=== PATIENT | female | born 1945 | race Caucasian/White ===

== ENCOUNTER 2015-12-25 12:02 | Outpatient (RCR) | payer MEDICARE, OTHER ==
[~2015-12-25 12:02] MED LIST: ANAS1TAB7 PO; BUTA-167 PO; CALC-656 PO; CITA20TA4 PO; CLOR3.755 PO; DEPRESSION; ESTR0.455; ETOD400T PO; FEXO-104 PO; FEXO180T PO; GBPN100C PO; HYDR1TAB8 OP; MULT-608 PO; NERVE PILL; NITR100C PO; OMEP20TA2 PO; OMG1KC PO; OXYC-12 PO; OXYC-309 PO; TRAM50TA2 PO
[2015-12-25 12:35] LABS: BASOPHILS % (AUTO) 1 % (0-10); EOSINOPHILS # (AUTO) 0.1 10^3/uL (0.0-0.3); EOSINOPHILS % (AUTO) 2 % (0-10); LYMPHOCYTES # (AUTO) 1.4 X 10^3 (1.0-4.0); LYMPHOCYTES % (AUTO) 40 % (12-44); MEAN CORPUSCULAR HGB CONC 33 G/DL (32-36); MEAN CORPUSCULAR VOLUME 92 FL (80-99); MEAN PLATELET VOLUME 8.4 FL (7.4-10.4); MONOCYTES # (AUTO) 0.3 X 10^3 (0.0-1.0); MONOCYTES % (AUTO) 8 % (0-12); NEUTROPHILS # (AUTO) 1.7 X 10^3 (1.8-7.8); NEUTROPHILS % (AUTO) 48 % (42-75); PLATELET COUNT 232 10^3/uL (130-400); RED CELL DISTRIBUTION WIDTH 13.5 % (10.0-14.5); WHITE BLOOD COUNT 3.5 10^3/uL (4.3-11.0)
[2015-12-25 12:37] LABS: MEAN CORPUSCULAR HEMOGLOBIN 30 PG (25-34)
[2015-12-25 13:05] LABS: ALBUMIN 3.8 G/DL (3.2-4.5); BILIRUBIN,TOTAL 0.3 MG/DL (0.1-1.0); CREATININE SERUM 1.06 MG/DL (0.60-1.30); POTASSIUM 4.1 MMOL/L (3.6-5.0); TOTAL PROTEIN 6.5 G/DL (6.4-8.2)
== END 2016-03-24 | disposition home or self-care (01) ==
LOC: ONC 12:02
PROVIDERS: ATTEND Internal Medicine Hematology & Oncology
DX: Z08 Encounter for follow-up examination after completed treatment for malignant neoplasm (principal); Z85.3 Personal history of malignant neoplasm of breast; Z90.12 Acquired absence of left breast and nipple
CPT/HCPCS: 80053; 85025; 86300

== ENCOUNTER → 2016-06-19 | Outpatient (CLI) | payer MEDICARE, OTHER ==
[~2016-06-19] VITALS: Ht 170.2 cm; Wt 71.7 kg
[~2016-06-19] MED LIST changes: +LEVOFLOXACIN 500 MG/100 ML IV 100 ML ONE; +LEVOFLOXACIN 500 MG/D5W 100 ML (PRE-MIX) IV ONE; +NS IV 1000 ML 1,000 ML IV SCH; +NS IV 1000 ML 1,000 ML ONE
[2016-06-19 11:45] VITALS: BP 101/65
[2016-06-19 12:01] LABS: MEAN PLATELET VOLUME 8.5 FL (7.4-10.4); RED BLOOD COUNT 4.18 10^6/uL (4.35-5.85); RED CELL DISTRIBUTION WIDTH 13.6 % (10.0-14.5)
[2016-06-19 12:23] LABS: ALBUMIN 3.3 G/DL (3.2-4.5); BILIRUBIN,TOTAL 0.4 MG/DL (0.1-1.0); CALCIUM 8.5 MG/DL (8.5-10.1); CREATININE SERUM 1.04 MG/DL (0.60-1.30); TOTAL PROTEIN 6.1 G/DL (6.4-8.2)
[2016-06-19 14:25] LABS: BILIRUBIN,URINE NEGATIVE (NEGATIVE); KETONES,URINE NEGATIVE (NEGATIVE); LEUKOCYTE ESTERASE ,URINE NEGATIVE (NEGATIVE); NITRITE,URINE NEGATIVE (NEGATIVE); PH,URINE 7 (5-9); PROTEIN,URINE NEGATIVE (NEGATIVE); UROBILINOGEN,URINE NORMAL (NORMAL)
[2016-06-19 14:38] LABS: SQUAMOUS EPITHELIAL CELL,UR RARE /HPF; WBC,URINE RARE /HPF
== END ==
LOC: SDC 11:18
PROVIDERS: ATTEND Nurse Practitioner Family
DX: E86.0 Dehydration (principal); J40 Bronchitis, not specified as acute or chronic; R50.9 Fever, unspecified
CPT/HCPCS: 36415; 80053; 81000; 85027; 96365; 96366

== ENCOUNTER → 2016-07-07 | Outpatient (CLI) | payer MEDICARE, OTHER ==
[~2016-07-07] MED LIST changes: -LEVOFLOXACIN 500 MG/100 ML IV 100 ML ONE; -LEVOFLOXACIN 500 MG/D5W 100 ML (PRE-MIX) IV ONE; -NS IV 1000 ML 1,000 ML IV SCH; -NS IV 1000 ML 1,000 ML ONE
--- NOTE | 2016-07-07 14:09 | Diagnostic Imaging Report ---
EXAMINATION: Right breast ultrasound. INDICATION: Followup 10 o'clock lesion seen on prior ultrasound. This would also be the time for a 6 month followup study after the biopsy performed in October 2015. FINDINGS: Again seen is a 4 x 3 x 3 mm hypoechoic lesion at the 10 o'clock zone 2 cm from the nipple. This is now significantly smaller compared to the prior measurements of 5 x 5 x 5 cm when compared to 11/15/2015 and this may relate to post biopsy changes. The lesion remains circumscribed and without internal increased color Doppler signal. IMPRESSION: The 4 mm circumscribed hypoechoic lesion has decreased in size compared to October 2015 and is likely related to post biopsy changes with no adverse development. A mammogram evaluation is pending. ACR BI-RADS Category 0: Incomplete. (Needs additional imaging evaluation). Result letter will be mailed to the patient. Note: At least 10% of breast cancer is not imaged by mammography. Dictated by: Dictated on workstation # [id number]
--- NOTE | 2016-07-07 17:05 | Diagnostic Imaging Report ---
EXAMINATION: Right breast diagnostic mammogram with a Computer Aided Detection (CAD) system. INDICATION: Lesion at the 10 o'clock zone seen in the right breast, post biopsy followup. COMPARISON: Previous exams are reviewed including 12/29/2013. FINDINGS: The Pathology report demonstrates periductal fibrosis and mild chronic inflammation with no malignancy seen. There is heterogeneously dense parenchyma in the breast with no new abnormality identified. A biopsy clip in the central aspect of the right breast is seen. IMPRESSION: Benign Pathology results with stable mammographic findings. The ultrasound abnormality is also smaller in size with no adverse development, consistent with benign etiology. Another followup with a mammogram and ultrasound in 12 months is recommended to ensure long-term stability. ACR BI-RADS Category 3: Probably benign findings. Result letter will be mailed to the patient. Note: At least 10% of breast cancer is not imaged by mammography. Dictated by: Dictated on workstation # [id number]
== END ==
LOC: RAD 09:03
PROVIDERS: ATTEND Nurse Practitioner Family
DX: R92.8 Other abnormal and inconclusive findings on diagnostic imaging of breast (principal)

== ENCOUNTER → 2016-07-30 | Outpatient (CLI) | payer MEDICARE, OTHER ==
--- NOTE | 2016-07-30 15:31 | Diagnostic Imaging Report ---
Three views of the nasal bones. INDICATION: Fall. FINDINGS: No fracture or dislocation in the nasal bones is seen. The orbits and paranasal sinuses appear grossly unremarkable. IMPRESSION: No nasal bone fracture. Dictated by: Dictated on workstation # [id number]
== END ==
LOC: RAD 10:29
PROVIDERS: ATTEND Nurse Practitioner Family
DX: S09.92XA Unspecified injury of nose, initial encounter (principal); W19.XXXA Unspecified fall, initial encounter; Y99.8 Other external cause status
CPT/HCPCS: 70160

== ENCOUNTER 2016-08-08 14:40 | Emergency (ER) | payer MEDICARE, OTHER ==
[~2016-08-08] VITALS: Ht 170.2 cm; Wt 72.6 kg
[2016-08-08] MEDS ORDERED: OXYMETAZOLINE (AFRIN) 0.05% NA 15 ML BTL ONE (14:46)
--- NOTE | 2016-08-08 14:51 | ED Fall/Injury ---
General Chief Complaint: Trauma-Non Activation Stated Complaint: FALL, FACIAL INJ Source: patient Exam Limitations: no limitations History of Present Illness Time seen by provider: 14:49 Initial Comments To ER with reports of a fall. Patient was taking out the trash when she stumbled landing face first. She has a bloody nose. No loss of consciousness or neck pain. She does have a headache. Tetanus is not up-to-date per just has pain in the right forearm from the right elbow to the right wrist and bruising and abrasions to both knees anteriorly. She is not on a blood thinner. Occurred: just prior to arrival Severity: moderate Injuries/Pain Location: face Context: unknown Associated Symptoms (Fall): Headache, No Nausea/Vomiting, No Neck Pain Allergies and Home Medications Allergies Coded Allergies: codeine (Verified Allergy, Unknown, 05/10/09) pseudoephedrine (Unverified Allergy, Unknown, NERVOUSNESS, 12/28/15) Home Medications Amoxicillin 500 Mg Capsule, 500 MG PO TID, #21 Prescribed by: FREDERIC GALVAN on 08/08/16 1558 Anastrozole 1 Mg Tablet, 1 MG PO DAILY, (Reported) Butalbital/Aspirin/Caffeine 1 Each Tablet, 1 EACH PO Q6H PRN, (Reported) FOR HEADACHE Calcium Carbonate/Vitamin D3 1 Each Tablet, 1 EACH PO DAILY, (Reported) Citalopram Hydrobromide 20 Mg Tablet, 20 MG PO DAILY, (Reported) Clorazepate Dipotassium 3.75 Mg Tablet, 1 EACH PO BID, (Reported) Etodolac 400 Mg Tablet, 1 EACH PO DAILY, (Reported) Fexofenadine Hcl 180 Mg Tablet, 1 TAB PO DAILY, (Reported) Gabapentin 100 Mg Cap, 100 MG PO TID, (Reported) Hydrocodone Bit/Ibuprofen 1 Each Tablet, 1-2 EACH OP Q 4 - 6 HRS PRN, #20 FOR PAIN Prescribed by: JOZEF BRODY on 07/27/12 2150 Hydrocodone/Acetaminophen 1 Each Tablet, 1 EACH PO Q6H PRN for PAIN-MODERATE TO SEVERE, #20 Prescribed by: FREDERIC GALVAN on 08/08/16 1558 Multivitamins 1 Tab Tablet, 1 TAB PO DAILY, (Reported) [place] 3 Polyunsat Fatty Acids 1,000 Mg Cap, 1,000 MG PO BID, (Reported) Omeprazole 20 Mg Tablet.dr, 20 MG PO DAILY, (Reported) Tramadol Hcl 50 Mg Tablet, 50 MG PO Q6H PRN, (Reported) Constitutional: see HPI Eyes: No Symptoms Reported Ears, Nose, Mouth, Throat: see HPI Respiratory: no symptoms reported Cardiovascular: no symptoms reported Genitourinary: no symptoms reported Musculoskeletal: no symptoms reported Skin: no symptoms reported Psychiatric/Neurological: No Symptoms Reported Past Ivswjpq-Obsggc-Psgexn Hx Patient Social History Recent Foreign Travel: No Contact w/Someone Who Travel: No Immunizations Up To Date Date of Pneumonia Vaccine: Dec 20, 2010 Date of Influenza Vaccine: Jan 19, 2011 Surgeries HX Surgeries: Yes Respiratory Hx Respiratory Disorders: No Cardiovascular Hx Cardiac Disorders: No Neurological Hx Neurological Disorders: Yes Genitourinary Hx Genitourinary Disorders: No Gastrointestinal Hx Gastrointestinal Disorders: Yes Gastrointestinal Disorders: Gastroesophageal Reflux Musculoskeletal Hx Musculoskeletal Disorders: Yes Musculoskeletal Disorders: Arthritis Endocrine Hx Endocrine Disorders: No HEENT HX ENT Disorders: Yes (PARTIAL PLATE) Cancer Hx Cancer: Yes Cancer: Breast Psychosocial Hx Psychiatric Problems: Yes Behavioral Health Disorders: Anxiety, Depression Integumentary HX Skin/Integumentary Disorder: No Blood Transfusions Hx Blood Disorders: No Physical Exam Vital Signs Vital Sign - Last 12Hours 08/08/16 14:57 Temp 98.2 Pulse 96 Resp 18 B/P (MAP) 128/76 Pulse Ox 96 Capillary Refill : General Appearance: WD/WN, no apparent distress HEENT: PERRL/EOMI, TMs normal, other (Ecchymosis and abrasions to the bridge of the nose and the right eyebrow. There is active epistaxis from both nares though this is not uncontrollable. We will treat with oximetry was seen as she does have normal blood pressure 128/73.) Neck: non-tender, full range of motion, No tender lateral, No tender midline Cardiovascular: regular rate, rhythm, no murmur Respiratory: no respiratory distress, no accessory muscle use Gastrointestinal: normal bowel sounds, non tender, soft Neurologic/Psychiatric: alert, normal mood/affect, oriented x 3 Skin: normal color, warm/dry Progress/Results/Core Measures Results/Orders My Orders Orders - FREDERIC GALVAN APRN Ct Head/Face/Cervical Wo (08/08/16 14:43) Dipht,Pertuss(Acell),Tet Adult (Boostrix (08/08/16 15:00) Forearm, Right, 2 Views (08/08/16 14:48) Knee, 3 Views, Bilateral (08/08/16 14:48) Oxymetazoline 0.05% Nasal [place] (Afrin 0. (08/08/16 21:00) Oxymetazoline 0.05% Nasal [place] (Afrin 0. (08/08/16 14:46) Dipht,Pertuss(Acell),Tet Adult (Boostrix (08/08/16 14:46) Hydrocodone/Apap 5/325 Tablet (Lortab 5 (08/08/16 16:15) Medications Given in ED Current Medications Medications Dose Ordered Sig/[place] Route Start Time Stop Time Status Last Admin Dose Admin Acetaminophen/ Hydrocodone Bitart 1 tab ONCE ONCE PO 08/08/16 16:15 08/08/16 16:16 DC 08/08/16 16:14 1 TAB Diphtheria/ Tetanus/Acell Pertussis 0.5 ml ONCE ONCE IM 08/08/16 15:00 08/08/16 15:01 DC 08/08/16 14:54 0.5 ML Vital Signs/I&O Vital Sign - Last 12Hours 08/08/16 14:57 Temp 98.2 Pulse 96 Resp 18 B/P (MAP) 128/76 Pulse Ox 96 Diagnostic Imaging Diagonstic Imaging: Xray, CT Comments NAME: MAHENDRA MASON [facility] REC#: [id number] PT STATUS: REG ER : 1945 PHYSICIAN: FREDERIC GALVAN HOT STAMP OPERATOR ADMIT DATE: 08/08/16/ER Draft Date of Exam:08/08/16 CT HEAD/FACE/CERVICAL WO PROCEDURE: CT head, face, and cervical spine without contrast. TECHNIQUE: Multiple contiguous axial images were obtained through the head, neck, and facial bones without the use of intravenous contrast. Sagittal and coronal reformations through the cervical spine and facial bones were also performed. INDICATION: Fall. Head injury. COMPARISON: None. FINDINGS: Head CT: No acute intracranial hemorrhage, mass effect or edema is demonstrated. Michelle-white junction is preserved. Ventricles appear normal. The paranasal sinuses and mastoids are clear as visualized. Maxillofacial CT: There is soft tissue swelling/hematoma over the right frontal/periorbital region. There is a comminuted nondisplaced nasal fracture. No additional fracture is demonstrated. Orbits appear intact. The ostiomeatal units are patent bilaterally. There is minimal tortuosity of nasal septum to the left. There is incidental minimal mucosal thickening in the maxillary sinuses bilaterally, likely chronic. The globes appear symmetric bilaterally without intraorbital mass seen. Cervical spine CT: No acute fracture, malalignment or osseous destructive process is seen. Vertebral body heights are maintained. There is disc space narrowing and spurring throughout the cervical spine most severe at C5-C6 and C6-C7. No acute soft tissue abnormality is suspected. IMPRESSION: 1. No evidence of an acute intracranial abnormality. 2. No evidence of acute cervical spine fracture. There are diffuse degenerative changes in the cervical spine. 3. Comminuted nondisplaced nasal fracture and right frontal periorbital soft tissue hematoma. No additional maxillofacial abnormality is suspected. 4. Incidental minimal maxillary sinus inflammatory changes, likely chronic. Dictated on workstation # [id number] Dict: 08/08/16 1539 Trans: 08/08/16 1551 KB [id number] Interpreted by: DYLAN MANUEL DO Electronically signed by: Departure Communication Progress Notes She remains neurovascularly intact. I've placed her in a posterior long-arm splint using 4 inch Ortho-Glass in a sling. Instructed to follow-up with orthopedics calling on Wednesday. Impression Impression: Primary Impression: Radius fracture Additional Impressions: Nasal bone fracture Fall Epistaxis Disposition: 01 HOME, SELF-CARE Condition: Stable Departure-Patient Inst. Decision time for Depature: 15:56 Referrals: DANIEL TYLER MD (PCP/Family) Primary Care Physician YESENIA HALL JONATHAN MD IPSEN, BRIAN J MD MCNEMAR, MARK E DO OGDEN, JOHN T MD ZAFUTA,JOVANNA Patel MD Patient Instructions: Forearm Fracture (DC), Nose Fracture Add. Discharge Instructions: 1. Antibiotics as directed for the nasal fracture 2. Pain medication as needed 3. Wear the splint at all times until you follow up with orthopedics. Call orthopedic surgeon of your choosing on Wednesday to make an appointment to be seen within the next 1-2 weeks. Return to ER for any intolerable pain, numbness of the fingers or other concerns All discharge instructions reviewed with patient and/or family. Voiced understanding. Scripts Amoxicillin (Amoxicillin) 500 Mg Capsule 500 MG PO TID, #21 CAP . Prov: FREDERIC GALVAN APRN 08/08/16 Hydrocodone/Acetaminophen ([place] 5-325 Tablet) 1 Each Tablet 1 EACH PO Q6H Y for PAIN-MODERATE TO SEVERE, #20 TAB Prov: FREDERIC GALVAN APRN 08/08/16 Copy Copies To 1: DANIEL TYLER MD, PETER J APRN August 08, 2016 14:51
[2016-08-08] MEDS: TETANUS,DIPTH,PERTUSS P/F (BOOSTRIX) 0.5 ML VIAL IM ONE ×2 (14:54→14:56)
[2016-08-08] MEDS ORDERED: TETANUS,DIPTH,PERTUSS P/F (BOOSTRIX) 0.5 ML VIAL IM ONE (15:00)
--- NOTE | 2016-08-08 15:38 | Diagnostic Imaging Report ---
INDICATION: Fall. Pain. COMPARISON: None. FINDINGS: Three views of both knees are obtained. No acute fracture, malalignment or osseous destructive process is seen. Joint spaces are preserved. The soft tissues appear unremarkable. IMPRESSION: No acute abnormalities demonstrated. Dictated by: Dictated on workstation # [id number]
--- NOTE | 2016-08-08 15:40 | Diagnostic Imaging Report ---
INDICATION: Fall. Pain. COMPARISON: None. EXAMINATION: Two views of the right forearm were obtained. FINDINGS: There is a slightly angulated impacted nondisplaced fracture of the radial neck. No additional fracture, malalignment or osseous destructive process is seen. There is deformity of the distal radius from an old healed fracture. There is a small joint effusion at the elbow. IMPRESSION: There is an impacted nondisplaced mildly angulated radial neck fracture. Report was called to Wilfrid Caban APRN, in the [facility] ER at 3:38 p.m., by joshua. Dictated by: Dictated on workstation # [id number]
--- NOTE | 2016-08-08 15:52 | Diagnostic Imaging Report ---
PROCEDURE: CT head, face, and cervical spine without contrast. TECHNIQUE: Multiple contiguous axial images were obtained through the head, neck, and facial bones without the use of intravenous contrast. Sagittal and coronal reformations through the cervical spine and facial bones were also performed. INDICATION: Fall. Head injury. COMPARISON: None. FINDINGS: Head CT: No acute intracranial hemorrhage, mass effect or edema is demonstrated. Michelle-white junction is preserved. Ventricles appear normal. The paranasal sinuses and mastoids are clear as visualized. Maxillofacial CT: There is soft tissue swelling/hematoma over the right frontal/periorbital region. There is a comminuted nondisplaced nasal fracture. No additional fracture is demonstrated. Orbits appear intact. The ostiomeatal units are patent bilaterally. There is minimal tortuosity of nasal septum to the left. There is incidental minimal mucosal thickening in the maxillary sinuses bilaterally, likely chronic. The globes appear symmetric bilaterally without intraorbital mass seen. Cervical spine CT: No acute fracture, malalignment or osseous destructive process is seen. Vertebral body heights are maintained. There is disc space narrowing and spurring throughout the cervical spine most severe at C5-C6 and C6-C7. No acute soft tissue abnormality is suspected. IMPRESSION: 1. No evidence of an acute intracranial abnormality. 2. No evidence of acute cervical spine fracture. There are diffuse degenerative changes in the cervical spine. 3. Comminuted nondisplaced nasal fracture and right frontal periorbital soft tissue hematoma. No additional maxillofacial abnormality is suspected. 4. Incidental minimal maxillary sinus inflammatory changes, likely chronic. Dictated by: Dictated on workstation # [id number]
[2016-08-08] MEDS ORDERED: AMOX500C2 PO ×2 (15:58→16:57)
[2016-08-08] MEDS ORDERED: HYDR-757 PO (15:58)
[2016-08-08] MEDS ORDERED: HYDROcodone/APAP 5 MG/325 MG (LORTAB) TAB PO ONE (16:15)
[2016-08-08 17:01] VITALS: BP 128/76
[2016-08-08] MEDS ORDERED: OXYMETAZOLINE (AFRIN) 0.05% NA 15 ML BTL SCH (21:00)
== END 2016-08-08 17:01 | disposition home or self-care (01) ==
LOC: EDUNIT# 14:40 → ER 14:41
DX: S52.134A Nondisplaced fracture of neck of right radius, initial encounter for closed fracture (principal); S02.2XXA Fracture of nasal bones, initial encounter for closed fracture; Z23 Encounter for immunization; S80.211A Abrasion, right knee, initial encounter; S80.212A Abrasion, left knee, initial encounter; S00.83XA Contusion of other part of head, initial encounter; R04.0 Epistaxis; J32.0 Chronic maxillary sinusitis; M47.812 Spondylosis without myelopathy or radiculopathy, cervical region; Z79.899 Other long term (current) drug therapy; W01.0XXA Fall on same level from slipping, tripping and stumbling without subsequent striking against object, initial encounter; Y92.017 Garden or yard in single-family (private) house as the place of occurrence of the external cause; Y99.8 Other external cause status
CPT/HCPCS: 29105; 70450; 70486; 72125; 73090; 90471; 90715

== ENCOUNTER → 2016-09-17 | Outpatient (CLI) | payer MEDICARE, OTHER ==
[~2016-09-17] MED LIST changes: +AMOX500C2 PO; +HYDR-757 PO
--- NOTE | 2016-09-17 18:33 | Diagnostic Imaging Report ---
Examination: DEXA scan. Indication: Osteopenia. Technique: Bone mineral density estimated based on dual energy radiography over the lumbar spine and femoral necks, was performed. Findings: The lumbar spine T-score is -2.7. T-score over the left femoral neck is -2.2 and on the right side is -2.4. Impression: Osteoporosis. Dictated by: Dictated on workstation # [id number]
== END ==
LOC: RAD 09:37
PROVIDERS: ATTEND Nurse Practitioner Family
DX: M81.0 Age-related osteoporosis without current pathological fracture (principal)
CPT/HCPCS: 77080

== ENCOUNTER → 2016-11-06 | Outpatient (CLI) | payer MEDICARE, OTHER ==
--- NOTE | 2016-11-06 18:06 | Diagnostic Imaging Report ---
PROCEDURE: CT head without contrast. TECHNIQUE: Multiple contiguous axial images were obtained through the brain without the use of intravenous contrast. INDICATION: Dizziness and headache with increased frequency of falls. FINDINGS: The ventricles are normal in size, shape, and position. There are no masses or hemorrhages. There are no extra-axial fluid collections. IMPRESSION: Negative CT head. Dictated by: Dictated on workstation # [id number]
== END ==
LOC: RAD 14:32
PROVIDERS: ATTEND Nurse Practitioner Family
DX: R42 Dizziness and giddiness (principal); R51 Headache
CPT/HCPCS: 70450

== ENCOUNTER 2017-01-04 16:14 | Outpatient (RCR) | payer MEDICARE, OTHER ==
[2017-01-04 10:39] LABS: BASOPHILS % (AUTO) 1 % (0-10); EOSINOPHILS # (AUTO) 0.1 10^3/uL (0.0-0.3); EOSINOPHILS % (AUTO) 3 % (0-10); HEMATOCRIT 39 % (35-52); HEMOGLOBIN 12.7 G/DL (11.5-16.0); LYMPHOCYTES # (AUTO) 1.6 X 10^3 (1.0-4.0); LYMPHOCYTES % (AUTO) 43 % (12-44); MEAN CORPUSCULAR HEMOGLOBIN 30 PG (25-34); MEAN CORPUSCULAR HGB CONC 33 G/DL (32-36); MEAN CORPUSCULAR VOLUME 92 FL (80-99); MEAN PLATELET VOLUME 8.3 FL (7.4-10.4); MONOCYTES # (AUTO) 0.3 X 10^3 (0.0-1.0); MONOCYTES % (AUTO) 9 % (0-12); NEUTROPHILS # (AUTO) 1.6 X 10^3 (1.8-7.8); NEUTROPHILS % (AUTO) 44 % (42-75); PLATELET COUNT 319 10^3/uL (130-400); RED BLOOD COUNT 4.18 10^6/uL (4.35-5.85); RED CELL DISTRIBUTION WIDTH 13.1 % (10.0-14.5); WHITE BLOOD COUNT 3.6 10^3/uL (4.3-11.0)
[2017-01-04 10:58] LABS: ALBUMIN 3.6 GM/DL (3.2-4.5); BILIRUBIN,TOTAL 0.4 MG/DL (0.1-1.0); CALCIUM 9.4 MG/DL (8.5-10.1); CREATININE SERUM 1.08 MG/DL (0.60-1.30); TOTAL PROTEIN 6.7 GM/DL (6.4-8.2)
== END 2017-04-04 | disposition home or self-care (01) ==
LOC: ONC 16:14
PROVIDERS: ATTEND Internal Medicine Hematology & Oncology
DX: Z08 Encounter for follow-up examination after completed treatment for malignant neoplasm (principal); Z85.3 Personal history of malignant neoplasm of breast; Z90.12 Acquired absence of left breast and nipple
CPT/HCPCS: 36415; 80053; 85025; 99213

== ENCOUNTER → 2017-07-06 | Outpatient (CLI) | payer MEDICARE, OTHER ==
[~2017-07-06] MED LIST changes: +CALC-654 PO; +CHOL500050 PO; +CITA20TA9 PO; +CYAN250010 PO; +DIAZ5TAB3 PO; +FEXO1TAB43 PO; +MELO15TA39 PO; +MULT-974 PO; +OMEP20CA12 PO; +TOPI50TA13 PO
--- NOTE | 2017-07-06 16:50 | Diagnostic Imaging Report ---
INDICATION: Routine screening. COMPARISON: 07/07/2016 and 11/15/2015. TECHNIQUE: Screening digital mammography was performed bilaterally with a Computer Aided Detection (CAD) system. FINDINGS: The right breast remains heterogeneously dense, limiting the sensitivity of mammography. A marker clip in the central right breast at mid depth is again noted. The parenchymal pattern appears stable. No dominant mass or malignant appearing microcalcifications are seen. The right axilla is unremarkable. IMPRESSION: Stable right mammogram. No mammographic features suspicious for malignancy are identified. ACR BI-RADS Category 2: Benign findings. Result letter will be mailed to the patient. Note: At least 10% of breast cancer is not imaged by mammography. Dictated by: Dictated on workstation # [id number]
== END ==
LOC: RAD 15:19
PROVIDERS: ATTEND Nurse Practitioner Family
DX: Z12.31 Encounter for screening mammogram for malignant neoplasm of breast (principal)

== ENCOUNTER → 2017-08-24 | Outpatient (CLI) | payer MEDICARE, OTHER ==
[~2017-08-24] MED LIST changes: -CALC-654 PO; -CHOL500050 PO; -CITA20TA9 PO; -CYAN250010 PO; -DIAZ5TAB3 PO; -FEXO1TAB43 PO; -MELO15TA39 PO; -MULT-974 PO; -OMEP20CA12 PO; -TOPI50TA13 PO
--- NOTE | 2017-08-24 16:10 | Diagnostic Imaging Report ---
INDICATION: Abdominal pain x4 months. KUB at 4:15 PM FINDINGS: Bowel gas pattern is normal. There is scoliosis of the lumbar spine with degenerative changes at L3-L4 and L4-L5. There are no pathologic masses or calcifications. There does not appear to be excessive amount of stool. IMPRESSION: No acute abnormalities in the abdomen. Dictated by: Dictated on workstation # [id number]
== END ==
LOC: RAD 15:36
PROVIDERS: ATTEND Family Medicine
DX: R10.9 Unspecified abdominal pain (principal)
CPT/HCPCS: 74019

== ENCOUNTER → 2017-09-02 | Outpatient (CLI) | payer MEDICARE, OTHER ==
--- NOTE | 2017-09-02 11:51 | Diagnostic Imaging Report ---
PROCEDURE: CT abdomen and pelvis without contrast. TECHNIQUE: Multiple contiguous axial images were obtained through the abdomen and pelvis without the use of intravenous contrast. INDICATION: Lower abdominal pain and bloating. COMPARISON: No prior studies are available for comparison. FINDINGS: The lung bases are clear. There is a large hiatal hernia present. The liver does contain a circumscribed low density in the left lobe measuring 15 mm, suggestive of a cyst. No other liver mass is identified. The gallbladder is unremarkable. The pancreas and spleen are unremarkable. No adrenal mass is detected. Kidneys are unremarkable. The aorta is calcified but nonaneurysmal. The small and large bowel loops are normal caliber. There is sigmoid diverticulosis but no evidence of acute diverticulitis. There is no ascites. No loculated fluid collection is seen. No inflammatory process is detected. The bladder is decompressed. IMPRESSION: 1. Diverticulosis without evidence of acute diverticulitis. 2. Moderate size hiatal hernia. 3. Hepatic cysts. 4. No acute feature in the abdomen or pelvis is identified. Dictated by: Dictated on workstation # [id number]
== END ==
LOC: RAD 10:09
PROVIDERS: ATTEND Family Medicine
DX: K57.30 Diverticulosis of large intestine without perforation or abscess without bleeding (principal); K76.89 Other specified diseases of liver; K44.9 Diaphragmatic hernia without obstruction or gangrene; R14.0 Abdominal distension (gaseous)
CPT/HCPCS: 74176

== ENCOUNTER → 2017-09-24 | Outpatient (CLI) | payer MEDICARE, OTHER ==
[~2017-09-24] MED LIST changes: +CALC-654 PO; +CATHETER FLUSH 10 ML SYR IV PRN; +CHOL500050 PO; +CITA20TA9 PO; +CYAN250010 PO; +DIAZ5TAB3 PO; +FEXO1TAB43 PO; +MELO15TA39 PO; +MULT-974 PO; +OMEP20CA12 PO; +TOPI50TA13 PO
--- NOTE | 2017-09-24 15:36 | Diagnostic Imaging Report ---
HEPATOBILIARY SCAN DATE: September 24, 2017. INDICATION: 71-year-old female, abdominal pain. COMPARISON: Right upper quadrant ultrasound, September 16, 2017. CT abdomen and pelvis, September 02, 2017. PROCEDURE: 5.42 mCi of Tc-99m choletec was administered intravenously and serial anterior planar images over the liver and upper abdomen were obtained. FINDINGS: There is clearance of background activity by the liver, indicating hepatocyte function. There is radiotracer excretion into the bile ducts with extension into small bowel. There is radiotracer filling of the gallbladder by 75 minutes. There is no enterogastric reflux. Ensure was administered for calculation of gallbladder ejection fraction. Gallbladder ejection fraction was calculated to be 65%. IMPRESSION: Normal hepatobiliary scan. No evidence of acute or chronic cholecystitis. Dictated by: Dictated on workstation # [id number]
== END ==
LOC: CARD 11:43
PROVIDERS: ATTEND Surgery
DX: R10.30 Lower abdominal pain, unspecified (principal)
CPT/HCPCS: 78227

== ENCOUNTER 2017-10-08 05:36 | Outpatient (CLI) | payer MEDICARE, OTHER ==
[~2017-10-08] VITALS: Ht 170.2 cm; Wt 70.3 kg
[~2017-10-08 05:36] MED LIST changes: -CALC-654 PO; -CATHETER FLUSH 10 ML SYR IV PRN; -CHOL500050 PO; -CITA20TA9 PO; -CYAN250010 PO; -DIAZ5TAB3 PO; -FEXO1TAB43 PO; -MELO15TA39 PO; -MULT-974 PO; -OMEP20CA12 PO; -TOPI50TA13 PO
[2017-10-08] MEDS ORDERED: OMG1KC PO (09:20)
[2017-10-08] MEDS ORDERED: CITA20TA9 PO (09:20)
[2017-10-08] MEDS ORDERED: FEXO1TAB43 PO (09:20)
[2017-10-08] MEDS ORDERED: TOPI50TA13 PO (09:20)
[2017-10-08] MEDS ORDERED: OMEP20CA12 PO (09:20)
[2017-10-08] MEDS ORDERED: MULT-974 PO (09:20)
[2017-10-08] MEDS ORDERED: MELO15TA39 PO (09:20)
[2017-10-08] MEDS ORDERED: CHOL500050 PO (09:20)
[2017-10-08] MEDS ORDERED: CYAN250010 PO (09:20)
[2017-10-08] MEDS ORDERED: CALC-654 PO (09:20)
[2017-10-08] MEDS ORDERED: DIAZ5TAB3 PO (09:20)
== END 2017-10-08 09:27 ==
LOC: PREOP 05:36
PROVIDERS: ATTEND Surgery
DX: Z01.818 Encounter for other preprocedural examination (principal)

== ENCOUNTER 2017-10-11 12:17 | Day surgery (SDC) | payer MEDICARE, OTHER ==
[~2017-10-11] VITALS: Ht 170.2 cm; Wt 70.3 kg
[~2017-10-11 12:17] MED LIST changes: +CALC-654 PO; +CHOL500050 PO; +CITA20TA9 PO; +CYAN250010 PO; +DIAZ5TAB3 PO; +FEXO1TAB43 PO; +MELO15TA39 PO; +MULT-974 PO; +OMEP20CA12 PO; +TOPI50TA13 PO
--- OUTSIDE RECORDS SUMMARY | 2017-10-11 12:26 | XMS REPORT | CCD ---
Author Author Karolina Ochoa Organization [facility] Address [address] [place] [address] Phone Care Team Providers Care Telecommunications Operator Name Role Phone PP Unavailable CCM Unavailable Summary Purpose Interface Exchange Insurance Providers Payer name Policy type / Coverage type Covered libertarian ID Effective Begin Date Effective End Date WPS Medicare Part B [id number] 2015 Unknown [employer] [id number] 2015 Unknown Family history Uncle Diagnosis Age At Onset Heart Attack Unknown Aunt Diagnosis Age At Onset Cancer Unknown Sister Diagnosis Age At Onset Breast cancer Unknown Father Diagnosis Age At Onset Diabetes Unknown Sister Diagnosis Age At Onset Breast cancer Unknown Mother Diagnosis Age At Onset Diabetes Unknown Depression Unknown Social History Social History Element Codes Description Effective Dates Marital status Unknown 12/27/2012 Employment Unknown Retired 12/27/[address]: 012332632 Never smoker 12/27/[address]: 826393261 Never drinks alcohol 12/27/2012 Has the patient ever used illegal drugs? Unknown Has never used illegal drugs 12/27/2012 Allergies, Adverse Reactions, Alerts Substance Reaction Codes Entered Date Inactivated Date Status bactrim abdominal pain RxNorm: 597862 10/22/2014 No Inactive Date Active Past Medical History Illness Codes Condition Status Onset Date Resolved Date Otalgia, right ear ICD -9: 388.70 ICD-10: H92.01 Active 03/12/2017 Unknown Other acute sinusitis ICD-9: 461.8 ICD-10: J01.80 Active 01/20/2017 Unknown Other allergic rhinitis ICD-9: 477.8 ICD-10: J30.89 Active 01/20/2017 Unknown Gastro-esophageal reflux disease without esophagitis ICD-9: 530.81 ICD-10: K21.9 Active 01/20/2017 Unknown Encounter for immunization ICD-9: V06.6 ICD-10: Z23 Active 01/11/2017 Unknown Dizziness and giddiness ICD-9: 780.4 ICD-10: R42 Active 08/14/2016 Unknown Gas pain ICD-9: 787.3 ICD-10: R14.1 Active 11/03/2016 Unknown Headache ICD-9: 784.0 ICD-10: R51 Active 07/30/2016 Unknown Radiculopathy, lumbar region ICD-9: 724.4 ICD-10: M54.16 Active 11/03/2016 Unknown Age-related osteoporosis without current pathological fracture ICD-9: 733.00 ICD-10: M81.0 Active 09/29/2016 Unknown Encounter for general adult medical examination with abnormal findings ICD-9: V70.0 ICD-10: Z00.01 Active 09/29/2016 Unknown Generalized anxiety disorder ICD-9: 300.02 ICD-10: F41.1 Active 09/29/2016 Unknown Rash and other nonspecific skin eruption ICD-9: 782.1 ICD-10: R21 Active 08/31/2016 Unknown Fracture of nasal bones, initial encounter for closed fracture ICD-9: 802.0 ICD-10: S02.2XXA Active 08/14/2016 Unknown Nondisplaced fracture of neck of right radius, initial encounter for closed fracture ICD-9: 813.06 ICD-10: S52.134A Active 08/14/2016 Unknown Orthostatic hypotension ICD-9: 458.0 ICD-10: I95.1 Active 08/14/2016 Unknown Contusion of nose, initial encounter ICD-9: 920 ICD-10: S00.33XA Active 07/30/2016 Unknown Pain in left shoulder ICD-9: 719.41 ICD-10: M25.512 Active 07/30/2016 Unknown Candidal stomatitis ICD-9: 112.0 ICD-10: B37.0 Active 06/16/2016 Unknown Cough ICD-9: 786.2 ICD-10: R05 Active 04/03/2014 Unknown Acute bronchitis, unspecified ICD-9: 466.0 ICD-10: J20.9 Active 02/19/2015 Unknown Acute recurrent maxillary sinusitis ICD-9: 461.0 ICD-10: J01.01 Active 05/11/2016 Unknown Allergic rhinitis due to pollen ICD-9: 477.9 ICD-10: J30.1 Active 12/29/2013 Unknown Encounter for immunization ICD-9: V04.81 ICD-10: Z23 Active 01/10/2013 Unknown Mastodynia ICD-9: 611.71 ICD-10: N64.4 Active 12/24/2015 Unknown Migraine, unspecified, not intractable, without status migrainosus ICD-9: 346.90 ICD-10: G43.909 Active 11/06/2015 Unknown Plantar wart ICD-9: 078.12 ICD-10: B07.0 Active 05/01/2014 Unknown Other acute sinusitis ICD-9: 461.9 ICD-10: J01.80 Active 08/02/2013 Unknown Rash ICD-9: 782.1 Active 12/09/2014 Unknown SPONTANEOUS ECCHYMOSES ICD-9: 782.7 Active 11/20/2014 Unknown Low back pain ICD-9: 724.2 Active 10/22/2014 Unknown DYSURIA ICD-9: 788.1 Active 10/21/2014 Unknown Anxiety ICD-9: 300.00 Active 09/03/2014 Unknown Gastroesophageal reflux disease ICD-9: 530.81 Active 2014 Unknown Actinic keratosis due to exposure to sunlight ICD-9: 702.0 Active 05/01/2014 Unknown PLANTAR WART ICD-9: 078.12 Active 05/01/2014 Unknown Cough ICD-9: 786.2 Active 04/03/2014 Unknown Constipation ICD-9: 564.00 Active 02/08/2014 Unknown ALLERGIC RHINITIS ICD- 9: 477.9 Active 12/29/2013 Unknown Tension headache ICD-9 : 307.81 Active 12/21/2013 Unknown Urinary tract infection ICD-9: 599.0 Active 10/31/2013 Unknown PAIN IN LIMB ICD-9: 729.5 Active 08/23/2013 Unknown Skin change ICD-9: 782.9 Active 08/23/2013 Unknown Wart viral ICD-9: 078.10 Active 08/23/2013 Unknown Thrush ICD-9: 112.0 Active 08/10/2013 Unknown ACUTE SINUSITIS ICD-9 : 461.9 Active 08/02/2013 Unknown HEADACHE ICD-9: 784.0 Active 08/02/2013 Unknown Muscle spasms of neck ICD-9: 728.85 Active 07/18/2013 Unknown Pain in left knee ICD- 9: 719.46 Active 07/18/2013 Unknown Shoulder pain, right ICD-9: 719.41 Active 07/18/2013 Unknown DIZZINESS AND GIDDINESS ICD-9: 780.4 Active 06/27/2013 Unknown Fatigue ICD-9: 780.79 Active 06/27/2013 Unknown Migraine headache ICD- 9: 346.90 Active 06/27/2013 Unknown Myalgia ICD-9: 729.1 Active 06/27/2013 Unknown Nausea ICD-9: 787.02 Active 06/27/2013 Unknown Multiple joint pain ICD-9: 719.49 Active 06/01/2013 Unknown History of UTI ICD-9: V13.02 Inactive 12/27/2012 Unknown Dyspnea ICD-9: 786.09 Resolved 01/10/2013 Unknown Pneumonia ICD-9: 486 Resolved 05/15/2013 Unknown Vaginal yeast infection ICD-9: 112.1 Resolved 12/27/2012 Unknown BPPV (benign paroxysmal positional vertigo) ICD-9: 386.11 Active 02/02/2013 Unknown VACCIN FOR INFLUENZA ICD-9: V04.81 Active 01/10/2013 Unknown Scoliosis Unknown Active 12/27/2012 Unknown Cerumen impaction ICD- 9: 380.4 Active 12/27/2012 Unknown Problems Condition Codes Effective Dates Condition Status Otalgia, right ear ICD -9: 388.70 ICD-10: H92.01 03/12/2017 Active Other acute sinusitis ICD-9: 461.8 ICD-10: J01.80 01/20/2017 Active Other allergic rhinitis ICD-9: 477.8 ICD-10: J30.89 01/20/2017 Active Gastro-esophageal reflux disease without esophagitis ICD-9: 530.81 ICD-10: K21.9 01/20/2017 Active Encounter for immunization ICD-9: V06.6 ICD-10: Z23 01/11/2017 Active Dizziness and giddiness ICD-9: 780.4 ICD-10: R42 08/14/2016 Active Gas pain ICD-9: 787.3 ICD-10: R14.1 11/03/2016 Active Headache ICD-9: 784.0 ICD-10: R51 07/30/2016 Active Radiculopathy, lumbar region ICD-9: 724.4 ICD-10: M54.16 11/03/2016 Active Age-related osteoporosis without current pathological fracture ICD-9: 733.00 ICD-10: M81.0 09/29/2016 Active Encounter for general adult medical examination with abnormal findings ICD-9: V70.0 ICD-10: Z00.01 09/29/2016 Active Generalized anxiety disorder ICD-9: 300.02 ICD-10: F41.1 09/29/2016 Active Rash and other nonspecific skin eruption ICD-9: 782.1 ICD-10: R21 08/31/2016 Active Fracture of nasal bones, initial encounter for closed fracture ICD-9: 802.0 ICD-10: S02.2XXA 08/14/2016 Active Nondisplaced fracture of neck of right radius, initial encounter for closed fracture ICD-9: 813.06 ICD-10: S52.134A 08/14/2016 Active Orthostatic hypotension ICD-9: 458.0 ICD-10: I95.1 08/14/2016 Active Contusion of nose, initial encounter ICD-9: 920 ICD-10: S00.33XA 07/30/2016 Active Pain in left shoulder ICD-9: 719.41 ICD-10: M25.512 07/30/2016 Active Candidal stomatitis ICD-9: 112.0 ICD-10: B37.0 06/16/2016 Active Cough ICD-9: 786.2 ICD-10: R05 04/03/2014 Active Acute bronchitis, unspecified ICD-9: 466.0 ICD-10: J20.9 02/19/2015 Active Acute recurrent maxillary sinusitis ICD-9: 461.0 ICD-10: J01.01 05/11/2016 Active Allergic rhinitis due to pollen ICD-9: 477.9 ICD-10: J30.1 12/29/2013 Active Encounter for immunization ICD-9: V04.81 ICD-10: Z23 01/10/2013 Active Mastodynia ICD-9: 611.71 ICD-10: N64.4 12/24/2015 Active Migraine, unspecified, not intractable, without status migrainosus ICD-9: 346.90 ICD-10: G43.909 11/06/2015 Active Plantar wart ICD-9: 078.12 ICD-10: B07.0 05/01/2014 Active Other acute sinusitis ICD-9: 461.9 ICD-10: J01.80 08/02/2013 Active Rash ICD-9: 782.1 12/09/2014 Active SPONTANEOUS ECCHYMOSES ICD-9: 782.7 11/20/2014 Active Low back pain ICD-9: 724.2 10/22/2014 Active DYSURIA ICD-9: 788.1 10/21/2014 Active Anxiety ICD-9: 300.00 09/03/2014 Active Gastroesophageal reflux disease ICD-9: 530.81 09/03/2014 Active Actinic keratosis due to exposure to sunlight ICD-9: 702.0 05/01/2014 Active PLANTAR WART ICD-9: 078.12 05/01/2014 Active Cough ICD-9: 786.2 04/03/2014 Active Constipation ICD-9: 564.00 02/08/2014 Active ALLERGIC RHINITIS ICD- 9: 477.9 12/29/2013 Active Tension headache ICD-9 : 307.81 12/21/2013 Active Urinary tract infection ICD-9: 599.0 10/31/2013 Active PAIN IN LIMB ICD-9: 729.5 08/23/2013 Active Skin change ICD-9: 782.9 08/23/2013 Active Wart viral ICD-9: 078.10 08/23/2013 Active Thrush ICD-9: 112.0 08/10/2013 Active ACUTE SINUSITIS ICD-9 : 461.9 08/02/2013 Active HEADACHE ICD-9: 784.0 08/02/2013 Active Muscle spasms of neck ICD-9: 728.85 07/18/2013 Active Pain in left knee ICD- 9: 719.46 07/18/2013 Active Shoulder pain, right ICD-9: 719.41 07/18/2013 Active DIZZINESS AND GIDDINESS ICD-9: 780.4 06/27/2013 Active Fatigue ICD-9: 780.79 06/27/2013 Active Migraine headache ICD- 9: 346.90 06/27/2013 Active Myalgia ICD-9: 729.1 06/27/2013 Active Nausea ICD-9: 787.02 06/27/2013 Active Multiple joint pain ICD-9: 719.49 06/01/2013 Active History of UTI ICD-9: V13.02 12/27/2012 Inactive Dyspnea ICD-9: 786.09 01/10/2013 Resolved Pneumonia ICD-9: 486 05/15/2013 Resolved Vaginal yeast infection ICD-9: 112.1 12/27/2012 Resolved BPPV (benign paroxysmal positional vertigo) ICD-9: 386.11 02/02/2013 Active VACCIN FOR INFLUENZA ICD-9: V04.81 01/10/2013 Active Scoliosis Unknown 12/27/2012 Active Cerumen impaction ICD- 9: 380.4 12/27/2012 Active Medications Medication Codes Instructions Start Date Stop Date Status Fill Instructions Mobic 15 mg tablet RxNorm: 188375 TAKE 1 TABLET EVERY DAY 10/201706/21/2018 Active Augmentin 500 mg-125 mg tablet RxNorm: 271983 1 Tablet(s) PO TID 03/12/2017 03/21/2017 Inactive prednisone 20 mg tablet RxNorm: 308385 2 Tablet(s) PO daily 03/16/2017 Inactive diazepam 5 mg tablet RxNorm: 011239 1 Tablet(s) PO BID 201602/04/2018 Active omeprazole 20 mg capsule,delayed release RxNorm: 036000 TAKE 1 CAPSULE EVERY DAY 01/26/2017 01/20/2018 Active topiramate 50 mg tablet RxNorm: 060749 1 Tablet(s) PO daily 09/201601/20/2018 Active citalopram 20 mg tablet RxNorm: 484077 TAKE 1 TABLET EVERY DAY 01/21/2017 10/17/2017 Active omeprazole 20 mg capsule,delayed release RxNorm: 809136 Capsule(s) TAKE 1 CAPSULE EVERY DAY 01/20/2017 01/25/2017 Inactive topiramate 50 mg tablet RxNorm: 547722 Tablet(s) PO daily 25mg QD x 1 week then if needed increase to 50mg QD 01/20/2017 01/25/2017 Inactive [SAVINGS FOR NON- COVERED DRUGS -- BIN:611394, PCN: ASPROD1, Group: XXXXX, ID# [id number], Questions : . THIS IS NOT INSURANCE.] Zithromax Z-Nitin 250 mg tablet RxNorm: 792007 1 Tablet(s) PO UD 01/20/2017 01/24/2017 Inactive Kenalog 40 mg/mL suspension for injection RxNorm: 2526210 Milliliter(s) Inj 01/20/2017 01/20/2017 Inactive Bonnie 180 mg tablet RxNorm: 065360 TAKE 1 TABLET EVERY DAY 12/05/2017 Active Forteo 20 mcg/dose (600 mcg/2.4 mL) subcutaneous pen injector RxNorm: 6566621 20 Microgram(s) SQ daily 10/11/2016 Inactive Dispense quantity sufficient triamcinolone acetonide 0.025 % topical cream RxNorm: 7387469 1 Application TOP BID 08/31/2016 No Stop Date Active doxycycline hyclate 100 mg capsule RxNorm: 1289492 1 Capsule(s) PO BID 08/31/2016 09/09/2016 Inactive meclizine 25 mg tablet RxNorm: 320248 1 Tablet(s) PO Q6 PRN No Stop Date Active Cipro 500 mg tablet RxNorm: 388711 1 Tablet(s) PO BID 201608/23/2016 Inactive amoxicillin 500 mg capsule RxNorm: 616283 1 Capsule(s) PO TID 08/08/2016 08/13/2016 Inactive citalopram 20 mg tablet RxNorm: 139915 TAKE 1 TABLET EVERY DAY 06/29/2016 01/20/2017 Inactive fluconazole 150 mg tablet RxNorm: 118817 1 Tablet(s) PO daily 06/16/2016 06/16/2016 Inactive Zithromax Z-Nitin 250 mg tablet RxNorm: 146252 1 Tablet(s) PO UD 06/16/2016 06/20/2016 Inactive nystatin 100,000 unit/mL oral suspension RxNorm: 633783 5 Milliliter(s) PO QID 06/16/2016 06/25/2016 Inactive swish and swallow fluconazole 150 mg tablet RxNorm: 859674 1 Tablet(s) PO daily 06/16/2016 06/16/2016 Inactive promethazine-DM 6.25 mg-15 mg/5 mL syrup RxNorm: 830694 5 Milliliter(s) PO Q6 PRN 06/08/2016 No Stop Date Active Levaquin 500 mg tablet RxNorm: 868180 1 Tablet(s) PO daily 06/14/2016 Inactive prednisone 20 mg tablet RxNorm: 748792 1 Tablet(s) PO BID 06/0806/12/2016 Inactive Kenalog 40 mg/mL suspension for injection RxNorm: 7755162 1 Milliliter(s) Inj 06/08/2016 06/08/2016 Inactive diazepam 5 mg tablet RxNorm: 927741 1 Tablet(s) PO BID 201605/18/2017 Active Flonase Allergy Relief 50 mcg/actuation nasal spray, suspension RxNorm: 1565625 1 [place] NASAL daily 05/11/20162016 Inactive azithromycin 250 mg tablet RxNorm: 219585 2 Tablet(s) PO on day #1, then one pill daily x 4 days 05/11/2016 05/24/2016 Inactive gabapentin 100 mg capsule RxNorm: 752334 1 Capsule PO QAM, 2 Capsules PO at NOON, and 2 Capsules PO QHS Capsule(s) PO UD 05/06/2016 04/30/2017 Active gabapentin 100 mg capsule RxNorm: 860628 1 in the am 2 at noon and 2 at hs Capsule (s) PO TID 05/01/2016 05/05/2016 Inactive [SAVINGS FOR NON-COVERED DRUGS -- BIN: 976723, PCN: ASPROD1, Group: XXXXX, ID# [id number], Questions: . THIS IS NOT INSURANCE.] Mobic 15 mg tablet RxNorm: 109498 TAKE 1 TABLET EVERY DAY 05/201603/28/2017 Inactive Kenalog 40 mg/mL suspension for injection RxNorm: 1470842 1 Milliliter(s) Inj 04/14/2016 04/14/2016 Inactive prednisone 20 mg tablet RxNorm: 709787 1 Tablet(s) PO BID 04/1404/18/2016 Inactive gabapentin 100 mg capsule RxNorm: 516594 Capsule(s) TAKE 1 CAPSULE THREE TIMES DAILY 02/28/2016 05/05/2016 Inactive gabapentin 100 mg capsule RxNorm: 035674 TAKE 1 CAPSULE THREE TIMES DAILY 02/28/2016 02/27/2016 Inactive omeprazole 20 mg capsule,delayed release RxNorm: 085517 TAKE 1 CAPSULE EVERY DAY 02/24/2016 01/19/2017 Inactive topiramate 50 mg tablet RxNorm: 483789 1 Tablet(s) PO BID 12/3012/24/2016 Inactive [SAVINGS FOR NON-COVERED DRUGS -- BIN:828404, PCN: ASPROD1, Group: XXXXX, ID # [id number], Questions: . THIS IS NOT INSURANCE.] topiramate 50 mg tablet RxNorm: 911507 1 Tablet(s) PO BID 12/3012/30/2015 Inactive [SAVINGS FOR NON-COVERED DRUGS -- BIN:070427, PCN: ASPROD1, Group: XXXXX, ID # [id number], Questions: . THIS IS NOT INSURANCE.] topiramate 50 mg tablet RxNorm: 559420 1 Tablet(s) PO BID 12/2412/30/2015 Inactive [SAVINGS FOR NON-COVERED DRUGS -- BIN:300922, PCN: ASPROD1, Group: XXXXX, ID # [id number], Questions: . THIS IS NOT INSURANCE.] Bonnie 180 mg tablet RxNorm: 927828 TAKE 1 TABLET EVERY DAY 07/201512/10/2016 Inactive Levaquin 500 mg tablet RxNorm: 614923 1 Tablet(s) PO daily 05/10/2016 Inactive Levaquin 500 mg tablet RxNorm: 691971 1 Tablet(s) PO daily 11/07/2015 Inactive gabapentin 100 mg capsule RxNorm: 277048 1 in the am 2 at noon and 2 at hs Capsule (s) PO TID 11/07/2015 11/06/2015 Inactive [SAVINGS FOR NON-COVERED DRUGS -- BIN: 807644, PCN: ASPROD1, Group: XXXXX, ID# [id number], Questions: . THIS IS NOT INSURANCE.] gabapentin 100 mg capsule RxNorm: 601698 1 in the am 2 at noon and 2 at hs Capsule (s) PO TID 11/07/2015 02/27/2016 Inactive [SAVINGS FOR NON-COVERED DRUGS -- BIN: 114876, PCN: ASPROD1, Group: XXXXX, ID# [id number], Questions: . THIS IS NOT INSURANCE.] Kenalog 40 mg/mL suspension for injection RxNorm: 9300365 1.5 Milliliter(s) Inj 11/07/2015 11/07/2015 Inactive citalopram 20 mg tablet RxNorm: 890070 Tablet(s) TAKE 1 TABLET EVERY DAY 09/18/2015 06/13/2016 Inactive diazepam 5 mg tablet RxNorm: 081269 1 Tablet(s) PO BID 201502/27/2016 Inactive [SAVINGS FOR UNINSURED PATIENTS -- BIN:035231, PCN: ASPROD1, Group: AME08, ID # [id number], Process claim through [employer], for questions: . THIS IS NOT INSURANCE.] topiramate 50 mg tablet RxNorm: 244426 1 Tablet(s) PO BID 06/2712/24/2015 Inactive [SAVINGS FOR NON-COVERED DRUGS -- BIN:328082, PCN: ASPROD1, Group: XXXXX, ID # [id number], Questions: . THIS IS NOT INSURANCE.] topiramate 50 mg tablet RxNorm: 641939 1 Tablet(s) PO BID 06/2706/27/2015 Inactive [SAVINGS FOR NON-COVERED DRUGS -- BIN:843571, PCN: ASPROD1, Group: XXXXX, ID # [id number], Questions: . THIS IS NOT INSURANCE.] omeprazole 20 mg capsule,delayed release RxNorm: 735587 TAKE 1 CAPSULE EVERY DAY 05/02/2015 02/23/2016 Inactive Mobic 15 mg tablet RxNorm: 047702 TAKE 1 TABLET EVERY DAY 01/201604/23/2016 Inactive gabapentin 100 mg capsule RxNorm: 196883 1 Capsule(s) PO TID 11/06/2015 Inactive [SAVINGS FOR NON-COVERED DRUGS -- BIN:305555, PCN: ASPROD1, Group: XXXXX , ID# [id number], Questions: . THIS IS NOT INSURANCE.] levofloxacin 500 mg tablet RxNorm: 979785 1 Tablet(s) PO daily 02/20/2015 02/26/2015 Inactive citalopram 20 mg tablet RxNorm: 796845 TAKE 1 TABLET EVERY DAY 02/19/2015 09/17/2015 Inactive gabapentin 100 mg capsule RxNorm: 738779 1 Capsule(s) PO TID 02/24/2015 Inactive [SAVINGS FOR NON-COVERED DRUGS -- BIN:280220, PCN: ASPROD1, Group: XXXXX , ID# [id number], Questions: . THIS IS NOT INSURANCE.] Kenalog 40 mg/mL suspension for injection RxNorm: 0839150 Milliliter(s) Inj 12/10/2014 12/10/2014 Inactive Levaquin 500 mg tablet RxNorm: 190118 1 Tablet(s) PO daily 04/201411/27/2014 Inactive Kenalog 40 mg/mL suspension for injection RxNorm: 9361428 Milliliter(s) Inj 11/21/2014 11/21/2014 Inactive topiramate 50 mg tablet RxNorm: 453189 1 Tablet(s) PO BID 11/2106/27/2015 Inactive [SAVINGS FOR NON-COVERED DRUGS -- BIN:922556, PCN: ASPROD1, Group: XXXXX, ID # [id number], Questions: . THIS IS NOT INSURANCE.] Bonnie 180 mg tablet RxNorm: 884751 TAKE 1 TABLET EVERY DAY 11/09/2015 Inactive Flonase Allergy Relief 50 mcg/actuation nasal spray, suspension RxNorm: 9953688 1 [place] NASAL daily 11/13/20142015 Inactive Flonase Allergy Relief 50 mcg/actuation nasal spray, suspension RxNorm: 1 [place] NASAL daily 11/13/2014 11/12/2014 Inactive Cipro 500 mg tablet RxNorm: 599224 1 Tablet(s) PO BID 201410/28/2014 Inactive Cipro 500 mg tablet RxNorm: 145547 1 Tablet(s) PO BID 201410/21/2014 Inactive omeprazole 20 mg capsule,delayed release RxNorm: 598421 1 Capsule(s) PO BID 09/25/2014 05/01/2015 Inactive [SAVINGS FOR NON-COVERED DRUGS -- BIN:581495, PCN: ASPROD1, Group: XXXXX, ID# [id number], Questions: . THIS IS NOT INSURANCE.] Carafate 1 gram tablet RxNorm: 324886 1 Tablet(s) PO QID 201410/03/2014 Inactive Take one tablet before each meal and at bedtime everyday diazepam 5 mg tablet RxNorm: 020500 1 Tablet(s) PO BID 201408/29/2015 Inactive [SAVINGS FOR UNINSURED PATIENTS -- BIN:630418, PCN: ASPROD1, Group: AME08, ID # [id number], Process claim through [employer], for questions: . THIS IS NOT INSURANCE.] Carafate 100 mg/mL oral suspension RxNorm: 471814 1 Gram(s) PO QID 09/04/2014 10/03/2014 Inactive topiramate 25 mg tablet RxNorm: 092449 1 Tablet(s) PO BID 08/0111/20/2014 Inactive [SAVINGS FOR NON-COVERED DRUGS -- BIN:957934, PCN: ASPROD1, Group: XXXXX, ID # [id number], Questions: . THIS IS NOT INSURANCE.] fluticasone 50 mcg/actuation blister powder for inhalation RxNorm: 089723 1 [place] INH BID Nasal spray- use twice daily, one spray per nostril twice daily, after 30 minutes, rinse out nose with saline spray. 06/25/2014 10/21/2014 Inactive [ SAVINGS FOR NON-COVERED DRUGS -- BIN:494625, PCN: ASPROD1, Group: XXXXX, ID# [id number], Questions: . THIS IS NOT INSURANCE.] Mobic 15 mg tablet RxNorm: 897636 TAKE 1 TABLET EVERY DAY 07/201405/01/2015 Inactive gabapentin 100 mg tablet RxNorm: 017235 1 Tablet(s) PO TID 06/201402/18/2015 Inactive [SAVINGS FOR NON-COVERED DRUGS -- BIN:680266, PCN: ASPROD1, Group: XXXXX, ID# [id number], Questions: . THIS IS NOT INSURANCE.] Mobic 15 mg tablet RxNorm: 342301 1 Tablet(s) PO daily TAKE 1 TABLET EVERY DAY 05/23/2014 05/23/2014 Inactive [SAVINGS FOR NON-COVERED DRUGS -- BIN:033763, PCN: ASPROD1, Group: XXXXX, ID# [id number], Questions: . THIS IS NOT INSURANCE.] omeprazole 20 mg capsule,delayed release RxNorm: 208081 1 Capsule(s) PO daily 05/21/2014 09/24/2014 Inactive [SAVINGS FOR NON-COVERED DRUGS -- BIN:677913, PCN: ASPROD1, Group: XXXXX, ID# [id number], Questions: . THIS IS NOT INSURANCE.] diazepam 5 mg tablet RxNorm: 009613 1 Tablet(s) PO BID 201409/03/2014 Inactive [SAVINGS FOR UNINSURED PATIENTS -- BIN:995337, PCN: ASPROD1, Group: AME08, ID # [id number], Process claim through [employer], for questions: . THIS IS NOT INSURANCE.] Pyridium 200 mg tablet RxNorm: 3493284 1 Tablet(s) PO TID 04/0304/07/2014 Inactive [SAVINGS FOR UNINSURED PATIENTS -- BIN:045466, PCN: ASPROD1, Group: AME08, ID# [id number], Process claim through [employer], for questions: . THIS IS NOT INSURANCE.] trimethoprim 100 mg tablet RxNorm: 607753 1 Tablet(s) PO QAM 10/16/2014 Inactive [SAVINGS FOR UNINSURED PATIENTS -- BIN:710095, PCN: ASPROD1, Group: AME08 , ID# [id number], Process claim through [employer], for questions: . THIS IS NOT INSURANCE.] Bactrim DS 800 mg-160 mg tablet RxNorm: 615230 1 Tablet(s) PO BID 04/03/2014 04/09/2014 Inactive [SAVINGS FOR UNINSURED PATIENTS -- BIN:567943, PCN: ASPROD1, Group : AME08, ID# [id number], Process claim through [employer], for questions: [phone]. THIS IS NOT INSURANCE.] Cipro 500 mg tablet RxNorm: 208514 1 Tablet(s) PO BID 201404/09/2014 Inactive Kenalog 40 mg/mL suspension for injection RxNorm: 1539942 Milliliter(s) Inj 03/27/2014 03/27/2014 Inactive Bactrim DS 800 mg-160 mg tablet RxNorm: 818053 1 Tablet(s) PO BID 02/08/2014 02/14/2014 Inactive citalopram 20 mg tablet RxNorm: 264824 TAKE 1 TABLET EVERY DAY 02/01/2014 01/26/2015 Inactive Bonnie 180 mg tablet RxNorm: 237820 1 Tablet(s) PO daily 201311/14/2014 Inactive ciprofloxacin 0.3 % eye drops RxNorm: 338210 2 Drop(s) OPH TID 12/29/2013 01/04/2014 Inactive promethazine 25 mg/mL injection solution RxNorm: 361302 2 Milliliter(s) Inj 12/21/2013 12/21/2013 Inactive ketorolac 60 mg/2 mL intramuscular solution RxNorm: 543031 2 Milliliter(s) IM 12/21/2013 12/21/2013 Inactive Bactrim DS 800 mg-160 mg tablet RxNorm: 034347 1 Tablet(s) PO BID 10/31/2013 11/06/2013 Inactive topiramate 25 mg tablet RxNorm: 678313 1 Tablet(s) PO BID 10/0207/31/2014 Inactive Mobic 15 mg tablet RxNorm: 888857 TAKE 1 TABLET EVERY DAY 05/22/2014 Inactive topiramate 25 mg tablet RxNorm: 323709 1 Tablet(s) PO BID 08/1510/01/2013 Inactive nystatin 100,000 unit/mL oral suspension RxNorm: 035573 6 Unit(s) PO QID 08/10/2013 09/06/2013 Inactive sulfamethoxazole 800 mg-trimethoprim 160 mg tablet RxNorm: 958784 1 Tablet(s) PO BID 08/02/2013 08/11/2013 Inactive topiramate 25 mg tablet RxNorm: 709098 1 Tablet(s) PO BID 08/0208/14/2013 Inactive Mag-Oxide 400 mg tablet RxNorm: 041929 1 Tablet(s) PO TIW 06/0206/01/2013 Inactive Mag-Oxide 400 mg tablet RxNorm: 873514 1 Tablet(s) PO TIW 06/0208/30/2013 Inactive fluticasone 50 mcg/actuation disk powder for inhalation RxNorm: 864010 1 [place] INH BID Nasal spray- use twice daily, one spray per nostril twice daily, after 30 minutes, rinse out nose with saline spray. 05/25/2013 09/21/2013 Inactive ketorolac 60 mg/2 mL intramuscular solution RxNorm: 866477 Milliliter(s) IM 05/15/2013 05/15/2013 Inactive promethazine 25 mg/mL injection solution RxNorm: 990301 Milliliter(s) Inj 05/15/2013 05/15/2013 Inactive Levaquin 500 mg tablet RxNorm: 216680 1 Tablet(s) PO daily 05/21/2013 Inactive ketorolac 60 mg/2 mL intramuscular solution RxNorm: 130295 1 Milliliter(s) IM 05/09/2013 05/09/2013 Inactive Mobic 15 mg tablet RxNorm: 312623 1 Tablet(s) PO daily 201309/03/2013 Inactive omeprazole 20 mg capsule,delayed release RxNorm: 375357 1 Capsule(s) PO daily 04/13/2013 04/07/2014 Inactive diazepam 5 mg tablet RxNorm: 740606 1 Tablet(s) PO BID 201304/07/2014 Inactive gabapentin 100 mg tablet RxNorm: 389976 1 Tablet(s) PO TID 04/07/2014 Inactive citalopram 20 mg tablet RxNorm: 785541 1 Tablet(s) PO daily 01/31/2014 Inactive Mobic 15 mg tablet RxNorm: 661410 1 Tablet(s) PO daily 201304/12/2013 Inactive citalopram 20 mg tablet RxNorm: 834234 1 Tablet(s) PO daily 09/201304/12/2013 Inactive Mobic 15 mg tablet RxNorm: 211097 1 Tablet(s) PO daily 201202/01/2013 Inactive Mobic 15 mg tablet RxNorm: 855869 1 Tablet(s) PO daily 201203/27/2013 Inactive prednisone 20 mg tablet RxNorm: 977970 1 Tablet(s) PO TID 01/2601/25/2013 Inactive prednisone 20 mg tablet RxNorm: 346002 1 Tablet(s) PO TID 01/2601/28/2013 Inactive meclizine 25 mg capsule RxNorm: 981402 1 Capsule(s) PO Q6 PRN 01/23/2013 01/22/2013 Inactive meclizine 25 mg capsule RxNorm: 379155 1 Capsule(s) PO Q6 PRN 01/23/2013 04/12/2013 Inactive prednisone 10 mg tablet RxNorm: 849548 Tablet(s) PO 6-5-4-3-2-1 taper 01/13/2013 04/12/2013 Inactive fluconazole 150 mg tablet RxNorm: 953153 1 Tablet(s) PO daily 12/27/2012 01/02/2013 Inactive Kenalog 40 mg/mL Susp for Injection RxNorm: 1106672 Milliliter(s) Inj 12/27/2012 12/27/2012 Inactive Calcium 500 + D (D3) 500 mg-125 unit tablet RxNorm: 836341 1 Tablet(s) PO daily No Start Date Active Fish Oil 1,000 mg capsule RxNorm: 1 Capsule(s) PO BID No Start Date Active multivitamin capsule RxNorm: 1 Capsule(s) PO daily No Start Date Active nabumetone 750 mg tablet RxNorm: 858383 2 Tablet(s) PO daily No Start Date Active guaifenesin 400 mg tablet RxNorm: 450279 1 Tablet(s) PO Q4H No Start Date Active hydrocodone 5 mg-acetaminophen 325 mg tablet RxNorm: 095843 1 Tablet(s) PO Q6 as needed No Start Date Active citalopram 20 mg tablet RxNorm: 491999 1 Tablet(s) PO daily No Start Date 03/27/2013 Inactive prednisone 10 mg tablet RxNorm: 031103 Tablet(s) PO 6-5-4-3-2-1 taper No Start Date 01/12/2013 Inactive anastrozole 1 mg tablet RxNorm: 971104 1 Tablet(s) PO daily No Start Date 08/10/2013 Inactive omeprazole 40 mg capsule,delayed release RxNorm: 876547 1 Capsule(s) PO daily No Start Date 04/12/2013 Inactive gabapentin 100 mg tablet RxNorm: 117401 1 Tablet(s) PO TID No Start Date 04/12/2013 Inactive Zithromax Z-Nitin 250 mg tablet RxNorm: 170459 Tablet(s) PO No Start Date 05/31/2013 Inactive Diflucan 150 mg tablet RxNorm: 166060 1 Tablet(s) PO daily No Start Date 06/16/2015 Inactive Bonnie 180 mg tablet RxNorm: 262177 1 Tablet(s) PO daily No Start Date 01/30/2014 Inactive clorazepate dipotassium 3.75 mg tablet RxNorm: 167077 1 Tablet(s) PO BID No Start Date 06/05/2013 Inactive Medication Administered Medication Codes Instructions Start Date Status Kenalog 40 mg/mL suspension for injection RxNorm: 3605174 Milliliter 01/20/2017 No longer Active Kenalog 40 mg/mL suspension for injection RxNorm: 8649523 1Milliliter 06/08/2016 No longer Active Kenalog 40 mg/mL suspension for injection RxNorm: 1849263 1Milliliter 04/14/2016 No longer Active Kenalog 40 mg/mL suspension for injection RxNorm: 9048142 1.5Milliliter 11/07/2015 No longer Active Kenalog 40 mg/mL suspension for injection RxNorm: 5937851 Milliliter 12/10/2014 No longer Active Kenalog 40 mg/mL suspension for injection RxNorm: 7232991 Milliliter 11/21/2014 No longer Active Kenalog 40 mg/mL suspension for injection RxNorm: 1388139 Milliliter 03/27/2014 No longer Active ketorolac 60 mg/2 mL intramuscular solution RxNorm: 107974 2Milliliter 12/21/2013 No longer Active promethazine 25 mg/mL injection solution RxNorm: 950070 2Milliliter 12/21/2013 No longer Active ketorolac 60 mg/2 mL intramuscular solution RxNorm: 992534 Milliliter 05/15/2013 No longer Active promethazine 25 mg/mL injection solution RxNorm: 198208 Milliliter 05/15/2013 No longer Active ketorolac 60 mg/2 mL intramuscular solution RxNorm: 464475 1Milliliter 05/09/2013 No longer Active Kenalog 40 mg/mL Susp for Injection RxNorm: 1853563 Milliliter 12/27/2012 No longer Active Immunizations Vaccine Codes Date Status Influenza CVX: 141 01/11/2017 completed Pneumococcal (Adult) CVX: 33 01/11/2017 completed Influenza CVX: 141 12/31/2015 completed Influenza CVX: 141 02/08/2014 completed Influenza CVX: 141 01/10/2013 completed Pneumococcal CVX: 133 12/29/2012 completed Assessments Condition Codes Effective Dates Other allergic rhinitis ICD-10: J30.89 ICD-9: 477.8 03/12/2017 Otalgia, right ear ICD-10: H92.01 ICD-9: 388.70 03/12/2017 Other acute sinusitis ICD-10: J01.80 ICD-9: 461.8 03/12/2017 Gastro-esophageal reflux disease without esophagitis ICD-10 : K21.9 ICD-9: 530.81 01/20/2017 Encounter for immunization ICD-10: Z23 ICD-9: V06.6 01/11/2017 Radiculopathy, lumbar region ICD-10: M54.16 ICD-9: 724.4 11/03/2016 Dizziness and giddiness ICD-10: R42 ICD-9: 780.4 11/03/2016 Gas pain ICD-10: R14.1 ICD-9: 787.3 11/03/2016 Headache ICD-10: R51 ICD-9: 784.0 11/03/2016 Generalized anxiety disorder ICD-10: F41.1 ICD-9: 300.02 09/29/2016 Age-related osteoporosis without current pathological fracture ICD-10: M81.0 ICD-9: 733.00 09/29/2016 Encounter for general adult medical examination with abnormal findings ICD-10: Z00.01 ICD-9: V70.0 09/29/2016 Rash and other nonspecific skin eruption ICD-10: R21 ICD-9: 782.1 09/15/2016 Nondisplaced fracture of neck of right radius, initial encounter for closed fracture ICD-10: S52.134A ICD-9: 813.06 08/14/2016 Fracture of nasal bones, initial encounter for closed fracture ICD-10: S02.2XXA ICD-9: 802.0 08/14/2016 Orthostatic hypotension ICD-10: I95.1 ICD-9: 458.0 08/14/2016 Pain in left shoulder ICD-10: M25.512 ICD-9: 719.41 07/30/2016 Contusion of nose, initial encounter ICD-10: S00.33XA ICD-9: 920 07/30/2016 Cough ICD-10: R05 ICD-9: 786.2 06/16/2016 Candidal stomatitis ICD-10: B37.0 ICD-9: 112.0 06/16/2016 Acute bronchitis, unspecified ICD-10: J20.9 ICD-9: 466.0 06/08/2016 Acute recurrent maxillary sinusitis ICD-10: J01.01 ICD-9: 461.0 05/11/2016 Allergic rhinitis due to pollen ICD-10: J30.1 ICD-9: 477.9 04/14/2016 Encounter for immunization ICD-10: Z23 ICD-9: V04.81 12/31/2015 Mastodynia ICD-10: N64.4 ICD-9: 611.71 12/25/2015 Migraine, unspecified, not intractable, without status migrainosus ICD-10: G43.909 ICD-9: 346.90 11/07/2015 Plantar wart ICD-10: B07.0 ICD-9: 078.12 06/17/2015 Other acute sinusitis ICD-10: J01.80 ICD-9: 461.9 02/20/2015 Rash ICD-9: 782.1 12/10/2014 SPONTANEOUS ECCHYMOSES ICD-9: 782.7 11/21 ACUTE SINUSITIS ICD-9: 461.9 11/21/2014 Migraine headache ICD-9: 346.90 2014 Leg pain, left ICD-9: 729.5 10/23/2014 Low back pain ICD-9: 724.2 10/23/2014 DYSURIA ICD-9: 788.1 10/22/2014 Anxiety ICD-9: 300.00 09/04/2014 Gastroesophageal reflux disease ICD-9: 530.81 09/04/2014 Actinic keratosis due to exposure to sunlight ICD-9: 702.0 05/01/2014 PLANTAR WART ICD-9: 078.12 05/01/2014 Urinary tract infection ICD-9: 599.0 Cough ICD-9: 786.2 04/03/2014 ALLERGIC RHINITIS ICD-9: 477.9 2014 Constipation ICD-9: 564.00 02/08/2014 Tension headache ICD-9: 307.81 2013 Nausea ICD-9: 787.02 12/21/2013 Wart viral ICD-9: 078.10 08/23/2013 Skin change ICD-9: 782.9 08/23/2013 Thrush ICD-9: 112.0 08/10/2013 HEADACHE ICD-9: 784.0 08/02/2013 Pain in left knee ICD-9: 719.46 2013 Shoulder pain, right ICD-9: 719.41 2013 Muscle spasms of neck ICD-9: 728.85 07/18 Myalgia ICD-9: 729.1 06/27/2013 DIZZINESS AND GIDDINESS ICD-9: 780.4 10/2013 Fatigue ICD-9: 780.79 06/27/2013 Multiple joint pain ICD-9: 719.49 2013 Pneumonia ICD-9: 486 05/15/2013 BPPV (benign paroxysmal positional vertigo) ICD-9: 386.11 03/13/2013 VACCIN FOR INFLUENZA ICD-9: V04.81 2012 Dyspnea ICD-9: 786.09 01/10/2013 IMPACTED CERUMEN ICD-9: 380.4 01/10/2013 Vaginal yeast infection ICD-9: 112.1 10/2012 History of UTI ICD-9: V13.02 12/27/2012 Reason For Visit Reason For Visit Effective Dates Notes sinus congestion 03/12/2017 headache 01/20/2017 vaccination against influenza 01/11/2017 dizziness 11/03/2016 Annual Medicare Wellness Exam 09/29/2016 skin lesion 09/15/2016 Began as a red bite with white head, then it turned thin like a blister and peeled from her skin. skin lesion 08/31/2016 Hospital Follow Up 08/14/2016 Nose et FA fracture headache 07/30/2016 cough 06/16/2016 sinus congestion 06/08/2016 sinus congestion 05/11/2016 sinus congestion 04/14/2016 vaccination against influenza 12/31/2015 breast complaint 12/25/2015 nausea 11/07/2015 plantar wart 06/17/2015 sinus congestion 02/20/2015 rash 12/10/2014 abnormal bleeding and bruising 11/21/2014 paresthesia 10/23/2014 left leg nausea 09/04/2014 office procedure 05/01/2014 abdominal pain 04/03/2014 sinus congestion 03/27/2014 dysuria 02/08/2014 She feels that she is leaking upon standing after urinating eye discharge 12/29/2013 headache 12/21/2013 dysuria 10/31/2013 office procedure 08/23/2013 sore throat 08/10/2013 sinus congestion 08/02/2013 headache 07/18/2013 pain 06/27/2013 pain 06/01/2013 cough 05/25/2013 headache 05/15/2013 headache 05/09/2013 dizziness 03/13/2013 dizziness 02/02/2013 dizziness 01/10/2013 dizziness 12/27/2012 Results Observation Observation Code Item Item Code Result Date Cbc With Differential Ord2 WBC 3.35 K/ul 09/29/2016 Cbc With Differential Ord2 RBC 4.00 M/ul 09/29/2016 Cbc With Differential Ord2 HGB 12.7 g/dl 09/29/2016 Cbc With Differential Ord2 HCT 38.3 % 09/29/2016 Cbc With Differential Ord2 Neut% 44.7 % 09/29/2016 Cbc With Differential Ord2 Lymph% 42.1 % 09/29/2016 Cbc With Differential Ord2 MCV 95.8 fl 09/29/2016 Cbc With Differential Ord2 [place]% 9.6 % 09/29/2016 Cbc With Differential Ord2 MCH 31.8 pg 09/29/2016 Cbc With Differential Ord2 MCHC 33.2 pg 09/29/2016 Cbc With Differential Ord2 Eos% 2.7 % 09/29/2016 Cbc With Differential Ord2 Baso% 0.9 % 09/29/2016 Cbc With Differential Ord2 PLT 253 K/ul 09/29/2016 Cbc With Differential Ord2 RDW 12.9 % 09/29/2016 Cbc With Differential Ord2 Neut ABS# 1.50 K/ul 09/29/2016 Cbc With Differential Ord2 Lymph ABS# 1.41 K/ul 09/29/2016 Cbc With Differential Ord2 [place] ABS# 0.3 K/ul 09/29/2016 Cbc With Differential Ord2 Eos ABS# 0.1 K/ul 09/29/2016 Cbc With Differential Ord2 Baso ABS# 0.0 K/ul 09/29/2016 Tsh Ord6 hTSH II 1.67 uIU/mL 09/29/2016 Comp Metabolic Hcq143 NA 142 mEq/L 09/29/2016 Comp Metabolic Bsm895 K 4.6 mEq/L 09/29/2016 Comp Metabolic Ons312 CL 112 mEq/L 09/29/2016 Comp Metabolic Xzj273 CO2 25.0 mEq/L 09/29/2016 Comp Metabolic Txi515 ANION GAP 10 09/29/2016 Comp Metabolic Etd851 GLUCOSE 88 mg/dL 09/29/2016 Comp Metabolic Frt485 Creat 1.1 mg/dL 09/29/2016 Comp Metabolic Fsw428 eGFR 52 ml/min/1.73m2 09/29/2016 Comp Metabolic Lky263 BUN 21 mg/dL 09/29/2016 Comp Metabolic Pcm966 B/C Ratio 19.1 Ratio 09/29/2016 Comp Metabolic Bds083 CALCIUM 8.9 mg/dL 09/29/2016 Comp Metabolic Pgz508 ALK PHOS 58 U/L 09/29/2016 Comp Metabolic Euo945 AST(SGOT) 14 U/L 09/29/2016 Comp Metabolic Npn352 ALT(SGPT) 9 U/L 09/29/2016 Comp Metabolic Kkb020 BILI T 0.3 mg/dL 09/29/2016 Comp Metabolic Fcd184 ALBUMIN 3.6 g/dL 09/29/2016 Comp Metabolic Kda344 TPRO 5.8 g/dL 09/29/2016 Comp Metabolic Ebr887 GLOB 2.2 g/dL 09/29/2016 Comp Metabolic Vlj823 A/G Ratio 1.6 Ratio 09/29/2016 Comp Metabolic Sbe311 Osmo 286 mOsmo 09/29/2016 Tsh Ord6 hTSH II 1.76 uIU/mL 11/21/2014 Cbc With Differential Ord2 WBC 3.7 K/uL 11/21/2014 Cbc With Differential Ord2 LYM 1.7 K/uL 11/21/2014 Cbc With Differential Ord2 LYM% 45.1 % 11/21/2014 Cbc With Differential Ord2 NEUT/GRAN 1.7 K/uL 11/21/2014 Cbc With Differential Ord2 NEUT/GRAN % 44.9 % 11/21/2014 Cbc With Differential Ord2 MID 0.4 K/uL 11/21/2014 Cbc With Differential Ord2 MID% 10.0 % 11/21/2014 Cbc With Differential Ord2 RBC 4.04 M/uL 11/21/2014 Cbc With Differential Ord2 HGB 12.3 g/dL 11/21/2014 Cbc With Differential Ord2 HCT 37.1 % 11/21/2014 Cbc With Differential Ord2 MCV 92 fL 11/21/2014 Cbc With Differential Ord2 MCH 30 pg 11/21/2014 Cbc With Differential Ord2 MCHC 33 g/dL 11/21/2014 Cbc With Differential Ord2 PLT 262 K/uL 11/21/2014 Cbc With Differential Ord2 RDW 14.5 % 11/21/2014 Comp Metabolic Nsm162 NA 137 mEq/L 11/21/2014 Comp Metabolic Ekz318 K 3.7 mEq/L 11/21/2014 Comp Metabolic Abr136 CL 108 mEq/L 11/21/2014 Comp Metabolic Rrs079 CO2 24.0 mEq/L 11/21/2014 Comp Metabolic Ptj550 ANION GAP 9 11/21/2014 Comp Metabolic Ogi965 GLUCOSE 83 mg/dL 11/21/2014 Comp Metabolic Hyc118 Creat 1.2 mg/dL 11/21/2014 Comp Metabolic Cdx640 eGFR 46 ml/min/1.73m2 11/21/2014 Comp Metabolic Bfd230 BUN 16 mg/dL 11/21/2014 Comp Metabolic Tbr485 B/C Ratio 13.0 Ratio 11/21/2014 Comp Metabolic Yei698 CALCIUM 9.1 mg/dL 11/21/2014 Comp Metabolic Mmp410 ALK PHOS 58 U/L 11/21/2014 Comp Metabolic Bge889 AST(SGOT) 17 U/L 11/21/2014 Comp Metabolic Jsv372 ALT(SGPT) 11 U/L 11/21/2014 Comp Metabolic Hqz387 BILI T 0.4 mg/dL 11/21/2014 Comp Metabolic Gzm966 ALBUMIN 3.8 g/dL 11/21/2014 Comp Metabolic Frv796 TPRO 6.2 g/dL 11/21/2014 Comp Metabolic Gjh299 GLOB 2.4 g/dL 11/21/2014 Comp Metabolic Kmo348 A/G Ratio 1.6 Ratio 11/21/2014 Comp Metabolic Lbq707 Osmo 274 mOsmo 11/21/2014 Culture Urine [id number] URINE CULTURE SEE NOTES 10/25/2014 Culture Urine [id number] Continued Results 10/25/2014 Urine Culture Ucult Complete >100,000 col/ml aerobic growth sent to ref lab 10/23/2014 JEISON SCR [id number] JEISON SCR <1:80 06/02/2013 CBC [id number] WBC 3.4 10e9/L 06/01/2013 CBC [id number] RBC 4.28 10e12/L 06/01/2013 CBC [id number] HGB 12.6 g/dL 06/01/2013 CBC [id number] HCT DET 37.9 % 06/01/2013 CBC [id number] MCV 88.6 fL 06/01/2013 CBC [id number] MCH 29.4 pg 06/01/2013 CBC 0683470 MCHC 33.2 g/dL 06/01/2013 CBC [id number] PLT 327 10e9/L 06/01/2013 CBC [id number] MPV 9.3 fL 06/01/2013 CBC [id number] MAKAYLA % 46.4 % 06/01/2013 CBC 1061184 LY % 38.3 % 06/01/2013 CBC 9857098 MON % 9.1 % 06/01/2013 CBC 7959953 EOS % 5.3 % 06/01/2013 CBC 1578459 BASO % 0.9 % 06/01/2013 CBC 6687812 RDW 13.3 % 06/01/2013 CBC [id number] ABS MAKAYLA 1.58 10e9/L 06/01/2013 CBC [id number] ABS LYMPH 1.30 10e9/L 06/01/2013 CBC [id number] ABS MONO 0.31 10e9/L 06/01/2013 CBC [id number] ABS EOS 0.18 10e9/L 06/01/2013 CBC [id number] ABS BASO 0.03 10e9/L 06/01/2013 CBC 9751322 RDW-SD 42.4 fL 06/01/2013 VIT D TOTL [id number] VIT D TOTL 31 NG/ML 06/01/2013 CRP [id number] CRP 0.2 MG/DL 06/01/2013 GFR CALC 9910685 GFR AA >60 ML/MIN 06/01/2013 GFR CALC 4030510 GFR NON-AA >60 ML/MIN 06/01/2013 CHEM 14 7012155 AST 19 U/L 06/01/2013 CHEM 14 7486959 ALT 11 IU/L 06/01/2013 CHEM 14 3429958 BUN 14 MG/DL 06/01/2013 CHEM 14 7732478 ALBUMIN 4.1 GM/DL 06/01/2013 CHEM 14 9393460 CHLORIDE 106 MMOL/L 06/01/2013 CHEM 14 8971091 BILI TOT 0.3 MG/DL 06/01/2013 CHEM 14 2195557 ALK PHOS 66 U/L 06/01/2013 CHEM 14 6263065 SODIUM 140 MMOL/L 06/01/2013 CHEM 14 7171619 CREATININE 0.90 MG/DL 06/01/2013 CHEM 14 5638629 CALCIUM 9.3 MG/DL 06/01/2013 CHEM 14 9583689 POTASSIUM 4.1 MMOL/L 06/01/2013 CHEM 14 6527057 PROT TOT 6.5 GM/DL 06/01/2013 CHEM 14 4195144 GLUCOSE 91 MG/DL 06/01/2013 CHEM 14 2550545 BICARB 27 MMOL/L 06/01/2013 CHEM 14 5290771 ANION GAP 7 MEQ/L 06/01/2013 TSH 7703090 TSH 1.695 uIU/ML 06/01/2013 MAGNESIUM 5997244 MAGNESIUM 1.5 MEQ/L 06/01/2013 ESR 2842003 ESR 22 MM/HR 06/01/2013 UA 92717 Specific [place] 1.030 DateTime(Free Text in ) UA 01226 PH 5 DateTime(Free Text in Aprima) UA 77552 GLUCOSE - DateTime(Free Text in Aprima) UA 23226 Protein + DateTime(Free Text in Aprima) UA 62989 Blood mod DateTime(Free Text in Aprima) UA 13459 Bilirubin - DateTime(Free Text in Aprima) UA 60239 Ketones - DateTime(Free Text in Aprima) UA 84915 Urobilinogen .2 DateTime(Free Text in Junima) UA 77487 Nitrite - DateTime(Free Text in Aprima) UA 56212 Leukocytes mod DateTime(Free Text in Junima) Review of Systems System Result Effective Dates Constitutional recent illness 03/12/2017 Constitutional No chills 03/12/2017 Constitutional No diaphoresis 03/12/2017 Constitutional No fever 03/12/2017 Eyes No eye erythema 03/12/2017 Ears/Nose/Throat/Neck nasal allergies Ears/Nose/Throat/Neck nasal discharge Ears/Nose/Throat/Neck postnasal drip Ears/Nose/Throat/Neck sinus congestion Ears/Nose/Throat/Neck No sore throat Cardiovascular No chest pain/pressure Cardiovascular No dyspnea 03/12/2017 Respiratory No chest congestion 2016 Respiratory cough 03/12/2017 Respiratory No dyspnea 03/12/2017 Gastrointestinal No abdominal pain 2016 Gastrointestinal No constipation 2016 Gastrointestinal No diarrhea 03/12/2017 Gastrointestinal No nausea 03/12/2017 Gastrointestinal No vomiting 03/12/2017 Dermatologic No rash 03/12/2017 Neurologic No alteration of consciousness 03/12/2017 Neurologic No mental status change 2016 Ears/Nose/Throat/Neck otalgia 03/12/2017 Constitutional recent illness 01/20/2017 Constitutional No chills 01/20/2017 Constitutional No diaphoresis 01/20/2017 Constitutional No fever 01/20/2017 Eyes No eye erythema 01/20/2017 Ears/Nose/Throat/Neck nasal allergies 03/2016 Ears/Nose/Throat/Neck nasal discharge 03/2016 Ears/Nose/Throat/Neck postnasal drip 03/2016 Ears/Nose/Throat/Neck sinus congestion Ears/Nose/Throat/Neck No sore throat 03/2016 Cardiovascular No chest pain/pressure 03/2016 Cardiovascular No dyspnea 01/20/2017 Respiratory No chest congestion 2016 Respiratory cough 01/20/2017 Respiratory No dyspnea 01/20/2017 Gastrointestinal No abdominal pain 2016 Gastrointestinal No constipation 2016 Gastrointestinal No diarrhea 01/20/2017 Gastrointestinal No nausea 01/20/2017 Gastrointestinal No vomiting 01/20/2017 Dermatologic No rash 01/20/2017 Neurologic No alteration of consciousness 01/20/2017 Neurologic No mental status change 2016 Ears/Nose/Throat/Neck headache 2016 Constitutional No recent illness 2016 Constitutional No chills 11/03/2016 Constitutional No diaphoresis 11/03/2016 Constitutional No fever 11/03/2016 Eyes No blindness 11/03/2016 Ears/Nose/Throat/Neck No nasal discharge 11/03/2016 Cardiovascular No chest pain/pressure Cardiovascular No dyspnea 11/03/2016 Respiratory No cough 11/03/2016 Respiratory No dyspnea 11/03/2016 Gastrointestinal No abdominal pain 2016 Neurologic No alteration of consciousness 11/03/2016 Neurologic No mental status change 2016 Constitutional No anorexia 11/03/2016 Constitutional No night sweats 2016 Constitutional fatigue 11/03/2016 Constitutional No insomnia 11/03/2016 Constitutional No weight gain 11/03/2016 Constitutional No weight loss 11/03/2016 Constitutional No malaise 11/03/2016 Ears/Nose/Throat/Neck nasal allergies Ears/Nose/Throat/Neck dizziness 2016 Ears/Nose/Throat/Neck headache 2016 Cardiovascular No edema 11/03/2016 Genitourinary/Nephrology No dysuria 11/03 Musculoskeletal joint complaint 2016 Dermatologic No rash 11/03/2016 Dermatologic No sores 11/03/2016 Neurologic dizziness 11/03/2016 Neurologic memory loss 11/03/2016 Neurologic paresthesia 11/03/2016 Psychiatric anxiety 11/03/2016 Psychiatric depression 11/03/2016 Endocrine No dry or coarse skin 2016 Constitutional No recent illness 2016 Constitutional No chills 09/29/2016 Constitutional No diaphoresis 09/29/2016 Constitutional No fever 09/29/2016 Eyes No eye erythema 09/29/2016 Ears/Nose/Throat/Neck No nasal discharge 09/29/2016 Cardiovascular No chest pain/pressure 01/2017 Cardiovascular No dyspnea 09/29/2016 Respiratory No cough 09/29/2016 Respiratory No dyspnea 09/29/2016 Gastrointestinal No abdominal pain 2016 Neurologic No alteration of consciousness 09/29/2016 Neurologic No mental status change 2016 Constitutional No recent illness 2016 Constitutional No chills 09/15/2016 Constitutional No diaphoresis 09/15/2016 Constitutional No fever 09/15/2016 Eyes No blindness 09/15/2016 Ears/Nose/Throat/Neck No nasal allergies 09/15/2016 Ears/Nose/Throat/Neck No nasal discharge 09/15/2016 Cardiovascular No chest pain/pressure Cardiovascular No dyspnea 09/15/2016 Respiratory No cough 09/15/2016 Respiratory No dyspnea 09/15/2016 Gastrointestinal No abdominal pain 2016 Gastrointestinal No constipation 2016 Gastrointestinal No diarrhea 09/15/2016 Gastrointestinal No nausea 09/15/2016 Gastrointestinal No vomiting 09/15/2016 Musculoskeletal bone pain 09/15/2016 Dermatologic erythema 09/15/2016 Neurologic No alteration of consciousness 09/15/2016 Neurologic No mental status change 2016 Constitutional No recent illness 2016 Constitutional No chills 08/31/2016 Constitutional No diaphoresis 08/31/2016 Constitutional No fever 08/31/2016 Eyes No eye erythema 08/31/2016 Ears/Nose/Throat/Neck No nasal allergies 08/31/2016 Ears/Nose/Throat/Neck No nasal discharge 08/31/2016 Cardiovascular No chest pain/pressure 02/2017 Cardiovascular No dyspnea 08/31/2016 Respiratory No cough 08/31/2016 Respiratory No dyspnea 08/31/2016 Gastrointestinal No abdominal pain 2016 Gastrointestinal No constipation 2016 Gastrointestinal No diarrhea 08/31/2016 Gastrointestinal No vomiting 08/31/2016 Gastrointestinal No nausea 08/31/2016 Musculoskeletal bone pain 08/31/2016 Dermatologic erythema 08/31/2016 Dermatologic ecchymosis 08/31/2016 Neurologic No alteration of consciousness 08/31/2016 Neurologic No mental status change 2016 Constitutional recent illness 08/14/2016 Constitutional No anorexia 08/14/2016 Constitutional No night sweats 2016 Constitutional No chills 08/14/2016 Constitutional No diaphoresis 08/14/2016 Constitutional fatigue 08/14/2016 Constitutional No fever 08/14/2016 Constitutional No insomnia 08/14/2016 Constitutional No malaise 08/14/2016 Constitutional No weight loss 08/14/2016 Constitutional No weight gain 08/14/2016 Eyes No eye discharge 08/14/2016 Eyes No eye erythema 08/14/2016 Eyes No vision change 08/14/2016 Ears/Nose/Throat/Neck dizziness 2016 Ears/Nose/Throat/Neck headache 2016 Ears/Nose/Throat/Neck nasal allergies Ears/Nose/Throat/Neck No sinus congestion 08/14/2016 Cardiovascular No chest pain/pressure Respiratory No cough 08/14/2016 Gastrointestinal No abdominal pain 2016 Gastrointestinal No constipation 2016 Gastrointestinal No diarrhea 08/14/2016 Genitourinary/Nephrology No dysuria 08/14 Musculoskeletal joint complaint 2016 Dermatologic ecchymosis 08/14/2016 Neurologic No alteration of consciousness 08/14/2016 Neurologic gait abnormality 08/14/2016 Neurologic dizziness 08/14/2016 Psychiatric anxiety 08/14/2016 Endocrine No dry or coarse skin 2016 Constitutional No recent illness 2016 Constitutional No anorexia 07/30/2016 Constitutional No night sweats 2016 Constitutional No chills 07/30/2016 Constitutional No diaphoresis 07/30/2016 Constitutional fatigue 07/30/2016 Constitutional No fever 07/30/2016 Constitutional insomnia 07/30/2016 Constitutional No malaise 07/30/2016 Constitutional No weight loss 07/30/2016 Constitutional No weight gain 07/30/2016 Constitutional No obesity 07/30/2016 Eyes No eye pain 07/30/2016 Eyes No vision change 07/30/2016 Ears/Nose/Throat/Neck dizziness 2016 Ears/Nose/Throat/Neck headache 2016 Cardiovascular No chest pain/pressure 01/2017 Cardiovascular No dyspnea 07/30/2016 Respiratory No cough 07/30/2016 Respiratory No chest congestion 2016 Respiratory No productive sputum 2016 Gastrointestinal constipation 07/30/2016 Gastrointestinal No diarrhea 07/30/2016 Gastrointestinal No abdominal pain 2016 Musculoskeletal stiffness 07/30/2016 Musculoskeletal swelling 07/30/2016 Musculoskeletal arthralgia(s) 07/30/2016 Musculoskeletal muscle weakness 2016 Genitourinary/Nephrology No dysuria 07/30 Genitourinary/Nephrology No anuria/oliguria 07/30/2016 Psychiatric No anxiety 07/30/2016 Psychiatric No depression 07/30/2016 Dermatologic pigmentation change 2016 Hematologic/Lymphatic abnormal ecchymoses 07/30/2016 Endocrine No polydipsia 07/30/2016 Endocrine No sweating 07/30/2016 Endocrine No polyuria 07/30/2016 Gastrointestinal No vomiting 07/30/2016 Gastrointestinal No nausea 07/30/2016 Ears/Nose/Throat/Neck No nasal discharge 07/30/2016 Cardiovascular No syncope 07/30/2016 Neurologic No alteration of consciousness 07/30/2016 Neurologic dizziness 07/30/2016 Neurologic headache 07/30/2016 Neurologic No memory loss 07/30/2016 Neurologic No mental status change 2016 Neurologic No aphasia 07/30/2016 Neurologic No hearing loss 07/30/2016 Neurologic pain, facial 07/30/2016 Neurologic pain, limb 07/30/2016 Neurologic No paresthesia 07/30/2016 Neurologic No seizure 07/30/2016 Neurologic No spasms/spasticity 2016 Neurologic No syncope 07/30/2016 Neurologic No vision change 07/30/2016 Neurologic weakness 07/30/2016 Constitutional recent illness 06/16/2016 Constitutional No anorexia 06/16/2016 Constitutional No night sweats 2016 Constitutional No chills 06/16/2016 Constitutional No diaphoresis 06/16/2016 Constitutional fatigue 06/16/2016 Constitutional No fever 06/16/2016 Constitutional No insomnia 06/16/2016 Constitutional No malaise 06/16/2016 Constitutional No weight loss 06/16/2016 Constitutional No weight gain 06/16/2016 Eyes No eye erythema 06/16/2016 Eyes No eye discharge 06/16/2016 Ears/Nose/Throat/Neck No dizziness 2016 Ears/Nose/Throat/Neck headache 2016 Ears/Nose/Throat/Neck nasal allergies Ears/Nose/Throat/Neck nasal discharge Ears/Nose/Throat/Neck No otalgia 2016 Ears/Nose/Throat/Neck No sinus congestion 06/16/2016 Ears/Nose/Throat/Neck No sore throat Ears/Nose/Throat/Neck oral lesion 2016 Cardiovascular No chest pain/pressure Cardiovascular No dyspnea 06/16/2016 Cardiovascular No edema 06/16/2016 Respiratory productive sputum 06/16/2016 Respiratory chest congestion 06/16/2016 Respiratory cough 06/16/2016 Gastrointestinal No abdominal pain 2016 Genitourinary/Nephrology No dysuria 06/16 Musculoskeletal No joint complaint 2016 Dermatologic No rash 06/16/2016 Neurologic No alteration of consciousness 06/16/2016 Constitutional recent illness 06/08/2016 Constitutional anorexia 06/08/2016 Constitutional No night sweats 2016 Constitutional chills 06/08/2016 Constitutional No diaphoresis 06/08/2016 Constitutional fatigue 06/08/2016 Constitutional No fever 06/08/2016 Constitutional No insomnia 06/08/2016 Constitutional No malaise 06/08/2016 Constitutional No weight loss 06/08/2016 Constitutional No weight gain 06/08/2016 Eyes No eye discharge 06/08/2016 Eyes No eye erythema 06/08/2016 Ears/Nose/Throat/Neck dizziness 2016 Ears/Nose/Throat/Neck headache 2016 Ears/Nose/Throat/Neck nasal allergies Ears/Nose/Throat/Neck nasal discharge Ears/Nose/Throat/Neck No sore throat Cardiovascular No chest pain/pressure Respiratory No productive sputum 2016 Respiratory cough 06/08/2016 Gastrointestinal No abdominal pain 2016 Gastrointestinal constipation 06/08/2016 Gastrointestinal No vomiting 06/08/2016 Genitourinary/Nephrology No dysuria 06/08 Genitourinary/Nephrology urinary frequency 06/08/2016 Musculoskeletal joint complaint 2016 Dermatologic No rash 06/08/2016 Neurologic No alteration of consciousness 06/08/2016 Psychiatric No anxiety 06/08/2016 Psychiatric No depression 06/08/2016 Respiratory wheezing 06/08/2016 Respiratory chest congestion 06/08/2016 Ears/Nose/Throat/Neck No otalgia 2016 Constitutional recent illness 05/11/2016 Constitutional anorexia 05/11/2016 Constitutional No night sweats 2016 Constitutional No chills 05/11/2016 Constitutional No diaphoresis 05/11/2016 Constitutional fatigue 05/11/2016 Constitutional No fever 05/11/2016 Constitutional No insomnia 05/11/2016 Constitutional No malaise 05/11/2016 Constitutional No weight loss 05/11/2016 Constitutional No weight gain 05/11/2016 Eyes No eye discharge 05/11/2016 Eyes No eye erythema 05/11/2016 Ears/Nose/Throat/Neck dizziness 2016 Ears/Nose/Throat/Neck headache 2016 Ears/Nose/Throat/Neck nasal allergies Ears/Nose/Throat/Neck nasal discharge Ears/Nose/Throat/Neck otalgia 05/11/2016 Ears/Nose/Throat/Neck sinus congestion Ears/Nose/Throat/Neck No sore throat Cardiovascular No chest pain/pressure Respiratory No productive sputum 2016 Respiratory cough 05/11/2016 Gastrointestinal No abdominal pain 2016 Gastrointestinal constipation 05/11/2016 Gastrointestinal No vomiting 05/11/2016 Genitourinary/Nephrology No dysuria 05/11 Genitourinary/Nephrology urinary frequency 05/11/2016 Musculoskeletal joint complaint 2016 Dermatologic No rash 05/11/2016 Neurologic No alteration of consciousness 05/11/2016 Psychiatric No anxiety 05/11/2016 Psychiatric No depression 05/11/2016 Constitutional recent illness 04/14/2016 Constitutional anorexia 04/14/2016 Constitutional No night sweats 2016 Constitutional No chills 04/14/2016 Constitutional No diaphoresis 04/14/2016 Constitutional fatigue 04/14/2016 Constitutional No fever 04/14/2016 Constitutional No insomnia 04/14/2016 Constitutional No malaise 04/14/2016 Constitutional No weight loss 04/14/2016 Constitutional No weight gain 04/14/2016 Eyes No eye discharge 04/14/2016 Eyes No eye erythema 04/14/2016 Ears/Nose/Throat/Neck dizziness 2016 Ears/Nose/Throat/Neck headache 2016 Ears/Nose/Throat/Neck nasal allergies Ears/Nose/Throat/Neck nasal discharge Ears/Nose/Throat/Neck otalgia 04/14/2016 Ears/Nose/Throat/Neck sinus congestion Ears/Nose/Throat/Neck No sore throat Cardiovascular No chest pain/pressure Respiratory No productive sputum 2016 Respiratory cough 04/14/2016 Gastrointestinal No abdominal pain 2016 Gastrointestinal constipation 04/14/2016 Gastrointestinal No vomiting 04/14/2016 Genitourinary/Nephrology No dysuria 04/14 Genitourinary/Nephrology urinary frequency 04/14/2016 Musculoskeletal joint complaint 2016 Dermatologic No rash 04/14/2016 Neurologic No alteration of consciousness 04/14/2016 Constitutional No recent illness 2015 Constitutional No chills 12/25/2015 Constitutional No fatigue 12/25/2015 Constitutional No fever 12/25/2015 Cardiovascular No chest pain/pressure 07/2015 Respiratory No cough 12/25/2015 Respiratory No chest congestion 2015 Gastrointestinal No abdominal pain 2015 Gastrointestinal No constipation 2015 Gastrointestinal No diarrhea 12/25/2015 Genitourinary/Nephrology breast complaint 12/25/2015 Psychiatric No anxiety 12/25/2015 Psychiatric No depression 12/25/2015 Constitutional recent illness 11/07/2015 Constitutional anorexia 11/07/2015 Constitutional No night sweats 2015 Constitutional No chills 11/07/2015 Constitutional No diaphoresis 11/07/2015 Constitutional fatigue 11/07/2015 Constitutional No fever 11/07/2015 Constitutional No insomnia 11/07/2015 Constitutional No malaise 11/07/2015 Constitutional No weight loss 11/07/2015 Constitutional No weight gain 11/07/2015 Gastrointestinal No abdominal pain 2015 Gastrointestinal No constipation 2015 Gastrointestinal diarrhea 11/07/2015 Gastrointestinal nausea 11/07/2015 Gastrointestinal No vomiting 11/07/2015 Eyes No eye erythema 11/07/2015 Eyes No eye discharge 11/07/2015 Ears/Nose/Throat/Neck dizziness 2015 Ears/Nose/Throat/Neck headache 2015 Ears/Nose/Throat/Neck nasal allergies Ears/Nose/Throat/Neck nasal discharge Ears/Nose/Throat/Neck otalgia 11/07/2015 Ears/Nose/Throat/Neck sinus congestion Ears/Nose/Throat/Neck No sore throat Cardiovascular No chest pain/pressure Respiratory No productive sputum 2015 Respiratory cough 11/07/2015 Genitourinary/Nephrology No dysuria 11/06 Musculoskeletal joint complaint 2015 Dermatologic No rash 11/07/2015 Neurologic No alteration of consciousness 11/07/2015 Genitourinary/Nephrology urinary frequency 11/07/2015 Constitutional No recent illness 2015 Constitutional No chills 06/17/2015 Constitutional No fatigue 06/17/2015 Constitutional No fever 06/17/2015 Constitutional No insomnia 06/17/2015 Constitutional No malaise 06/17/2015 Dermatologic mole change 06/17/2015 Dermatologic pigmentation change 2015 Dermatologic sores 06/17/2015 Constitutional recent illness 02/20/2015 Constitutional anorexia 02/20/2015 Constitutional No night sweats 2014 Constitutional No chills 02/20/2015 Constitutional No diaphoresis 02/20/2015 Constitutional No fatigue 02/20/2015 Constitutional No fever 02/20/2015 Constitutional No insomnia 02/20/2015 Constitutional No malaise 02/20/2015 Eyes No eye discharge 02/20/2015 Eyes No eye erythema 02/20/2015 Ears/Nose/Throat/Neck No dizziness 2014 Ears/Nose/Throat/Neck headache 2014 Ears/Nose/Throat/Neck nasal discharge 04/2014 Cardiovascular No chest pain/pressure 04/2014 Respiratory cough 02/20/2015 Gastrointestinal abdominal pain 2014 Gastrointestinal constipation 02/20/2015 Gastrointestinal No diarrhea 02/20/2015 Gastrointestinal No nausea 02/20/2015 Gastrointestinal No vomiting 02/20/2015 Genitourinary/Nephrology dysuria 2014 Musculoskeletal joint complaint 2014 Dermatologic No rash 02/20/2015 Dermatologic No sores 02/20/2015 Neurologic No alteration of consciousness 02/20/2015 Ears/Nose/Throat/Neck nasal allergies 04/2014 Constitutional No recent illness 2014 Constitutional No anorexia 12/10/2014 Constitutional No night sweats 2014 Constitutional No chills 12/10/2014 Constitutional No diaphoresis 12/10/2014 Constitutional No fatigue 12/10/2014 Constitutional No fever 12/10/2014 Constitutional No insomnia 12/10/2014 Constitutional No weight gain 12/10/2014 Constitutional No weight loss 12/10/2014 Constitutional No malaise 12/10/2014 Constitutional recent illness 11/21/2014 Constitutional No night sweats 2014 Constitutional No chills 11/21/2014 Constitutional No diaphoresis 11/21/2014 Constitutional No fatigue 11/21/2014 Constitutional No fever 11/21/2014 Constitutional No insomnia 11/21/2014 Constitutional No malaise 11/21/2014 Constitutional No weight loss 11/21/2014 Constitutional No weight gain 11/21/2014 Eyes No eye discharge 11/21/2014 Eyes No eye erythema 11/21/2014 Ears/Nose/Throat/Neck No dizziness 2014 Ears/Nose/Throat/Neck headache 2014 Ears/Nose/Throat/Neck No nasal discharge 11/21/2014 Cardiovascular No chest pain/pressure 04/2014 Respiratory No cough 11/21/2014 Gastrointestinal abdominal pain 2014 Gastrointestinal constipation 11/21/2014 Gastrointestinal No diarrhea 11/21/2014 Gastrointestinal No nausea 11/21/2014 Gastrointestinal No vomiting 11/21/2014 Genitourinary/Nephrology dysuria 2014 Musculoskeletal joint complaint 2014 Dermatologic No rash 11/21/2014 Dermatologic No sores 11/21/2014 Neurologic No alteration of consciousness 11/21/2014 Psychiatric No anxiety 11/21/2014 Psychiatric No depression 11/21/2014 Constitutional No recent illness 2014 Constitutional No anorexia 10/23/2014 Constitutional No night sweats 2014 Constitutional No chills 10/23/2014 Constitutional No diaphoresis 10/23/2014 Constitutional No fatigue 10/23/2014 Constitutional No fever 10/23/2014 Constitutional No insomnia 10/23/2014 Constitutional No malaise 10/23/2014 Constitutional No weight loss 10/23/2014 Constitutional No weight gain 10/23/2014 Eyes No eye discharge 10/23/2014 Eyes No eye erythema 10/23/2014 Ears/Nose/Throat/Neck No dizziness 2014 Cardiovascular No chest pain/pressure 06/2014 Cardiovascular No dyspnea 10/23/2014 Cardiovascular No edema 10/23/2014 Respiratory No productive sputum 2014 Respiratory No chest congestion 2014 Respiratory No cough 10/23/2014 Respiratory No dyspnea on exertion 2014 Respiratory No dyspnea 10/23/2014 Dermatologic No rash 10/23/2014 Dermatologic No sores 10/23/2014 Dermatologic No erythema 10/23/2014 Musculoskeletal joint complaint 2014 Genitourinary/Nephrology No dysuria 10/23 Gastrointestinal No vomiting 10/23/2014 Gastrointestinal No nausea 10/23/2014 Musculoskeletal back pain 10/23/2014 Neurologic No alteration of consciousness 10/23/2014 Neurologic paresthesia 10/23/2014 Psychiatric depression 10/23/2014 Hematologic/Lymphatic No abnormal bleeding and bruising 10/23/2014 Constitutional No fever 09/04/2014 Constitutional No insomnia 09/04/2014 Constitutional No night sweats 2014 Eyes No eye pain 09/04/2014 Eyes No eye discharge 09/04/2014 Eyes No vision change 09/04/2014 Ears/Nose/Throat/Neck No headache 2014 Ears/Nose/Throat/Neck No nasal allergies 09/04/2014 Ears/Nose/Throat/Neck No otalgia 2014 Cardiovascular No fatigue 09/04/2014 Cardiovascular No dyspnea 09/04/2014 Cardiovascular No chest pain/pressure Respiratory cough 09/04/2014 Respiratory No cigarette smoking 2014 Gastrointestinal abdominal pain 2014 Gastrointestinal vomiting 09/04/2014 Gastrointestinal nausea 09/04/2014 Gastrointestinal gas and bloating 2014 Gastrointestinal No diarrhea 09/04/2014 Gastrointestinal constipation 09/04/2014 Genitourinary/Nephrology dysuria 2014 Genitourinary/Nephrology No hematuria Dermatologic No rash 09/04/2014 Dermatologic No sores 09/04/2014 Constitutional No recent illness 2014 Constitutional No chills 05/01/2014 Constitutional No fatigue 05/01/2014 Constitutional No fever 05/01/2014 Constitutional No insomnia 05/01/2014 Constitutional No malaise 05/01/2014 Dermatologic sores 05/01/2014 Dermatologic mole change 05/01/2014 Dermatologic pigmentation change 2014 Constitutional recent illness 04/03/2014 Constitutional anorexia 04/03/2014 Constitutional No night sweats 2014 Constitutional No chills 04/03/2014 Constitutional No diaphoresis 04/03/2014 Constitutional No fatigue 04/03/2014 Constitutional No fever 04/03/2014 Constitutional No insomnia 04/03/2014 Constitutional No malaise 04/03/2014 Constitutional No weight loss 04/03/2014 Constitutional No weight gain 04/03/2014 Eyes No eye discharge 04/03/2014 Eyes No eye erythema 04/03/2014 Ears/Nose/Throat/Neck No dizziness 2014 Ears/Nose/Throat/Neck headache 2014 Ears/Nose/Throat/Neck No nasal discharge 04/03/2014 Cardiovascular No chest pain/pressure Respiratory No cough 04/03/2014 Gastrointestinal abdominal pain 2014 Gastrointestinal constipation 04/03/2014 Gastrointestinal No diarrhea 04/03/2014 Gastrointestinal No nausea 04/03/2014 Gastrointestinal No vomiting 04/03/2014 Musculoskeletal joint complaint 2014 Dermatologic No rash 04/03/2014 Dermatologic No sores 04/03/2014 Neurologic No alteration of consciousness 04/03/2014 Genitourinary/Nephrology dysuria 2014 Constitutional recent illness 03/27/2014 Constitutional No anorexia 03/27/2014 Constitutional No night sweats 2014 Constitutional No chills 03/27/2014 Constitutional diaphoresis 03/27/2014 Constitutional fatigue 03/27/2014 Constitutional No fever 03/27/2014 Constitutional No insomnia 03/27/2014 Constitutional No malaise 03/27/2014 Constitutional No weight loss 03/27/2014 Constitutional No weight gain 03/27/2014 Eyes No eye discharge 03/27/2014 Eyes No eye erythema 03/27/2014 Ears/Nose/Throat/Neck No dizziness 2014 Ears/Nose/Throat/Neck nasal allergies 08/2014 Ears/Nose/Throat/Neck nasal discharge 08/2014 Ears/Nose/Throat/Neck No otalgia 2014 Ears/Nose/Throat/Neck sinus congestion Ears/Nose/Throat/Neck No sore throat 08/2014 Cardiovascular No chest pain/pressure 08/2014 Cardiovascular No dyspnea 03/27/2014 Respiratory No productive sputum 2014 Respiratory No chest congestion 2014 Respiratory cough 03/27/2014 Gastrointestinal No abdominal pain 2014 Gastrointestinal No constipation 2014 Gastrointestinal No diarrhea 03/27/2014 Gastrointestinal No vomiting 03/27/2014 Gastrointestinal No nausea 03/27/2014 Genitourinary/Nephrology No dysuria 03/27 Genitourinary/Nephrology pelvic pain 08/2014 Musculoskeletal No joint complaint 2014 Dermatologic No rash 03/27/2014 Dermatologic No sores 03/27/2014 Gastrointestinal abdominal pain 2013 Gastrointestinal constipation 02/08/2014 Gastrointestinal No diarrhea 02/08/2014 Gastrointestinal No nausea 02/08/2014 Gastrointestinal No vomiting 02/08/2014 Constitutional recent illness 02/08/2014 Constitutional anorexia 02/08/2014 Constitutional No night sweats 2013 Constitutional No chills 02/08/2014 Constitutional No diaphoresis 02/08/2014 Constitutional No fatigue 02/08/2014 Constitutional No fever 02/08/2014 Constitutional No insomnia 02/08/2014 Constitutional No malaise 02/08/2014 Constitutional No weight loss 02/08/2014 Constitutional No weight gain 02/08/2014 Eyes No eye discharge 02/08/2014 Eyes No eye erythema 02/08/2014 Ears/Nose/Throat/Neck No dizziness 2013 Ears/Nose/Throat/Neck headache 2013 Ears/Nose/Throat/Neck No nasal discharge 02/08/2014 Cardiovascular No chest pain/pressure Respiratory No cough 02/08/2014 Musculoskeletal joint complaint 2013 Dermatologic No rash 02/08/2014 Dermatologic No sores 02/08/2014 Neurologic No alteration of consciousness 02/08/2014 Constitutional No recent illness 2013 Constitutional No anorexia 12/29/2013 Constitutional No night sweats 2013 Constitutional No chills 12/29/2013 Constitutional No diaphoresis 12/29/2013 Constitutional No fatigue 12/29/2013 Constitutional No fever 12/29/2013 Constitutional No insomnia 12/29/2013 Constitutional No malaise 12/29/2013 Constitutional No weight loss 12/29/2013 Constitutional No weight gain 12/29/2013 Ears/Nose/Throat/Neck No dizziness 2013 Ears/Nose/Throat/Neck No headache 2013 Ears/Nose/Throat/Neck No nasal discharge 12/29/2013 Ears/Nose/Throat/Neck No nasal allergies 12/29/2013 Ears/Nose/Throat/Neck No otalgia 2013 Ears/Nose/Throat/Neck No sinus congestion 12/29/2013 Ears/Nose/Throat/Neck No sore throat 12/2013 Cardiovascular No chest pain/pressure 12/2013 Respiratory No cough 12/29/2013 Gastrointestinal No constipation 2013 Gastrointestinal No diarrhea 12/29/2013 Gastrointestinal No vomiting 12/29/2013 Gastrointestinal No nausea 12/29/2013 Genitourinary/Nephrology No dysuria 12/29 Dermatologic No rash 12/29/2013 Dermatologic No sores 12/29/2013 Constitutional anorexia 12/21/2013 Constitutional No night sweats 2013 Constitutional No chills 12/21/2013 Constitutional No diaphoresis 12/21/2013 Constitutional fatigue 12/21/2013 Constitutional No fever 12/21/2013 Constitutional No insomnia 12/21/2013 Eyes No eye discharge 12/21/2013 Eyes No eye erythema 12/21/2013 Ears/Nose/Throat/Neck No dizziness 2013 Cardiovascular No chest pain/pressure 04/2013 Cardiovascular No dyspnea 12/21/2013 Cardiovascular No edema 12/21/2013 Respiratory No productive sputum 2013 Respiratory No chest congestion 2013 Gastrointestinal No abdominal pain 2013 Gastrointestinal No constipation 2013 Gastrointestinal No diarrhea 12/21/2013 Gastrointestinal nausea 12/21/2013 Gastrointestinal No vomiting 12/21/2013 Genitourinary/Nephrology No dysuria 12/21 Dermatologic No rash 12/21/2013 Dermatologic No sores 12/21/2013 Neurologic No alteration of consciousness 12/21/2013 Psychiatric anxiety 12/21/2013 Constitutional No recent illness 2013 Ears/Nose/Throat/Neck nasal allergies 04/2013 Constitutional No recent illness 2013 Constitutional No anorexia 10/31/2013 Constitutional No night sweats 2013 Constitutional No chills 10/31/2013 Constitutional No diaphoresis 10/31/2013 Constitutional No fatigue 10/31/2013 Constitutional No fever 10/31/2013 Constitutional No insomnia 10/31/2013 Constitutional No malaise 10/31/2013 Constitutional No weight loss 10/31/2013 Constitutional No weight gain 10/31/2013 Eyes No eye discharge 10/31/2013 Eyes No eye erythema 10/31/2013 Gastrointestinal No abdominal pain 2013 Gastrointestinal No vomiting 10/31/2013 Gastrointestinal No nausea 10/31/2013 Ears/Nose/Throat/Neck No dizziness 2013 Ears/Nose/Throat/Neck No headache 2013 Cardiovascular No chest pain/pressure 02/2014 Respiratory No cough 10/31/2013 Musculoskeletal No joint complaint 2013 Constitutional No recent illness 2013 Constitutional No chills 08/23/2013 Constitutional No fatigue 08/23/2013 Constitutional No fever 08/23/2013 Constitutional No insomnia 08/23/2013 Constitutional No malaise 08/23/2013 Neurologic dizziness 08/23/2013 Neurologic No headache 08/23/2013 Neurologic No neck pain 08/23/2013 Neurologic No syncope 08/23/2013 Constitutional recent illness 08/10/2013 Constitutional No anorexia 08/10/2013 Constitutional No night sweats 2013 Constitutional No chills 08/10/2013 Constitutional No diaphoresis 08/10/2013 Constitutional No fatigue 08/10/2013 Constitutional No fever 08/10/2013 Constitutional No insomnia 08/10/2013 Constitutional No malaise 08/10/2013 Constitutional No weight loss 08/10/2013 Constitutional No weight gain 08/10/2013 Eyes No eye discharge 08/10/2013 Eyes No eye erythema 08/10/2013 Ears/Nose/Throat/Neck No dizziness 2013 Ears/Nose/Throat/Neck No headache 2013 Ears/Nose/Throat/Neck nasal allergies Ears/Nose/Throat/Neck No nasal discharge 08/10/2013 Ears/Nose/Throat/Neck oral pain 2013 Ears/Nose/Throat/Neck No sinus congestion 08/10/2013 Ears/Nose/Throat/Neck No otalgia 2013 Cardiovascular No chest pain/pressure Cardiovascular No dyspnea 08/10/2013 Respiratory No productive sputum 2013 Respiratory No chest congestion 2013 Respiratory No cough 08/10/2013 Gastrointestinal No abdominal pain 2013 Gastrointestinal No constipation 2013 Gastrointestinal No diarrhea 08/10/2013 Genitourinary/Nephrology No dysuria 08/10 Musculoskeletal No joint complaint 2013 Dermatologic No sores 08/10/2013 Dermatologic No rash 08/10/2013 Constitutional recent illness 08/02/2013 Constitutional No anorexia 08/02/2013 Constitutional No night sweats 2013 Constitutional No chills 08/02/2013 Constitutional No diaphoresis 08/02/2013 Constitutional fatigue 08/02/2013 Constitutional No fever 08/02/2013 Constitutional No insomnia 08/02/2013 Eyes No eye discharge 08/02/2013 Eyes No eye erythema 08/02/2013 Cardiovascular No chest pain/pressure Respiratory No productive sputum 2013 Respiratory No chest congestion 2013 Respiratory cough 08/02/2013 Gastrointestinal No abdominal pain 2013 Gastrointestinal No constipation 2013 Genitourinary/Nephrology No dysuria 08/02 Musculoskeletal No joint complaint 2013 Dermatologic No rash 08/02/2013 Dermatologic No sores 08/02/2013 Constitutional recent illness 07/18/2013 Constitutional No anorexia 07/18/2013 Constitutional No night sweats 2013 Constitutional No chills 07/18/2013 Constitutional No diaphoresis 07/18/2013 Constitutional fatigue 07/18/2013 Constitutional No fever 07/18/2013 Constitutional No insomnia 07/18/2013 Eyes No eye discharge 07/18/2013 Eyes No eye erythema 07/18/2013 Ears/Nose/Throat/Neck No dizziness 2013 Ears/Nose/Throat/Neck No headache 2013 Ears/Nose/Throat/Neck nasal allergies Cardiovascular No chest pain/pressure Cardiovascular No dyspnea 07/18/2013 Cardiovascular No edema 07/18/2013 Respiratory No productive sputum 2013 Respiratory No chest congestion 2013 Respiratory cough 07/18/2013 Gastrointestinal No abdominal pain 2013 Gastrointestinal No constipation 2013 Gastrointestinal No diarrhea 07/18/2013 Gastrointestinal No nausea 07/18/2013 Gastrointestinal No vomiting 07/18/2013 Genitourinary/Nephrology No dysuria 07/18 Dermatologic No rash 07/18/2013 Dermatologic No sores 07/18/2013 Neurologic No alteration of consciousness 07/18/2013 Psychiatric anxiety 07/18/2013 Constitutional recent illness 06/27/2013 Constitutional No anorexia 06/27/2013 Constitutional No night sweats 2013 Constitutional No chills 06/27/2013 Constitutional No diaphoresis 06/27/2013 Constitutional fatigue 06/27/2013 Constitutional No fever 06/27/2013 Constitutional No insomnia 06/27/2013 Eyes No eye discharge 06/27/2013 Eyes No eye erythema 06/27/2013 Ears/Nose/Throat/Neck No dizziness 2013 Ears/Nose/Throat/Neck No headache 2013 Cardiovascular No chest pain/pressure 10/2013 Cardiovascular No dyspnea 06/27/2013 Cardiovascular No edema 06/27/2013 Respiratory No productive sputum 2013 Respiratory No chest congestion 2013 Gastrointestinal No abdominal pain 2013 Gastrointestinal No constipation 2013 Gastrointestinal No diarrhea 06/27/2013 Gastrointestinal No nausea 06/27/2013 Gastrointestinal No vomiting 06/27/2013 Genitourinary/Nephrology No dysuria 06/27 Dermatologic No rash 06/27/2013 Dermatologic No sores 06/27/2013 Neurologic No alteration of consciousness 06/27/2013 Psychiatric anxiety 06/27/2013 Constitutional recent illness 06/01/2013 Constitutional No anorexia 06/01/2013 Constitutional No night sweats 2013 Constitutional No chills 06/01/2013 Constitutional No diaphoresis 06/01/2013 Constitutional fatigue 06/01/2013 Constitutional No fever 06/01/2013 Constitutional No insomnia 06/01/2013 Eyes No eye discharge 06/01/2013 Eyes No eye erythema 06/01/2013 Ears/Nose/Throat/Neck No dizziness 2013 Ears/Nose/Throat/Neck No headache 2013 Ears/Nose/Throat/Neck nasal allergies Cardiovascular No chest pain/pressure Cardiovascular No dyspnea 06/01/2013 Cardiovascular No edema 06/01/2013 Respiratory No productive sputum 2013 Respiratory No chest congestion 2013 Respiratory cough 06/01/2013 Gastrointestinal No abdominal pain 2013 Gastrointestinal No constipation 2013 Gastrointestinal No diarrhea 06/01/2013 Gastrointestinal No vomiting 06/01/2013 Gastrointestinal No nausea 06/01/2013 Genitourinary/Nephrology No dysuria 06/01 Dermatologic No rash 06/01/2013 Dermatologic No sores 06/01/2013 Neurologic No alteration of consciousness 06/01/2013 Psychiatric anxiety 06/01/2013 Constitutional recent illness 05/25/2013 Constitutional No anorexia 05/25/2013 Constitutional No night sweats 2013 Constitutional No chills 05/25/2013 Constitutional No diaphoresis 05/25/2013 Constitutional fatigue 05/25/2013 Constitutional No fever 05/25/2013 Constitutional No insomnia 05/25/2013 Eyes No eye discharge 05/25/2013 Eyes No eye erythema 05/25/2013 Cardiovascular No chest pain/pressure 08/2013 Respiratory No productive sputum 2013 Respiratory No chest congestion 2013 Respiratory cough 05/25/2013 Gastrointestinal No abdominal pain 2013 Gastrointestinal No constipation 2013 Gastrointestinal diarrhea 05/25/2013 Genitourinary/Nephrology No dysuria 05/25 Musculoskeletal No joint complaint 2013 Dermatologic No rash 05/25/2013 Dermatologic No sores 05/25/2013 Respiratory No chest tightness 2013 Respiratory No cigarette smoking 2013 Respiratory No dyspnea 05/25/2013 Respiratory No pedal edema 05/25/2013 Respiratory No snoring 05/25/2013 Respiratory No wheezing 05/25/2013 Constitutional recent illness 05/15/2013 Constitutional No anorexia 05/15/2013 Constitutional No chills 05/15/2013 Constitutional No night sweats 2013 Constitutional No diaphoresis 05/15/2013 Constitutional fatigue 05/15/2013 Constitutional No fever 05/15/2013 Constitutional No insomnia 05/15/2013 Eyes No eye discharge 05/15/2013 Eyes No eye erythema 05/15/2013 Ears/Nose/Throat/Neck No dizziness 2013 Ears/Nose/Throat/Neck No nasal discharge 05/15/2013 Ears/Nose/Throat/Neck No nasal allergies 05/15/2013 Cardiovascular No chest pain/pressure Gastrointestinal No abdominal pain 2013 Gastrointestinal nausea 05/15/2013 Gastrointestinal No vomiting 05/15/2013 Genitourinary/Nephrology No dysuria 05/15 Musculoskeletal No joint complaint 2013 Dermatologic No sores 05/15/2013 Dermatologic No rash 05/15/2013 Constitutional recent illness 05/09/2013 Constitutional No anorexia 05/09/2013 Constitutional No night sweats 2013 Constitutional No chills 05/09/2013 Constitutional No diaphoresis 05/09/2013 Constitutional fatigue 05/09/2013 Constitutional No insomnia 05/09/2013 Constitutional No fever 05/09/2013 Eyes No eye discharge 05/09/2013 Eyes No eye erythema 05/09/2013 Cardiovascular No chest pain/pressure Respiratory No productive sputum 2013 Respiratory No chest congestion 2013 Respiratory cough 05/09/2013 Gastrointestinal No constipation 2013 Gastrointestinal diarrhea 05/09/2013 Gastrointestinal No abdominal pain 2013 Genitourinary/Nephrology No dysuria 05/09 Musculoskeletal No joint complaint 2013 Dermatologic No sores 05/09/2013 Dermatologic No rash 05/09/2013 Constitutional No recent illness 2012 Constitutional No anorexia 03/13/2013 Constitutional No night sweats 2012 Constitutional No chills 03/13/2013 Constitutional No diaphoresis 03/13/2013 Constitutional No fatigue 03/13/2013 Constitutional No fever 03/13/2013 Constitutional No insomnia 03/13/2013 Constitutional No malaise 03/13/2013 Eyes No eye discharge 03/13/2013 Eyes No eye erythema 03/13/2013 Eyes No vision change 03/13/2013 Cardiovascular No chest pain/pressure Cardiovascular dyspnea 03/13/2013 Respiratory No chest congestion 2012 Respiratory No chest tightness 2012 Respiratory dyspnea 03/13/2013 Gastrointestinal No abdominal pain 2012 Gastrointestinal No constipation 2012 Gastrointestinal No diarrhea 03/13/2013 Gastrointestinal No nausea 03/13/2013 Gastrointestinal No vomiting 03/13/2013 Genitourinary/Nephrology No dysuria 03/13 Musculoskeletal No joint complaint 2012 Dermatologic No rash 03/13/2013 Dermatologic No sores 03/13/2013 Psychiatric anxiety 03/13/2013 Psychiatric depression 03/13/2013 Constitutional No recent illness 2012 Constitutional No anorexia 02/02/2013 Constitutional No night sweats 2012 Constitutional No chills 02/02/2013 Constitutional No diaphoresis 02/02/2013 Constitutional No fatigue 02/02/2013 Constitutional No fever 02/02/2013 Constitutional No insomnia 02/02/2013 Constitutional No malaise 02/02/2013 Eyes No eye discharge 02/02/2013 Eyes No eye erythema 02/02/2013 Eyes No vision change 02/02/2013 Cardiovascular No chest pain/pressure Cardiovascular dyspnea 02/02/2013 Respiratory No chest congestion 2012 Respiratory No chest tightness 2012 Respiratory dyspnea 02/02/2013 Gastrointestinal No abdominal pain 2012 Gastrointestinal No constipation 2012 Gastrointestinal No diarrhea 02/02/2013 Gastrointestinal No nausea 02/02/2013 Gastrointestinal No vomiting 02/02/2013 Genitourinary/Nephrology No dysuria 02/02 Musculoskeletal No joint complaint 2012 Dermatologic No rash 02/02/2013 Dermatologic No sores 02/02/2013 Psychiatric depression 02/02/2013 Psychiatric anxiety 02/02/2013 Constitutional No recent illness 2012 Constitutional No anorexia 01/10/2013 Constitutional No night sweats 2012 Constitutional No chills 01/10/2013 Constitutional No fatigue 01/10/2013 Constitutional No diaphoresis 01/10/2013 Constitutional No fever 01/10/2013 Constitutional No insomnia 01/10/2013 Constitutional No malaise 01/10/2013 Eyes No eye discharge 01/10/2013 Eyes No eye erythema 01/10/2013 Eyes No vision change 01/10/2013 Cardiovascular No chest pain/pressure Cardiovascular dyspnea 01/10/2013 Respiratory No chest congestion 2012 Respiratory No chest tightness 2012 Respiratory dyspnea 01/10/2013 Gastrointestinal No abdominal pain 2012 Gastrointestinal No constipation 2012 Gastrointestinal No diarrhea 01/10/2013 Gastrointestinal No nausea 01/10/2013 Gastrointestinal No vomiting 01/10/2013 Genitourinary/Nephrology No dysuria 01/10 Musculoskeletal No joint complaint 2012 Dermatologic No sores 01/10/2013 Dermatologic No rash 01/10/2013 Constitutional No chills 12/27/2012 Constitutional No fever 12/27/2012 Eyes No eye erythema 12/27/2012 Eyes No eye discharge 12/27/2012 Eyes No eye pain 12/27/2012 Ears/Nose/Throat/Neck tinnitus 2012 Ears/Nose/Throat/Neck otalgia 12/27/2012 Ears/Nose/Throat/Neck No nasal discharge 12/27/2012 Ears/Nose/Throat/Neck headache 2012 Ears/Nose/Throat/Neck dizziness 2012 Cardiovascular No chest pain/pressure 10/2012 Cardiovascular No fatigue 12/27/2012 Respiratory No cough 12/27/2012 Respiratory No dyspnea 12/27/2012 Gastrointestinal No abdominal pain 2012 Gastrointestinal No anorexia 12/27/2012 Gastrointestinal No constipation 2012 Gastrointestinal No diarrhea 12/27/2012 Gastrointestinal No nausea 12/27/2012 Gastrointestinal No vomiting 12/27/2012 Genitourinary/Nephrology No dysuria 12/27 Musculoskeletal back pain 12/27/2012 Musculoskeletal sciatica 12/27/2012 Genitourinary/Nephrology pelvic pain 10/2012 Genitourinary/Nephrology Pap smear abnormality 12/27/2012 Dermatologic No rash 12/27/2012 Dermatologic No sores 12/27/2012 Physical Exam Exam Name System Name Item Name Status Result Effective Dates Notes Full Exam - ENT Constitutional general appearance Overall: well nourished 03/12/2017 None Full Exam - ENT Constitutional general appearance Overall: well developed 03/12/2017 None Full Exam - ENT Constitutional general appearance Overall: in no acute distress 03/12/2017 None Full Exam - ENT Ears/Nose/Throat otoscopic exam Overall: external auditory canals normal 03/12/2017 None Full Exam - ENT Ears/Nose/Throat otoscopic exam Left tympanic membrane: air -fluid level 03/12/2017 None Full Exam - ENT Ears/Nose/Throat otoscopic exam Right tympanic membrane: air-fluid level 03/12/2017 None Full Exam - ENT Ears/Nose/Throat nasal mucosa, septum, turbinates Drainage: clear 03/12/2017 None Full Exam - ENT Ears/Nose/Throat nasal mucosa, septum, turbinates Drainage: yellow 03/12/2017 None Full Exam - ENT Ears/Nose/Throat lips/ teeth/gingiva Overall: benign lips 03/12/2017 None Full Exam - ENT Ears/Nose/Throat oropharynx Posterior Pharynx: clear post nasal drainage 03/12/2017 None Full Exam - ENT Face and Head palpation Left maxillary sinus: tender 03/12/2017 None Full Exam - ENT Face and Head palpation Right maxillary sinus: tender 03/12/2017 None Full Exam - ENT Respiratory inspection Overall: no retractions 03/12/2017 None Full Exam - ENT Respiratory inspection Overall: normal rate None Full Exam - ENT Respiratory auscultation Overall: breath sounds clear bilaterally 03/12/2017 None Full Exam - ENT Cardiovascular auscultation of heart Overall: regular rate 03/12/2017 None Full Exam - ENT Cardiovascular auscultation of heart Overall: normal heart sounds 03/12/2017 None Full Exam - ENT Lymphatic palpation of lymph nodes Overall: anterior cervical chain benign 03/12/2017 None Full Exam - ENT Lymphatic palpation of lymph nodes Overall: posterior cervical chain benign 03/12/2017 None Full Exam - ENT Neurologic mood and affect Overall: normal mood 03/12/2017 None Full Exam - ENT Neurologic mood and affect Overall: normal affect 03/12/2017 None Full Exam - ENT Neurologic orientation Overall: oriented to person, place and time 03/12/2017 None Full Exam - ENT Ears/Nose/Throat otoscopic exam Right tympanic membrane: erythematous 03/12/2017 None Full Exam - ENT Constitutional general appearance Overall: well nourished 01/20/2017 None Full Exam - ENT Constitutional general appearance Overall: well developed 01/20/2017 None Full Exam - ENT Constitutional general appearance Overall: in no acute distress 01/20/2017 None Full Exam - ENT Ears/Nose/Throat otoscopic exam Overall: external auditory canals normal 01/20/2017 None Full Exam - ENT Ears/Nose/Throat otoscopic exam Left tympanic membrane: air -fluid level 01/20/2017 None Full Exam - ENT Ears/Nose/Throat otoscopic exam Right tympanic membrane: air-fluid level 01/20/2017 None Full Exam - ENT Ears/Nose/Throat nasal mucosa, septum, turbinates Drainage: clear 01/20/2017 None Full Exam - ENT Ears/Nose/Throat nasal mucosa, septum, turbinates Drainage: yellow 01/20/2017 None Full Exam - ENT Ears/Nose/Throat lips/ teeth/gingiva Overall: benign lips 01/20/2017 None Full Exam - ENT Ears/Nose/Throat oropharynx Posterior Pharynx: clear post nasal drainage 01/20/2017 None Full Exam - ENT Face and Head palpation Left maxillary sinus: tender 01/20/2017 None Full Exam - ENT Face and Head palpation Right maxillary sinus: tender 01/20/2017 None Full Exam - ENT Respiratory inspection Overall: no retractions 01/20/2017 None Full Exam - ENT Respiratory inspection Overall: normal rate 03/2016 None Full Exam - ENT Respiratory auscultation Overall: breath sounds clear bilaterally 01/20/2017 None Full Exam - ENT Cardiovascular auscultation of heart Overall: regular rate 01/20/2017 None Full Exam - ENT Cardiovascular auscultation of heart Overall: normal heart sounds 01/20/2017 None Full Exam - ENT Lymphatic palpation of lymph nodes Overall: anterior cervical chain benign 01/20/2017 None Full Exam - ENT Lymphatic palpation of lymph nodes Overall: posterior cervical chain benign 01/20/2017 None Full Exam - ENT Neurologic mood and affect Overall: normal mood 01/20/2017 None Full Exam - ENT Neurologic mood and affect Overall: normal affect 01/20/2017 None Full Exam - ENT Neurologic orientation Overall: oriented to person, place and time 01/20/2017 None Full Exam - General 1994 Constitutional general appearance Overall: well developed 11/03/2016 None Full Exam - General 1994 Constitutional general appearance Overall: in no acute distress 11/03/2016 None Full Exam - General 1994 Constitutional general appearance Overall: well nourished 11/03/2016 None Full Exam - General 1994 Eyes conjunctiva /eyelids Overall: conjunctiva clear 11/03/2016 None Full Exam - General 1994 Eyes conjunctiva /eyelids Overall: eyelids normal 11/03/2016 None Full Exam - General 1994 Ears/Nose/Throat lips/teeth/gingiva Overall: benign lips 11/03/2016 None Full Exam - General 1994 Ears/Nose/Throat oral cavity/pharynx/larynx Overall: oral mucosa clear 11/03/2016 None Full Exam - General 1994 Respiratory respiratory effort/rhythm Overall: no retractions 11/03/2016 None Full Exam - General 1994 Respiratory respiratory effort/rhythm Overall: normal rate 11/03/2016 None Full Exam - General 1994 Musculoskeletal gait and station Overall: normal gait 11/03/2016 None Full Exam - General 1994 Musculoskeletal gait and station Overall: normal station 11/03/2016 None Full Exam - General 1994 Musculoskeletal head and neck Overall: head atraumatic 11/03/2016 None Full Exam - General 1994 Neurologic cranial nerves Overall: crainial nerves 2 - 12 grossly intact 11/03/2016 None Full Exam - General 1994 Psychiatric orientation/consciousness Overall: oriented to person, place and time 11/03/2016 None Full Exam - General 1994 Psychiatric mood and affect Overall: normal mood and affect 11/03/2016 None Full Exam - General 1994 Psychiatric appearance Overall: well-groomed, good eye contact 11/03/2016 None Full Exam - General 1994 Abdomen abdominal exam Overall: no tenderness 11/03/2016 None Full Exam - General 1994 Abdomen abdominal exam Overall: normal bowel sounds 11/03/2016 None Full Exam - General 1994 Integument inspection of skin Overall: few scattered moles, no gross abnormalities 11/03/2016 None Full Exam - General 1994 Constitutional general appearance Overall: well developed 09/29/2016 None Full Exam - General 1994 Constitutional general appearance Overall: in no acute distress 09/29/2016 None Full Exam - General 1994 Constitutional general appearance Overall: well nourished 09/29/2016 None Full Exam - General 1994 Eyes conjunctiva /eyelids Overall: conjunctiva clear 09/29/2016 None Full Exam - General 1994 Eyes conjunctiva /eyelids Overall: eyelids normal 09/29/2016 None Full Exam - General 1994 Ears/Nose/Throat oral cavity/pharynx/larynx Overall: oral mucosa clear 09/29/2016 None Full Exam - General 1994 Ears/Nose/Throat lips/teeth/gingiva Overall: benign lips 09/29/2016 None Full Exam - General 1994 Respiratory respiratory effort/rhythm Overall: no retractions 09/29/2016 None Full Exam - General 1994 Respiratory respiratory effort/rhythm Overall: normal rate 09/29/2016 None Full Exam - General 1994 Musculoskeletal gait and station Overall: normal gait 09/29/2016 None Full Exam - General 1994 Musculoskeletal gait and station Overall: normal station 09/29/2016 None Full Exam - General 1994 Musculoskeletal head and neck Overall: head atraumatic 09/29/2016 None Full Exam - General 1994 Neurologic cranial nerves Overall: crainial nerves 2 - 12 grossly intact 09/29/2016 None Full Exam - General 1994 Psychiatric orientation/consciousness Overall: oriented to person, place and time 09/29/2016 None Full Exam - General 1994 Psychiatric mood and affect Overall: normal mood and affect 09/29/2016 None Full Exam - General 1994 Psychiatric appearance Overall: well-groomed, good eye contact 09/29/2016 None Full Exam - Dermatology Constitutional general appearance Overall: well nourished 09/15/2016 None Full Exam - Dermatology Constitutional general appearance Overall: well developed 09/15/2016 None Full Exam - Dermatology Constitutional general appearance Overall: in no acute distress 09/15/2016 None Full Exam - Dermatology Constitutional general appearance Overall: well groomed 09/15/2016 None Full Exam - Dermatology Eyes conjunctiva/ eyelids Overall: clear conjunctiva bilaterally 09/15/2016 None Full Exam - Dermatology Eyes conjunctiva/ eyelids Overall: normal eyelids 09/15/2016 None Full Exam - Dermatology Ears/Nose/Throat lips/teeth/gingiva Overall: benign lips 09/15/2016 None Full Exam - Dermatology Ears/Nose/Throat oropharynx Overall: clear oral mucosa 09/15/2016 None Full Exam - Dermatology Respiratory respiratory effort/rhythm Overall: no retractions 09/15/2016 None Full Exam - Dermatology Respiratory respiratory effort/rhythm Overall: normal rate 09/15/2016 None Full Exam - Dermatology Integument insp & palp - head/face Location: on the left cheek 09/15/2016 healing ecchymosis Full Exam - Dermatology Integument insp & palp - head/face Location: on the right cheek 09/15/2016 healing ecchymosis Full Exam - Dermatology Integument insp & palp - left lower extremity Lesion: patch 09/15/2016 None Full Exam - Dermatology Integument insp & palp - left lower extremity Location: on the [place] 09/15/2016 None Full Exam - Dermatology Integument insp & palp - left lower extremity Color: erythematous 09/15/2016 mild Full Exam - Dermatology Psychiatric orientation Overall: oriented to person, place and time 09/15/2016 None Full Exam - Dermatology Psychiatric mood and affect Overall: normal mood and affect 09/15/2016 None Full Exam - Dermatology Constitutional general appearance Overall: well nourished 08/31/2016 None Full Exam - Dermatology Constitutional general appearance Overall: well developed 08/31/2016 None Full Exam - Dermatology Constitutional general appearance Overall: in no acute distress 08/31/2016 None Full Exam - Dermatology Constitutional general appearance Overall: well groomed 08/31/2016 None Full Exam - Dermatology Eyes conjunctiva/ eyelids Overall: clear conjunctiva bilaterally 08/31/2016 None Full Exam - Dermatology Eyes conjunctiva/ eyelids Overall: normal eyelids 08/31/2016 None Full Exam - Dermatology Ears/Nose/Throat lips/teeth/gingiva Overall: benign lips 08/31/2016 None Full Exam - Dermatology Ears/Nose/Throat oropharynx Overall: clear oral mucosa 08/31/2016 None Full Exam - Dermatology Respiratory respiratory effort/rhythm Overall: no retractions 08/31/2016 None Full Exam - Dermatology Respiratory respiratory effort/rhythm Overall: normal rate 08/31/2016 None Full Exam - Dermatology Integument insp & palp - head/face Location: on the right cheek 08/31/2016 healing ecchymosis Full Exam - Dermatology Integument insp & palp - head/face Location: on the left cheek 08/31/2016 healing ecchymosis Full Exam - Dermatology Integument insp & palp - left lower extremity Location: on the [place] 08/31/2016 None Full Exam - Dermatology Integument insp & palp - left lower extremity Lesion: patch 08/31/2016 None Full Exam - Dermatology Integument insp & palp - left lower extremity Color: erythematous 08/31/2016 mild Full Exam - Dermatology Psychiatric orientation Overall: oriented to person, place and time 08/31/2016 None Full Exam - Dermatology Psychiatric mood and affect Overall: normal mood and affect 08/31/2016 None Full Exam - General 1994 Constitutional general appearance Development: well developed 08/14/2016 None Full Exam - General 1994 Constitutional general appearance Development: appears stated age 0508/14/2016 None Full Exam - General 1994 Eyes conjunctiva /eyelids Overall: conjunctiva clear 08/14/2016 None Full Exam - General 1994 Eyes conjunctiva /eyelids Overall: cornea clear 08/14/2016 None Full Exam - General 1994 Eyes conjunctiva /eyelids Overall: eyelids normal 08/14/2016 None Full Exam - General 1994 Eyes pupils and irises Overall: pupils equal, round, reactive to light and accomodation 08/14/2016 None Full Exam - General 1994 Ears/Nose/Throat otoscopic exam Overall: external auditory canals clear 08/14/2016 None Full Exam - General 1994 Ears/Nose/Throat otoscopic exam Overall: tympanic membranes clear 08/14/2016 None Full Exam - General 1994 Ears/Nose/Throat internal nose Overall: septum midline 08/14/2016 None Full Exam - General 1994 Ears/Nose/Throat internal nose Overall: no drainage 08/14/2016 None Full Exam - General 1994 Ears/Nose/Throat lips/teeth/gingiva Overall: benign lips 08/14/2016 None Full Exam - General 1994 Ears/Nose/Throat lips/teeth/gingiva Overall: normal dentition 08/14/2016 None Full Exam - General 1994 Ears/Nose/Throat oral cavity/pharynx/larynx Overall: oral mucosa clear 08/14/2016 None Full Exam - General 1994 Neck inspection of neck Overall: normal size 08/14/2016 None Full Exam - General 1994 Neck inspection of neck Overall: normal appearance 08/14/2016 None Full Exam - General 1994 Respiratory auscultation Overall: breath sounds clear bilaterally 08/14/2016 None Full Exam - General 1994 Respiratory respiratory effort/rhythm Overall: no retractions 08/14/2016 None Full Exam - General 1994 Respiratory respiratory effort/rhythm Overall: normal rate 08/14/2016 None Full Exam - General 1994 Cardiovascular auscultation of heart Overall: regular rate 08/14/2016 None Full Exam - General 1994 Cardiovascular auscultation of heart Overall: normal heart sounds 08/14/2016 None Full Exam - General 1994 Abdomen abdominal exam Overall: no tenderness 08/14/2016 None Full Exam - General 1994 Abdomen abdominal exam Overall: normal bowel sounds 08/14/2016 None Full Exam - General 1994 Lymphatic neck nodes Overall: anterior cervical chain benign 08/14/2016 None Full Exam - General 1994 Lymphatic neck nodes Overall: posterior cervical chain benign 08/14/2016 None Full Exam - General 1994 Musculoskeletal gait and station Overall: normal gait 08/14/2016 None Full Exam - General 1994 Musculoskeletal gait and station Overall: normal station 08/14/2016 None Full Exam - General 1994 Musculoskeletal head and neck Overall: head atraumatic 08/14/2016 None Full Exam - General 1994 Musculoskeletal head and neck Overall: cervical spine benign 08/14/2016 None Full Exam - General 1994 Integument inspection of skin Location: face 08/14/2016 nose-swelling and bruising Full Exam - General 1994 Integument inspection of skin Pigmentation: ecchymosis 08/14/2016 nose, cheeks and forehead Full Exam - General 1994 Neurologic mental status Overall: alert 08/14/2016 None Full Exam - General 1994 Neurologic mental status Overall: oriented 08/14/2016 None Full Exam - General 1994 Neurologic gait Overall: no ataxia, no unsteadiness 08/14/2016 None Full Exam - General 1994 Neurologic coordination Overall: no tremors 08/14/2016 None Full Exam - General 1994 Neurologic cranial nerves Overall: crainial nerves 2 - 12 grossly intact 08/14/2016 None Full Exam - General 1994 Neurologic motor Overall: normal bulk, tone 08/14/2016 None Full Exam - General 1994 Psychiatric orientation/consciousness Overall: oriented to person, place and time 08/14/2016 None Full Exam - General 1994 Psychiatric behavior/psychomotor activity Overall: no tics, normal psychomotor activity 08/14/2016 None Full Exam - General 1994 Psychiatric mood and affect Affect: flat 08/14/2016 None Full Exam - General 1994 Psychiatric appearance Overall: well-groomed, good eye contact 08/14/2016 None Full Exam - General 1994 Psychiatric speech Overall: normal quality, no aphasia 08/14/2016 None Full Exam - General 1994 Psychiatric thought Overall: normal form and content 08/14/2016 None Full Exam - General 1994 Psychiatric cognition/memory Overall: normal concentration, intelligence 08/14/2016 None Full Exam - General 1994 Psychiatric judgment/insight Overall: judgment and insight intact 08/14/2016 None Full Exam - General 1994 Musculoskeletal upper extremity Inspection - forearm: swelling 08/14/2016 sling right arm Full Exam - General 1994 Musculoskeletal lower extremity Inspection - knee: swelling 08/14/2016 and bruising Full Exam - General 1994 Constitutional general appearance Development: well developed 07/30/2016 None Full Exam - General 1994 Constitutional general appearance Development: appears stated age 0507/30/2016 None Full Exam - General 1994 Eyes conjunctiva /eyelids Overall: conjunctiva clear 07/30/2016 None Full Exam - General 1994 Eyes conjunctiva /eyelids Overall: cornea clear 07/30/2016 None Full Exam - General 1994 Eyes conjunctiva /eyelids Overall: eyelids normal 07/30/2016 None Full Exam - General 1994 Eyes pupils and irises Overall: pupils equal, round, reactive to light and accomodation 07/30/2016 None Full Exam - General 1994 Ears/Nose/Throat otoscopic exam Overall: external auditory canals clear 07/30/2016 None Full Exam - General 1994 Ears/Nose/Throat otoscopic exam Overall: tympanic membranes clear 07/30/2016 None Full Exam - General 1994 Ears/Nose/Throat lips/teeth/gingiva Overall: benign lips 07/30/2016 None Full Exam - General 1994 Ears/Nose/Throat lips/teeth/gingiva Overall: normal dentition 07/30/2016 None Full Exam - General 1994 Ears/Nose/Throat oral cavity/pharynx/larynx Overall: oral mucosa clear 07/30/2016 None Full Exam - General 1994 Ears/Nose/Throat internal nose Overall: septum midline 07/30/2016 None Full Exam - General 1994 Ears/Nose/Throat internal nose Sinus tenderness: left maxillary 07/30/2016 None Full Exam - General 1994 Ears/Nose/Throat internal nose Sinus tenderness: right maxillary 07/30/2016 None Full Exam - General 1994 Ears/Nose/Throat internal nose Overall: no drainage 07/30/2016 None Full Exam - General 1994 Neck inspection of neck Overall: normal size 07/30/2016 None Full Exam - General 1994 Neck inspection of neck Overall: normal appearance 07/30/2016 None Full Exam - General 1994 Respiratory auscultation Overall: breath sounds clear bilaterally 07/30/2016 None Full Exam - General 1994 Respiratory respiratory effort/rhythm Overall: no retractions 07/30/2016 None Full Exam - General 1994 Respiratory respiratory effort/rhythm Overall: normal rate 07/30/2016 None Full Exam - General 1994 Cardiovascular auscultation of heart Overall: regular rate 07/30/2016 None Full Exam - General 1994 Cardiovascular auscultation of heart Overall: normal heart sounds 07/30/2016 None Full Exam - General 1994 Abdomen abdominal exam Overall: no tenderness 07/30/2016 None Full Exam - General 1994 Abdomen abdominal exam Overall: normal bowel sounds 07/30/2016 None Full Exam - General 1994 Lymphatic neck nodes Overall: anterior cervical chain benign 07/30/2016 None Full Exam - General 1994 Lymphatic neck nodes Overall: posterior cervical chain benign 07/30/2016 None Full Exam - General 1994 Musculoskeletal upper extremity Inspection - shoulder: redness 07/30/2016 bruising left shoulder Full Exam - General 1994 Musculoskeletal upper extremity Palpation - shoulder: acromioclavicular joint tenderness 07/30/2016 None Full Exam - General 1994 Musculoskeletal upper extremity Palpation - shoulder: glenohumeral joint tenderness 07/30/2016 None Full Exam - General 1994 Musculoskeletal upper extremity ROM - shoulder: pain with abduction 07/30/2016 None Full Exam - General 1994 Musculoskeletal gait and station Overall: normal gait 07/30/2016 None Full Exam - General 1994 Musculoskeletal gait and station Overall: normal station 07/30/2016 None Full Exam - General 1994 Musculoskeletal head and neck Overall: head atraumatic 07/30/2016 None Full Exam - General 1994 Musculoskeletal head and neck Overall: cervical spine benign 07/30/2016 None Full Exam - General 1994 Integument inspection of skin Location: face 07/30/2016 nose Full Exam - General 1994 Integument inspection of skin Pigmentation: ecchymosis 07/30/2016 None Full Exam - General 1994 Neurologic mental status Overall: alert 07/30/2016 None Full Exam - General 1994 Neurologic mental status Overall: oriented 07/30/2016 None Full Exam - General 1994 Neurologic gait Overall: no ataxia, no unsteadiness 07/30/2016 None Full Exam - General 1994 Neurologic coordination Overall: no tremors 07/30/2016 None Full Exam - General 1994 Neurologic cranial nerves Overall: crainial nerves 2 - 12 grossly intact 07/30/2016 None Full Exam - General 1994 Neurologic motor Overall: normal bulk, tone 07/30/2016 None Full Exam - General 1994 Psychiatric orientation/consciousness Overall: oriented to person, place and time 07/30/2016 None Full Exam - General 1994 Psychiatric behavior/psychomotor activity Overall: no tics, normal psychomotor activity 07/30/2016 None Full Exam - General 1994 Psychiatric mood and affect Affect: flat 07/30/2016 None Full Exam - General 1994 Psychiatric appearance Overall: well-groomed, good eye contact 07/30/2016 None Full Exam - General 1994 Psychiatric speech Overall: normal quality, no aphasia 07/30/2016 None Full Exam - General 1994 Psychiatric thought Overall: normal form and content 07/30/2016 None Full Exam - General 1994 Psychiatric cognition/memory Overall: normal concentration, intelligence 07/30/2016 None Full Exam - General 1994 Psychiatric judgment/insight Overall: judgment and insight intact 07/30/2016 None Full Exam - General 1994 Constitutional general appearance Overall: well developed 06/16/2016 None Full Exam - General 1994 Constitutional general appearance Overall: in no acute distress 06/16/2016 None Full Exam - General 1994 Constitutional general appearance Overall: well nourished 06/16/2016 None Full Exam - General 1994 Eyes conjunctiva /eyelids Overall: conjunctiva clear 06/16/2016 None Full Exam - General 1994 Ears/Nose/Throat otoscopic exam Overall: external auditory canals clear 06/16/2016 None Full Exam - General 1994 Ears/Nose/Throat otoscopic exam Overall: tympanic membranes clear 06/16/2016 None Full Exam - General 1994 Respiratory auscultation Overall: breath sounds clear bilaterally 06/16/2016 deep hacking cough Full Exam - General 1994 Respiratory respiratory effort/rhythm Overall: no retractions 06/16/2016 None Full Exam - General 1994 Respiratory respiratory effort/rhythm Overall: normal rate 06/16/2016 None Full Exam - General 1994 Cardiovascular extremities Overall: no clubbing 06/16/2016 None Full Exam - General 1994 Cardiovascular auscultation of heart Overall: regular rate 06/16/2016 None Full Exam - General 1994 Cardiovascular auscultation of heart Overall: normal heart sounds 06/16/2016 None Full Exam - General 1994 Cardiovascular auscultation of heart Overall: no murmurs 06/16/2016 None Full Exam - General 1994 Abdomen abdominal exam Overall: no tenderness 06/16/2016 None Full Exam - General 1994 Abdomen abdominal exam Overall: normal bowel sounds 06/16/2016 None Full Exam - General 1994 Lymphatic neck nodes Overall: anterior cervical chain benign 06/16/2016 None Full Exam - General 1994 Lymphatic neck nodes Overall: posterior cervical chain benign 06/16/2016 None Full Exam - General 1994 Integument inspection of skin Overall: no rash, lesions 06/16/2016 None Full Exam - General 1994 Psychiatric orientation/consciousness Overall: oriented to person, place and time 06/16/2016 None Full Exam - General 1994 Ears/Nose/Throat oral cavity/pharynx/larynx Oral mucosa: thrush 06/16/2016 None Full Exam - General 1994 Constitutional general appearance Overall: well developed 06/08/2016 None Full Exam - General 1994 Constitutional general appearance Overall: in no acute distress 06/08/2016 None Full Exam - General 1994 Constitutional general appearance Overall: well nourished 06/08/2016 None Full Exam - General 1994 Eyes conjunctiva /eyelids Overall: conjunctiva clear 06/08/2016 None Full Exam - General 1994 Ears/Nose/Throat otoscopic exam Overall: external auditory canals clear 06/08/2016 None Full Exam - General 1994 Ears/Nose/Throat otoscopic exam Overall: tympanic membranes clear 06/08/2016 None Full Exam - General 1994 Ears/Nose/Throat oral cavity/pharynx/larynx Overall: oral mucosa clear 06/08/2016 None Full Exam - General 1994 Ears/Nose/Throat oral cavity/pharynx/larynx Overall: oropharyngeal mucosa clear 06/08/2016 None Full Exam - General 1994 Ears/Nose/Throat oral cavity/pharynx/larynx Overall: no masses 06/08/2016 None Full Exam - General 1994 Respiratory auscultation Overall: breath sounds clear bilaterally 06/08/2016 deep hacking cough Full Exam - General 1994 Respiratory respiratory effort/rhythm Overall: no retractions 06/08/2016 None Full Exam - General 1994 Respiratory respiratory effort/rhythm Overall: normal rate 06/08/2016 None Full Exam - General 1994 Cardiovascular extremities Overall: no clubbing 06/08/2016 None Full Exam - General 1994 Cardiovascular auscultation of heart Overall: regular rate 06/08/2016 None Full Exam - General 1994 Cardiovascular auscultation of heart Overall: normal heart sounds 06/08/2016 None Full Exam - General 1994 Cardiovascular auscultation of heart Overall: no murmurs 06/08/2016 None Full Exam - General 1994 Lymphatic neck nodes Overall: anterior cervical chain benign 06/08/2016 None Full Exam - General 1994 Lymphatic neck nodes Overall: posterior cervical chain benign 06/08/2016 None Full Exam - General 1994 Integument inspection of skin Overall: no rash, lesions 06/08/2016 None Full Exam - General 1994 Psychiatric orientation/consciousness Overall: oriented to person, place and time 06/08/2016 None Full Exam - General 1994 Abdomen abdominal exam Overall: normal bowel sounds 06/08/2016 None Full Exam - General 1994 Abdomen abdominal exam Overall: no tenderness 06/08/2016 None Full Exam - General 1994 Constitutional general appearance Overall: well developed 05/11/2016 None Full Exam - General 1994 Constitutional general appearance Overall: in no acute distress 05/11/2016 None Full Exam - General 1994 Constitutional general appearance Overall: well nourished 05/11/2016 None Full Exam - General 1994 Eyes conjunctiva /eyelids Overall: conjunctiva clear 05/11/2016 None Full Exam - General 1994 Ears/Nose/Throat otoscopic exam Overall: external auditory canals clear 05/11/2016 None Full Exam - General 1994 Ears/Nose/Throat otoscopic exam Overall: tympanic membranes clear 05/11/2016 None Full Exam - General 1994 Ears/Nose/Throat oral cavity/pharynx/larynx Overall: oral mucosa clear 05/11/2016 None Full Exam - General 1994 Ears/Nose/Throat oral cavity/pharynx/larynx Overall: oropharyngeal mucosa clear 05/11/2016 None Full Exam - General 1994 Ears/Nose/Throat oral cavity/pharynx/larynx Overall: no masses 05/11/2016 None Full Exam - General 1994 Respiratory auscultation Overall: breath sounds clear bilaterally 05/11/2016 None Full Exam - General 1994 Respiratory respiratory effort/rhythm Overall: no retractions 05/11/2016 None Full Exam - General 1994 Respiratory respiratory effort/rhythm Overall: normal rate 05/11/2016 None Full Exam - General 1994 Cardiovascular extremities Overall: no clubbing 05/11/2016 None Full Exam - General 1994 Cardiovascular auscultation of heart Overall: regular rate 05/11/2016 None Full Exam - General 1994 Cardiovascular auscultation of heart Overall: normal heart sounds 05/11/2016 None Full Exam - General 1994 Cardiovascular auscultation of heart Overall: no murmurs 05/11/2016 None Full Exam - General 1994 Lymphatic neck nodes Overall: anterior cervical chain benign 05/11/2016 None Full Exam - General 1994 Lymphatic neck nodes Overall: posterior cervical chain benign 05/11/2016 None Full Exam - General 1994 Integument inspection of skin Overall: no rash, lesions 05/11/2016 None Full Exam - General 1994 Psychiatric orientation/consciousness Overall: oriented to person, place and time 05/11/2016 None Full Exam - General 1994 Constitutional general appearance Overall: well developed 04/14/2016 None Full Exam - General 1994 Constitutional general appearance Overall: in no acute distress 04/14/2016 None Full Exam - General 1994 Constitutional general appearance Overall: well nourished 04/14/2016 None Full Exam - General 1994 Eyes conjunctiva /eyelids Overall: conjunctiva clear 04/14/2016 None Full Exam - General 1994 Ears/Nose/Throat otoscopic exam Overall: external auditory canals clear 04/14/2016 None Full Exam - General 1994 Ears/Nose/Throat otoscopic exam Overall: tympanic membranes clear 04/14/2016 None Full Exam - General 1994 Ears/Nose/Throat oral cavity/pharynx/larynx Overall: oral mucosa clear 04/14/2016 None Full Exam - General 1994 Ears/Nose/Throat oral cavity/pharynx/larynx Overall: oropharyngeal mucosa clear 04/14/2016 None Full Exam - General 1994 Ears/Nose/Throat oral cavity/pharynx/larynx Overall: no masses 04/14/2016 None Full Exam - General 1994 Respiratory auscultation Overall: breath sounds clear bilaterally 04/14/2016 None Full Exam - General 1994 Respiratory respiratory effort/rhythm Overall: no retractions 04/14/2016 None Full Exam - General 1994 Respiratory respiratory effort/rhythm Overall: normal rate 04/14/2016 None Full Exam - General 1994 Cardiovascular extremities Overall: no clubbing 04/14/2016 None Full Exam - General 1994 Cardiovascular auscultation of heart Overall: regular rate 04/14/2016 None Full Exam - General 1994 Cardiovascular auscultation of heart Overall: normal heart sounds 04/14/2016 None Full Exam - General 1994 Cardiovascular auscultation of heart Overall: no murmurs 04/14/2016 None Full Exam - General 1994 Lymphatic neck nodes Overall: anterior cervical chain benign 04/14/2016 None Full Exam - General 1994 Lymphatic neck nodes Overall: posterior cervical chain benign 04/14/2016 None Full Exam - General 1994 Integument inspection of skin Overall: no rash, lesions 04/14/2016 None Full Exam - General 1994 Psychiatric orientation/consciousness Overall: oriented to person, place and time 04/14/2016 None Full Exam - General 1994 Constitutional general appearance Overall: well nourished 12/25/2015 None Full Exam - General 1994 Constitutional general appearance Overall: well developed 12/25/2015 None Full Exam - General 1994 Constitutional general appearance Overall: in no acute distress 12/25/2015 None Full Exam - General 1994 Respiratory respiratory effort/rhythm Overall: normal rate 12/25/2015 None Full Exam - General 1994 Respiratory respiratory effort/rhythm Overall: no retractions 12/25/2015 None Full Exam - General 1994 Respiratory auscultation Overall: breath sounds clear bilaterally 12/25/2015 None Full Exam - General 1994 Cardiovascular auscultation of heart Overall: regular rate 12/25/2015 None Full Exam - General 1994 Cardiovascular auscultation of heart Overall: normal heart sounds 12/25/2015 None Full Exam - General 1994 Cardiovascular auscultation of heart Overall: no murmurs 12/25/2015 None Full Exam - General 1994 Cardiovascular extremities Overall: no clubbing 12/25/2015 None Full Exam - General 1994 Chest/Breast breast and axillae palpation Nipple: tender 12/25/2015 no palpable abnormalities Full Exam - General 1994 Chest/Breast breast and axillae palpation Nipple: no discharge 12/25/2015 None Full Exam - General 1994 Psychiatric orientation/consciousness Overall: oriented to person, place and time 12/25/2015 None Full Exam - General 1994 Psychiatric mood and affect Mood: happy 12/25/2015 None Full Exam - General 1994 Psychiatric mood and affect Overall: normal mood and affect 12/25/2015 None Full Exam - General 1994 Lymphatic neck nodes Overall: posterior cervical chain benign 12/25/2015 None Full Exam - General 1994 Lymphatic neck nodes Overall: anterior cervical chain benign 12/25/2015 None Full Exam - General 1994 Lymphatic axilla /arm nodes Overall: epitrochlear non- tender, not enlarged 12/25/2015 None Full Exam - General 1994 Lymphatic axilla /arm nodes Overall: axillary non-tender, not enlarged 12/25/2015 None Full Exam - General 1994 Constitutional general appearance Overall: well developed 11/07/2015 None Full Exam - General 1994 Constitutional general appearance Overall: in no acute distress 11/07/2015 None Full Exam - General 1994 Constitutional general appearance Overall: well nourished 11/07/2015 None Full Exam - General 1994 Eyes conjunctiva /eyelids Overall: conjunctiva clear 11/07/2015 None Full Exam - General 1994 Ears/Nose/Throat otoscopic exam Overall: external auditory canals clear 11/07/2015 None Full Exam - General 1994 Ears/Nose/Throat otoscopic exam Overall: tympanic membranes clear 11/07/2015 None Full Exam - General 1994 Ears/Nose/Throat oral cavity/pharynx/larynx Overall: oral mucosa clear 11/07/2015 None Full Exam - General 1994 Ears/Nose/Throat oral cavity/pharynx/larynx Overall: oropharyngeal mucosa clear 11/07/2015 None Full Exam - General 1994 Ears/Nose/Throat oral cavity/pharynx/larynx Overall: no masses 11/07/2015 None Full Exam - General 1994 Respiratory respiratory effort/rhythm Overall: no retractions 11/07/2015 None Full Exam - General 1994 Respiratory respiratory effort/rhythm Overall: normal rate 11/07/2015 None Full Exam - General 1994 Cardiovascular extremities Overall: no clubbing 11/07/2015 None Full Exam - General 1994 Cardiovascular auscultation of heart Overall: regular rate 11/07/2015 None Full Exam - General 1994 Cardiovascular auscultation of heart Overall: normal heart sounds 11/07/2015 None Full Exam - General 1994 Cardiovascular auscultation of heart Overall: no murmurs 11/07/2015 None Full Exam - General 1994 Psychiatric orientation/consciousness Overall: oriented to person, place and time 11/07/2015 None Full Exam - General 1994 Respiratory auscultation Overall: breath sounds clear bilaterally 11/07/2015 None Full Exam - General 1994 Lymphatic neck nodes Overall: anterior cervical chain benign 11/07/2015 None Full Exam - General 1994 Lymphatic neck nodes Overall: posterior cervical chain benign 11/07/2015 None Full Exam - General 1994 Integument inspection of skin Overall: no rash, lesions 11/07/2015 None Full Exam - General 1994 Constitutional general appearance Overall: well developed 06/17/2015 None Full Exam - General 1994 Constitutional general appearance Overall: in no acute distress 06/17/2015 None Full Exam - General 1994 Constitutional general appearance Overall: well nourished 06/17/2015 None Full Exam - General 1994 Integument inspection of skin Location: right foot 06/17/2015 plantar surface over head of 1st metatarsal - tender to touch, small plantar wartPt has informed consent signed and on the chart. Discussion of the patient's lesions and confirmation of the specific lesions for removal today prior to removal of said lesions. Lidocaine with epi injected under lesions, and pt was grounded, lesions cleansed with alcohol, and electrocautery used to destroy lesions to the base of the abnormality. Full Exam - General 1994 Psychiatric orientation/consciousness Overall: oriented to person, place and time 06/17/2015 None Full Exam - General 1994 Psychiatric mood and affect Overall: normal mood and affect 06/17/2015 None Full Exam - General 1994 Psychiatric mood and affect Mood: happy 06/17/2015 None Full Exam - General 1994 Respiratory auscultation Overall: breath sounds clear bilaterally 06/17/2015 None Full Exam - General 1994 Respiratory respiratory effort/rhythm Overall: normal rate 06/17/2015 None Full Exam - General 1994 Respiratory respiratory effort/rhythm Overall: no retractions 06/17/2015 None Full Exam - General 1994 Cardiovascular auscultation of heart Overall: regular rate 06/17/2015 None Full Exam - General 1994 Cardiovascular auscultation of heart Overall: normal heart sounds 06/17/2015 None Full Exam - General 1994 Cardiovascular auscultation of heart Overall: no murmurs 06/17/2015 None Full Exam - General 1994 Cardiovascular extremities Overall: no clubbing 06/17/2015 None Full Exam - General 1994 Constitutional general appearance Overall: well developed 02/20/2015 None Full Exam - General 1994 Constitutional general appearance Overall: in no acute distress 02/20/2015 None Full Exam - General 1994 Constitutional general appearance Overall: well nourished 02/20/2015 None Full Exam - General 1994 Eyes conjunctiva /eyelids Overall: conjunctiva clear 02/20/2015 None Full Exam - General 1994 Ears/Nose/Throat otoscopic exam Overall: external auditory canals clear 02/20/2015 None Full Exam - General 1994 Ears/Nose/Throat otoscopic exam Overall: tympanic membranes clear 02/20/2015 None Full Exam - General 1994 Ears/Nose/Throat oral cavity/pharynx/larynx Overall: oral mucosa clear 02/20/2015 None Full Exam - General 1994 Ears/Nose/Throat oral cavity/pharynx/larynx Overall: oropharyngeal mucosa clear 02/20/2015 None Full Exam - General 1994 Ears/Nose/Throat oral cavity/pharynx/larynx Overall: no masses 02/20/2015 None Full Exam - General 1994 Respiratory respiratory effort/rhythm Overall: no retractions 02/20/2015 None Full Exam - General 1994 Respiratory respiratory effort/rhythm Overall: normal rate 02/20/2015 None Full Exam - General 1994 Cardiovascular extremities Overall: no clubbing 02/20/2015 None Full Exam - General 1994 Cardiovascular auscultation of heart Overall: regular rate 02/20/2015 None Full Exam - General 1994 Cardiovascular auscultation of heart Overall: normal heart sounds 02/20/2015 None Full Exam - General 1994 Cardiovascular auscultation of heart Overall: no murmurs 02/20/2015 None Full Exam - General 1994 Psychiatric orientation/consciousness Overall: oriented to person, place and time 02/20/2015 None Full Exam - General 1994 Respiratory auscultation Lower lung field: crackles 02/20/2015 None Full Exam - Dermatology Constitutional general appearance Overall: well nourished 12/10/2014 None Full Exam - Dermatology Constitutional general appearance Overall: well developed 12/10/2014 None Full Exam - Dermatology Constitutional general appearance Overall: in no acute distress 12/10/2014 None Full Exam - Dermatology Psychiatric orientation Overall: oriented to person, place and time 12/10/2014 None Full Exam - Dermatology Integument insp & palp - head/face Lesion: vesicle 12/10/2014 None Full Exam - Dermatology Integument insp & palp - head/face Location: on both cheeks 12/10/2014 None Full Exam - Dermatology Integument insp & palp - chest/axillae Distribution: localized 12/10/2014 None Full Exam - Dermatology Integument insp & palp - chest/axillae Lesion: vesicle 12/10/2014 None Full Exam - Dermatology Integument insp & palp - chest/axillae Color: erythematous 12/10/2014 None Full Exam - General 1994 Constitutional general appearance Overall: well developed 11/21/2014 None Full Exam - General 1994 Constitutional general appearance Overall: in no acute distress 11/21/2014 None Full Exam - General 1994 Constitutional general appearance Overall: well nourished 11/21/2014 None Full Exam - General 1994 Eyes conjunctiva /eyelids Overall: conjunctiva clear 11/21/2014 None Full Exam - General 1994 Ears/Nose/Throat otoscopic exam Overall: external auditory canals clear 11/21/2014 None Full Exam - General 1995 Ears/Nose/Throat otoscopic exam Overall: tympanic membranes clear 11/21/2014 None Full Exam - General 1994 Ears/Nose/Throat oral cavity/pharynx/larynx Overall: oral mucosa clear 11/21/2014 None Full Exam - General 1994 Ears/Nose/Throat oral cavity/pharynx/larynx Overall: oropharyngeal mucosa clear 11/21/2014 None Full Exam - General 1994 Ears/Nose/Throat oral cavity/pharynx/larynx Overall: no masses 11/21/2014 None Full Exam - General 1994 Respiratory auscultation Overall: breath sounds clear bilaterally 11/21/2014 None Full Exam - General 1994 Respiratory respiratory effort/rhythm Overall: no retractions 11/21/2014 None Full Exam - General 1994 Respiratory respiratory effort/rhythm Overall: normal rate 11/21/2014 None Full Exam - General 1994 Cardiovascular extremities Overall: no clubbing 11/21/2014 None Full Exam - General 1994 Cardiovascular auscultation of heart Overall: regular rate 11/21/2014 None Full Exam - General 1994 Cardiovascular auscultation of heart Overall: normal heart sounds 11/21/2014 None Full Exam - General 1994 Cardiovascular auscultation of heart Overall: no murmurs 11/21/2014 None Full Exam - General 1994 Abdomen abdominal exam Overall: no tenderness 11/21/2014 None Full Exam - General 1994 Abdomen abdominal exam Overall: normal bowel sounds 11/21/2014 No CVA tenderness Full Exam - General 1994 Psychiatric orientation/consciousness Overall: oriented to person, place and time 11/21/2014 None Full Exam - General 1994 Constitutional general appearance Overall: well developed 10/23/2014 None Full Exam - General 1994 Constitutional general appearance Overall: in no acute distress 10/23/2014 None Full Exam - General 1994 Constitutional general appearance Overall: well nourished 10/23/2014 None Full Exam - General 1994 Eyes conjunctiva /eyelids Overall: conjunctiva clear 10/23/2014 None Full Exam - General 1994 Eyes conjunctiva /eyelids Overall: cornea clear 10/23/2014 None Full Exam - General 1994 Eyes conjunctiva /eyelids Overall: eyelids normal 10/23/2014 None Full Exam - General 1994 Eyes pupils and irises Overall: pupils equal, round, reactive to light and accomodation 10/23/2014 None Full Exam - General 1994 Ears/Nose/Throat otoscopic exam Overall: external auditory canals clear 10/23/2014 None Full Exam - General 1994 Ears/Nose/Throat otoscopic exam Overall: tympanic membranes clear 10/23/2014 None Full Exam - General 1994 Ears/Nose/Throat oral cavity/pharynx/larynx Overall: oral mucosa clear 10/23/2014 None Full Exam - General 1994 Ears/Nose/Throat oral cavity/pharynx/larynx Overall: oropharyngeal mucosa clear 10/23/2014 None Full Exam - General 1994 Ears/Nose/Throat oral cavity/pharynx/larynx Overall: no masses 10/23/2014 None Full Exam - General 1994 Respiratory auscultation Overall: breath sounds clear bilaterally 10/23/2014 None Full Exam - General 1994 Respiratory respiratory effort/rhythm Overall: no retractions 10/23/2014 None Full Exam - General 1994 Respiratory respiratory effort/rhythm Overall: normal rate 10/23/2014 None Full Exam - General 1994 Cardiovascular auscultation of heart Overall: regular rate 10/23/2014 None Full Exam - General 1994 Cardiovascular auscultation of heart Overall: normal heart sounds 10/23/2014 None Full Exam - General 1994 Cardiovascular auscultation of heart Overall: no murmurs 10/23/2014 None Full Exam - General 1994 Abdomen abdominal exam Overall: no tenderness 10/23/2014 None Full Exam - General 1994 Abdomen abdominal exam Overall: normal bowel sounds 10/23/2014 None Full Exam - General 1994 Lymphatic neck nodes Overall: anterior cervical chain benign 10/23/2014 None Full Exam - General 1994 Lymphatic neck nodes Overall: posterior cervical chain benign 10/23/2014 None Full Exam - General 1994 Psychiatric orientation/consciousness Overall: oriented to person, place and time 10/23/2014 None Full Exam - General 1994 Psychiatric mood and affect Overall: normal mood and affect 10/23/2014 None Full Exam - General 1994 Musculoskeletal lower extremity Overall: full strength in LLE 10/23/2014 None Full Exam - General 1994 Musculoskeletal lower extremity Overall: foot benign 10/23/2014 None Full Exam - General 1994 Musculoskeletal lower extremity Overall: ankle benign 10/23/2014 None Full Exam - General 1994 Musculoskeletal spine, ribs and pelvis Sacroiliac joints: tender right sacroiliac joint 10/23/2014 None Full Exam - General 1994 Musculoskeletal spine, ribs and pelvis Sacroiliac joints: tender left sacroiliac joint 10/23/2014 None Full Exam - General 1994 Musculoskeletal gait and station Overall: normal gait 10/23/2014 None Full Exam - General 1994 Musculoskeletal gait and station Overall: normal station 10/23/2014 None Full Exam - General 1994 Constitutional general appearance Overall: well developed 09/04/2014 None Full Exam - General 1994 Constitutional general appearance Overall: in no acute distress 09/04/2014 None Full Exam - General 1994 Constitutional general appearance Overall: well nourished 09/04/2014 None Full Exam - General 1994 Eyes conjunctiva /eyelids Overall: conjunctiva clear 09/04/2014 None Full Exam - General 1994 Eyes conjunctiva /eyelids Overall: cornea clear 09/04/2014 None Full Exam - General 1994 Eyes conjunctiva /eyelids Overall: eyelids normal 09/04/2014 None Full Exam - General 1994 Eyes pupils and irises Overall: pupils equal, round, reactive to light and accomodation 09/04/2014 None Full Exam - General 1994 Ears/Nose/Throat otoscopic exam Overall: external auditory canals clear 09/04/2014 None Full Exam - General 1994 Ears/Nose/Throat otoscopic exam Overall: tympanic membranes clear 09/04/2014 None Full Exam - General 1994 Ears/Nose/Throat oral cavity/pharynx/larynx Overall: oral mucosa clear 09/04/2014 None Full Exam - General 1994 Ears/Nose/Throat oral cavity/pharynx/larynx Overall: oropharyngeal mucosa clear 09/04/2014 None Full Exam - General 1994 Ears/Nose/Throat oral cavity/pharynx/larynx Overall: no masses 09/04/2014 None Full Exam - General 1994 Respiratory auscultation Overall: breath sounds clear bilaterally 09/04/2014 None Full Exam - General 1994 Respiratory respiratory effort/rhythm Overall: no retractions 09/04/2014 None Full Exam - General 1994 Respiratory respiratory effort/rhythm Overall: normal rate 09/04/2014 None Full Exam - General 1994 Cardiovascular auscultation of heart Overall: regular rate 09/04/2014 None Full Exam - General 1994 Cardiovascular auscultation of heart Overall: normal heart sounds 09/04/2014 None Full Exam - General 1994 Cardiovascular auscultation of heart Overall: no murmurs 09/04/2014 None Full Exam - General 1994 Abdomen abdominal exam Overall: no tenderness 09/04/2014 None Full Exam - General 1994 Abdomen abdominal exam Overall: normal bowel sounds 09/04/2014 None Full Exam - General 1994 Lymphatic neck nodes Overall: anterior cervical chain benign 09/04/2014 None Full Exam - General 1994 Lymphatic neck nodes Overall: posterior cervical chain benign 09/04/2014 None Full Exam - General 1994 Psychiatric orientation/consciousness Overall: oriented to person, place and time 09/04/2014 None Full Exam - General 1994 Psychiatric mood and affect Overall: normal mood and affect 09/04/2014 None Full Exam - General 1994 Constitutional general appearance Overall: well nourished 05/01/2014 None Full Exam - General 1994 Constitutional general appearance Overall: well developed 05/01/2014 None Full Exam - General 1994 Constitutional general appearance Overall: in no acute distress 05/01/2014 None Full Exam - General 1994 Psychiatric orientation/consciousness Overall: oriented to person, place and time 05/01/2014 None Full Exam - General 1994 Psychiatric mood and affect Mood: happy 05/01/2014 None Full Exam - General 1994 Psychiatric mood and affect Overall: normal mood and affect 05/01/2014 None Full Exam - General 1994 Integument inspection of skin Location: face 05/01/2014 - nose - Full Exam - General 1994 Integument inspection of skin Location: right foot 05/01/2014 plantar surface over head of 1st metatarsal - tender to touch, small plantar wartPt has informed consent signed and on the chart. Discussion of the patient's lesions and confirmation of the specific lesions for removal today prior to removal of said lesions. Lidocaine with epi injected under lesions, and pt was grounded, lesions cleansed with alcohol, and electrocautery used to destroy lesions to the base of the abnormality. Full Exam - General 1994 Constitutional general appearance Overall: well developed 04/03/2014 None Full Exam - General 1994 Constitutional general appearance Overall: in no acute distress 04/03/2014 None Full Exam - General 1994 Constitutional general appearance Overall: well nourished 04/03/2014 None Full Exam - General 1994 Eyes conjunctiva /eyelids Overall: conjunctiva clear 04/03/2014 None Full Exam - General 1994 Respiratory auscultation Overall: breath sounds clear bilaterally 04/03/2014 None Full Exam - General 1994 Respiratory respiratory effort/rhythm Overall: no retractions 04/03/2014 None Full Exam - General 1994 Respiratory respiratory effort/rhythm Overall: normal rate 04/03/2014 None Full Exam - General 1994 Cardiovascular extremities Overall: no clubbing 04/03/2014 None Full Exam - General 1994 Cardiovascular auscultation of heart Overall: regular rate 04/03/2014 None Full Exam - General 1994 Cardiovascular auscultation of heart Overall: normal heart sounds 04/03/2014 None Full Exam - General 1994 Cardiovascular auscultation of heart Overall: no murmurs 04/03/2014 None Full Exam - General 1994 Abdomen abdominal exam Overall: no tenderness 04/03/2014 None Full Exam - General 1994 Abdomen abdominal exam Overall: normal bowel sounds 04/03/2014 No CVA tenderness Full Exam - General 1994 Psychiatric orientation/consciousness Overall: oriented to person, place and time 04/03/2014 None Full Exam - General 1994 Ears/Nose/Throat oral cavity/pharynx/larynx Overall: oropharyngeal mucosa clear 04/03/2014 None Full Exam - General 1994 Ears/Nose/Throat oral cavity/pharynx/larynx Overall: no masses 04/03/2014 None Full Exam - General 1994 Ears/Nose/Throat oral cavity/pharynx/larynx Overall: oral mucosa clear 04/03/2014 None Full Exam - General 1994 Ears/Nose/Throat otoscopic exam Overall: tympanic membranes clear 04/03/2014 None Full Exam - General 1994 Ears/Nose/Throat otoscopic exam Overall: external auditory canals clear 04/03/2014 None Full Exam - ENT Constitutional general appearance Overall: well nourished 03/27/2014 None Full Exam - ENT Constitutional general appearance Overall: well developed 03/27/2014 None Full Exam - ENT Constitutional general appearance Overall: in no acute distress 03/27/2014 None Full Exam - ENT Ears/Nose/Throat otoscopic exam Overall: external auditory canals normal 03/27/2014 None Full Exam - ENT Ears/Nose/Throat otoscopic exam Overall: tympanic membranes normal 03/27/2014 None Full Exam - ENT Ears/Nose/Throat oropharynx Overall: oral mucosa clear 03/27/2014 None Full Exam - ENT Face and Head palpation Left maxillary sinus: tender 03/27/2014 None Full Exam - ENT Face and Head palpation Right maxillary sinus: tender 03/27/2014 None Full Exam - ENT Face and Head palpation Left frontal sinus: tender 03/27/2014 None Full Exam - ENT Face and Head palpation Right frontal sinus: tender 03/27/2014 None Full Exam - ENT Respiratory auscultation Overall: breath sounds clear bilaterally 03/27/2014 None Full Exam - ENT Cardiovascular auscultation of heart Overall: regular rate 03/27/2014 None Full Exam - ENT Cardiovascular auscultation of heart Overall: normal heart sounds 03/27/2014 None Full Exam - ENT Lymphatic palpation of lymph nodes Overall: anterior cervical chain benign 03/27/2014 None Full Exam - ENT Lymphatic palpation of lymph nodes Overall: posterior cervical chain benign 03/27/2014 None Full Exam - ENT Neurologic orientation Overall: oriented to person, place and time 03/27/2014 None Full Exam - General 1994 Constitutional general appearance Overall: well developed 02/08/2014 None Full Exam - General 1994 Constitutional general appearance Overall: in no acute distress 02/08/2014 None Full Exam - General 1994 Constitutional general appearance Overall: well nourished 02/08/2014 None Full Exam - General 1994 Eyes conjunctiva /eyelids Overall: conjunctiva clear 02/08/2014 None Full Exam - General 1994 Respiratory auscultation Overall: breath sounds clear bilaterally 02/08/2014 None Full Exam - General 1994 Respiratory respiratory effort/rhythm Overall: no retractions 02/08/2014 None Full Exam - General 1994 Respiratory respiratory effort/rhythm Overall: normal rate 02/08/2014 None Full Exam - General 1994 Cardiovascular extremities Overall: no clubbing 02/08/2014 None Full Exam - General 1994 Cardiovascular auscultation of heart Overall: regular rate 02/08/2014 None Full Exam - General 1994 Cardiovascular auscultation of heart Overall: normal heart sounds 02/08/2014 None Full Exam - General 1994 Cardiovascular auscultation of heart Overall: no murmurs 02/08/2014 None Full Exam - General 1994 Psychiatric orientation/consciousness Overall: oriented to person, place and time 02/08/2014 None Full Exam - General 1994 Abdomen abdominal exam Overall: no tenderness 02/08/2014 None Full Exam - General 1994 Abdomen abdominal exam Overall: normal bowel sounds 02/08/2014 No CVA tenderness Full Exam - General 1994 Constitutional general appearance Overall: well developed 12/29/2013 None Full Exam - General 1994 Constitutional general appearance Overall: in no acute distress 12/29/2013 None Full Exam - General 1994 Constitutional general appearance Overall: well nourished 12/29/2013 None Full Exam - General 1994 Eyes conjunctiva /eyelids Overall: conjunctiva clear 12/29/2013 None Full Exam - General 1994 Eyes conjunctiva /eyelids Overall: cornea clear 12/29/2013 None Full Exam - General 1994 Eyes conjunctiva /eyelids Overall: eyelids normal 12/29/2013 None Full Exam - General 1994 Eyes pupils and irises Overall: pupils equal, round, reactive to light and accomodation 12/29/2013 None Full Exam - General 1994 Ears/Nose/Throat otoscopic exam Overall: external auditory canals clear 12/29/2013 None Full Exam - General 1994 Ears/Nose/Throat otoscopic exam Overall: tympanic membranes clear 12/29/2013 None Full Exam - General 1994 Ears/Nose/Throat oral cavity/pharynx/larynx Overall: oral mucosa clear 12/29/2013 None Full Exam - General 1994 Ears/Nose/Throat oral cavity/pharynx/larynx Overall: oropharyngeal mucosa clear 12/29/2013 None Full Exam - General 1994 Ears/Nose/Throat oral cavity/pharynx/larynx Overall: no masses 12/29/2013 None Full Exam - General 1994 Respiratory auscultation Overall: breath sounds clear bilaterally 12/29/2013 None Full Exam - General 1994 Respiratory respiratory effort/rhythm Overall: no retractions 12/29/2013 None Full Exam - General 1994 Respiratory respiratory effort/rhythm Overall: normal rate 12/29/2013 None Full Exam - General 1994 Cardiovascular auscultation of heart Overall: regular rate 12/29/2013 None Full Exam - General 1994 Cardiovascular auscultation of heart Overall: normal heart sounds 12/29/2013 None Full Exam - General 1994 Cardiovascular auscultation of heart Overall: no murmurs 12/29/2013 None Full Exam - General 1994 Abdomen abdominal exam Overall: no tenderness 12/29/2013 None Full Exam - General 1994 Abdomen abdominal exam Overall: normal bowel sounds 12/29/2013 None Full Exam - General 1994 Lymphatic neck nodes Overall: anterior cervical chain benign 12/29/2013 None Full Exam - General 1994 Lymphatic neck nodes Overall: posterior cervical chain benign 12/29/2013 None Full Exam - General 1994 Psychiatric orientation/consciousness Overall: oriented to person, place and time 12/29/2013 None Full Exam - General 1994 Constitutional general appearance Overall: well developed 12/21/2013 None Full Exam - General 1994 Constitutional general appearance Overall: in no acute distress 12/21/2013 None Full Exam - General 1994 Constitutional general appearance Overall: well nourished 12/21/2013 None Full Exam - General 1994 Eyes conjunctiva /eyelids Overall: conjunctiva clear 12/21/2013 None Full Exam - General 1994 Eyes conjunctiva /eyelids Overall: cornea clear 12/21/2013 None Full Exam - General 1994 Eyes conjunctiva /eyelids Overall: eyelids normal 12/21/2013 None Full Exam - General 1994 Eyes pupils and irises Overall: pupils equal, round, reactive to light and accomodation 12/21/2013 None Full Exam - General 1994 Ears/Nose/Throat oral cavity/pharynx/larynx Overall: oral mucosa clear 12/21/2013 None Full Exam - General 1994 Ears/Nose/Throat oral cavity/pharynx/larynx Overall: oropharyngeal mucosa clear 12/21/2013 None Full Exam - General 1994 Ears/Nose/Throat oral cavity/pharynx/larynx Overall: no masses 12/21/2013 None Full Exam - General 1994 Respiratory auscultation Overall: breath sounds clear bilaterally 12/21/2013 None Full Exam - General 1994 Respiratory respiratory effort/rhythm Overall: no retractions 12/21/2013 None Full Exam - General 1994 Respiratory respiratory effort/rhythm Overall: normal rate 12/21/2013 None Full Exam - General 1994 Cardiovascular auscultation of heart Overall: regular rate 12/21/2013 None Full Exam - General 1994 Cardiovascular auscultation of heart Overall: normal heart sounds 12/21/2013 None Full Exam - General 1994 Cardiovascular auscultation of heart Overall: no murmurs 12/21/2013 None Full Exam - General 1994 Abdomen abdominal exam Overall: no tenderness 12/21/2013 None Full Exam - General 1994 Abdomen abdominal exam Overall: normal bowel sounds 12/21/2013 None Full Exam - General 1994 Lymphatic neck nodes Overall: anterior cervical chain benign 12/21/2013 None Full Exam - General 1994 Lymphatic neck nodes Overall: posterior cervical chain benign 12/21/2013 None Full Exam - General 1994 Psychiatric orientation/consciousness Overall: oriented to person, place and time 12/21/2013 None Full Exam - General 1994 Ears/Nose/Throat otoscopic exam Overall: external auditory canals clear 12/21/2013 None Full Exam - General 1994 Ears/Nose/Throat otoscopic exam Overall: tympanic membranes clear 12/21/2013 None Full Exam - General 1994 Constitutional general appearance Overall: well developed 10/31/2013 None Full Exam - General 1994 Constitutional general appearance Overall: in no acute distress 10/31/2013 None Full Exam - General 1994 Constitutional general appearance Overall: well nourished 10/31/2013 None Full Exam - General 1994 Psychiatric orientation/consciousness Overall: oriented to person, place and time 10/31/2013 None Full Exam - General 1994 Eyes conjunctiva /eyelids Overall: conjunctiva clear 10/31/2013 None Full Exam - General 1994 Respiratory auscultation Overall: breath sounds clear bilaterally 10/31/2013 None Full Exam - General 1994 Respiratory respiratory effort/rhythm Overall: normal rate 10/31/2013 None Full Exam - General 1994 Respiratory respiratory effort/rhythm Overall: no retractions 10/31/2013 None Full Exam - General 1994 Cardiovascular extremities Overall: no clubbing 10/31/2013 None Full Exam - General 1994 Cardiovascular auscultation of heart Overall: regular rate 10/31/2013 None Full Exam - General 1994 Cardiovascular auscultation of heart Overall: normal heart sounds 10/31/2013 None Full Exam - General 1994 Cardiovascular auscultation of heart Overall: no murmurs 10/31/2013 None Full Exam - General 1994 Constitutional general appearance Overall: well nourished 08/23/2013 None Full Exam - General 1994 Constitutional general appearance Overall: well developed 08/23/2013 None Full Exam - General 1994 Constitutional general appearance Overall: in no acute distress 08/23/2013 None Full Exam - General 1994 Psychiatric orientation/consciousness Overall: oriented to person, place and time 08/23/2013 None Full Exam - General 1994 Integument inspection of skin Dermatitis: thickened 08/23/2013 - on right index finger - irritated wart, on right medial great toe, irritated large plantar wart, both infiltrated with lidocaine 1.5mL, and then destroyed with electrocautery, then dressed with neosporin. Full Exam - ENT Constitutional general appearance Overall: well nourished 08/10/2013 None Full Exam - ENT Constitutional general appearance Overall: well developed 08/10/2013 None Full Exam - ENT Constitutional general appearance Overall: in no acute distress 08/10/2013 None Full Exam - ENT Neurologic mood and affect Overall: normal mood 08/10/2013 None Full Exam - ENT Neurologic mood and affect Overall: normal affect 08/10/2013 None Full Exam - ENT Integument inspection of skin Overall: no rash, lesions 08/10/2013 None Full Exam - ENT Lymphatic palpation of lymph nodes Overall: anterior cervical chain benign 08/10/2013 None Full Exam - ENT Lymphatic palpation of lymph nodes Overall: posterior cervical chain benign 08/10/2013 None Full Exam - ENT Cardiovascular auscultation of heart Overall: regular rate 08/10/2013 None Full Exam - ENT Cardiovascular auscultation of heart Overall: normal heart sounds 08/10/2013 None Full Exam - ENT Cardiovascular auscultation of heart Overall: no murmurs 08/10/2013 None Full Exam - ENT Respiratory auscultation Overall: breath sounds clear bilaterally 08/10/2013 None Full Exam - ENT Respiratory inspection Overall: no retractions 08/10/2013 None Full Exam - ENT Respiratory inspection Overall: normal rate None Full Exam - ENT Face and Head palpation Overall: no sinus tenderness 08/10/2013 None Full Exam - ENT Ears/Nose/Throat otoscopic exam Overall: external auditory canals normal 08/10/2013 None Full Exam - ENT Ears/Nose/Throat otoscopic exam Overall: tympanic membranes normal 08/10/2013 None Full Exam - ENT Ears/Nose/Throat oropharynx Oral mucosa: dry 08/10/2013 erythematous Full Exam - ENT Ears/Nose/Throat oropharynx Mobile tongue: tender 08/10/2013 erythematous Full Exam - ENT Constitutional general appearance Overall: well nourished 08/02/2013 None Full Exam - ENT Constitutional general appearance Overall: well developed 08/02/2013 None Full Exam - ENT Constitutional general appearance Overall: in no acute distress 08/02/2013 None Full Exam - ENT Ears/Nose/Throat otoscopic exam Overall: external auditory canals normal 08/02/2013 None Full Exam - ENT Ears/Nose/Throat otoscopic exam Overall: tympanic membranes normal 08/02/2013 None Full Exam - ENT Ears/Nose/Throat oropharynx Overall: oral mucosa clear 08/02/2013 None Full Exam - ENT Face and Head palpation Left maxillary sinus: tender 08/02/2013 None Full Exam - ENT Face and Head palpation Right maxillary sinus: tender 08/02/2013 None Full Exam - ENT Face and Head palpation Left frontal sinus: tender 08/02/2013 None Full Exam - ENT Face and Head palpation Right frontal sinus: tender 08/02/2013 None Full Exam - ENT Respiratory auscultation Overall: breath sounds clear bilaterally 08/02/2013 None Full Exam - ENT Cardiovascular auscultation of heart Overall: regular rate 08/02/2013 None Full Exam - ENT Cardiovascular auscultation of heart Overall: normal heart sounds 08/02/2013 None Full Exam - ENT Lymphatic palpation of lymph nodes Overall: anterior cervical chain benign 08/02/2013 None Full Exam - ENT Lymphatic palpation of lymph nodes Overall: posterior cervical chain benign 08/02/2013 None Full Exam - ENT Neurologic orientation Overall: oriented to person, place and time 08/02/2013 None Full Exam - General 1994 Constitutional general appearance Overall: well developed 07/18/2013 None Full Exam - General 1994 Constitutional general appearance Overall: in no acute distress 07/18/2013 None Full Exam - General 1994 Constitutional general appearance Overall: well nourished 07/18/2013 None Full Exam - General 1994 Eyes conjunctiva /eyelids Overall: conjunctiva clear 07/18/2013 None Full Exam - General 1994 Eyes conjunctiva /eyelids Overall: cornea clear 07/18/2013 None Full Exam - General 1994 Eyes conjunctiva /eyelids Overall: eyelids normal 07/18/2013 None Full Exam - General 1994 Eyes pupils and irises Overall: pupils equal, round, reactive to light and accomodation 07/18/2013 None Full Exam - General 1994 Ears/Nose/Throat otoscopic exam Overall: external auditory canals clear 07/18/2013 None Full Exam - General 1994 Ears/Nose/Throat otoscopic exam Overall: tympanic membranes clear 07/18/2013 after cerumen removed from right ear Full Exam - General 1994 Ears/Nose/Throat oral cavity/pharynx/larynx Overall: oral mucosa clear 07/18/2013 None Full Exam - General 1994 Ears/Nose/Throat oral cavity/pharynx/larynx Overall: oropharyngeal mucosa clear 07/18/2013 None Full Exam - General 1994 Ears/Nose/Throat oral cavity/pharynx/larynx Overall: no masses 07/18/2013 None Full Exam - General 1994 Respiratory auscultation Overall: breath sounds clear bilaterally 07/18/2013 None Full Exam - General 1994 Respiratory respiratory effort/rhythm Overall: no retractions 07/18/2013 None Full Exam - General 1994 Respiratory respiratory effort/rhythm Overall: normal rate 07/18/2013 None Full Exam - General 1994 Cardiovascular auscultation of heart Overall: regular rate 07/18/2013 None Full Exam - General 1994 Cardiovascular auscultation of heart Overall: normal heart sounds 07/18/2013 None Full Exam - General 1994 Cardiovascular auscultation of heart Overall: no murmurs 07/18/2013 None Full Exam - General 1994 Abdomen abdominal exam Overall: no tenderness 07/18/2013 None Full Exam - General 1994 Abdomen abdominal exam Overall: normal bowel sounds 07/18/2013 None Full Exam - General 1994 Lymphatic neck nodes Overall: anterior cervical chain benign 07/18/2013 None Full Exam - General 1994 Lymphatic neck nodes Overall: posterior cervical chain benign 07/18/2013 None Full Exam - General 1994 Psychiatric orientation/consciousness Overall: oriented to person, place and time 07/18/2013 None Full Exam - General 1994 Musculoskeletal upper extremity Inspection - shoulder: a normal exam 07/18/2013 None Full Exam - General 1994 Musculoskeletal upper extremity Palpation - shoulder: tenderness @ subacromial space 07/18/2013 None Full Exam - General 1994 Musculoskeletal upper extremity Palpation - shoulder: tenderness @ bicipital groove 07/18/2013 None Full Exam - General 1994 Musculoskeletal upper extremity Palpation - shoulder: pain with resisted abduction 07/18/2013 None Full Exam - General 1994 Musculoskeletal lower extremity Inspection - knee: a normal exam 07/18/2013 None Full Exam - General 1994 Musculoskeletal lower extremity Palpation - knee: crepitus 07/18/2013 None Full Exam - General 1994 Musculoskeletal head and neck Overall: head atraumatic 07/18/2013 None Full Exam - General 1994 Musculoskeletal head and neck Cervical Spine: tender 07/18/2013 over shoulders and upper musculature Full Exam - General 1994 Constitutional general appearance Overall: well developed 06/27/2013 None Full Exam - General 1994 Constitutional general appearance Overall: in no acute distress 06/27/2013 None Full Exam - General 1994 Constitutional general appearance Overall: well nourished 06/27/2013 None Full Exam - General 1994 Eyes conjunctiva /eyelids Overall: conjunctiva clear 06/27/2013 None Full Exam - General 1994 Eyes conjunctiva /eyelids Overall: cornea clear 06/27/2013 None Full Exam - General 1994 Eyes conjunctiva /eyelids Overall: eyelids normal 06/27/2013 None Full Exam - General 1994 Eyes pupils and irises Overall: pupils equal, round, reactive to light and accomodation 06/27/2013 None Full Exam - General 1994 Ears/Nose/Throat otoscopic exam Overall: external auditory canals clear 06/27/2013 None Full Exam - General 1994 Ears/Nose/Throat otoscopic exam Overall: tympanic membranes clear 06/27/2013 after cerumen removed from right ear Full Exam - General 1994 Ears/Nose/Throat oral cavity/pharynx/larynx Overall: oral mucosa clear 06/27/2013 None Full Exam - General 1994 Ears/Nose/Throat oral cavity/pharynx/larynx Overall: oropharyngeal mucosa clear 06/27/2013 None Full Exam - General 1994 Ears/Nose/Throat oral cavity/pharynx/larynx Overall: no masses 06/27/2013 None Full Exam - General 1994 Respiratory auscultation Overall: breath sounds clear bilaterally 06/27/2013 None Full Exam - General 1994 Respiratory respiratory effort/rhythm Overall: no retractions 06/27/2013 None Full Exam - General 1994 Respiratory respiratory effort/rhythm Overall: normal rate 06/27/2013 None Full Exam - General 1994 Cardiovascular auscultation of heart Overall: regular rate 06/27/2013 None Full Exam - General 1994 Cardiovascular auscultation of heart Overall: normal heart sounds 06/27/2013 None Full Exam - General 1994 Cardiovascular auscultation of heart Overall: no murmurs 06/27/2013 None Full Exam - General 1994 Abdomen abdominal exam Overall: no tenderness 06/27/2013 None Full Exam - General 1994 Abdomen abdominal exam Overall: normal bowel sounds 06/27/2013 None Full Exam - General 1994 Lymphatic neck nodes Overall: anterior cervical chain benign 06/27/2013 None Full Exam - General 1994 Lymphatic neck nodes Overall: posterior cervical chain benign 06/27/2013 None Full Exam - General 1994 Psychiatric orientation/consciousness Overall: oriented to person, place and time 06/27/2013 None Full Exam - General 1994 Constitutional general appearance Overall: well developed 06/01/2013 None Full Exam - General 1994 Constitutional general appearance Overall: in no acute distress 06/01/2013 None Full Exam - General 1994 Constitutional general appearance Overall: well nourished 06/01/2013 None Full Exam - General 1994 Eyes conjunctiva /eyelids Overall: conjunctiva clear 06/01/2013 None Full Exam - General 1994 Eyes conjunctiva /eyelids Overall: cornea clear 06/01/2013 None Full Exam - General 1994 Eyes conjunctiva /eyelids Overall: eyelids normal 06/01/2013 None Full Exam - General 1994 Eyes pupils and irises Overall: pupils equal, round, reactive to light and accomodation 06/01/2013 None Full Exam - General 1994 Ears/Nose/Throat otoscopic exam Overall: external auditory canals clear 06/01/2013 None Full Exam - General 1995 Ears/Nose/Throat otoscopic exam Overall: tympanic membranes clear 06/01/2013 after cerumen removed from right ear Full Exam - General 1994 Ears/Nose/Throat oral cavity/pharynx/larynx Overall: oral mucosa clear 06/01/2013 None Full Exam - General 1994 Ears/Nose/Throat oral cavity/pharynx/larynx Overall: oropharyngeal mucosa clear 06/01/2013 None Full Exam - General 1994 Ears/Nose/Throat oral cavity/pharynx/larynx Overall: no masses 06/01/2013 None Full Exam - General 1994 Respiratory auscultation Overall: breath sounds clear bilaterally 06/01/2013 None Full Exam - General 1994 Respiratory respiratory effort/rhythm Overall: no retractions 06/01/2013 None Full Exam - General 1994 Respiratory respiratory effort/rhythm Overall: normal rate 06/01/2013 None Full Exam - General 1994 Cardiovascular auscultation of heart Overall: regular rate 06/01/2013 None Full Exam - General 1994 Cardiovascular auscultation of heart Overall: normal heart sounds 06/01/2013 None Full Exam - General 1994 Cardiovascular auscultation of heart Overall: no murmurs 06/01/2013 None Full Exam - General 1994 Abdomen abdominal exam Overall: no tenderness 06/01/2013 None Full Exam - General 1994 Abdomen abdominal exam Overall: normal bowel sounds 06/01/2013 None Full Exam - General 1994 Psychiatric orientation/consciousness Overall: oriented to person, place and time 06/01/2013 None Full Exam - General 1994 Lymphatic neck nodes Overall: anterior cervical chain benign 06/01/2013 None Full Exam - General 1994 Lymphatic neck nodes Overall: posterior cervical chain benign 06/01/2013 None Full Exam - General 1994 Constitutional general appearance Development: well developed 05/25/2013 None Full Exam - General 1994 Constitutional general appearance Development: appears stated age 0305/25/2013 None Full Exam - General 1994 Constitutional general appearance Overall: well developed 05/25/2013 None Full Exam - General 1994 Constitutional general appearance Overall: in no acute distress 05/25/2013 None Full Exam - General 1994 Constitutional general appearance Overall: well nourished 05/25/2013 None Full Exam - General 1994 Constitutional general appearance Hygiene/Attention to Grooming: good hygiene 05/25/2013 None Full Exam - General 1994 Eyes conjunctiva /eyelids Overall: conjunctiva clear 05/25/2013 None Full Exam - General 1994 Eyes conjunctiva /eyelids Overall: cornea clear 05/25/2013 None Full Exam - General 1994 Eyes conjunctiva /eyelids Overall: eyelids normal 05/25/2013 None Full Exam - General 1994 Eyes pupils and irises Overall: pupils equal, round, reactive to light and accomodation 05/25/2013 None Full Exam - General 1994 Ears/Nose/Throat otoscopic exam Overall: external auditory canals clear 05/25/2013 None Full Exam - General 1994 Ears/Nose/Throat otoscopic exam Overall: tympanic membranes clear 05/25/2013 None Full Exam - General 1994 Ears/Nose/Throat lips/teeth/gingiva Overall: benign lips 05/25/2013 None Full Exam - General 1994 Ears/Nose/Throat lips/teeth/gingiva Overall: normal dentition 05/25/2013 None Full Exam - General 1994 Ears/Nose/Throat oral cavity/pharynx/larynx Overall: oral mucosa clear 05/25/2013 None Full Exam - General 1994 Ears/Nose/Throat oral cavity/pharynx/larynx Overall: oropharyngeal mucosa clear 05/25/2013 None Full Exam - General 1994 Ears/Nose/Throat oral cavity/pharynx/larynx Overall: hypopharynx benign 05/25/2013 None Full Exam - General 1994 Ears/Nose/Throat oral cavity/pharynx/larynx Overall: no masses 05/25/2013 None Full Exam - General 1994 Respiratory auscultation Overall: breath sounds clear bilaterally 05/25/2013 None Full Exam - General 1994 Respiratory respiratory effort/rhythm Overall: no retractions 05/25/2013 None Full Exam - General 1994 Respiratory respiratory effort/rhythm Overall: normal rate 05/25/2013 None Full Exam - General 1994 Cardiovascular extremities Overall: no clubbing 05/25/2013 None Full Exam - General 1994 Cardiovascular auscultation of heart Overall: regular rate 05/25/2013 None Full Exam - General 1994 Cardiovascular auscultation of heart Overall: normal heart sounds 05/25/2013 None Full Exam - General 1994 Neurologic cranial nerves Overall: crainial nerves 2 - 12 grossly intact 05/25/2013 None Full Exam - General 1994 Psychiatric orientation/consciousness Overall: oriented to person, place and time 05/25/2013 None Full Exam - General 1994 Psychiatric mood and affect Overall: normal mood and affect 05/25/2013 None Full Exam - General 1994 Lymphatic neck nodes Overall: anterior cervical chain benign 05/25/2013 None Full Exam - General 1994 Lymphatic neck nodes Overall: posterior cervical chain benign 05/25/2013 None Full Exam - General 1994 Constitutional general appearance Development: well developed 05/15/2013 None Full Exam - General 1994 Constitutional general appearance Development: appears stated age 0205/15/2013 None Full Exam - General 1994 Constitutional general appearance Overall: well developed 05/15/2013 None Full Exam - General 1994 Constitutional general appearance Overall: in no acute distress 05/15/2013 None Full Exam - General 1994 Constitutional general appearance Overall: well nourished 05/15/2013 None Full Exam - General 1994 Constitutional general appearance Hygiene/Attention to Grooming: good hygiene 05/15/2013 None Full Exam - General 1994 Eyes conjunctiva /eyelids Overall: conjunctiva clear 05/15/2013 None Full Exam - General 1994 Eyes conjunctiva /eyelids Overall: cornea clear 05/15/2013 None Full Exam - General 1994 Eyes conjunctiva /eyelids Overall: eyelids normal 05/15/2013 None Full Exam - General 1994 Eyes pupils and irises Overall: pupils equal, round, reactive to light and accomodation 05/15/2013 None Full Exam - General 1994 Ears/Nose/Throat otoscopic exam Overall: external auditory canals clear 05/15/2013 None Full Exam - General 1994 Ears/Nose/Throat otoscopic exam Overall: tympanic membranes clear 05/15/2013 None Full Exam - General 1994 Ears/Nose/Throat lips/teeth/gingiva Overall: benign lips 05/15/2013 None Full Exam - General 1994 Ears/Nose/Throat lips/teeth/gingiva Overall: normal dentition 05/15/2013 None Full Exam - General 1994 Ears/Nose/Throat oral cavity/pharynx/larynx Overall: oral mucosa clear 05/15/2013 None Full Exam - General 1994 Ears/Nose/Throat oral cavity/pharynx/larynx Overall: oropharyngeal mucosa clear 05/15/2013 None Full Exam - General 1994 Ears/Nose/Throat oral cavity/pharynx/larynx Overall: hypopharynx benign 05/15/2013 None Full Exam - General 1994 Ears/Nose/Throat oral cavity/pharynx/larynx Overall: no masses 05/15/2013 None Full Exam - General 1994 Respiratory auscultation Overall: breath sounds clear bilaterally 05/15/2013 None Full Exam - General 1994 Respiratory respiratory effort/rhythm Overall: no retractions 05/15/2013 None Full Exam - General 1994 Respiratory respiratory effort/rhythm Overall: normal rate 05/15/2013 None Full Exam - General 1994 Cardiovascular extremities Overall: no clubbing 05/15/2013 None Full Exam - General 1994 Cardiovascular auscultation of heart Overall: regular rate 05/15/2013 None Full Exam - General 1994 Cardiovascular auscultation of heart Overall: normal heart sounds 05/15/2013 None Full Exam - General 1994 Abdomen abdominal exam Overall: no tenderness 05/15/2013 None Full Exam - General 1994 Abdomen abdominal exam Overall: normal bowel sounds 05/15/2013 None Full Exam - General 1994 Neurologic deep tendon reflexes Overall: deep tendon reflexes intact 05/15/2013 None Full Exam - General 1994 Neurologic cranial nerves Overall: crainial nerves 2 - 12 grossly intact 05/15/2013 None Full Exam - General 1994 Psychiatric orientation/consciousness Overall: oriented to person, place and time 05/15/2013 None Full Exam - General 1994 Psychiatric mood and affect Overall: normal mood and affect 05/15/2013 None Full Exam - General 1994 Respiratory auscultation Lower lung field: crackles 05/15/2013 None Full Exam - ENT Constitutional general appearance Overall: well nourished 05/09/2013 None Full Exam - ENT Constitutional general appearance Overall: well developed 05/09/2013 None Full Exam - ENT Constitutional general appearance Overall: in no acute distress 05/09/2013 None Full Exam - ENT Neurologic orientation Overall: oriented to person, place and time 05/09/2013 None Full Exam - ENT Lymphatic palpation of lymph nodes Overall: anterior cervical chain benign 05/09/2013 None Full Exam - ENT Lymphatic palpation of lymph nodes Overall: posterior cervical chain benign 05/09/2013 None Full Exam - ENT Cardiovascular auscultation of heart Overall: regular rate 05/09/2013 None Full Exam - ENT Cardiovascular auscultation of heart Overall: normal heart sounds 05/09/2013 None Full Exam - ENT Respiratory auscultation Overall: breath sounds clear bilaterally 05/09/2013 None Full Exam - ENT Face and Head palpation Left maxillary sinus: tender 05/09/2013 None Full Exam - ENT Face and Head palpation Right maxillary sinus: tender 05/09/2013 None Full Exam - ENT Face and Head palpation Left frontal sinus: tender 05/09/2013 None Full Exam - ENT Face and Head palpation Right frontal sinus: tender 05/09/2013 None Full Exam - ENT Ears/Nose/Throat otoscopic exam Overall: external auditory canals normal 05/09/2013 None Full Exam - ENT Ears/Nose/Throat otoscopic exam Overall: tympanic membranes normal 05/09/2013 None Full Exam - ENT Ears/Nose/Throat oropharynx Overall: oral mucosa clear 05/09/2013 None Full Exam - General 1994 Constitutional general appearance Overall: well developed 03/13/2013 None Full Exam - General 1994 Constitutional general appearance Overall: in no acute distress 03/13/2013 None Full Exam - General 1994 Constitutional general appearance Overall: well nourished 03/13/2013 None Full Exam - General 1994 Constitutional general appearance Development: appears stated age 1203/13/2013 None Full Exam - General 1994 Constitutional general appearance Development: well developed 03/13/2013 None Full Exam - General 1994 Constitutional general appearance Hygiene/Attention to Grooming: good hygiene 03/13/2013 None Full Exam - General 1994 Eyes conjunctiva /eyelids Overall: conjunctiva clear 03/13/2013 None Full Exam - General 1994 Eyes conjunctiva /eyelids Overall: cornea clear 03/13/2013 None Full Exam - General 1994 Eyes conjunctiva /eyelids Overall: eyelids normal 03/13/2013 None Full Exam - General 1994 Eyes pupils and irises Overall: pupils equal, round, reactive to light and accomodation 03/13/2013 None Full Exam - General 1994 Ears/Nose/Throat otoscopic exam Overall: external auditory canals clear 03/13/2013 None Full Exam - General 1994 Ears/Nose/Throat otoscopic exam Overall: tympanic membranes clear 03/13/2013 None Full Exam - General 1994 Ears/Nose/Throat lips/teeth/gingiva Overall: benign lips 03/13/2013 None Full Exam - General 1995 Ears/Nose/Throat lips/teeth/gingiva Overall: normal dentition 03/13/2013 None Full Exam - General 1994 Ears/Nose/Throat oral cavity/pharynx/larynx Overall: hypopharynx benign 03/13/2013 None Full Exam - General 1995 Ears/Nose/Throat oral cavity/pharynx/larynx Overall: no masses 03/13/2013 None Full Exam - General 1994 Ears/Nose/Throat oral cavity/pharynx/larynx Overall: oral mucosa clear 03/13/2013 None Full Exam - General 1995 Ears/Nose/Throat oral cavity/pharynx/larynx Overall: oropharyngeal mucosa clear 03/13/2013 None Full Exam - General 1994 Respiratory auscultation Overall: breath sounds clear bilaterally 03/13/2013 None Full Exam - General 1994 Respiratory respiratory effort/rhythm Overall: no retractions 03/13/2013 None Full Exam - General 1994 Respiratory respiratory effort/rhythm Overall: normal rate 03/13/2013 None Full Exam - General 1994 Cardiovascular extremities Overall: no clubbing 03/13/2013 None Full Exam - General 1994 Cardiovascular auscultation of heart Overall: normal heart sounds 03/13/2013 None Full Exam - General 1994 Cardiovascular auscultation of heart Overall: regular rate 03/13/2013 None Full Exam - General 1994 Abdomen abdominal exam Overall: no tenderness 03/13/2013 None Full Exam - General 1994 Abdomen abdominal exam Overall: normal bowel sounds 03/13/2013 None Full Exam - General 1994 Integument inspection of skin Overall: few scattered moles, no gross abnormalities 03/13/2013 None Full Exam - General 1994 Neurologic deep tendon reflexes Overall: deep tendon reflexes intact 03/13/2013 None Full Exam - General 1994 Neurologic cranial nerves Overall: crainial nerves 2 - 12 grossly intact 03/13/2013 None Full Exam - General 1994 Psychiatric orientation/consciousness Overall: oriented to person, place and time 03/13/2013 None Full Exam - General 1994 Psychiatric mood and affect Overall: normal mood and affect 03/13/2013 None Full Exam - General 1994 Constitutional general appearance Overall: well developed 02/02/2013 None Full Exam - General 1994 Constitutional general appearance Overall: in no acute distress 02/02/2013 None Full Exam - General 1994 Constitutional general appearance Overall: well nourished 02/02/2013 None Full Exam - General 1994 Eyes conjunctiva /eyelids Overall: conjunctiva clear 02/02/2013 None Full Exam - General 1995 Eyes conjunctiva /eyelids Overall: cornea clear 02/02/2013 None Full Exam - General 1994 Eyes conjunctiva /eyelids Overall: eyelids normal 02/02/2013 None Full Exam - General 1994 Eyes pupils and irises Overall: pupils equal, round, reactive to light and accomodation 02/02/2013 None Full Exam - General 1995 Ears/Nose/Throat otoscopic exam Overall: external auditory canals clear 02/02/2013 None Full Exam - General 1995 Ears/Nose/Throat otoscopic exam Overall: tympanic membranes clear 02/02/2013 after cerumen removed from right ear Full Exam - General 1995 Ears/Nose/Throat oral cavity/pharynx/larynx Overall: oral mucosa clear 02/02/2013 None Full Exam - General 1995 Ears/Nose/Throat oral cavity/pharynx/larynx Overall: oropharyngeal mucosa clear 02/02/2013 None Full Exam - General 1994 Ears/Nose/Throat oral cavity/pharynx/larynx Overall: no masses 02/02/2013 None Full Exam - General 1994 Respiratory auscultation Overall: breath sounds clear bilaterally 02/02/2013 None Full Exam - General 1994 Respiratory respiratory effort/rhythm Overall: no retractions 02/02/2013 None Full Exam - General 1994 Respiratory respiratory effort/rhythm Overall: normal rate 02/02/2013 None Full Exam - General 1994 Cardiovascular auscultation of heart Overall: regular rate 02/02/2013 None Full Exam - General 1994 Cardiovascular auscultation of heart Overall: normal heart sounds 02/02/2013 None Full Exam - General 1994 Cardiovascular auscultation of heart Overall: no murmurs 02/02/2013 None Full Exam - General 1994 Abdomen abdominal exam Overall: no tenderness 02/02/2013 None Full Exam - General 1994 Abdomen abdominal exam Overall: normal bowel sounds 02/02/2013 None Full Exam - General 1994 Musculoskeletal spine, ribs and pelvis Spine: tender @ lumbar spine 02/02/2013 None Full Exam - General 1994 Psychiatric orientation/consciousness Overall: oriented to person, place and time 02/02/2013 None Full Exam - General 1994 Neurologic cranial nerves Overall: crainial nerves 2 - 12 grossly intact 02/02/2013 None Full Exam - General 1994 Constitutional general appearance Overall: well developed 01/10/2013 None Full Exam - General 1994 Constitutional general appearance Overall: in no acute distress 01/10/2013 None Full Exam - General 1995 Constitutional general appearance Overall: well nourished 01/10/2013 None Full Exam - General 1994 Eyes conjunctiva /eyelids Overall: conjunctiva clear 01/10/2013 None Full Exam - General 1994 Eyes conjunctiva /eyelids Overall: cornea clear 01/10/2013 None Full Exam - General 1994 Eyes conjunctiva /eyelids Overall: eyelids normal 01/10/2013 None Full Exam - General 1994 Eyes pupils and irises Overall: pupils equal, round, reactive to light and accomodation 01/10/2013 None Full Exam - General 1995 Ears/Nose/Throat oral cavity/pharynx/larynx Overall: oral mucosa clear 01/10/2013 None Full Exam - General 1995 Ears/Nose/Throat oral cavity/pharynx/larynx Overall: oropharyngeal mucosa clear 01/10/2013 None Full Exam - General 1994 Ears/Nose/Throat oral cavity/pharynx/larynx Overall: no masses 01/10/2013 None Full Exam - General 1994 Respiratory auscultation Overall: breath sounds clear bilaterally 01/10/2013 None Full Exam - General 1994 Respiratory respiratory effort/rhythm Overall: no retractions 01/10/2013 None Full Exam - General 1994 Respiratory respiratory effort/rhythm Overall: normal rate 01/10/2013 None Full Exam - General 1994 Cardiovascular auscultation of heart Overall: regular rate 01/10/2013 None Full Exam - General 1994 Cardiovascular auscultation of heart Overall: normal heart sounds 01/10/2013 None Full Exam - General 1994 Cardiovascular auscultation of heart Overall: no murmurs 01/10/2013 None Full Exam - General 1994 Abdomen abdominal exam Overall: no tenderness 01/10/2013 None Full Exam - General 1994 Abdomen abdominal exam Overall: normal bowel sounds 01/10/2013 None Full Exam - General 1994 Musculoskeletal spine, ribs and pelvis Spine: tender @ lumbar spine 01/10/2013 None Full Exam - General 1994 Psychiatric orientation/consciousness Overall: oriented to person, place and time 01/10/2013 None Full Exam - General 1994 Ears/Nose/Throat otoscopic exam Overall: external auditory canals clear 01/10/2013 None Full Exam - General 1994 Ears/Nose/Throat otoscopic exam Overall: tympanic membranes clear 01/10/2013 after cerumen removed from right ear Full Exam - General 1994 Constitutional general appearance Overall: well nourished 12/27/2012 None Full Exam - General 1995 Constitutional general appearance Overall: well developed 12/27/2012 None Full Exam - General 1994 Constitutional general appearance Overall: in no acute distress 12/27/2012 None Full Exam - General 1994 Eyes pupils and irises Overall: pupils equal, round, reactive to light and accomodation 12/27/2012 None Full Exam - General 1994 Eyes conjunctiva /eyelids Overall: conjunctiva clear 12/27/2012 None Full Exam - General 1994 Eyes conjunctiva /eyelids Overall: eyelids normal 12/27/2012 None Full Exam - General 1994 Eyes conjunctiva /eyelids Overall: cornea clear 12/27/2012 None Full Exam - General 1995 Ears/Nose/Throat oral cavity/pharynx/larynx Overall: oropharyngeal mucosa clear 12/27/2012 None Full Exam - General 1995 Ears/Nose/Throat oral cavity/pharynx/larynx Overall: no masses 12/27/2012 None Full Exam - General 1995 Ears/Nose/Throat oral cavity/pharynx/larynx Overall: oral mucosa clear 12/27/2012 None Full Exam - General 1995 Ears/Nose/Throat otoscopic exam External auditory canal: partial cerumen occlusion 12/27/2012 None Full Exam - General 1995 Ears/Nose/Throat otoscopic exam External auditory canal: a normal exam 12/27/2012 None Full Exam - General 1995 Ears/Nose/Throat otoscopic exam Tympanic membrane: not visualized 12/27/2012 None Full Exam - General 1995 Ears/Nose/Throat otoscopic exam Tympanic membrane: a normal exam 12/27/2012 None Full Exam - General 1994 Respiratory respiratory effort/rhythm Overall: normal rate 12/27/2012 None Full Exam - General 1994 Respiratory respiratory effort/rhythm Overall: no retractions 12/27/2012 None Full Exam - General 1994 Respiratory auscultation Overall: breath sounds clear bilaterally 12/27/2012 None Full Exam - General 1994 Cardiovascular auscultation of heart Overall: regular rate 12/27/2012 None Full Exam - General 1994 Cardiovascular auscultation of heart Overall: normal heart sounds 12/27/2012 None Full Exam - General 1994 Cardiovascular auscultation of heart Overall: no murmurs 12/27/2012 None Full Exam - General 1994 Abdomen abdominal exam Overall: no tenderness 12/27/2012 None Full Exam - General 1994 Abdomen abdominal exam Overall: normal bowel sounds 12/27/2012 None Full Exam - General 1994 Musculoskeletal spine, ribs and pelvis Spine: tender @ lumbar spine 12/27/2012 None Full Exam - General 1994 Psychiatric orientation/consciousness Overall: oriented to person, place and time 12/27/2012 None Procedures Procedure Codes Date THER/PROPH/DIAG INJ SC/IM CPT-4: 15710 01/20/2017 TRIAMCINOLONE ACET INJ NOS CPT-4: J3301 01/20/2017 FLU VAC NO PRSV 4 JANELLE 3 YRS+ CPT-4: 52617 01/11/2017 PNEUMOCOCCAL VACC 23 JANELLE IM CPT-4: 38975 01/11/2017 ADMIN INFLUENZA VIRUS VAC CPT-4: G0008 01/11/2017 ADMIN PNEUMOCOCCAL VACCINE SNOMED CT: [id number] CPT-4: G0009 01/11/2017 PPPS, SUBSEQ VISIT CPT -4: G0439 09/29/2016 TRIAMCINOLONE ACET INJ NOS CPT-4: J3301 06/08/2016 THER/PROPH/DIAG INJ SC/IM CPT-4: 48548 04/14/2016 TRIAMCINOLONE ACET INJ NOS CPT-4: J3301 04/14/2016 ADMIN INFLUENZA VIRUS VAC CPT-4: G0008 12/31/2015 FLU VACC 4 JANELLE [address] YRS [address] IM SNOM[address] CT: [id number] CPT-4: 31688 12/31/2015 TRIAMCINOLONE ACET INJ NOS CPT-4: J3301 11/07/2015 PRESCRIP TRANSMIT VIA ERX SY CPT-4: G8553 02/20/2015 TRIAMCINOLONE ACET INJ NOS CPT-4: J3301 12/10/2014 TRIAMCINOLONE ACET INJ NOS CPT-4: J3301 11/21/2014 THER/PROPH/DIAG INJ SC/IM CPT-4: 81151 11/21/2014 URINALYSIS NONAUTO W/O SCOPE CPT-4: 81820 10/22/2014 URINALYSIS NONAUTO W/O SCOPE CPT-4: 06950 09/04/2014 DESTRUCT PREMALG LESION CPT-4: 95246 05/01/2014 TRIM SKIN LESION CPT-4 : 53039 05/01/2014 URINALYSIS NONAUTO W/O SCOPE CPT-4: 11017 04/03/2014 TRIAMCINOLONE ACET INJ NOS CPT-4: J3301 03/27/2014 ADMIN INFLUENZA VIRUS VAC Assigned to CPT-4: [id number] 02/08/2014 FLU VAC NO PRSV 4 JANELLE 3 YRS+ CPT-4: 69163 02/08/2014 KETOROLAC TROMETHAMINE INJ CPT-4: J1885 12/21/2013 PROMETHAZINE HCL INJECTION CPT-4: J2550 12/21/2013 URINALYSIS NONAUTO W/O SCOPE CPT-4: 64472 10/31/2013 TRIM SKIN LESIONS 2 TO 4 CPT-4: 28248 08/23/2013 Referral Order Assigned to/Nurses, Assigned to, Current Referral Status/Initiated, Medical service provider, Message Urgency/Routine SNOMED CT: [id number] CPT-4: ReferralUnknown 08/02/2013 DRAIN/INJECT JOINT/BURSA CPT-4: 77839 07/18/2013 DRAIN/INJECT JOINT/BURSA CPT-4: 88914 07/18/2013 ROUTINE VENIPUNCTURE CPT-4: 18062 06/01/2013 KETOROLAC TROMETHAMINE INJ CPT-4: J1885 05/15/2013 THER/PROPH/DIAG INJ SC/IM CPT-4: 05933 05/15/2013 PROMETHAZINE HCL INJECTION CPT-4: J2550 05/15/2013 THER/PROPH/DIAG INJ SC/IM CPT-4: 39797 05/09/2013 KETOROLAC TROMETHAMINE INJ CPT-4: J1885 05/09/2013 ADMIN INFLUENZA VIRUS VAC CPT-4: G0008 01/10/2013 FLULAVAL VACC, 3 YRS & >, IM CPT-4: Q2036 01/10/2013 TRIAMCINOLONE ACET INJ NOS CPT-4: J3301 12/27/2012 PRESCRIP TRANSMIT VIA ERX SY CPT-4: G8553 12/27/2012 Vital Signs Date Vital 03/12/2017 Blood Pressure 1: 128/68 Code : 8480-6 BMI: 25.1 Code : 59617-5 Heart Rate 1 : 96 bpm Height: 5'7" SpO2: 96% Weight: 160 lbs 01/20/2017 Blood Pressure 1: 126/70 Code : 8480-6 BMI: 25.1 Code : 33815-8 Heart Rate 1 : 92 bpm Height: 5'7" SpO2: 98% Weight: 160 lbs 11/03/2016 Blood Pressure 1: 122/70 Code : 8480-6 BMI: 25.1 Code : 22246-1 Heart Rate 1 : 99 bpm Height: 5'7" SpO2: 96% Weight: 160 lbs 09/29/2016 Heart Rate 1: 97 bpm SpO2: 97% 09/15/2016 Blood Pressure 1: 130/80 Code : 8480-6 BMI: 24.9 Code : 86771-1 Heart Rate 1 : 87 bpm Height: 5'7" SpO2: 98% Weight: 159 lbs 08/31/2016 Blood Pressure 1: 128/80 Code : 8480-6 Heart Rate 1: 88 bpm Height: 5'7" SpO2: 96% Weight: 08/14/2016 Blood Pressure 1: 142/82 Code : 8480-6 Heart Rate 1: 105 bpm Height: 5'7" SpO2: 97% Weight: 07/30/2016 Blood Pressure 1: 132/91 Code : 8480-6 Heart Rate 1: 96 bpm SpO2: 98% Temperature: 36.6 (C) / 97.9 (F) 06/16/2016 Blood Pressure 1: 110/68 Code : 8480-6 Heart Rate 1: 88 bpm Height: 5'7" SpO2: 97% Temperature: 36.2 (C) / 97.1 (F) Weight: 06/08/2016 Blood Pressure 1: 110/74 Code : 8480-6 BMI: 24.7 Code : 42098-4 Heart Rate 1 : 79 bpm Height: 5'7" SpO2: 97% Temperature: 36.8 (C) / 98.2 (F) Weight: 158 lbs 05/11/2016 Blood Pressure 1: 128/76 Code : 8480-6 BMI: 24.9 Code : 22355-4 Heart Rate 1 : 75 bpm Height: 5'7" SpO2: 97% Temperature: 36.6 (C) / 97.8 (F) Weight: 159 lbs 04/14/2016 Blood Pressure 1: 122/72 Code : 8480-6 Height: Weight: 12/25/2015 Blood Pressure 1: 132/72 Code : 8480-6 BMI: 24.9 Code : 12490-7 Heart Rate 1 : 74 bpm Height: 5'7" SpO2: 94% Weight: 159 lbs 11/07/2015 BMI: 24.7 Code: 87570-0 Heart Rate 1: 80 bpm Height: 5'7" SpO2: 99% Weight: 158 lbs 06/17/2015 Blood Pressure 1: 124/66 Code : 8480-6 BMI: 25.2 Code : 91575-0 Heart Rate 1 : 74 bpm Height: 5'7" SpO2: 97% Weight: 161 lbs 02/20/2015 Blood Pressure 1: 108/78 Code : 8480-6 BMI: 25.4 Code : 14171-7 Heart Rate 1 : 78 bpm Height: 5'7" SpO2: 98% Weight: 162 lbs 12/10/2014 Blood Pressure 1: 110/62 Code : 8480-6 BMI: 26.0 Code : 06858-0 Heart Rate 1 : 77 bpm Height: 5'7" SpO2: 98% Weight: 166 lbs 11/21/2014 Blood Pressure 1: 102/58 Code : 8480-6 BMI: 26.2 Code : 25110-7 Heart Rate 1 : 91 bpm Height: 5'7" SpO2: 94% Weight: 167 lbs 10/23/2014 Blood Pressure 1: 136/80 Code : 8480-6 BMI: 26.0 Code : 92002-7 Heart Rate 1 : 80 bpm Height: 5'7" Weight: 166 lbs 09/04/2014 Blood Pressure 1: 112/70 Code : 8480-6 BMI: 26.0 Code : 98522-6 Heart Rate 1 : 99 bpm Height: 5'7" Respiratory Rate: 20 bpm Weight: 166 lbs 04/03/2014 Blood Pressure 1: 106/70 Code : 8480-6 BMI: 26.9 Code : 18390-3 Heart Rate 1 : 72 bpm Height: 5'7" Weight: 172 lbs 03/27/2014 Blood Pressure 1: 112/62 Code : 8480-6 BMI: 27.1 Code : 17139-0 Heart Rate 1 : 92 bpm Height: 5'7" Weight: 173 lbs 02/08/2014 Blood Pressure 1: 122/70 Code : 8480-6 BMI: 27.9 Code : 96091-1 Height: 5'7" Weight: 178 lbs 12/29/2013 Blood Pressure 1: 130/88 Code : 8480-6 BMI: 27.9 Code : 93860-8 Height: 5'7" Weight: 178 lbs 12/21/2013 Blood Pressure 1: 132/82 Code : 8480-6 Heart Rate 1: 86 bpm Height: SpO2: 98% Weight: 10/31/2013 Blood Pressure 1: 112/62 Code : 8480-6 BMI: 27.7 Code : 63610-5 Heart Rate 1 : 72 bpm Height: 5'7" Temperature: 36.6 (C) / 97.8 (F) Weight: 177 lbs 08/23/2013 Blood Pressure 1: 130/80 Code : 8480-6 Heart Rate 1: 80 bpm 08/10/2013 Blood Pressure 1: 112/70 Code : 8480-6 Heart Rate 1: 84 bpm Temperature: 36.6 (C) / 97.8 (F) Weight: 174 lbs 08/02/2013 Blood Pressure 1: 150/100 Code: 8480-6 Heart Rate 1: 64 bpm Temperature: 36.3 (C) / 97.4 (F) Weight: 177 lbs 07/18/2013 Blood Pressure 1: 132/82 Code : 8480-6 Heart Rate 1: 76 bpm Weight: 184 lbs 06/27/2013 Blood Pressure 1: 106/64 Code : 8480-6 Heart Rate 1: 76 bpm Weight: 184 lbs 06/01/2013 Blood Pressure 1: 100/66 Code : 8480-6 Heart Rate 1: 96 bpm Weight: 182 lbs 05/25/2013 Blood Pressure 1: 112/66 Code : 8480-6 Heart Rate 1: 84 bpm Weight: 183 lbs 05/15/2013 Blood Pressure 1: 152/84 Code : 8480-6 05/09/2013 Blood Pressure 1: 130/82 Code : 8480-6 Heart Rate 1: 82 bpm SpO2: 95% Weight: 181 lbs 03/13/2013 Blood Pressure 1: 124/68 Code : 8480-6 Heart Rate 1: 80 bpm Weight: 182 lbs 02/02/2013 Blood Pressure 1: 128/78 Code : 8480-6 Heart Rate 1: 72 bpm Weight: 180 lbs 01/10/2013 Blood Pressure 1: 122/62 Code : 8480-6 Heart Rate 1: 76 bpm Weight: 178 lbs 12/27/2012 Blood Pressure 1: 110/72 Code : 8480-6 Heart Rate 1: 84 bpm Weight: 175 lbs Functional Status No Functional Status data History of Present Illness Symptom Name Status Result Effective Date Notes sinus congestion Location maxillary sinuses 03/12/2017 None sinus congestion Quality acute 03/12/2017 None sinus congestion Onset and Resolution ongoing 03/12/2017 None sinus congestion Pertinent Findings Denies fever 03/12/2017 None sinus congestion Pertinent Findings cough 03/12/2017 None sinus congestion Pertinent Findings facial pain 03/12/2017 None earache Location right ear 03/12/2017 None earache Quality acute 03/12/2017 None earache Onset and Resolution ongoing 03/12/2017 None headache Location diffusely 01/20/2017 None headache Quality aching 01/20/2017 None headache Quality constant 01/20/2017 None headache Onset and Resolution sudden in onset 01/20/2017 None headache Onset of Symptom 1 days ago 01/20/2017 None headache Frequency of Episodes daily 01/20/2017 None neck pain Location diffusely 01/20/2017 None neck pain Quality aching 01/20/2017 None neck pain Quality constant 01/20/2017 None neck pain Onset and Resolution sudden in onset 01/20/2017 None neck pain Onset of Symptom 1 days ago 01/20/2017 None neck pain Frequency of Episodes daily 01/20/2017 None dizziness Quality chronic 11/03/2016 None dizziness Onset and Resolution ongoing 11/03/2016 None dizziness Pertinent Findings imbalance 11/03/2016 None dizziness Pertinent Findings lightheadedness 11/03/2016 None dizziness Pertinent Findings problems with coordination 11/03/2016 None gas and bloating Onset and Resolution ongoing 11/03/2016 None gas and bloating Quality chronic 11/03/2016 None gas and bloating Location diffusely 11/03/2016 None gas and bloating Pertinent Findings flatulence 11/03/2016 None dizziness Onset of Symptom _ years ago 11/03/2016 None dizziness Limitation on Activities does not limit activities 11/03/2016 None dizziness Frequency of Episodes unchanged 11/03/2016 None dizziness Significant Medical Conditions allergic rhinitis 11/03/2016 None dizziness Triggers no known associated factors 11/03/2016 None Annual Medicare Wellness Exam Alcohol Use does not drink any alcohol 09/29/2016 None Annual Medicare Wellness Exam Aspirin Use no 09/29/2016 None Annual Medicare Wellness Exam Blood Glucose (self reported) don't know 09/29/2016 None Annual Medicare Wellness Exam Blood Pressure (self reported ) low / normal (120/80) 09/29/2016 None Annual Medicare Wellness Exam Cholesterol (self reported) don't know 09/29/2016 None Annual Medicare Wellness Exam Depression (last 6 months) almost never 09/29/2016 None Annual Medicare Wellness Exam Depression or Hopelessness almost never 09/29/2016 None Annual Medicare Wellness Exam Describe Your Health fair 09/29/2016 None Annual Medicare Wellness Exam Exercise Habits does not exercise 09/29/2016 None Annual Medicare Wellness Exam Handling Stress usually mely effectively 09/29/2016 None Annual Medicare Wellness Exam Hemaglobin A-1C (self reported ) don't know 09/29/2016 None Annual Medicare Wellness Exam Hours of Sleep 8-10 09/29/2016 None Annual Medicare Wellness Exam Interaction with Friends yes 09/29/2016 None Annual Medicare Wellness Exam Interests & Pleasure some of the time 09/29/2016 None Annual Medicare Wellness Exam Life Satisfaction satisfied 09/29/2016 None Annual Medicare Wellness Exam Motor Vehicle Safety always fastens seat belt: y 09/29/2016 None Annual Medicare Wellness Exam Nutrition servings of vegetables / fruit per day: 0-1 09/29/2016 None Annual Medicare Wellness Exam Smoking and Tobacco Use non smoker 09/29/2016 None Annual Medicare Wellness Exam Social & Emotional Support usually 09/29/2016 None Annual Medicare Wellness Exam Stress almost never 09/29/2016 None Annual Medicare Wellness Exam Sun Exposure protects skin when outdoors: n 09/29/2016 None skin lesion Onset and Resolution sudden in onset 09/15/2016 None skin lesion Pertinent Findings Denies fever 09/15/2016 None skin lesion Onset of Symptom 3 weeks ago 09/15/2016 None skin lesion Onset of Symptom 1 weeks ago 08/31/2016 None skin lesion Onset and Resolution sudden in onset 08/31/2016 None skin lesion Pertinent Findings Denies fever 08/31/2016 None Hospital Follow Up _ Other: fall 08/14/2016 None Hospital Follow Up _ pain 08/14/2016 None Hospital Follow Up Quality acute 08/14/2016 None Hospital Follow Up Pertinent Findings pain 08/14/2016 None Hospital Follow Up Pertinent Findings Other: fall with nose et FA fracture 08/14/2016 None Hospital Follow Up Severity severe 08/14/2016 None Hospital Follow Up Mechanism of injury fall 08/14/2016 None dizziness Quality chronic 08/14/2016 None dizziness Onset and Resolution ongoing 08/14/2016 None dizziness Pertinent Findings lightheadedness 08/14/2016 None dizziness Pertinent Findings imbalance 08/14/2016 None dizziness Pertinent Findings problems with coordination 08/14/2016 None knee pain Quality tenderness 08/14/2016 None knee pain Quality acute 08/14/2016 None knee pain Location on the left 08/14/2016 None knee pain Mechanism of injury direct trauma 08/14/2016 None gait abnormality Quality acute 08/14/2016 None gait abnormality Pertinent Findings motor weakness 08/14/2016 None gait abnormality Pertinent Findings muscle tenderness 08/14/2016 None headache Location diffusely 07/30/2016 None headache Quality aching 07/30/2016 None headache Onset and Resolution ongoing 07/30/2016 None headache Onset of Symptom 2 days ago 07/30/2016 None headache Limitation on Activities moderately limits activities 07/30/2016 None headache Frequency of Episodes daily 07/30/2016 None headache Length of Episodes 2 days 07/30/2016 None headache Timing of Episodes upon awakening 07/30/2016 None headache Timing of Episodes during sleep 07/30/2016 None headache Significant Medical Conditions migraines 07/30/2016 resolved when patient got ear peirced- 5 months ago headache Significant Medications acetaminophen 07/30/2016 None headache Triggers no known associated factors 07/30/2016 None headache Alleviating Factors medication 07/30/2016 None headache Exacerbating Factors activity 07/30/2016 None cough Location in the throat 06/16/2016 None cough Quality acute None cough Quality productive 06/16/2016 None cough Quality worsening 06/16/2016 None cough Onset and Resolution sudden in onset 06/16/2016 None cough Onset and Resolution ongoing 06/16/2016 None cough Pertinent Findings Denies chest discomfort 06/16/2016 None cough Pertinent Findings Denies dyspnea 06/16/2016 None cough Pertinent Findings Denies fever 06/16/2016 None cough Pertinent Findings hoarseness 06/16/2016 None cough Pertinent Findings Denies ill contacts 06/16/2016 None cough Pertinent Findings Denies muscle aches 06/16/2016 None cough Pertinent Findings nasal congestion 06/16/2016 None cough Pertinent Findings Denies nausea 06/16/2016 None cough Pertinent Findings post nasal drip 06/16/2016 None cough Pertinent Findings Denies sputum production 06/16/2016 None cough Pertinent Findings weakness 06/16/2016 None sinus congestion Quality acute 06/08/2016 None sinus congestion Onset and Resolution ongoing 06/08/2016 None sinus congestion Onset of Symptom _ weeks ago 06/08/2016 went to urgent care- took augmentin-finished but still having drainage sinus congestion Severity moderate 06/08/2016 None sinus congestion Frequency of Episodes unchanged 06/08/2016 None sinus congestion Significant Medical Conditions allergic rhinitis 06/08/2016 None sinus congestion Significant Medications decongestants 06/08/2016 None sinus congestion Triggers allergens 06/08/2016 None sinus congestion Location on both sides 06/08/2016 None sinus congestion Pertinent Findings cough 06/08/2016 None sinus congestion Pertinent Findings decreased energy level 06/08/2016 None cough Location in the throat 06/08/2016 None cough Quality acute None cough Quality productive 06/08/2016 None cough Quality worsening 06/08/2016 None cough Onset and Resolution sudden in onset 06/08/2016 None cough Onset and Resolution ongoing 06/08/2016 None cough Pertinent Findings chest discomfort 06/08/2016 None cough Pertinent Findings dyspnea 06/08/2016 None cough Pertinent Findings fever 06/08/2016 None cough Pertinent Findings hoarseness 06/08/2016 None cough Pertinent Findings ill contacts 06/08/2016 None cough Pertinent Findings Denies muscle aches 06/08/2016 None cough Pertinent Findings nasal congestion 06/08/2016 None cough Pertinent Findings nausea 06/08/2016 None cough Pertinent Findings post nasal drip 06/08/2016 None cough Pertinent Findings sputum production 06/08/2016 None cough Pertinent Findings weakness 06/08/2016 None sinus congestion Pertinent Findings hoarseness 06/08/2016 None sinus congestion Pertinent Findings fever 06/08/2016 None sinus congestion Onset and Resolution ongoing 05/11/2016 None sinus congestion Onset of Symptom _ weeks ago 05/11/2016 went to urgent care- took augmentin-finished but still having drainage sinus congestion Severity moderate 05/11/2016 None sinus congestion Frequency of Episodes unchanged 05/11/2016 None sinus congestion Significant Medical Conditions allergic rhinitis 05/11/2016 None sinus congestion Significant Medications decongestants 05/11/2016 None sinus congestion Triggers allergens 05/11/2016 None sinus congestion Pertinent Findings cough 05/11/2016 None sinus congestion Pertinent Findings decreased energy level 05/11/2016 None sinus congestion Location on both sides 05/11/2016 None sinus congestion Quality acute 05/11/2016 None cough Location in the throat 05/11/2016 None cough Quality acute None cough Quality worsening 05/11/2016 None cough Quality productive 05/11/2016 None cough Onset and Resolution sudden in onset 05/11/2016 None cough Onset and Resolution ongoing 05/11/2016 None cough Pertinent Findings chest discomfort 05/11/2016 None cough Pertinent Findings dyspnea 05/11/2016 None cough Pertinent Findings fever 05/11/2016 None cough Pertinent Findings Denies muscle aches 05/11/2016 None cough Pertinent Findings nasal congestion 05/11/2016 None cough Pertinent Findings hoarseness 05/11/2016 None cough Pertinent Findings nausea 05/11/2016 None cough Pertinent Findings post nasal drip 05/11/2016 None cough Pertinent Findings ill contacts 05/11/2016 None cough Pertinent Findings sputum production 05/11/2016 None cough Pertinent Findings weakness 05/11/2016 None sinus congestion Onset and Resolution ongoing 04/14/2016 None sinus congestion Onset of Symptom _ weeks ago 04/14/2016 went to urgent care- took augmentin-finished but still having drainage sinus congestion Severity moderate 04/14/2016 None sinus congestion Frequency of Episodes unchanged 04/14/2016 None sinus congestion Significant Medical Conditions allergic rhinitis 04/14/2016 None sinus congestion Significant Medications decongestants 04/14/2016 None sinus congestion Triggers allergens 04/14/2016 None sinus congestion Pertinent Findings cough 04/14/2016 None sinus congestion Pertinent Findings decreased energy level 04/14/2016 None sinus congestion Location on both sides 04/14/2016 None sinus congestion Quality acute 04/14/2016 None breast complaint Location diffusely 12/25/2015 None breast complaint Location in the right nipple 12/25/2015 None breast complaint Quality constant 12/25/2015 None breast complaint Quality mass 12/25/2015 None breast complaint Quality pain 12/25/2015 None breast complaint Onset and Resolution sudden in onset 12/25/2015 None breast complaint Onset of Symptom 3 months ago 12/25/2015 None breast complaint Frequency of Episodes daily 12/25/2015 None nausea Onset of Symptom 1 weeks ago 11/07/2015 None nausea Frequency of Episodes hourly 11/07/2015 None nausea Alleviating Factors rest 11/07/2015 None nausea Triggers meals 11/07/2015 None nausea Pertinent Findings Denies cough 11/07/2015 None nausea Pertinent Findings Denies dyspnea 11/07/2015 None nausea Pertinent Findings Denies lightheadedness 11/07/2015 None plantar wart Location on the right 06/17/2015 None plantar wart Quality intermittent 06/17/2015 None plantar wart Quality worsening 06/17/2015 None plantar wart Onset and Resolution gradual in onset 06/17/2015 None plantar wart Onset and Resolution ongoing 06/17/2015 None plantar wart Limitation on Activities allows weight bearing activity 06/17/2015 None skin lesion Onset and Resolution gradual in onset 06/17/2015 None skin lesion Location right arm 06/17/2015 None skin lesion Location in the lower neck area 06/17/2015 None sinus congestion Quality acute 02/20/2015 None sinus congestion Onset and Resolution sudden in onset 02/20/2015 None sinus congestion Onset of Symptom _ days ago 02/20/2015 Started on Wednesday sinus congestion Alleviating Factors medication 02/20/2015 None sinus congestion Pertinent Findings cough 02/20/2015 None sinus congestion Pertinent Findings decreased energy level 02/20/2015 None sinus congestion Pertinent Findings Denies fever 02/20/2015 None sinus congestion Pertinent Findings hoarseness 02/20/2015 None rash Location-Head/Neck on the left cheek 12/10/2014 None rash Location-Trunk on the upper chest 12/10/2014 None rash Quality new 12/10 None rash Quality enlarging 12/10/2014 None rash Color red 2014 None rash Onset and Resolution sudden in onset 12/10/2014 None rash Onset of Symptom 4 days ago 12/10/2014 None rash Triggers no known triggers 12/10/2014 None rash Pertinent Findings eye irritation 12/10/2014 None rash Alleviating Factors no alleviating factors 12/10/2014 None abnormal bleeding and bruising Location on the skin 11/21/2014 None abnormal bleeding and bruising Onset and Resolution sudden in onset 11/21/2014 None abnormal bleeding and bruising Onset of Symptom 1 days ago 11/21/2014 None abnormal bleeding and bruising Triggers no known associated factors 11/21/2014 None headache Location in the frontal area 11/21/2014 None headache Quality constant 11/21/2014 None headache Quality dull 11/21/2014 None headache Quality pressure 11/21/2014 None headache Onset and Resolution sudden in onset 11/21/2014 None headache Onset and Resolution ongoing 11/21/2014 None headache Onset of Symptom 1 months ago 11/21/2014 None headache Limitation on Activities moderately limits activities 11/21/2014 None headache Frequency of Episodes daily 11/21/2014 None headache Alleviating Factors medication 11/21/2014 None headache Pertinent Findings blurred vision 11/21/2014 None headache Pertinent Findings facial pain 11/21/2014 None headache Pertinent Findings dizziness 11/21/2014 None headache Pertinent Findings lightheadedness 11/21/2014 None eye pain Location in the left eye 11/21/2014 None eye pain Location in the right eye 11/21/2014 None eye pain Quality dull 11/21/2014 None eye pain Quality aching 11/21/2014 None eye pain Quality pressure 11/21/2014 None eye pain Onset and Resolution ongoing 11/21/2014 None eye pain Onset and Resolution sudden in onset 11/21/2014 None eye pain Onset of Symptom 1 months ago 11/21/2014 None eye pain Limitation on Activities moderately limits activities 11/21/2014 None eye pain Frequency of Episodes daily 11/21/2014 None eye pain Triggers no known associated factors 11/21/2014 None eye pain Alleviating Factors medication 11/21/2014 None eye pain Pertinent Findings eye discharge 11/21/2014 None eye pain Pertinent Findings eye pressure 11/21/2014 None eye pain Pertinent Findings facial pain 11/21/2014 None eye pain Pertinent Findings lightheadedness 11/21/2014 None paresthesia Location on the left foot 10/23/2014 None paresthesia Location on the left leg 10/23/2014 None paresthesia Onset of Symptom _ months ago 10/23/2014 None paresthesia Pertinent Findings back pain 10/23/2014 hx of scoliosis paresthesia Quality acute 10/23/2014 None paresthesia Onset and Resolution ongoing 10/23/2014 None paresthesia Limitation on Activities does not limit activities 10/23/2014 None paresthesia Frequency of Episodes increasing 10/23/2014 None paresthesia Length of Episodes _ weeks 10/23/2014 None paresthesia Triggers no known associated factors 10/23/2014 None paresthesia Pertinent Findings Denies fever 10/23/2014 None paresthesia Pertinent Findings Denies dizziness 10/23/2014 None paresthesia Pertinent Findings Denies cough 10/23/2014 None paresthesia Pertinent Findings Denies nausea 10/23/2014 None paresthesia Pertinent Findings Denies neck pain 10/23/2014 None paresthesia Pertinent Findings Denies syncope 10/23/2014 None nausea Severity moderate 09/04/2014 None nausea Onset of Symptom 1.5 months ago 09/04/2014 None nausea Frequency of Episodes increasing 09/04/2014 None nausea Significant Medical Conditions acid reflux 09/04/2014 None nausea Pertinent Findings Denies heartburn 09/04/2014 None nausea Quality constant 09/04/2014 None nausea Onset and Resolution ongoing 09/04/2014 None dysuria Quality acute 09/04/2014 None dysuria Onset and Resolution ongoing 09/04/2014 None dysuria Limitation on Activities does not limit urination 09/04/2014 None dysuria Frequency of Episodes unchanged 09/04/2014 None office procedure Procedure to be performed electrocautery on actinic keratosis on nose nad electrocautery on painful wart on foot 05/01/2014 None office procedure Reason for Procedure pain on foot and discomfort of changing lesion on nose 2014 None abdominal pain Location diffusely 04/03/2014 pain from above belly button down abdominal pain Quality cramping 04/03/2014 None abdominal pain Quality burning 04/03/2014 None abdominal pain Onset of Symptom 2-3 days ago 04/03/2014 None abdominal pain Pertinent Findings cough 04/03/2014 None abdominal pain Pertinent Findings back pain 04/03/2014 reports hurting across back from waist down abdominal pain Pertinent Findings Denies fever 04/03/2014 hasnt taken temp, but thinks there is days that she has had fever abdominal pain Pertinent Findings Denies vomiting 04/03/2014 None sinus congestion Onset of Symptom 2 weeks ago 04/03/2014 Was here last Wednesday. Taking Cipro and Culturelle sinus congestion Pertinent Findings Denies fever 04/03/2014 None sinus congestion Pertinent Findings cough 04/03/2014 None sinus congestion Onset of Symptom 2 days ago 03/27/2014 Started as migraine. sinus congestion Pertinent Findings facial pain 03/27/2014 above and around right eye, top of head and right side of head pelvic pain Quality dull 03/27/2014 None pelvic pain Onset and Resolution ongoing 03/27/2014 None pelvic pain Pertinent Findings back pain 03/27/2014 None pelvic pain Pertinent Findings Denies fever 03/27/2014 None pelvic pain Pertinent Findings Denies urinary urgency 03/27/2014 None sinus congestion Onset and Resolution ongoing 03/27/2014 None sinus congestion Severity mild 03/27/2014 None sinus congestion Severity moderate 03/27/2014 None sinus congestion Frequency of Episodes increasing 03/27/2014 None sinus congestion Timing of Episodes all day long 03/27/2014 None sinus congestion Significant Medical Conditions allergic rhinitis 03/27/2014 None sinus congestion Triggers allergens 03/27/2014 None sinus congestion Location on both sides 03/27/2014 None sinus congestion Quality acute 03/27/2014 None pelvic pain Location diffusely 03/27/2014 think she has a UTI pelvic pain Limitation on Activities does not limit activities 03/27/2014 None pelvic pain Frequency of Episodes increasing 03/27/2014 None pelvic pain Significant Medical Conditions recurrent urinary tract infections 03/27/2014 None pelvic pain Significant Medications NSAID 's 03/27/2014 None pelvic pain Triggers no known associated factors 03/27/2014 None dysuria Quality acute 02/08/2014 None dysuria Quality aching 02/08/2014 None dysuria Onset and Resolution ongoing 02/08/2014 None dysuria Quality burning 02/08/2014 None urinary incontinence Quality intermittent 02/08/2014 None urinary incontinence Pertinent Findings bladder pain 02/08/2014 None urinary incontinence Pertinent Findings pelvic pain 02/08/2014 None headache Location diffusely 02/08/2014 None headache Onset and Resolution ongoing 02/08/2014 None headache Pertinent Findings Denies awakens from sleep 02/08/2014 None headache Pertinent Findings Denies blurred vision 02/08/2014 None headache Pertinent Findings dizziness 02/08/2014 None headache Pertinent Findings facial pain 02/08/2014 None headache Pertinent Findings Denies facial numbness 02/08/2014 None headache Pertinent Findings lightheadedness 02/08/2014 if stands up too quickly headache Pertinent Findings Denies numbness 02/08/2014 None headache Pertinent Findings Denies sleep disturbance 02/08/2014 has headache when goes to sleep and usually when up in the am dysuria Limitation on Activities does not limit urination 02/08/2014 None dysuria Frequency of Episodes unchanged 02/08/2014 None dysuria Significant Medical Conditions recurrent urinary tract infections 02/08/2014 None dysuria Triggers no known associated factors 02/08/2014 None dysuria Alleviating Factors medication 02/08/2014 AZO dysuria Onset of Symptom 1 days ago 02/08/2014 None dysuria Pertinent Findings back pain 02/08/2014 None dysuria Pertinent Findings bladder pain 02/08/2014 None dysuria Pertinent Findings Denies fever 02/08/2014 None dysuria Pertinent Findings Denies vomiting 02/08/2014 None eye discharge Location in the right eye 12/29/2013 None eye discharge Quality acute 12/29/2013 None eye discharge Onset and Resolution ongoing 12/29/2013 None eye discharge Onset of Symptom 1 weeks ago 12/29/2013 None eye discharge Severity mild 12/29/2013 None eye discharge Frequency of Episodes unchanged 12/29/2013 None eye discharge Significant Medical Conditions allergies 12/29/2013 None eye discharge Triggers no known associated factors 12/29/2013 None eye discharge Pertinent Findings eye tearing 12/29/2013 None eye discharge Pertinent Findings Denies eye swelling 12/29/2013 None eye discharge Pertinent Findings Denies facial pain 12/29/2013 None eye discharge Pertinent Findings Denies fever 12/29/2013 None eye discharge Pertinent Findings Denies URI symptoms 12/29/2013 None headache Location diffusely 12/21/2013 None headache Quality throbbing 12/21/2013 None headache Quality constant 12/21/2013 None headache Onset of Symptom 2 days ago 12/21/2013 None headache Frequency of Episodes daily 12/21/2013 None headache Triggers no known associated factors 12/21/2013 None headache Pertinent Findings awakens from sleep 12/21/2013 None headache Pertinent Findings Denies diplopia 12/21/2013 None headache Pertinent Findings dizziness 12/21/2013 None headache Pertinent Findings lightheadedness 12/21/2013 None headache Pertinent Findings pallor 12/21/2013 None headache Pertinent Findings stiff neck 12/21/2013 None headache Pertinent Findings nausea 12/21/2013 None neck pain Location in the cervical spine 12/21/2013 None neck pain Quality sharp 12/21/2013 None neck pain Quality intermittent 12/21/2013 None neck pain Onset of Symptom 4 days ago 12/21/2013 None headache Limitation on Activities is incapacitating 12/21/2013 None neck pain Pertinent Findings Denies extremity numbness 12/21/2013 None neck pain Pertinent Findings insomnia 12/21/2013 last night neck pain Limitation on Activities does not limit activities 12/21/2013 None neck pain Frequency of Episodes increasing 12/21/2013 None neck pain Triggers no known associated factors 12/21/2013 None neck pain Exacerbating Factors activity 12/21/2013 None neck pain Mechanism of injury unknown 12/21/2013 None dysuria Quality burning 10/31/2013 None dysuria Limitation on Activities does not limit urination 10/31/2013 None dysuria Onset of Symptom 2 weeks ago 10/31/2013 None dysuria Pertinent Findings Denies fever 10/31/2013 None dysuria Pertinent Findings bladder pain 10/31/2013 None dysuria Pertinent Findings Denies back pain 10/31/2013 None dysuria Pertinent Findings Denies nausea 10/31/2013 None dysuria Pertinent Findings Denies vomiting 10/31/2013 None dysuria Frequency of Episodes increasing 10/31/2013 None dysuria Significant Medical Conditions recurrent urinary tract infections 10/31/2013 None dysuria Triggers no known associated factors 10/31/2013 None office procedure Procedure to be performed electrocautery of warts on hand and foot on right 2013 None office procedure Reason for Procedure painful and enlarging warts on finger and toe 08/23/2013 None sore throat Location on both sides 08/10/2013 None sore throat Quality burning 08/10/2013 mouth quijano too sore throat Pertinent Findings oral ulcers 08/10/2013 None sore throat Onset and Resolution ongoing 08/10/2013 None sore throat Limitation on Activities does not limit oral intake 08/10/2013 None sore throat Frequency of Episodes increasing 08/10/2013 None sore throat Triggers swallowing 08/10/2013 None sore throat Exacerbating Factors medication 08/10/2013 on bactrim for sinus infection sinus congestion Onset of Symptom 1 weeks ago 08/02/2013 None sinus congestion Location on both sides 08/02/2013 None sinus congestion Pertinent Findings cough 08/02/2013 None sinus congestion Pertinent Findings decreased energy level 08/02/2013 None sinus congestion Pertinent Findings facial pain 08/02/2013 None sinus congestion Pertinent Findings Denies fever 08/02/2013 None sinus congestion Onset and Resolution ongoing 08/02/2013 None sinus congestion Severity moderate 08/02/2013 None sinus congestion Significant Medical Conditions allergic rhinitis 08/02/2013 None sinus congestion Significant Medications decongestants 08/02/2013 None sinus congestion Alleviating Factors medication 08/02/2013 None headache Location on both sides 07/18/2013 None headache Onset of Symptom 2 days ago 07/18/2013 improving headache Pertinent Findings lethargy 07/18/2013 None joint complaint Quality aching 07/18/2013 None joint complaint Quality tenderness 07/18/2013 None joint complaint Location on the right shoulder 07/18/2013 and left knee joint complaint Onset and Resolution ongoing 07/18/2013 None joint complaint Limitation on Activities moderately limits activities 07/18/2013 None joint complaint Triggers no known associated factors 07/18/2013 None joint complaint Alleviating Factors medication 07/18/2013 None pain Location-Major in a generalized area 06/27/2013 None nausea Onset and Resolution sudden in onset 06/27/2013 None nausea Onset of Symptom 2-3 weeks ago 06/27/2013 None nausea Severity moderate 06/27/2013 states she wakes up in the middle of the night nauseated. denies vomiting nausea Pertinent Findings Denies heartburn 06/27/2013 None pain Location-Major in a generalized area 06/01/2013 states all her joints and muscles hurt. states has prob getting out of car and out of chair. lot of prob with right wrist fatigue Quality acute 06/01/2013 None fatigue Onset and Resolution gradual in onset 06/01/2013 states she sleeps all the time pain Severity severe 06/01/2013 unrelieved with tylenol, ibuprofen, hydrocodone pain Onset of Symptom 1 week ago 06/01/2013 None fatigue Onset of Symptom _ months ago 06/01/2013 None fatigue Limitation on Activities moderately limits activities 06/01/2013 None fatigue Frequency of Episodes increasing 06/01/2013 None fatigue Triggers no known associated factors 06/01/2013 None fatigue Pertinent Findings Denies chills 06/01/2013 None fatigue Pertinent Findings cough 06/01/2013 None fatigue Pertinent Findings Denies confusion 06/01/2013 None fatigue Pertinent Findings dizziness 06/01/2013 on occasion fatigue Pertinent Findings Denies dyspnea 06/01/2013 None fatigue Pertinent Findings Denies fever 06/01/2013 None fatigue Pertinent Findings Denies insomnia 06/01/2013 None fatigue Pertinent Findings Denies nausea 06/01/2013 None fatigue Pertinent Findings Denies tachycardia 06/01/2013 None fatigue Pertinent Findings Denies tachypnea 06/01/2013 None fatigue Pertinent Findings Denies syncope 06/01/2013 None cough Quality chronic 05/25/2013 None cough Onset and Resolution ongoing 05/25/2013 no improvement. wondering if it could be sinus drainage cough Pertinent Findings Denies apnea 05/25/2013 None cough Pertinent Findings Denies dysphagia 05/25/2013 None cough Pertinent Findings Denies dyspnea 05/25/2013 None cough Location in the larynx 05/25/2013 None cough Timing of Episodes upon awakening 05/25/2013 None headache Location on both sides 05/15/2013 None headache Quality constant 05/15/2013 None headache Quality throbbing 05/15/2013 None headache Onset of Symptom 2 days ago 05/15/2013 None headache Pertinent Findings Denies blurred vision 05/15/2013 None headache Pertinent Findings Denies dizziness 05/15/2013 None headache Pertinent Findings nausea 05/15/2013 None headache Limitation on Activities moderately limits activities 05/15/2013 None headache Frequency of Episodes increasing 05/15/2013 None cough Location in the lung 05/15/2013 None cough Quality chronic 05/15/2013 None cough Onset and Resolution ongoing 05/15/2013 None cough Limitation on Activities does not limit activities 05/15/2013 None cough Frequency of Episodes increasing 05/15/2013 None cough Triggers no known associated factors 05/15/2013 None headache Triggers no known associated factors 05/15/2013 None headache Exacerbating Factors loud noises 05/15/2013 None headache Exacerbating Factors stress 05/15/2013 None headache Location in the right retro- orbital area 05/09/2013 None headache Onset of Symptom 1 weeks ago 05/09/2013 None headache Pertinent Findings facial pain 05/09/2013 None headache Pertinent Findings Denies dizziness 05/09/2013 None headache Pertinent Findings Denies lightheadedness 05/09/2013 None headache Pertinent Findings nausea 05/09/2013 None headache Pertinent Findings Denies stiff neck 05/09/2013 None sinus congestion Onset and Resolution ongoing 05/09/2013 None sinus congestion Onset of Symptom 1 weeks ago 05/09/2013 None sinus congestion Severity moderate 05/09/2013 None sinus congestion Frequency of Episodes increasing 05/09/2013 None sinus congestion Significant Medical Conditions allergic rhinitis 05/09/2013 None sinus congestion Triggers allergens 05/09/2013 None sinus congestion Significant Medications decongestants 05/09/2013 None sinus congestion Alleviating Factors medication 05/09/2013 None sinus congestion Pertinent Findings facial pain 05/09/2013 None sinus congestion Pertinent Findings Denies fever 05/09/2013 None sinus congestion Pertinent Findings Denies vomiting 05/09/2013 None sinus congestion Pertinent Findings decreased energy level 05/09/2013 None sinus congestion Pertinent Findings cough 05/09/2013 None dizziness Quality imbalance 03/13/2013 None dizziness Quality lightheadedness 03/13/2013 None dizziness Quality loss of balance 03/13/2013 None dizziness Quality sense of room spinning 03/13/2013 None dizziness Quality rotation 03/13/2013 None dizziness Quality swaying 03/13/2013 None dizziness Quality chronic 03/13/2013 None dizziness Onset and Resolution ongoing 03/13/[address] matthews and was given exercise dizziness Limitation on Activities moderately limits activities 03/13/2013 None dizziness Frequency of Episodes daily 03/13/2013 None dizziness Triggers activity 03/13/2013 None dizziness Triggers exertion 03/13/2013 None dizziness Triggers head turning 03/13/2013 None dizziness Alleviating Factors rest 03/13/2013 None dizziness Exacerbating Factors exertion 03/13/2013 None dizziness Exacerbating Factors position change 03/13/2013 None dizziness Pertinent Findings Denies blurred vision 03/13/2013 None dizziness Pertinent Findings Denies confusion 03/13/2013 None dizziness Pertinent Findings Denies cough 03/13/2013 None dizziness Pertinent Findings Denies double vision 03/13/2013 None dizziness Pertinent Findings Denies dysphagia 03/13/2013 None dizziness Pertinent Findings Denies dyspnea 03/13/2013 None dizziness Pertinent Findings Denies fever 03/13/2013 None dizziness Pertinent Findings Denies focal weakness 03/13/2013 None dizziness Pertinent Findings Denies hoarseness 03/13/2013 None dizziness Pertinent Findings Denies nausea 03/13/2013 None dizziness Quality imbalance 02/02/2013 None dizziness Quality lightheadedness 02/02/2013 None dizziness Quality loss of balance 02/02/2013 None dizziness Quality sense of room spinning 02/02/2013 None dizziness Quality rotation 02/02/2013 None dizziness Quality swaying 02/02/2013 None dizziness Quality chronic 02/02/2013 None dizziness Onset and Resolution ongoing 02/02/2013 patient was treated for inner ear infection, meds helped for a couple of days then got worse, been treated for BPPV. using meclizine. helps temporarily. dizziness Pertinent Findings Denies blurred vision 02/02/2013 None dizziness Pertinent Findings Denies confusion 02/02/2013 None dizziness Pertinent Findings Denies cough 02/02/2013 None dizziness Pertinent Findings Denies double vision 02/02/2013 None dizziness Pertinent Findings Denies dysphagia 02/02/2013 None dizziness Pertinent Findings Denies dyspnea 02/02/2013 None dizziness Pertinent Findings Denies fever 02/02/2013 None dizziness Pertinent Findings Denies focal weakness 02/02/2013 None dizziness Pertinent Findings Denies hoarseness 02/02/2013 None dizziness Pertinent Findings Denies nausea 02/02/2013 None dizziness Triggers head turning 02/02/2013 None dizziness Triggers exertion 02/02/2013 None dizziness Triggers activity 02/02/2013 None dizziness Alleviating Factors rest 02/02/2013 None dizziness Exacerbating Factors exertion 02/02/2013 None dizziness Exacerbating Factors position change 02/02/2013 None dizziness Limitation on Activities moderately limits activities 02/02/2013 None dizziness Frequency of Episodes daily 02/02/2013 None dizziness Onset and Resolution ongoing 01/10/2013 None dizziness Quality imbalance 01/10/2013 None dizziness Quality lightheadedness 01/10/2013 None dizziness Quality loss of balance 01/10/2013 None dizziness Quality sense of room spinning 01/10/2013 None dizziness Quality sense of motion 01/10/2013 None dizziness Quality constant 01/10/2013 None dizziness Pertinent Findings lightheadedness 01/10/2013 None dizziness Pertinent Findings imbalance 01/10/2013 None dizziness Pertinent Findings problems with coordination 01/10/2013 None dizziness Pertinent Findings blurred vision 01/10/2013 None dizziness Onset of Symptom 6 months ago 01/10/2013 None dizziness Significant Medical Conditions allergic rhinitis 01/10/2013 None dizziness Triggers no known associated factors 01/10/2013 states turning her head side to side or looking up worsens the dizziness dizziness Limitation on Activities does not limit activities 01/10/2013 None dizziness Frequency of Episodes increasing 01/10/2013 None dizziness Alleviating Factors medication 01/10/2013 meclizine helps some dizziness Quality acute 12/27/2012 went to ER for dizziness, negative CT. also had heart cath, negative. patient states she feels pressure in her right ear. dizziness Quality feelings of unsteadiness 12/27/2012 None dizziness Quality imbalance 12/27/2012 None dizziness Quality loss of balance 12/27/2012 None dizziness Quality sense of room spinning 12/27/2012 None dizziness Onset and Resolution ongoing 12/27/2012 None dizziness Onset of Symptom 6 months ago 12/27/2012 None dizziness Limitation on Activities does not limit activities 12/27/2012 None dizziness Frequency of Episodes unchanged 12/27/2012 None dizziness Timing of Episodes upon awakening 12/27/2012 None dizziness Timing of Episodes in the morning 12/27/2012 None dizziness Timing of Episodes in the afternoon 12/27/2012 None dizziness Timing of Episodes in the evening 12/27/2012 None dizziness Significant Medical Conditions allergic rhinitis 12/27/2012 None dizziness Triggers no known associated factors 12/27/2012 None dizziness Alleviating Factors medication 12/27/2012 meclizine helps some dizziness Pertinent Findings Denies confusion 12/27/2012 None dizziness Pertinent Findings Denies cough 12/27/2012 None dizziness Pertinent Findings Denies dyspnea 12/27/2012 None dizziness Pertinent Findings Denies fever 12/27/2012 None dizziness Pertinent Findings Denies hoarseness 12/27/2012 None dizziness Pertinent Findings Denies nausea 12/27/2012 None dizziness Pertinent Findings Denies neck pain 12/27/2012 None dizziness Pertinent Findings Denies palpitations 12/27/2012 None dizziness Pertinent Findings Denies tachycardia 12/27/2012 None dizziness Pertinent Findings Denies vomiting 12/27/2012 None dizziness Pertinent Findings Denies syncope 12/27/2012 None dizziness Pertinent Findings Denies problems with coordination 12/27/2012 None dizziness Pertinent Findings Denies sense of impending doom 12/27/2012 None vaginal discharge Onset and Resolution ongoing 12/27/2012 states she doesn't have discharge-just some burning. States she was on abx about a month or six week ago for UTI. vaginal discharge Severity mild 12/27/2012 None Advance Directives No Advance Directive data Encounters Encounter Performer Location Codes Date EST. PATIENT, LEVEL IV Diagnosis: Other acute sinusitis[ICD10: J01.80] Diagnosis: Other allergic rhinitis[ICD10: J30.89] Diagnosis: Otalgia, right ear[ICD10: H92.01] Astrid Diaz MD, [facility] CPT -4: 29251 03/12/2017 [id number] EST. PATIENT, LEVEL IV Diagnosis: Other acute sinusitis[ICD10: J01.80] Diagnosis: Other allergic rhinitis[ICD10: J30.89] Diagnosis: Gastro-esophageal reflux disease without esophagitis[ICD10: K21.9] Astrid Diaz MD, [facility] CPT-4: 18925 01/20/2017 ([id number]) [id number] EST. PATIENT, LEVEL IV Diagnosis: Radiculopathy, lumbar region[ICD10: M54.16] Diagnosis: Headache[ICD10: R51] Diagnosis: Dizziness and giddiness[ICD10: R42] Diagnosis: Gas pain[ICD10: R14.1] Karolina Diaz MD, [facility] CPT-4: 61414 11/03/2016 ([id number]) 78225 EST. PATIENT, LEVEL III Diagnosis: Rash and other nonspecific skin eruption[ICD10: R21] Liz Diaz MD, [facility] CPT-4: 99334 09/15/2016 [id number] EST. PATIENT, LEVEL III Diagnosis: Rash and other nonspecific skin eruption[ICD10: R21] Astrid Diaz MD, [facility] CPT-4: 91957 08/31/2016 ([id number]) 31108 EST. PATIENT, LEVEL IV Diagnosis: Nondisplaced fracture of neck of right radius, initial encounter for closed fracture[ICD10: S52.134A] Diagnosis: Orthostatic hypotension[ICD10: I95.1] Diagnosis: Dizziness and giddiness[ICD10: R42] Diagnosis: Fracture of nasal bones, initial encounter for closed fracture[ICD10 : S02.2XXA] Karolina Diaz MD, [facility] CPT-4: 22496 08/14/2016 ([id number]) 27499 EST. PATIENT, LEVEL III Diagnosis: Headache[ICD10: R51] Diagnosis: Contusion of nose, initial encounter[ICD10: S00.33XA] Diagnosis: Pain in left shoulder[ICD10: M25.512] Karolina Diaz MD, [facility] CPT-4: 46687 07/30/2016 ([id number]) 26783 EST. PATIENT, LEVEL III Diagnosis: Cough[ICD10: R05] Diagnosis: Candidal stomatitis[ICD10: B37.0] Karolina Diaz MD, [facility] CPT-4: 89863 06/16/2016 ([id number]) 86616 EST. PATIENT, LEVEL III Diagnosis: Cough[ICD10: R05] Diagnosis: Acute bronchitis, unspecified[ICD10: J20.9] Karolina Diaz MD, [facility] CPT-4: 63477 06/08/2016 ([id number]) 62059 EST. PATIENT, LEVEL III Diagnosis: Acute recurrent maxillary sinusitis[ICD10: J01.01] Liz Diaz MD, [facility] CPT-4: 98612 05/11/2016 ([id number]) 51948 EST. PATIENT, LEVEL III Diagnosis: Cough[ICD10: R05] Diagnosis: Allergic rhinitis due to pollen[ICD10: J30.1] Liz Diaz MD, [facility] CPT-4: 10561 04/14/2016 ([id number]) 23460 EST. PATIENT, LEVEL III Diagnosis: Mastodynia[ICD10: N64.4] Liz Diaz MD, [facility] CPT-4: 49479 12/25/2015 ([id number]) 09490 EST. PATIENT, LEVEL III Diagnosis: Allergic rhinitis due to pollen[ICD10: J30.1] Diagnosis: Migraine, unspecified, not intractable, without status migrainosus[ ICD10: G43.909] Karolina Diaz MD, [facility] CPT-4: 33616 11/07/2015 ([id number]) 48042 EST. PATIENT, LEVEL III Diagnosis: Plantar wart[ICD10: B07.0] Liz Diaz MD, [facility] CPT- 4: 53441 06/17/2015 ([id number]) 40198 EST. PATIENT, LEVEL III Diagnosis: Other acute sinusitis[ICD10: J01.80] Diagnosis: Acute bronchitis, unspecified[ICD10: J20.9] Diagnosis: Cough[ICD10: R05] Liz Diaz MD, [facility] CPT-4: 57852 02/20/2015 52776 EST. PATIENT, LEVEL II Diagnosis: Rash[ICD9: 782.1] Liz Diaz MD, [facility] CPT-4: 22821 12/10/2014 ([id number]) 70446 EST. PATIENT, LEVEL III Diagnosis: ACUTE SINUSITIS[ICD9: 461.9] Diagnosis: Migraine headache[ICD9: 346.90] Diagnosis: SPONTANEOUS ECCHYMOSES[ICD9: 782.7] Liz Diaz MD, [facility] CPT-4: 18930 11/21/2014 ([id number]) 12593 EST. PATIENT, LEVEL III Diagnosis: Low back pain[ICD9: 724.2] Diagnosis: Leg pain, left[ICD9: 729.5] Karolina Diaz MD, [facility] CPT-4: 78868 10/23/2014 ([id number]) 95157 EST. PATIENT, LEVEL III Diagnosis: Gastroesophageal reflux disease[ICD9: 530.81] Diagnosis: Anxiety[ICD9: 300.00] Dorita Diaz MD, [facility] CPT-4: 10482 09/04/2014 ([id number]) 43920 EST. PATIENT, LEVEL III Diagnosis: Urinary tract infection[ICD9: 599.0] Diagnosis: Cough[ICD9: 786.2] Diagnosis: ACUTE SINUSITIS[ICD9: 461.9] Liz Diaz MD, [facility] CPT- 4: 61263 04/03/2014 ([id number]) 88476 EST. PATIENT, LEVEL III Diagnosis: ACUTE SINUSITIS[ICD9: 461.9] Diagnosis: ALLERGIC RHINITIS[ICD9: 477.9] Karolina Diaz MD [facility] CPT-4: 28836 03/27/2014 ([id number]) 77368 EST. PATIENT, LEVEL III Diagnosis: UTI (urinary tract infection)[ICD9: 599.0] Diagnosis: Constipation[ICD9: 564.00] Liz Diaz MD [facility] CPT- 4: 24262 02/08/2014 [id number] EST. PATIENT, LEVEL III Diagnosis: ALLERGIC RHINITIS[ICD9: 477.9] Karolina Diaz MD [facility] CPT-4: 56362 12/29/2013 ([id number]) 25103 EST. PATIENT, LEVEL III Diagnosis: Migraine headache[ICD9: 346.90] Diagnosis: Nausea[ICD9: 787.02] Diagnosis: Tension headache[ICD9: 307.81] Karolina Diaz MD [facility] CPT-4: 52275 12/21/2013 ([id number]) 52009 EST. PATIENT, LEVEL III Diagnosis: Urinary tract infection[ICD9: 599.0] Karolina Diaz MD [facility] CPT-4: 29876 10/31/2013 ([id number]) 20997 EST. PATIENT, LEVEL III Diagnosis: Thrush[ICD9: 112.0] Liz Diaz MD [facility] CPT-4: 63324 08/10/2013 ([id number]) 84951 EST. PATIENT, LEVEL III Diagnosis: ACUTE SINUSITIS[ICD9: 461.9] Diagnosis: HEADACHE[ICD9: 784.0] Liz Diaz MD [facility] CPT-4: 96680 08/02/2013 ([id number]) 00441 EST. PATIENT, LEVEL III Diagnosis: HEADACHE[ICD9: 784.0] Diagnosis: Shoulder pain, right[ICD9: 719.41] Diagnosis: Pain in left knee[ICD9: 719.46] Diagnosis: Muscle spasms of neck[ICD9: 728.85] Liz Diaz MD [facility] CPT-4: 00602 07/18/2013 ([id number]) 56844 EST. PATIENT, LEVEL III Diagnosis: Migraine headache[ICD9: 346.90] Diagnosis: Myalgia[ICD9: 729.1] Diagnosis: DIZZINESS AND GIDDINESS[ICD9: 780.4] Diagnosis: Fatigue[ICD9: 780.79] Diagnosis: Nausea[ICD9: 787.02] Liz Diaz MD [facility] CPT-4: 74552 06/27/2013 ([id number]) 51885 EST. PATIENT, LEVEL IV Diagnosis: Multiple joint pain[ICD9: 719.49] Diagnosis: Myalgia[ICD9: 729.1] Diagnosis: Fatigue[ICD9: 780.79] Diagnosis: Worsening headaches[ICD9: 784.0] Karolina Diaz MD, [facility] CPT-4: 61907 06/01/2013 ([id number]) 32787 EST. PATIENT, LEVEL III Diagnosis: Nasal inflammation due to allergen[ICD9: 477.9] Diagnosis: Cough[ICD9: 786.2] Liz Diaz MD, [facility] CPT-4: 44022 05/25/2013 ([id number]) 08118 EST. PATIENT, LEVEL III Diagnosis: Migraine headache[ICD9: 346.90] Diagnosis: Nausea[ICD9: 787.02] Diagnosis: Pneumonia[ICD9: 486] Karolina Diaz MD [facility] CPT-4: 32176 05/15/2013 ([id number]) 72958 EST. PATIENT, LEVEL III Diagnosis: ACUTE SINUSITIS[ICD9: 461.9] Diagnosis: Headache[ICD9: 784.0] Karolina Diaz MD, [facility] CPT-4: 01418 05/09/2013 ([id number]) 40250 EST. PATIENT, LEVEL III Diagnosis: BPPV (benign paroxysmal positional vertigo)[ICD9: 386.11] Diagnosis: DIZZINESS AND GIDDINESS[ICD9: 780.4] Liz Diaz MD [facility] CPT-4: 12597 03/13/2013 ([id number]) 43399 EST. PATIENT, LEVEL IV Diagnosis: BPPV (benign paroxysmal positional vertigo)[ICD9: 386.11] Diagnosis: DIZZINESS AND GIDDINESS[ICD9: 780.4] [facility] CPT-4: 82066 02/02/2013 ([id number]) 27248 EST. PATIENT, LEVEL III Diagnosis: DIZZINESS AND GIDDINESS[ICD9: 780.4] Diagnosis: IMPACTED CERUMEN[ICD9: 380.4] Diagnosis: Dyspnea[ICD9: 786.09] [facility] CPT-4: 01269 01/10/2013 ([id number]) OFFICE VISIT, NEW - LEVEL 3 Diagnosis: ALLERGIC RHINITIS[ICD9: 477.9] Diagnosis: Dizziness[ICD9: 780.4] Diagnosis: Cerumen impaction[ICD9: 380.4] Diagnosis: Vaginal yeast infection[ICD9: 112.1] Diagnosis: History of UTI[ICD9: V13.02] [facility] CPT-4: 43120 12/27/2012 Plan of Care Planned Activity Notes Codes Status Date Appointment: Astrid Wise WPtel: [phone] (15 min) Moderate 03/12/2017 Patient Education: Patient Medication Summary Completed 03/12/2017 Appointment: Astrid Wise WPtel: [phone] (30 min) Complex 03/11/2017 Appointment: Astrid Wise WPtel: [phone] (30 min) Complex 01/20/2017 Patient Education: Patient Medication Summary Completed 01/20/2017 Appointment: Injection 01/11/2017 Patient Education: Patient Medication Summary Completed 01/11/2017 Appointment: Karolina Ochoa WPtel: [phone] [place] (15 min) Moderate 11/03/2016 Patient Education: Patient Medication Summary Completed 11/03/2016 Appointment: [facility] Wise [phone] [place] MCR - Annual Wellness Visit 09/29/2016 Patient Education: Patient Medication Summary Completed 09/29/2016 [facility]ment: [phone] [place] ([facility] min) Moderate 09/15/2016 Patient Education: Patient Medication Summary Completed 09/15/2016 Appointment: Astrid Wise [facility]el[phone] [place] (15 min) Moderate 08/31/2016 Patient Education: Patient Medication Summary Completed 08/31/2016 Appointment: Karolina Ochoa WPtel: [phone] [place] (15 min) Moderate 08/14/2016 Patient Education: Patient Medication Summary Completed 08/14/2016 Appointment: Karolina Ochoa WPtel: [phone] [place] (15 min) Moderate 07/30/2016 Patient Education: Patient Medication Summary Completed 07/30/2016 Appointment: Karolina Ochoa WPtel: [phone] [place] (10 min) Simple 06/16/2016 Patient Education: Patient Medication Summary Completed 06/16/2016 Appointment: Karolina Ochoa WPtel: [phone] [place] (30 min) Complex 06/08/2016 Patient Education: Patient Medication Summary Completed 06/08/2016 Appointment: [phone] [place] ([place] min) Moderate 05/11/2016 Patient Education: Patient Medication Summary Completed 05/11/2016 Appointment: Karolina Ochoa WPtel: [phone] [place] (15 min) Moderate 04/14/2016 Patient Education: Patient Medication Summary Completed 04/14/2016 Appointment: Mret 12/31/2015 Patient Education: Patient Medication Summary Completed 12/31/2015 Patient Education: Patient Medication Summary Completed 12/25/2015 Appointment: Karolina Ochoa WPtel: [phone] (15 min) Moderate 11/07/2015 Patient Education: Patient Medication Summary Completed 11/07/2015 Referral: External, Ordering Provider Referral Completed 06/18/2015 App[facility]ment: [phone] ([facility] [place]) Complex 06/17/2015 Patient Education: Patient Medication Summary Completed 06/17/2015 Care Plan: Referral Order SNOMED-CT : [id number] Ordered 06/17/2015 Appointment: Liz Diaz [facility] (15 min) Moderate 02/20/2015 Patient Education: Patient Medication Summary Completed 02/20/2015 Appointment: Karolina Ochoa WPtel: [phone] (10 min) Simple 12/10/2014 Patient Education: Patient Medication Summary Completed 12/10/2014 Patient Education: Patient Medication Summary Completed 11/21/2014 Patient Education: Patient Medication Summary Completed 10/23/2014 Appointment: Lab Draw 10/22/2014 Patient Education: Patient Medication Summary Completed 10/22/2014 Patient Education: Patient Medication Summary Completed 09/04/2014 Appointment: Liz Diaz WPtel: [facility] Surgical Procedure 05/01/2014 Patient Education: Patient Medication Summary Completed 05/01/2014 Patient Education: Patient Medication Summary Completed 04/03/2014 Appointment: Sick 03/27/2014 Patient Education: Patient Medication Summary Completed 03/27/2014 Appointment: Sick 02/08/2014 Patient Education: Patient Medication Summary Completed 02/08/2014 Patient Education: Patient Medication Summary Completed 12/29/2013 Appointment: Sick 12/21/2013 Patient Education: Patient Medication Summary Completed 12/21/2013 Appointment: Sick 10/31/2013 Patient Education: Patient Medication Summary Completed 10/31/2013 Appointment: Liz Diaz WPtel: [address] [place], [place] [phone] burn warts on finger and toe Other 08/23/2013 Patient Education: Patient Medication Summary Completed 08/23/2013 Appointment: Liz Diaz WPtel: [address] [place], [place] [phone] Follow up 08/16/2013 Appointment: Karolina Ochoa WPtel: [phone] Other 08/10/2013 Patient Education: Patient Medication Summary Completed 08/10/2013 Appointment: Liz Diaz WPtel: [address] [place], [place] [phone] Sick 08/02/2013 Patient Education: Patient Medication Summary Completed 08/02/2013 Appointment: Liz Diaz WPtel: [address] [place], [place] [phone] Follow up 07/18/2013 Patient Education: Patient Medication Summary Completed 07/18/2013 Appointment: Liz Diaz WPtel: [address] [place], [place] [phone] Follow up 06/27/2013 Patient Education: Patient Medication Summary Completed 06/27/2013 Appointment: Liz Diaz WPtel: [address] [place], [place] [phone] Follow up 06/12/2013 Patient Education: Patient Medication Summary Completed 06/01/2013 Appointment: Liz Diaz WPtel: [address] [place] [address] Follow up 05/25/2013 Patient Education: Patient Medication Summary Completed 05/25/2013 Appointment: Karolina Ochoa WPtel: [address] [place] [phone] [place] Sick 05/15/2013 Patient Education: Patient Medication Summary Completed 05/15/2013 Appointment: Karolina Ochoa WPtel: [phone] Other 05/09/2013 Patient Education: Patient Medication Summary Completed 05/09/2013 Appointment: Liz Diaz WPtel: [address] [place] [id number] Follow up 03/13/2013 Patient Education: Patient Medication Summary Completed 03/13/2013 App[facility]ment: [phone] Follow [facility] 02/07/2013 Appointment: Liz Diaz [facility] Follow [facility] 02/02/2013 Patient Education: Patient Medication Summary Completed 02/02/2013 Appointment: Karolina Ochoa WPtel: [phone] Follow up 01/10/2013 Patient Education: Patient Medication Summary Completed 01/10/2013 Patient Education: .Amazing charts Paroxysmal positional vertigo Completed Appointment: Karolina Ochoa WPtel: [phone] New Patient 12/27/2012 Patient Education: Patient Medication Summary Completed 12/27/2012 Referral: External, Ordering Provider Referral Appointment Requested Referral: [facility] Referral Initiated Instructions No Instructions
[2017-10-11] MEDS ORDERED: LACTATED RINGERS 1,000 ML IV STA (12:27)
[2017-10-11 12:30] VITALS: BP 134/78
--- OUTSIDE RECORDS SUMMARY | 2017-10-11 12:31 | XMS REPORT | CCD ---
Author Author Karolina Ochoa Organization [facility] Address [address] [place] [address] Phone Care Team Providers Care Offc Spec Name Role Phone PP Unavailable CCM Unavailable Summary Purpose Interface Exchange Insurance Providers Payer name Policy type / Coverage type Covered libertarian ID Effective Begin Date Effective End Date WPS Medicare Part B [id number] 2015 Unknown [employer] [id number] 2015 Unknown Family history Uncle Diagnosis Age [...] Unknown Retired 12/27/[address]: 839972355 Never smoker 12/27/[address]: 362908063 Never drinks alcohol 12/27/2012 Has the patient ever used illegal drugs? Unknown Has never used illegal drugs 12/27/2012 Allergies, Adverse Reactions, Alerts Substance Reaction Codes Entered Date Inactivated Date Status bactrim abdominal pain RxNorm: 930609 10/22/2014 No Inactive Date Active Past Medical History Illness Codes Condition Status Onset Date Resolved Date Dysuria ICD-9: 788.1 ICD-10: R30.0 Active 04/20/2017 Unknown Otalgia, right ear ICD -9: 388.70 ICD-10: [...] Problems Condition Codes Effective Dates Condition Status Dysuria ICD-9: 788.1 ICD-10: R30.0 04/20/2017 Active Otalgia, right ear ICD -9: 388.70 ICD-10: [...] Start Date Stop Date Status Fill Instructions Macrobid 100 mg capsule RxNorm: 096756 1 Capsule(s) PO BID 07/201705/02/2017 Active Macrobid 100 mg capsule RxNorm: 009553 1 Capsule(s) PO BID 07/201704/25/2017 Inactive Augmentin 875 mg-125 mg tablet RxNorm: 325928 1 Tablet(s) PO BID 04/20/2017 04/19/2017 Inactive Augmentin 875 mg-125 mg tablet RxNorm: 280192 1 Tablet(s) PO BID 04/20/2017 04/25/2017 Inactive Mobic 15 mg tablet RxNorm: 457132 TAKE 1 TABLET EVERY DAY 10/201706/21/2018 Active Augmentin 500 mg-125 mg tablet RxNorm: 345854 1 Tablet(s) PO TID 03/12/2017 03/21/2017 Inactive prednisone 20 mg tablet RxNorm: 853006 2 Tablet(s) PO daily 03/16/2017 Inactive diazepam 5 mg tablet RxNorm: 863447 1 Tablet(s) PO BID 201602/04/2018 Active omeprazole 20 mg capsule,delayed release RxNorm: 348381 TAKE 1 CAPSULE EVERY DAY 01/26/2017 01/20/2018 Active topiramate 50 mg tablet RxNorm: 957563 1 Tablet(s) PO daily 09/201601/20/2018 Active citalopram 20 mg tablet RxNorm: 351425 TAKE 1 TABLET EVERY DAY 01/21/2017 10/17/2017 Active omeprazole 20 mg capsule,delayed release RxNorm: 607440 Capsule(s) TAKE 1 CAPSULE EVERY DAY 01/20/2017 01/25/2017 Inactive topiramate 50 mg tablet RxNorm: 137614 Tablet(s) PO daily 25mg QD x 1 week then if needed increase to 50mg QD 01/20/2017 01/25/2017 Inactive [SAVINGS FOR NON- COVERED DRUGS -- BIN:376216, PCN: ASPROD1, Group: XXXXX, ID# [id number], Questions : . THIS IS NOT INSURANCE.] Zithromax Z-Nitin 250 mg tablet RxNorm: 069392 1 Tablet(s) PO UD 01/20/2017 01/24/2017 Inactive Kenalog 40 mg/mL suspension for injection RxNorm: 0181410 Milliliter(s) Inj 01/20/2017 01/20/2017 Inactive Erik 180 mg tablet RxNorm: 138483 TAKE 1 TABLET EVERY DAY 12/05/2017 Active Forteo 20 mcg/dose (600 mcg/2.4 mL) subcutaneous pen injector RxNorm: 5495141 20 Microgram(s) SQ daily 10/11/2016 Inactive Dispense quantity sufficient triamcinolone acetonide 0.025 % topical cream RxNorm: 6484082 1 Application TOP BID 08/31/2016 No Stop Date Active doxycycline hyclate 100 mg capsule RxNorm: 4597400 1 Capsule(s) PO BID 08/31/2016 09/09/2016 Inactive meclizine 25 mg tablet RxNorm: 583595 1 Tablet(s) PO Q6 PRN No Stop Date Active Cipro 500 mg tablet RxNorm: 373131 1 Tablet(s) PO BID 201608/23/2016 Inactive amoxicillin 500 mg capsule RxNorm: 606369 1 Capsule(s) PO TID 08/08/2016 08/13/2016 Inactive citalopram 20 mg tablet RxNorm: 140713 TAKE 1 TABLET EVERY DAY 06/29/2016 01/20/2017 Inactive fluconazole 150 mg tablet RxNorm: 854969 1 Tablet(s) PO daily 06/16/2016 06/16/2016 Inactive Zithromax Z-Nitin 250 mg tablet RxNorm: 346007 1 Tablet(s) PO UD 06/16/2016 06/20/2016 Inactive nystatin 100,000 unit/mL oral suspension RxNorm: 696284 5 Milliliter(s) PO QID 06/16/2016 06/25/2016 Inactive swish and swallow fluconazole 150 mg tablet RxNorm: 558526 1 Tablet(s) PO daily 06/16/2016 06/16/2016 Inactive promethazine-DM 6.25 mg-15 mg/5 mL syrup RxNorm: 092349 5 Milliliter(s) PO Q6 PRN 06/08/2016 No Stop Date Active Levaquin 500 mg tablet RxNorm: 712723 1 Tablet(s) PO daily 06/14/2016 Inactive prednisone 20 mg tablet RxNorm: 377007 1 Tablet(s) PO BID 06/0806/12/2016 Inactive Kenalog 40 mg/mL suspension for injection RxNorm: 1909570 1 Milliliter(s) Inj 06/08/2016 06/08/2016 Inactive diazepam 5 mg tablet RxNorm: 727121 1 Tablet(s) PO BID 201605/18/2017 Active Flonase Allergy Relief 50 mcg/actuation nasal spray, suspension RxNorm: 1180432 1 [place] NASAL daily 05/11/20162016 Inactive azithromycin 250 mg tablet RxNorm: 319633 2 Tablet(s) PO on day #1, then one pill daily x 4 days 05/11/2016 05/24/2016 Inactive gabapentin 100 mg capsule RxNorm: 388671 1 Capsule PO QAM, 2 Capsules PO at NOON, and 2 Capsules PO QHS Capsule(s) PO UD 05/06/2016 04/30/2017 Active gabapentin 100 mg capsule RxNorm: 435386 1 in the am 2 at noon and 2 at hs Capsule (s) PO TID 05/01/2016 05/05/2016 Inactive [SAVINGS FOR NON-COVERED DRUGS -- BIN: [id number], PCN: ASPROD1, Group: XXXXX, ID# [id number], Questions: . THIS IS NOT INSURANCE.] Mobic 15 mg tablet RxNorm: 226300 TAKE 1 TABLET EVERY DAY 05/201603/28/2017 Inactive Kenalog 40 mg/mL suspension for injection RxNorm: 6570866 1 Milliliter(s) Inj 04/14/2016 04/14/2016 Inactive prednisone 20 mg tablet RxNorm: 751293 1 Tablet(s) PO BID 04/1404/18/2016 Inactive gabapentin 100 mg capsule RxNorm: 095626 Capsule(s) TAKE 1 CAPSULE THREE TIMES DAILY 02/28/2016 05/05/2016 Inactive gabapentin 100 mg capsule RxNorm: 814889 TAKE 1 CAPSULE THREE TIMES DAILY 02/28/2016 02/27/2016 Inactive omeprazole 20 mg capsule,delayed release RxNorm: 776850 TAKE 1 CAPSULE EVERY DAY 02/24/2016 01/19/2017 Inactive topiramate 50 mg tablet RxNorm: 853957 1 Tablet(s) PO BID 12/3012/24/2016 Inactive [SAVINGS FOR NON-COVERED DRUGS -- BIN:248228, PCN: ASPROD1, Group: XXXXX, ID # [id number], Questions: . THIS IS NOT INSURANCE.] topiramate 50 mg tablet RxNorm: 818058 1 Tablet(s) PO BID 12/3012/30/2015 Inactive [SAVINGS FOR NON-COVERED DRUGS -- BIN:418009, PCN: ASPROD1, Group: XXXXX, ID # [id number], Questions: . THIS IS NOT INSURANCE.] topiramate 50 mg tablet RxNorm: 306039 1 Tablet(s) PO BID 12/2412/30/2015 Inactive [SAVINGS FOR NON-COVERED DRUGS -- BIN:559891, PCN: ASPROD1, Group: XXXXX, ID # [id number], Questions: . THIS IS NOT INSURANCE.] Erik 180 mg tablet RxNorm: 053039 TAKE 1 TABLET EVERY DAY 07/201512/10/2016 Inactive Levaquin 500 mg tablet RxNorm: 952784 1 Tablet(s) PO daily 05/10/2016 Inactive Levaquin 500 mg tablet RxNorm: 071659 1 Tablet(s) PO daily 11/07/2015 Inactive gabapentin 100 mg capsule RxNorm: 615162 1 in the am 2 at noon and 2 at hs Capsule (s) PO TID 11/07/2015 11/06/2015 Inactive [SAVINGS FOR NON-COVERED DRUGS -- BIN: 938275, PCN: ASPROD1, Group: XXXXX, ID# [id number], Questions: . THIS IS NOT INSURANCE.] gabapentin 100 mg capsule RxNorm: 453423 1 in the am 2 at noon and 2 at hs Capsule (s) PO TID 11/07/2015 02/27/2016 Inactive [SAVINGS FOR NON-COVERED DRUGS -- BIN: 523259, PCN: ASPROD1, Group: XXXXX, ID# [id number], Questions: . THIS IS NOT INSURANCE.] Kenalog 40 mg/mL suspension for injection RxNorm: 0618834 1.5 Milliliter(s) Inj 11/07/2015 11/07/2015 Inactive citalopram 20 mg tablet RxNorm: 458635 Tablet(s) TAKE 1 TABLET EVERY DAY 09/18/2015 06/13/2016 Inactive diazepam 5 mg tablet RxNorm: 691517 1 Tablet(s) PO BID 201502/27/2016 Inactive [SAVINGS FOR UNINSURED PATIENTS -- BIN:116649, PCN: ASPROD1, Group: AME08, ID # [id number], Process claim through [employer], for questions: . THIS IS NOT INSURANCE.] topiramate 50 mg tablet RxNorm: 162638 1 Tablet(s) PO BID 06/2712/24/2015 Inactive [SAVINGS FOR NON-COVERED DRUGS -- BIN:138218, PCN: ASPROD1, Group: XXXXX, ID # [id number], Questions: . THIS IS NOT INSURANCE.] topiramate 50 mg tablet RxNorm: 655324 1 Tablet(s) PO BID 06/2706/27/2015 Inactive [SAVINGS FOR NON-COVERED DRUGS -- BIN:691428, PCN: ASPROD1, Group: XXXXX, ID # [id number], Questions: . THIS IS NOT INSURANCE.] omeprazole 20 mg capsule,delayed release RxNorm: 884439 TAKE 1 CAPSULE EVERY DAY 05/02/2015 02/23/2016 Inactive Mobic 15 mg tablet RxNorm: 940390 TAKE 1 TABLET EVERY DAY 01/201604/23/2016 Inactive gabapentin 100 mg capsule RxNorm: 521477 1 Capsule(s) PO TID 11/06/2015 Inactive [SAVINGS FOR NON-COVERED DRUGS -- BIN:351043, PCN: ASPROD1, Group: XXXXX , ID# [id number], Questions: . THIS IS NOT INSURANCE.] levofloxacin 500 mg tablet RxNorm: 936174 1 Tablet(s) PO daily 02/20/2015 02/26/2015 Inactive citalopram 20 mg tablet RxNorm: 971508 TAKE 1 TABLET EVERY DAY 02/19/2015 09/17/2015 Inactive gabapentin 100 mg capsule RxNorm: 575867 1 Capsule(s) PO TID 02/24/2015 Inactive [SAVINGS FOR NON-COVERED DRUGS -- BIN:946503, PCN: ASPROD1, Group: XXXXX , ID# [id number], Questions: . THIS IS NOT INSURANCE.] Kenalog 40 mg/mL suspension for injection RxNorm: 7651297 Milliliter(s) Inj 12/10/2014 12/10/2014 Inactive Levaquin 500 mg tablet RxNorm: 990241 1 Tablet(s) PO daily 04/201411/27/2014 Inactive Kenalog 40 mg/mL suspension for injection RxNorm: 2652677 Milliliter(s) Inj 11/21/2014 11/21/2014 Inactive topiramate 50 mg tablet RxNorm: 056339 1 Tablet(s) PO BID 11/2106/27/2015 Inactive [SAVINGS FOR NON-COVERED DRUGS -- BIN:162462, PCN: ASPROD1, Group: XXXXX, ID # [id number], Questions: . THIS IS NOT INSURANCE.] Erik 180 mg tablet RxNorm: 554946 TAKE 1 TABLET EVERY DAY 11/09/2015 Inactive Flonase Allergy Relief 50 mcg/actuation nasal spray, suspension RxNorm: 3083474 1 [place] NASAL daily 11/13/20142015 Inactive Flonase Allergy Relief 50 mcg/actuation nasal spray, suspension RxNorm: 1 [place] NASAL daily 11/13/2014 11/12/2014 Inactive Cipro 500 mg tablet RxNorm: 310419 1 Tablet(s) PO BID 201410/28/2014 Inactive Cipro 500 mg tablet RxNorm: 416359 1 Tablet(s) PO BID 201410/21/2014 Inactive omeprazole 20 mg capsule,delayed release RxNorm: 200011 1 Capsule(s) PO BID 09/25/2014 05/01/2015 Inactive [SAVINGS FOR NON-COVERED DRUGS -- BIN:589386, PCN: ASPROD1, Group: XXXXX, ID# [id number], Questions: . THIS IS NOT INSURANCE.] Carafate 1 gram tablet RxNorm: 210470 1 Tablet(s) PO QID 201410/03/2014 Inactive Take one tablet before each meal and at bedtime everyday diazepam 5 mg tablet RxNorm: 069262 1 Tablet(s) PO BID 201408/29/2015 Inactive [SAVINGS FOR UNINSURED PATIENTS -- BIN:054456, PCN: ASPROD1, Group: AME08, ID # [id number], Process claim through [employer], for questions: . THIS IS NOT INSURANCE.] Carafate 100 mg/mL oral suspension RxNorm: 418703 1 Gram(s) PO QID 09/04/2014 10/03/2014 Inactive topiramate 25 mg tablet RxNorm: 132573 1 Tablet(s) PO BID 08/0111/20/2014 Inactive [SAVINGS FOR NON-COVERED DRUGS -- BIN:050850, PCN: ASPROD1, Group: XXXXX, ID # [id number], Questions: . THIS IS NOT INSURANCE.] fluticasone 50 mcg/actuation blister powder for inhalation RxNorm: 905490 1 [place] INH BID Nasal spray- use twice daily, one spray per nostril twice daily, after 30 minutes, rinse out nose with saline spray. 06/25/2014 10/21/2014 Inactive [ SAVINGS FOR NON-COVERED DRUGS -- BIN:391997, PCN: ASPROD1, Group: XXXXX, ID# [id number], Questions: . THIS IS NOT INSURANCE.] Mobic 15 mg tablet RxNorm: 334188 TAKE 1 TABLET EVERY DAY 07/201405/01/2015 Inactive gabapentin 100 mg tablet RxNorm: 025754 1 Tablet(s) PO TID 06/201402/18/2015 Inactive [SAVINGS FOR NON-COVERED DRUGS -- BIN:834750, PCN: ASPROD1, Group: XXXXX, ID# [id number], Questions: . THIS IS NOT INSURANCE.] Mobic 15 mg tablet RxNorm: 549058 1 Tablet(s) PO daily TAKE 1 TABLET EVERY DAY 05/23/2014 05/23/2014 Inactive [SAVINGS FOR NON-COVERED DRUGS -- BIN:831831, PCN: ASPROD1, Group: XXXXX, ID# [id number], Questions: . THIS IS NOT INSURANCE.] omeprazole 20 mg capsule,delayed release RxNorm: 193963 1 Capsule(s) PO daily 05/21/2014 09/24/2014 Inactive [SAVINGS FOR NON-COVERED DRUGS -- BIN:871742, PCN: ASPROD1, Group: XXXXX, ID# [id number], Questions: . THIS IS NOT INSURANCE.] diazepam 5 mg tablet RxNorm: 801281 1 Tablet(s) PO BID 201409/03/2014 Inactive [SAVINGS FOR UNINSURED PATIENTS -- BIN:485132, PCN: ASPROD1, Group: AME08, ID # [id number], Process claim through [employer], for questions: . THIS IS NOT INSURANCE.] Pyridium 200 mg tablet RxNorm: 1711475 1 Tablet(s) PO TID 04/0304/07/2014 Inactive [SAVINGS FOR UNINSURED PATIENTS -- BIN:657579, PCN: ASPROD1, Group: AME08, ID# [id number], Process claim through [employer], for questions: . THIS IS NOT INSURANCE.] trimethoprim 100 mg tablet RxNorm: 297619 1 Tablet(s) PO QAM 10/16/2014 Inactive [SAVINGS FOR UNINSURED PATIENTS -- BIN:721214, PCN: ASPROD1, Group: AME08 , ID# [id number], Process claim through [employer], for questions: . THIS IS NOT INSURANCE.] Bactrim DS 800 mg-160 mg tablet RxNorm: 975484 1 Tablet(s) PO BID 04/03/2014 04/09/2014 Inactive [SAVINGS FOR UNINSURED PATIENTS -- BIN:186320, PCN: ASPROD1, Group : AME08, ID# [id number], Process claim through [employer], for questions: [phone]. THIS IS NOT INSURANCE.] Cipro 500 mg tablet RxNorm: 734059 1 Tablet(s) PO BID 201404/09/2014 Inactive Kenalog 40 mg/mL suspension for injection RxNorm: 7355635 Milliliter(s) Inj 03/27/2014 03/27/2014 Inactive Bactrim DS 800 mg-160 mg tablet RxNorm: 038985 1 Tablet(s) PO BID 02/08/2014 02/14/2014 Inactive citalopram 20 mg tablet RxNorm: 145124 TAKE 1 TABLET EVERY DAY 02/01/2014 01/26/2015 Inactive Erik 180 mg tablet RxNorm: 801358 1 Tablet(s) PO daily 201311/14/2014 Inactive ciprofloxacin 0.3 % eye drops RxNorm: 203653 2 Drop(s) OPH TID 12/29/2013 01/04/2014 Inactive promethazine 25 mg/mL injection solution RxNorm: 733331 2 Milliliter(s) Inj 12/21/2013 12/21/2013 Inactive ketorolac 60 mg/2 mL intramuscular solution RxNorm: 377050 2 Milliliter(s) IM 12/21/2013 12/21/2013 Inactive Bactrim DS 800 mg-160 mg tablet RxNorm: 064924 1 Tablet(s) PO BID 10/31/2013 11/06/2013 Inactive topiramate 25 mg tablet RxNorm: 589955 1 Tablet(s) PO BID 10/0207/31/2014 Inactive Mobic 15 mg tablet RxNorm: 278100 TAKE 1 TABLET EVERY DAY 05/22/2014 Inactive topiramate 25 mg tablet RxNorm: 265958 1 Tablet(s) PO BID 08/1510/01/2013 Inactive nystatin 100,000 unit/mL oral suspension RxNorm: 501993 6 Unit(s) PO QID 08/10/2013 09/06/2013 Inactive sulfamethoxazole 800 mg-trimethoprim 160 mg tablet RxNorm: 753903 1 Tablet(s) PO BID 08/02/2013 08/11/2013 Inactive topiramate 25 mg tablet RxNorm: 521322 1 Tablet(s) PO BID 08/0208/14/2013 Inactive Mag-Oxide 400 mg tablet RxNorm: 593239 1 Tablet(s) PO TIW 06/0206/01/2013 Inactive Mag-Oxide 400 mg tablet RxNorm: 904719 1 Tablet(s) PO TIW 06/0208/30/2013 Inactive fluticasone 50 mcg/actuation disk powder for inhalation RxNorm: 558939 1 [place] INH BID Nasal spray- use twice daily, one spray per nostril twice daily, after 30 minutes, rinse out nose with saline spray. 05/25/2013 09/21/2013 Inactive ketorolac 60 mg/2 mL intramuscular solution RxNorm: 628970 Milliliter(s) IM 05/15/2013 05/15/2013 Inactive promethazine 25 mg/mL injection solution RxNorm: 904479 Milliliter(s) Inj 05/15/2013 05/15/2013 Inactive Levaquin 500 mg tablet RxNorm: 083321 1 Tablet(s) PO daily 05/21/2013 Inactive ketorolac 60 mg/2 mL intramuscular solution RxNorm: 800995 1 Milliliter(s) IM 05/09/2013 05/09/2013 Inactive Mobic 15 mg tablet RxNorm: 174706 1 Tablet(s) PO daily 201309/03/2013 Inactive omeprazole 20 mg capsule,delayed release RxNorm: 194848 1 Capsule(s) PO daily 04/13/2013 04/07/2014 Inactive diazepam 5 mg tablet RxNorm: 617618 1 Tablet(s) PO BID 201304/07/2014 Inactive gabapentin 100 mg tablet RxNorm: 882764 1 Tablet(s) PO TID 04/07/2014 Inactive citalopram 20 mg tablet RxNorm: 008781 1 Tablet(s) PO daily 01/31/2014 Inactive Mobic 15 mg tablet RxNorm: 659248 1 Tablet(s) PO daily 201304/12/2013 Inactive citalopram 20 mg tablet RxNorm: 175553 1 Tablet(s) PO daily 09/201304/12/2013 Inactive Mobic 15 mg tablet RxNorm: 562012 1 Tablet(s) PO daily 201202/01/2013 Inactive Mobic 15 mg tablet RxNorm: 277834 1 Tablet(s) PO daily 201203/27/2013 Inactive prednisone 20 mg tablet RxNorm: 717314 1 Tablet(s) PO TID 01/2601/25/2013 Inactive prednisone 20 mg tablet RxNorm: 768258 1 Tablet(s) PO TID 01/2601/28/2013 Inactive meclizine 25 mg capsule RxNorm: 979893 1 Capsule(s) PO Q6 PRN 01/23/2013 01/22/2013 Inactive meclizine 25 mg capsule RxNorm: 824380 1 Capsule(s) PO Q6 PRN 01/23/2013 04/12/2013 Inactive prednisone 10 mg tablet RxNorm: 797252 Tablet(s) PO 6-5-4-3-2-1 taper 01/13/2013 04/12/2013 Inactive fluconazole 150 mg tablet RxNorm: 750107 1 Tablet(s) PO daily 12/27/2012 01/02/2013 Inactive Kenalog 40 mg/mL Susp for Injection RxNorm: 1373372 Milliliter(s) Inj 12/27/2012 12/27/2012 Inactive Calcium 500 + D (D3) 500 mg-125 unit tablet RxNorm: 995127 1 Tablet(s) PO daily No Start Date Active Fish Oil 1,000 mg capsule RxNorm: 1 Capsule(s) PO BID No Start Date Active multivitamin capsule RxNorm: 1 Capsule(s) PO daily No Start Date Active nabumetone 750 mg tablet RxNorm: 876188 2 Tablet(s) PO daily No Start Date Active guaifenesin 400 mg tablet RxNorm: 940739 1 Tablet(s) PO Q4H No Start Date Active hydrocodone 5 mg-acetaminophen 325 mg tablet RxNorm: 200631 1 Tablet(s) PO Q6 as needed No Start Date Active citalopram 20 mg tablet RxNorm: 904107 1 Tablet(s) PO daily No Start Date 03/27/2013 Inactive prednisone 10 mg tablet RxNorm: 509494 Tablet(s) PO 6-5-4-3-2-1 taper No Start Date 01/12/2013 Inactive anastrozole 1 mg tablet RxNorm: 651955 1 Tablet(s) PO daily No Start Date 08/10/2013 Inactive omeprazole 40 mg capsule,delayed release RxNorm: 882236 1 Capsule(s) PO daily No Start Date 04/12/2013 Inactive gabapentin 100 mg tablet RxNorm: 097902 1 Tablet(s) PO TID No Start Date 04/12/2013 Inactive Zithromax Z-Nitin 250 mg tablet RxNorm: 368230 Tablet(s) PO No Start Date 05/31/2013 Inactive Diflucan 150 mg tablet RxNorm: 718465 1 Tablet(s) PO daily No Start Date 06/16/2015 Inactive Erik 180 mg tablet RxNorm: 574936 1 Tablet(s) PO daily No Start Date 01/30/2014 Inactive clorazepate dipotassium 3.75 mg tablet RxNorm: 221344 1 Tablet(s) PO BID No Start Date 06/05/2013 Inactive Medication Administered Medication Codes Instructions Start Date Status Kenalog 40 mg/mL suspension for injection RxNorm: 6476341 Milliliter 01/20/2017 No longer Active Kenalog 40 mg/mL suspension for injection RxNorm: 2317700 1Milliliter 06/08/2016 No longer Active Kenalog 40 mg/mL suspension for injection RxNorm: 9996566 1Milliliter 04/14/2016 No longer Active Kenalog 40 mg/mL suspension for injection RxNorm: 5358745 1.5Milliliter 11/07/2015 No longer Active Kenalog 40 mg/mL suspension for injection RxNorm: 7151970 Milliliter 12/10/2014 No longer Active Kenalog 40 mg/mL suspension for injection RxNorm: 1557165 Milliliter 11/21/2014 No longer Active Kenalog 40 mg/mL suspension for injection RxNorm: 7995808 Milliliter 03/27/2014 No longer Active ketorolac 60 mg/2 mL intramuscular solution RxNorm: 291557 2Milliliter 12/21/2013 No longer Active promethazine 25 mg/mL injection solution RxNorm: 997782 2Milliliter 12/21/2013 No longer Active ketorolac 60 mg/2 mL intramuscular solution RxNorm: 671602 Milliliter 05/15/2013 No longer Active promethazine 25 mg/mL injection solution RxNorm: 114062 Milliliter 05/15/2013 No longer Active ketorolac 60 mg/2 mL intramuscular solution RxNorm: 966734 1Milliliter 05/09/2013 No longer Active Kenalog 40 mg/mL Susp for Injection RxNorm: 4182480 Milliliter 12/27/2012 No longer Active Immunizations Vaccine Codes Date Status Influenza CVX: 141 01/11/2017 completed Pneumococcal (Adult) CVX: 33 01/11/2017 completed Influenza CVX: 141 12/31/2015 completed Influenza CVX: 141 02/08/2014 completed Influenza CVX: 141 01/10/2013 completed Pneumococcal CVX: 133 12/29/2012 completed Assessments Condition Codes Effective Dates Dysuria ICD-10: R30.0 ICD-9: 788.1 04/20/2017 Other allergic rhinitis ICD-10: J30.89 ICD-9: 477.8 [...] Observation Code Item Item Code Result Date Culture Urine [id number] URINE CULTURE SEE NOTES 04/23/2017 Culture Urine [id number] Continued Results 04/23/2017 Urine Culture Ucult Complete >100,000 col/ml aerobic growth sent to ref lab 04/21/2017 Cbc With Differential Ord2 WBC 3.35 K/ul 09/29/2016 Cbc With Differential Ord2 RBC 4.00 M/ul 09/29/2016 Cbc With Differential Ord2 HGB 12.7 g/dl 09/29/2016 Cbc With Differential Ord2 HCT 38.3 % 09/29/2016 Cbc With Differential Ord2 Neut% 44.7 % 09/29/2016 Cbc With Differential Ord2 Lymph% 42.1 % 09/29/2016 Cbc With Differential Ord2 MCV 95.8 fl 09/29/2016 Cbc With Differential Ord2 [place]% 9.6 % 09/29/2016 Cbc With Differential Ord2 [...] 1.41 K/ul 09/29/2016 Cbc With Differential Ord2 [place] ABS# 0.3 K/ul 09/29/2016 Cbc With Differential Ord2 Eos ABS# 0.1 K/ul 09/29/2016 Cbc With Differential Ord2 Baso ABS# 0.0 K/ul 09/29/2016 Tsh Ord6 hTSH II 1.67 uIU/mL 09/29/2016 Comp Metabolic Vsp157 NA 142 mEq/L 09/29/2016 Comp Metabolic Tmm829 K 4.6 mEq/L 09/29/2016 Comp Metabolic Ccv614 CL 112 mEq/L 09/29/2016 Comp Metabolic Dhk026 CO2 25.0 mEq/L 09/29/2016 Comp Metabolic Chx029 ANION GAP 10 09/29/2016 Comp Metabolic Ikh690 GLUCOSE 88 mg/dL 09/29/2016 Comp Metabolic Xvr294 Creat 1.1 mg/dL 09/29/2016 Comp Metabolic Cfy073 eGFR 52 ml/min/1.73m2 09/29/2016 Comp Metabolic Vih347 BUN 21 mg/dL 09/29/2016 Comp Metabolic Gqd965 B/C Ratio 19.1 Ratio 09/29/2016 Comp Metabolic Kcl132 CALCIUM 8.9 mg/dL 09/29/2016 Comp Metabolic Xsf081 ALK PHOS 58 U/L 09/29/2016 Comp Metabolic Jsw125 AST(SGOT) 14 U/L 09/29/2016 Comp Metabolic Kmg205 ALT(SGPT) 9 U/L 09/29/2016 Comp Metabolic Tjh829 BILI T 0.3 mg/dL 09/29/2016 Comp Metabolic Mpb802 ALBUMIN 3.6 g/dL 09/29/2016 Comp Metabolic Gfe099 TPRO 5.8 g/dL 09/29/2016 Comp Metabolic Lye126 GLOB 2.2 g/dL 09/29/2016 Comp Metabolic Kqe023 A/G Ratio 1.6 Ratio 09/29/2016 Comp Metabolic Wwr152 Osmo 286 mOsmo 09/29/2016 Tsh Ord6 hTSH [...] Ord2 RDW 14.5 % 11/21/2014 Comp Metabolic Kbl743 NA 137 mEq/L 11/21/2014 Comp Metabolic Ptx524 K 3.7 mEq/L 11/21/2014 Comp Metabolic Ccm237 CL 108 mEq/L 11/21/2014 Comp Metabolic Xur332 CO2 24.0 mEq/L 11/21/2014 Comp Metabolic Dkj290 ANION GAP 9 11/21/2014 Comp Metabolic Lco222 GLUCOSE 83 mg/dL 11/21/2014 Comp Metabolic Vfo921 Creat 1.2 mg/dL 11/21/2014 Comp Metabolic Qod633 eGFR 46 ml/min/1.73m2 11/21/2014 Comp Metabolic Vnz867 BUN 16 mg/dL 11/21/2014 Comp Metabolic Shs619 B/C Ratio 13.0 Ratio 11/21/2014 Comp Metabolic Rqq166 CALCIUM 9.1 mg/dL 11/21/2014 Comp Metabolic Yix089 ALK PHOS 58 U/L 11/21/2014 Comp Metabolic Npl721 AST(SGOT) 17 U/L 11/21/2014 Comp Metabolic Roz353 ALT(SGPT) 11 U/L 11/21/2014 Comp Metabolic Uda278 BILI T 0.4 mg/dL 11/21/2014 Comp Metabolic Ani069 ALBUMIN 3.8 g/dL 11/21/2014 Comp Metabolic Ukn102 TPRO 6.2 g/dL 11/21/2014 Comp Metabolic Olz063 GLOB 2.4 g/dL 11/21/2014 Comp Metabolic Zxt645 A/G Ratio 1.6 Ratio 11/21/2014 Comp Metabolic Sqa900 Osmo 274 mOsmo 11/21/2014 Culture Urine [id number] URINE CULTURE SEE NOTES 10/25/2014 Culture Urine [id number] Continued Results 10/25/2014 Urine Culture Ucult Complete >100,000 col/ml aerobic growth sent to ref lab 10/23/2014 JEISON SCR [id number] JEISON SCR <1:80 06/02/2013 CBC [id number] WBC 3.4 10e9/L 06/01/2013 CBC [id number] RBC 4.28 10e12/L 06/01/2013 CBC [id number] HGB 12.6 g/dL 06/01/2013 CBC [id number] HCT DET 37.9 % 06/01/2013 CBC [id number] MCV 88.6 fL 06/01/2013 CBC [id number] MCH 29.4 pg 06/01/2013 CBC [id number] MCHC 33.2 g/dL 06/01/2013 CBC [id number] PLT 327 10e9/L 06/01/2013 CBC [id number] MPV 9.3 fL 06/01/2013 CBC 4707914 MAKAYLA % 46.4 % 06/01/2013 CBC 9116502 LY % 38.3 % 06/01/2013 CBC 9786630 MON % 9.1 % 06/01/2013 CBC 2453448 EOS % 5.3 % 06/01/2013 CBC 6398031 BASO % 0.9 % 06/01/2013 CBC 0290048 RDW 13.3 % 06/01/2013 CBC 5116224 ABS MAKAYLA 1.58 10e9/L 06/01/2013 CBC 7511600 ABS LYMPH 1.30 10e9/L 06/01/2013 CBC 7725647 ABS MONO 0.31 10e9/L 06/01/2013 CBC 8710687 ABS EOS 0.18 10e9/L 06/01/2013 CBC 4716416 ABS BASO 0.03 10e9/L 06/01/2013 CBC 1599996 RDW-SD 42.4 fL 06/01/2013 VIT D TOTL 1124632 VIT D TOTL 31 NG/ML 06/01/2013 CRP 1605031 CRP 0.2 MG/DL 06/01/2013 GFR CALC 4181734 GFR AA >60 ML/MIN 06/01/2013 GFR CALC 2906939 GFR NON-AA >60 ML/MIN 06/01/2013 CHEM 14 4925077 AST 19 U/L 06/01/2013 CHEM 14 8541191 ALT 11 IU/L 06/01/2013 CHEM 14 1313251 BUN 14 MG/DL 06/01/2013 CHEM 14 [id number] ALBUMIN 4.1 GM/DL 06/01/2013 CHEM 14 8883615 CHLORIDE 106 MMOL/L 06/01/2013 CHEM 14 8152525 BILI TOT 0.3 MG/DL 06/01/2013 CHEM 14 1733646 ALK PHOS 66 U/L 06/01/2013 CHEM 14 0594253 SODIUM 140 MMOL/L 06/01/2013 CHEM 14 4909450 CREATININE 0.90 MG/DL 06/01/2013 CHEM 14 0739199 CALCIUM 9.3 MG/DL 06/01/2013 CHEM 14 4603115 POTASSIUM 4.1 MMOL/L 06/01/2013 CHEM 14 7351641 PROT TOT 6.5 GM/DL 06/01/2013 CHEM 14 3696937 GLUCOSE 91 MG/DL 06/01/2013 CHEM 14 3148607 BICARB 27 MMOL/L 06/01/2013 CHEM 14 5651313 ANION GAP 7 MEQ/L 06/01/2013 TSH 0957528 TSH 1.695 uIU/ML 06/01/2013 MAGNESIUM 1288143 MAGNESIUM 1.5 MEQ/L 06/01/2013 ESR 2020516 ESR 22 MM/HR 06/01/2013 UA 27251 Specific [place] 1.030 DateTime(Free Text in ) UA 63130 PH 5 DateTime(Free Text in ) UA 53422 GLUCOSE - DateTime(Free Text in ) UA 17855 Protein + DateTime(Free Text in ) UA 41794 Blood mod DateTime(Free Text in ) UA 86739 Bilirubin - DateTime(Free Text in ) UA 36324 Ketones - DateTime(Free Text in ) UA 09575 Urobilinogen .2 DateTime(Free Text in ) UA 50755 Nitrite - DateTime(Free Text in ) UA 12686 Leukocytes mod DateTime(Free Text in ) Review of Systems System Result Effective Dates [...] dentition 05/25/2013 None Full Exam - General 1995 Ears/Nose/Throat oral cavity/pharynx/larynx Overall: oral mucosa clear 05/25/2013 None Full Exam - General 1995 Ears/Nose/Throat oral cavity/pharynx/larynx Overall: oropharyngeal mucosa clear 05/25/2013 None Full Exam - General 1995 Ears/Nose/Throat oral cavity/pharynx/larynx Overall: hypopharynx benign 05/25/2013 None Full Exam - General 1995 Ears/Nose/Throat oral cavity/pharynx/larynx Overall: no masses 05/25/2013 [...] hygiene 03/13/2013 None Full Exam - General 1995 Eyes conjunctiva /eyelids Overall: conjunctiva clear 03/13/2013 None Full Exam - General 1994 Eyes conjunctiva /eyelids Overall: cornea clear 03/13/2013 None Full Exam - General 1995 Eyes conjunctiva /eyelids Overall: eyelids normal 03/13/2013 None Full Exam - General 1994 Eyes pupils and irises Overall: pupils equal, round, reactive to light and accomodation 03/13/2013 None Full Exam - General 1995 Ears/Nose/Throat otoscopic exam Overall: external auditory canals clear 03/13/2013 None Full Exam - General 1995 Ears/Nose/Throat otoscopic exam Overall: tympanic membranes clear 03/13/2013 None Full Exam - General 1995 Ears/Nose/Throat lips/teeth/gingiva Overall: benign lips 03/13/2013 None Full Exam - General 1995 Ears/Nose/Throat lips/teeth/gingiva Overall: normal dentition 03/13/2013 None Full Exam - General 1995 Ears/Nose/Throat oral cavity/pharynx/larynx Overall: hypopharynx benign 03/13/2013 None Full Exam - General 1995 Ears/Nose/Throat oral cavity/pharynx/larynx Overall: no masses 03/13/2013 None Full Exam - General 1995 [...] 1994 Eyes conjunctiva /eyelids Overall: cornea clear 02/02/2013 None Full Exam - General 1994 Eyes conjunctiva /eyelids Overall: eyelids normal 02/02/2013 None Full Exam - General 1994 Eyes pupils and irises Overall: pupils equal, round, reactive to light and accomodation 02/02/2013 None Full Exam - General 1994 [...] tenderness 02/02/2013 None Full Exam - General 1995 Abdomen abdominal exam Overall: normal bowel sounds [...] distress 01/10/2013 None Full Exam - General 1994 Constitutional general appearance Overall: well nourished 01/10/2013 [...] accomodation 01/10/2013 None Full Exam - General 1994 Ears/Nose/Throat oral cavity/pharynx/larynx Overall: oral mucosa clear 01/10/2013 None Full Exam - General 1994 Ears/Nose/Throat oral cavity/pharynx/larynx Overall: oropharyngeal mucosa clear 01/10/2013 None Full Exam - General 1995 Ears/Nose/Throat oral cavity/pharynx/larynx Overall: no masses 01/10/2013 [...] time 01/10/2013 None Full Exam - General 1995 Ears/Nose/Throat otoscopic exam Overall: external auditory canals clear 01/10/2013 None Full Exam - General 1995 Ears/Nose/Throat otoscopic exam Overall: tympanic membranes clear 01/10/2013 after cerumen removed from right ear Full Exam - General 1994 Constitutional general appearance Overall: well nourished 12/27/2012 None Full Exam - General 1994 Constitutional general appearance Overall: well developed 12/27/2012 [...] 12/27/2012 None Full Exam - General 1994 Ears/Nose/Throat otoscopic exam Tympanic membrane: not visualized 12/27/2012 None Full Exam - General 1994 Ears/Nose/Throat otoscopic exam Tympanic membrane: a normal [...] time 12/27/2012 None Procedures Procedure Codes Date URINALYSIS NONAUTO W/O SCOPE CPT-4: 95609 04/20/2017 THER/PROPH/DIAG INJ SC/IM CPT-4: 55864 01/20/2017 TRIAMCINOLONE ACET INJ NOS CPT-4: J3301 01/20/2017 FLU VAC NO PRSV 4 JANELLE 3 YRS+ CPT-4: 40666 01/11/2017 PNEUMOCOCCAL VACC 23 JANELLE IM CPT-4: 91646 01/11/2017 ADMIN INFLUENZA VIRUS VAC CPT-4: G0008 01/11/2017 [address]CC[address] VACCINE SNOMED CT: 03065299 CPT-4: G0009 01/11/2017 PPPS, SUBSEQ VISIT CPT -4: G0439 09/29/2016 TRIAMCINOLONE ACET INJ NOS CPT-4: J3301 06/08/2016 THER/PROPH/DIAG INJ SC/IM CPT-4: 99191 04/14/2016 TRIAMCINOLONE ACET INJ NOS CPT-4: J3301 04/14/2016 ADMIN INFLUENZA VIRUS VAC CPT-4: G0008 12/31/2015 FLU VACC 4 JANELLE [address] YRS PLUS IM SNOMED CT: 15135792 CPT-4: 11910 12/31/2015 TRIAMCINOLONE ACET INJ NOS CPT-4: J3301 11/07/2015 PRESCRIP TRANSMIT VIA ERX SY CPT-4: G8553 02/20/2015 TRIAMCINOLONE ACET INJ NOS CPT-4: J3301 12/10/2014 TRIAMCINOLONE ACET INJ NOS CPT-4: J3301 11/21/2014 THER/PROPH/DIAG INJ SC/IM CPT-4: 32565 11/21/2014 URINALYSIS NONAUTO W/O SCOPE CPT-4: 36299 10/22/2014 URINALYSIS NONAUTO W/O SCOPE CPT-4: 57641 09/04/2014 DESTRUCT PREMALG LESION CPT-4: 71631 05/01/2014 TRIM SKIN LESION CPT-4 : 57348 05/01/2014 URINALYSIS NONAUTO W/O SCOPE CPT-4: 86303 04/03/2014 TRIAMCINOLONE ACET INJ NOS CPT-4: J3301 03/27/2014 ADMIN INFLUENZA VIRUS VAC Assigned to CPT-4: O8504Sbdrahx 02/08/2014 FLU VAC NO PRSV 4 JANELLE 3 YRS+ CPT-4: 46692 02/08/2014 KETOROLAC TROMETHAMINE INJ CPT-4: J1885 12/21/2013 PROMETHAZINE HCL INJECTION CPT-4: J2550 12/21/2013 URINALYSIS NONAUTO W/O SCOPE CPT-4: 28429 10/31/2013 TRIM SKIN LESIONS 2 TO 4 CPT-4: 58956 08/23/2013 Referral Order Assigned to/Nurses, Assigned to, Current Referral Status/Initiated, Medical service provider, Message Urgency/Routine SNOMED CT: [id number] CPT-4: ReferralUnknown 08/02/2013 DRAIN/INJECT JOINT/BURSA CPT-4: 62456 07/18/2013 DRAIN/INJECT JOINT/BURSA CPT-4: 08654 07/18/2013 ROUTINE VENIPUNCTURE CPT-4: 32661 06/01/2013 KETOROLAC TROMETHAMINE INJ CPT-4: J1885 05/15/2013 THER/PROPH/DIAG INJ SC/IM CPT-4: 78495 05/15/2013 PROMETHAZINE HCL INJECTION CPT-4: J2550 05/15/2013 THER/PROPH/DIAG INJ SC/IM CPT-4: 28052 05/09/2013 KETOROLAC TROMETHAMINE INJ CPT-4: J1885 05/09/2013 ADMIN INFLUENZA VIRUS VAC CPT-4: G0008 01/10/2013 FLULAVAL VACC, 3 YRS & >, IM CPT-4: Q2036 01/10/2013 TRIAMCINOLONE ACET INJ NOS CPT-4: J3301 12/27/2012 PRESCRIP TRANSMIT VIA ERX SY CPT-4: G8553 12/27/2012 Vital Signs Date Vital 03/12/2017 Blood Pressure 1: 128/68 Code : 8480-6 BMI: 25.1 Code : 30831-4 Heart Rate 1 : 96 bpm Height: 5'7" SpO2: 96% Weight: 160 lbs 01/20/2017 Blood Pressure 1: 126/70 Code : 8480-6 BMI: 25.1 Code : 32142-3 Heart Rate 1 : 92 bpm Height: 5'7" SpO2: 98% Weight: 160 lbs 11/03/2016 Blood Pressure 1: 122/70 Code : 8480-6 BMI: 25.1 Code : 69615-2 Heart Rate 1 : 99 bpm Height: 5'7" SpO2: 96% Weight: 160 lbs 09/29/2016 Heart Rate 1: 97 bpm SpO2: 97% 09/15/2016 Blood Pressure 1: 130/80 Code : 8480-6 BMI: 24.9 Code : 10788-4 Heart Rate 1 : 87 bpm Height: [...] Code : 8480-6 BMI: 24.7 Code : 44295-8 Heart Rate 1 : 79 bpm Height: 5'7" SpO2: 97% Temperature: 36.8 (C) / 98.2 (F) Weight: 158 lbs 05/11/2016 Blood Pressure 1: 128/76 Code : 8480-6 BMI: 24.9 Code : 27321-1 Heart Rate 1 : 75 bpm Height: 5'7" SpO2: 97% Temperature: 36.6 (C) / 97.8 (F) Weight: 159 lbs 04/14/2016 Blood Pressure 1: 122/72 Code : 8480-6 Height: Weight: 12/25/2015 Blood Pressure 1: 132/72 Code : 8480-6 BMI: 24.9 Code : 42883-3 Heart Rate 1 : 74 bpm Height: 5'7" SpO2: 94% Weight: 159 lbs 11/07/2015 BMI: 24.7 Code: 62810-4 Heart Rate 1: 80 bpm Height: 5'7" SpO2: 99% Weight: 158 lbs 06/17/2015 Blood Pressure 1: 124/66 Code : 8480-6 BMI: 25.2 Code : 59497-4 Heart Rate 1 : 74 bpm Height: 5'7" SpO2: 97% Weight: 161 lbs 02/20/2015 Blood Pressure 1: 108/78 Code : 8480-6 BMI: 25.4 Code : 26008-0 Heart Rate 1 : 78 bpm Height: 5'7" SpO2: 98% Weight: 162 lbs 12/10/2014 Blood Pressure 1: 110/62 Code : 8480-6 BMI: 26.0 Code : 60658-1 Heart Rate 1 : 77 bpm Height: 5'7" SpO2: 98% Weight: 166 lbs 11/21/2014 Blood Pressure 1: 102/58 Code : 8480-6 BMI: 26.2 Code : 07293-4 Heart Rate 1 : 91 bpm Height: 5'7" SpO2: 94% Weight: 167 lbs 10/23/2014 Blood Pressure 1: 136/80 Code : 8480-6 BMI: 26.0 Code : 02474-5 Heart Rate 1 : 80 bpm Height: 5'7" Weight: 166 lbs 09/04/2014 Blood Pressure 1: 112 Code : 8480-6 BMI: 26.0 Code : 26098-1 Heart Rate 1 : 99 bpm Height: 5'7" Respiratory Rate: 20 bpm Weight: 166 lbs 04/03/2014 Blood Pressure 1: 106/70 Code : 8480-6 BMI: 26.9 Code : 69770-3 Heart Rate 1 : 72 bpm Height: 5'7" Weight: 172 lbs 03/27/2014 Blood Pressure 1: 112 Code : 8480-6 BMI: 27.1 Code : 21738-8 Heart Rate 1 : 92 bpm Height: 5'7" Weight: 173 lbs 02/08/2014 Blood Pressure 1: 122/70 Code : 8480-6 BMI: 27.9 Code : 56822-5 Height: 5'7" Weight: 178 lbs 12/29/2013 Blood Pressure 1: 130/88 Code : 8480-6 BMI: 27.9 Code : 18381-5 Height: 5'7" Weight: 178 lbs 12/21/2013 Blood Pressure 1: 132/82 Code : 8480-6 Heart Rate 1: 86 bpm Height: SpO2: 98% Weight: 10/31/2013 Blood Pressure 1: 112 Code : 8480-6 BMI: 27.7 Code : 61445-6 Heart Rate 1 : 72 bpm Height: 5'7" Temperature: 36.6 (C) / 97.8 (F) Weight: 177 lbs 08/23/2013 Blood Pressure 1: 130/80 Code : 8480-6 Heart Rate 1: 80 bpm 08/10/2013 Blood Pressure 1: 11270 Code : 8480-6 Heart Rate 1: 84 [...] Resolution ongoing 03/13/[address] vernon and was given exercise dizziness Limitation on [...] data Encounters Encounter Performer Location Codes Date 35149 EST. PATIENT, LEVEL IV Diagnosis: Other acute sinusitis[ICD10: J01.80] Diagnosis: Other allergic rhinitis[ICD10: J30.89] Diagnosis: Otalgia, right ear[ICD10: H92.01] Astrid Diaz MD, [facility] CPT -4: 22901 03/12/201779498 EST. PATIENT, LEVEL IV Diagnosis: Other acute sinusitis[ICD10: J01.80] Diagnosis: Other allergic rhinitis[ICD10: J30.89] Diagnosis: Gastro-esophageal reflux disease without esophagitis[ICD10: K21.9] Astrid Diaz MD, [facility] CPT-4: 55202 01/20/2017 ([id number]) 40458 EST. PATIENT, LEVEL IV Diagnosis: Radiculopathy, lumbar region[ICD10: M54.16] Diagnosis: Headache[ICD10: R51] Diagnosis: Dizziness and giddiness[ICD10: R42] Diagnosis: Gas pain[ICD10: R14.1] Karolina Diaz MD, [facility] CPT-4: 38186 11/03/2016 ([id number]) 73991 EST. PATIENT, LEVEL III Diagnosis: Rash and other nonspecific skin eruption[ICD10: R21] Liz Diaz MD, [facility] CPT-4: 31563 09/15/2016 98232 EST. PATIENT, LEVEL III Diagnosis: Rash and other nonspecific skin eruption[ICD10: R21] Astrid Diaz MD, [facility] CPT-4: 84324 08/31/2016 ([id number]) 07773 EST. PATIENT, LEVEL IV Diagnosis: Nondisplaced fracture of neck of right radius, initial encounter for closed fracture[ICD10: S52.134A] Diagnosis: Orthostatic hypotension[ICD10: I95.1] Diagnosis: Dizziness and giddiness[ICD10: R42] Diagnosis: Fracture of nasal bones, initial encounter for closed fracture[ICD10 : S02.2XXA] Karolina Diaz MD, [facility] CPT-4: 53296 08/14/2016 ([id number]) 14015 EST. PATIENT, LEVEL III Diagnosis: Headache[ICD10: R51] Diagnosis: Contusion of nose, initial encounter[ICD10: S00.33XA] Diagnosis: Pain in left shoulder[ICD10: M25.512] Karolina Diaz MD, [facility] CPT-4: 59405 07/30/2016 ([id number]) 30774 EST. PATIENT, LEVEL III Diagnosis: Cough[ICD10: R05] Diagnosis: Candidal stomatitis[ICD10: B37.0] Karolina Diaz MD, [facility] CPT-4: 50597 06/16/2016 ([id number]) 55655 EST. PATIENT, LEVEL III Diagnosis: Cough[ICD10: R05] Diagnosis: Acute bronchitis, unspecified[ICD10: J20.9] Karolina Diaz MD [facility] CPT-4: 58855 06/08/2016 ([id number]) 53327 EST. PATIENT, LEVEL III Diagnosis: Acute recurrent maxillary sinusitis[ICD10: J01.01] Liz Diaz MD [facility] CPT-4: 28765 05/11/2016 ([id number]) 13179 EST. PATIENT, LEVEL III Diagnosis: Cough[ICD10: R05] Diagnosis: Allergic rhinitis due to pollen[ICD10: J30.1] Liz Diaz MD [facility] CPT-4: 05654 04/14/2016 ([id number]) 80651 EST. PATIENT, LEVEL III Diagnosis: Mastodynia[ICD10: N64.4] Liz Diaz MD [facility] CPT-4: 11890 12/25/2015 ([id number]) 43371 EST. PATIENT, LEVEL III Diagnosis: Allergic rhinitis due to pollen[ICD10: J30.1] Diagnosis: Migraine, unspecified, not intractable, without status migrainosus[ ICD10: G43.909] Karolina Diaz MD [facility] CPT-4: 79440 11/07/2015 ([id number]) 52713 EST. PATIENT, LEVEL III Diagnosis: Plantar wart[ICD10: B07.0] Liz Diaz MD [facility] CPT- 4: 25248 06/17/2015 ([id number]) 44960 EST. PATIENT, LEVEL III Diagnosis: Other acute sinusitis[ICD10: J01.80] Diagnosis: Acute bronchitis, unspecified[ICD10: J20.9] Diagnosis: Cough[ICD10: R05] Liz Diaz MD [facility] CPT-4: 35380 02/20/2015 41332 EST. PATIENT, LEVEL II Diagnosis: Rash[ICD9: 782.1] Liz Diaz MD [facility] CPT-4: 89947 12/10/2014 ([id number]) 19338 EST. PATIENT, LEVEL III Diagnosis: ACUTE SINUSITIS[ICD9: 461.9] Diagnosis: Migraine headache[ICD9: 346.90] Diagnosis: SPONTANEOUS ECCHYMOSES[ICD9: 782.7] Liz Diaz MD, [facility] CPT-4: 91613 11/21/2014 ([id number]) 79816 EST. PATIENT, LEVEL III Diagnosis: Low back pain[ICD9: 724.2] Diagnosis: Leg pain, left[ICD9: 729.5] Karolina Diaz MD, [facility] CPT-4: 72572 10/23/2014 ([id number]) 44890 EST. PATIENT, LEVEL III Diagnosis: Gastroesophageal reflux disease[ICD9: 530.81] Diagnosis: Anxiety[ICD9: 300.00] Dorita Diaz MD, [facility] CPT-4: 61953 09/04/2014 ([id number]) 57510 EST. PATIENT, LEVEL III Diagnosis: Urinary tract infection[ICD9: 599.0] Diagnosis: Cough[ICD9: 786.2] Diagnosis: ACUTE SINUSITIS[ICD9: 461.9] Liz Diaz MD, [facility] CPT- 4: 64286 04/03/2014 ([id number]) 20544 EST. PATIENT, LEVEL III Diagnosis: ACUTE SINUSITIS[ICD9: 461.9] Diagnosis: ALLERGIC RHINITIS[ICD9: 477.9] Karolina Diaz MD, [facility] CPT-4: 93110 03/27/2014 ([id number]) 90484 EST. PATIENT, LEVEL III Diagnosis: UTI (urinary tract infection)[ICD9: 599.0] Diagnosis: Constipation[ICD9: 564.00] Liz Diaz MD, [facility] CPT- 4: 74799 02/08/2014 31803 EST. PATIENT, LEVEL III Diagnosis: ALLERGIC RHINITIS[ICD9: 477.9] Karolina Diaz MD, [facility] CPT-4: 22195 12/29/2013 ([id number]) 59119 EST. PATIENT, LEVEL III Diagnosis: Migraine headache[ICD9: 346.90] Diagnosis: Nausea[ICD9: 787.02] Diagnosis: Tension headache[ICD9: 307.81] Karolina Diaz MD, [facility] CPT-4: 57625 12/21/2013 ([id number]) 26422 EST. PATIENT, LEVEL III Diagnosis: Urinary tract infection[ICD9: 599.0] Karolina Diaz MD [facility] CPT-4: 28793 10/31/2013 ([id number]) 36668 EST. PATIENT, LEVEL III Diagnosis: Thrush[ICD9: 112.0] Liz Diaz MD [facility] CPT-4: 54558 08/10/2013 ([id number]) 50153 EST. PATIENT, LEVEL III Diagnosis: ACUTE SINUSITIS[ICD9: 461.9] Diagnosis: HEADACHE[ICD9: 784.0] Liz Diaz MD [facility] CPT-4: 14646 08/02/2013 ([id number]) 14666 EST. PATIENT, LEVEL III Diagnosis: HEADACHE[ICD9: 784.0] Diagnosis: Shoulder pain, right[ICD9: 719.41] Diagnosis: Pain in left knee[ICD9: 719.46] Diagnosis: Muscle spasms of neck[ICD9: 728.85] Liz Diaz MD, [facility] CPT-4: 97893 07/18/2013 ([id number]) 80324 EST. PATIENT, LEVEL III Diagnosis: Migraine headache[ICD9: 346.90] Diagnosis: Myalgia[ICD9: 729.1] Diagnosis: DIZZINESS AND GIDDINESS[ICD9: 780.4] Diagnosis: Fatigue[ICD9: 780.79] Diagnosis: Nausea[ICD9: 787.02] Liz Diaz MD, [facility] CPT-4: 23012 06/27/2013 ([id number]) 79212 EST. PATIENT, LEVEL IV Diagnosis: Multiple joint pain[ICD9: 719.49] Diagnosis: Myalgia[ICD9: 729.1] Diagnosis: Fatigue[ICD9: 780.79] Diagnosis: Worsening headaches[ICD9: 784.0] Karolina Diaz MD, [facility] CPT-4: 31869 06/01/2013 ([id number]) 04317 EST. PATIENT, LEVEL III Diagnosis: Nasal inflammation due to allergen[ICD9: 477.9] Diagnosis: Cough[ICD9: 786.2] Liz Diaz MD, [facility] CPT-4: 50063 05/25/2013 ([id number]) 69049 EST. PATIENT, LEVEL III Diagnosis: Migraine headache[ICD9: 346.90] Diagnosis: Nausea[ICD9: 787.02] Diagnosis: Pneumonia[ICD9: 486] Karolina Diaz MD, [facility] CPT-4: 36936 05/15/2013 ([id number]) 51860 EST. PATIENT, LEVEL III Diagnosis: ACUTE SINUSITIS[ICD9: 461.9] Diagnosis: Headache[ICD9: 784.0] Karolina Diaz MD, [facility] CPT-4: 83877 05/09/2013 ([id number]) 90476 EST. PATIENT, LEVEL III Diagnosis: BPPV (benign paroxysmal positional vertigo)[ICD9: 386.11] Diagnosis: DIZZINESS AND GIDDINESS[ICD9: 780.4] Liz Diaz MD, [facility] CPT-4: 18162 03/13/2013 ([id number]) 55120 EST. PATIENT, LEVEL IV Diagnosis: BPPV (benign paroxysmal positional vertigo)[ICD9: 386.11] Diagnosis: DIZZINESS AND GIDDINESS[ICD9: 780.4] Liz Diaz MD, [facility] CPT-4: 85378 02/02/2013 ([id number]) 99827 EST. PATIENT, LEVEL III Diagnosis: DIZZINESS AND GIDDINESS[ICD9: 780.4] Diagnosis: IMPACTED CERUMEN[ICD9: 380.4] Diagnosis: Dyspnea[ICD9: 786.09] Karolina Diaz MD, [facility] CPT-4: 67678 01/10/2013 ([id number]) OFFICE VISIT, NEW - LEVEL 3 Diagnosis: ALLERGIC RHINITIS[ICD9: 477.9] Diagnosis: Dizziness[ICD9: 780.4] Diagnosis: Cerumen impaction[ICD9: 380.4] Diagnosis: Vaginal yeast infection[ICD9: 112.1] Diagnosis: History of UTI[ICD9: V13.02] Karolina Diaz MD, [facility] CPT-4: 89670 12/27/2012 Plan of Care Planned Activity Notes Codes Status Date Appointment: Lab Draw 04/20/2017 Patient Education: Patient Medication Summary Completed 04/20/2017 Visit Plan: Sinusitis - Pt has acute infection - pain in face, maxillary region, Pt informed to use decongestant, RX given to patient, sinus rinses also recommended. Call if symptoms do not show improvement. Allergies - chronic - recommended pt to use allergy medication as prescribed. Pt has been counseled as to the appropriate use of the medication. Pt to call if allergy symptoms are not controlled with the medication. If using nasal spray , instructions as follows: Nasal spray- use twice daily, one spray per nostril twice daily, after 30 minutes, rinse out nose with saline spray.. Use opposite hand per nostril to spray in the nasal steroid allergy spray. 03/12/2017 Appointment: Astrid Wise WPtel: [id number] (15 min) Moderate 03/12/2017 Patient Education: Patient Medication Summary Completed 03/12/2017 Appointment: Astrid Wise WPtel: [address] [place], [place] [phone] (30 min) Complex 03/11/2017 Visit Plan: Sinusitis/headache - Pt has acute infection - pain in face, maxillary region, Pt informed to use decongestant, RX given to patient, sinus rinses also recommended. Call if symptoms do not show improvement. Allergies - chronic - recommended pt to use allergy medication as prescribed. Pt has been counseled as to the appropriate use of the medication. Pt to call if allergy symptoms are not controlled with the medication. If using nasal spray, instructions as follows: Nasal spray- use twice daily, one spray per nostril twice daily, after 30 minutes, rinse out nose with saline spray.. Use opposite hand per nostril to spray in the nasal steroid allergy spray. Esophageal Reflux - the patient has been counseled against excessive intake of caffeine, spicy foods, peppermint, and cinnamon - all of which can exacerbate esophageal reflux. The patient is to take medications as prescribed and call the office if the symptoms are not improving. 01/20/2017 Appointment: Astrid Wise WPtel: [facility] (30 min) Complex 01/20/2017 Patient Education: Patient Medication Summary Completed 01/20/2017 Appointment: Injection 01/11/2017 Patient Education: Patient Medication Summary Completed 01/11/2017 Visit Plan: Lumbar radiculopathy-increase gabapentin to 200mg q HS -increase vitamin B12 2000 units daily Dizziness-CT head-recommend referral for PT Gas and bloating-recommend beano as directed-call if symptoms do not resolve Headaches -improved-wants to stop topamax-will taper off medication and monitor symptoms 11/03/2016 Appointment: Karolina Ochoa WPtel: [id number] [place] [address] (15 min) Moderate 11/03/2016 Patient Education: Patient Medication Summary Completed 11/03/2016 Visit Plan: Medicare Exam - today we discussed the patients past history, immunizations, preventative exams/evaluations - colonoscopy, fecal occult blood testing, routine labs for renal function, glucose, cholesterol, osteoporosis evaluations, cardiovascular testing and cancer screenings. We have also discussed mental health and the signs/symptoms of depression. The patient was advised of home safety evaluations and the need to make sure that as the aging process continues, we need to be aware of different ways to make the home a safer place to reside. The patient has also been counseled that exercise is necessary - and of utmost importance as we age to help decrease fall risk and to maintain independence in the home. Today we discussed the need for the patient to create paperwork for Advanced directives as well as for the patient to provide this office with a copy of her DOPA paperwork for health care surrogate. 09/29/2016 Appointment: Astrid Wise WPtel: [id number] [facility] - Annual Wellness Visit 09/29/2016 Patient Education: Patient Medication Summary Completed 09/29/2016 Visit Plan: Rash - resolving - continue with current current treatment. 09/15/2016 Appointment: Liz Diaz WPtel: [facility] (15 min) Moderate 09/15/2016 Patient Education: Patient Medication Summary Completed 09/15/2016 Visit Plan: Rash - pt states that she thinks she got bit by some type of bug - The patient was instructed to use the ointment as per RX. The patient is to call for any change in symptoms, increase in size of the lesion, increase in pain, worsening redness, warmth, discharge. 08/31/2016 Appointment: Astrid Wise WPtel: [address] [place], [place] [phone] (15 min) Moderate 08/31/2016 Patient Education: Patient Medication Summary Completed 08/31/2016 Visit Plan: Right radial neck fracture-managed by Dr Rodriguez -wearing sling-schedule bone density when [place] Nasal fracture-no treatment indicated-monitor Orthostasis-patient instructed to change positions slowly-pump legs before standing-also increase po fluids Dizziness-decrease gabapentin as directed-then decrease topamax-rx for meclizine to use as needed- follow up in 3 weeks, sooner if needed RX for cipro sent in case patient needs while traveling in [place]. 08/14/2016 Appointment: Karolina Ochoa WPtel: [facility] [address] (15 min) Moderate 08/14/2016 Patient Education: Patient Medication Summary Completed 08/14/2016 Visit Plan: Headache-monitor symptoms-call or go to ER for worsening headache, nausea, vomiting, confusion, etc. Patient verbalized understanding of plan. Contusion of nose-xray nasal bones Left shoulder contusion-rest, ice, anti inflammatories as directed-call if symptoms do not resolve or if any worse. 07/30/2016 Appointment: Karolina Ochoa WPtel: [address] [place], [place] [phone] (15 min) Moderate 07/30/2016 Patient Education: Patient Medication Summary Completed 07/30/2016 Visit Plan: Thrush -add nystatin Cough-recent bronchitis- allergies-add zpack to cover mycoplasma-continue erik/flonse-call if not better, sooner if needed. Patient verbalized understanding of plan. 06/16/2016 Appointment: Karolina Ochoa WPtel: [phone] (10 min) Simple 06/16/2016 Patient Education: Patient Medication Summary Completed 06/16/2016 Visit Plan: Bronchitis - acute case of bronchitis identified. Pt has been given antibiotics, breathing treatments as appropriate, and pt has been instructed to call if symptoms are not improved, or if symptoms acutely worsen. 06/08/2016 Appointment: Karolina Ochoa WPtel: [phone] [phone] (30 min) Complex 06/08/2016 Patient Education: Patient Medication Summary Completed 06/08/2016 Visit Plan: Sinusitis - Pt has acute infection - pain in face, maxillary region, Pt informed to use decongestant, RX given to patient, sinus rinses also recommended. Call if symptoms do not show improvement. 05/11/2016 Visit Plan: Sinusitis - Pt has acute infection - pain in face, maxillary region, Pt informed to use decongestant, RX given to patient, sinus rinses also recommended. Call if symptoms do not show improvement. 05/11/2016 Appointment: Liz Diaz WPtel: [phone] [place] [phone] (15 min) Moderate 05/11/2016 Patient Education: Patient Medication Summary Completed 05/11/2016 Visit Plan: Allergies - chronic - recommended pt to use allergy medication as prescribed. Pt has been counseled as to the appropriate use of the medication. Pt to call if allergy symptoms are not controlled with the medication. If using nasal spray, instructions as follows: Nasal spray- use twice daily, one spray per nostril twice daily, after 30 minutes, rinse out nose with saline spray.. Use opposite hand per nostril to spray in the nasal steroid allergy spray. 04/14/2016 Appointment: Karolina Ochoa WPtel: [phone] [phone] (15 min) Moderate 04/14/2016 Patient Education: Patient Medication Summary Completed 04/14/2016 Appointment: Injection 12/31/2015 Patient Education: Patient Medication Summary Completed 12/31/2015 Visit Plan: Dr. Manuel not available this morning to converse with - I have left a message that I would like a call back jerry pt sent over to the Cancer center to have labs done as they were supposed to be drawn after her appointment on 12/01, but pt did not get instructed to have labs performed. Pt may need a pet scan. 12/25/2015 Patient Education: Patient Medication Summary Completed 12/25/2015 Visit Plan: Allergies - chronic - recommended pt to use allergy medication as prescribed. Pt has been counseled as to the appropriate use of the medication. Pt to call if allergy symptoms are not controlled with the medication. If using nasal spray, instructions as follows: Nasal spray- use twice daily, one spray per nostril twice daily, after 30 minutes, rinse out nose with saline spray.. Use opposite hand per nostril to spray in the nasal steroid allergy spray. Kenalog injection today in the office Sinus congestion- call Wednesday if not better-will send RX for sinus infection to the pharmacy 11/07/2015 Appointment: Karolina Ochoa WPtel: [phone] [place] [phone] (15 min) Moderate 11/07/2015 Patient Education: Patient Medication Summary Completed 11/07/2015 Referral: External, Ordering Provider Referral Completed 06/18/2015 Visit Plan: Skin lesion - plantar wart - needs treatment with laser therapy - referral to Dr. Souza FAX [phone] 06/17/2015 Visit Plan: Skin lesion - plantar wart - needs treatment with laser therapy - referral to Dr. Souza FAX [phone] 06/17/2015 Appointment: Liz Diaz WPtel: [facility]6 [id number] (30 min) Complex 06/17/2015 Patient Education: Patient Medication Summary Completed 06/17/2015 Care Plan: Referral Order SNOMED-CT : [id number] Ordered 06/17/2015 Visit Plan: Sinusitis - Pt has acute infection - pain in face, maxillary region, Pt informed to use decongestant, RX given to patient, sinus rinses also recommended. Call if symptoms do not show improvement. Bronchitis - acute case of bronchitis identified. Pt has been given antibiotics , breathing treatments as appropriate, and pt has been instructed to call if symptoms are not improved, or if symptoms acutely worsen. 02/20/2015 Appointment: Liz Diaz WPtel: [phone] (15 min) Moderate 02/20/2015 Patient Education: Patient Medication Summary Completed 02/20/2015 Visit Plan: Poison Nu-Dr Diaz in to see patient- kenalog injection today in the office-blue goo provided for patient and instructed on use-call if symptoms do not resolve or if any worse. 12/10/2014 Appointment: Karolina Ochoa WPtel: [facility]7 [id number] [place] [address] (10 min) Simple 12/10/2014 Patient Education: Patient Medication Summary Completed 12/10/2014 Visit Plan: Chronic Migraine headaches - increase the topiramate to 50mg at bedtime and 25mg in the morning x 1 week, then increase up to 50mg twice daily.. Sinusitis - start taking the levaquin - antibiotic for the sinus infection daily x 1 week, while on the antibiotic, please take a probiotic (like culturelle) twice daily to prevent diarrhea from the antibiotic. 11/21/2014 Patient Education: Patient Medication Summary Completed 11/21/2014 Visit Plan: Low back pain-numbness in left leg-increase gabapentin-xray lumbar spine-call if symptoms do not resolve or if any worse 10/23/2014 Patient Education: Patient Medication Summary Completed 10/23/2014 Appointment: Lab Draw 10/22/2014 Patient Education: Patient Medication Summary Completed 10/22/2014 Visit Plan: Nausea/Indigestion- Check labs today. CBC, CMP. Start carafate QID, continue Omeprazole. If no improvement in 2 weeks, gall bladder ultrasound at [address]. Pt verbalizes understanding. Dysuria- UA negative. Increase fluids. Checking labs. 09/04/2014 Patient Education: Patient Medication Summary Completed 09/04/2014 Visit Plan: Wound Instructions - Pt was instructed to keep the wound clean, wash with antibacterial soap, use triple antibiotic ointment, call if redness, pustular drainage, or any other acute concerns. 05/01/2014 Appointment: Liz Diaz WPtel: [address] [place], [place] [phone] Surgical Procedure 05/01/2014 Patient Education: Patient Medication Summary Completed 05/01/2014 Visit Plan: Sinusitis - Pt has acute infection - pain in face, maxillary region, Pt informed to use decongestant, RX given to patient, sinus rinses also recommended. Call if symptoms do not show improvement. Chronic UTI's - pt to be on bactrim - once completed, will then start on trimethoprim. 04/03/2014 Patient Education: Patient Medication Summary Completed 04/03/2014 Visit Plan: Sinusitis - Pt has acute infection - pain in face, maxillary region, Pt informed to use decongestant, RX given to patient, sinus rinses also recommended. Call if symptoms do not show improvement. Kenalog injection to day in the office. Allergies - chronic - recommended pt to use allergy medication as prescribed. Pt has been counseled as to the appropriate use of the medication. Pt to call if allergy symptoms are not controlled with the medication. If using nasal spray, instructions as follows: Nasal spray- use twice daily, one spray per nostril twice daily, after 30 minutes, rinse out nose with saline spray.. Use opposite hand per nostril to spray in the nasal steroid allergy spray. 03/27/2014 Appointment: Sick 03/27/2014 Patient Education: Patient Medication Summary Completed 03/27/2014 Visit Plan: Urinary Tract Infection-discussed natural and expected course of this diagnosis and to alert me if symptoms do not follow expected course, or if any worse. UA positive for infection today in the office- plan to send for culture and will call patient with results. RX sent to patient' s pharmacy. Avoid tub baths, restrictive underwear, etc. Recommend patient start on probiotic while taking the antibiotic to prevent diarrhea. Patient verbalized understanding of plan. Contipation-start prune juice 02/08/2014 Appointment: Sick 02/08/2014 Patient Education: Patient Medication Summary Completed 02/08/2014 Visit Plan: Allergies - chronic - recommended pt to use allergy medication as prescribed. Pt has been counseled as to the appropriate use of the medication. Pt to call if allergy symptoms are not controlled with the medication. Continue erik-recommend otc allergy eye drop with antihistamine-if drainage becomes colored or eye becomes crusted, start cipro drops this weekend and call wednesday. 12/29/2013 Patient Education: Patient Medication Summary Completed 12/29/2013 Visit Plan: Acute Migraine - pt has chronic migraine headaches, but comes into clinic today complaining of intractable migraine headache symptoms. I have recommended changes to the chronic symptoms management and the pt has been given the following acute treatment in clinic today: toradol 60mg and phenergan 50mg IM Follow up with headache clinic as scheduled on 12/31/13 12/21/2013 Appointment: Sick 12/21/2013 Patient Education: Patient Medication Summary Completed 12/21/2013 Visit Plan: Urinary Tract Infection-discussed natural and expected course of this diagnosis and to alert me if symptoms do not follow expected course, or if any worse. UA positive for infection today in the office- plan to send for culture and will call patient with results. RX sent to patient' s pharmacy. Avoid tub baths, restrictive underwear, etc. Recommend patient start on probiotic while taking the antibiotic to prevent diarrhea. Patient verbalized understanding of plan. 10/31/2013 Appointment: Sick 10/31/2013 Patient Education: Patient Medication Summary Completed 10/31/2013 Visit Plan: Irritated warts - one on right index finger and one on right medial great toe - burned off with electrocautery - Wound Instructions - Pt was instruced to keep the wound clean, wash with antibacterial soap, use triple antibiotic ointment, call if redness, pustular drainage, or any other acute conerns. 08/23/2013 Visit Plan: Irritated and painful warts - one on right index finger and one on right medial great toe - burned off with electrocautery - Wound Instructions - Pt was instruced to keep the wound clean, wash with antibacterial soap, use triple antibiotic ointment, call if redness, pustular drainage, or any other acute conerns. 08/23/2013 Appointment: Liz Diaz WPtel: [address] [place], [place] [phone] burn warts on finger and toe Other 08/23/2013 Patient Education: Patient Medication Summary Completed 08/23/2013 Appointment: Liz Diaz WPtel: [address] [place], [place] [phone] Follow up 08/16/2013 Visit Plan: Thrush-discussed diagnosis with patient and instructed her to call if sympotms do not resolve, or if any worse. RX sent to patient's pharmamcy and instructed on use. Patient verbalized understanding of plan. 08/10/2013 Appointment: Karolina Ochoa WPtel: [facility]8 [phone] [place] Other 08/10/2013 Patient Education: Patient Medication Summary Completed 08/10/2013 Visit Plan: Sinusitis - Pt has acute infection - pain in face, maxillary region, Pt informed to use decongestant, RX given to patient, sinus rinses also recommended. Call if symptoms do not show improvement. 08/02/2013 Appointment: Liz Diaz WPtel: [phone] [facility] Sick 08/02/2013 Patient Education: Patient Medication Summary Completed 08/02/2013 Visit Plan: Headaches - suspect is tension headache - due to severe shoulder, upper back tension. Pt to go to physical therapy for her upper back muscle tension, shoulder pain on right and left knee pain. Injections today for shoulder arthritis and knee pain. 07/18/2013 Appointment: Liz Diaz WPtel: [phone] [facility] Follow up 07/18/2013 Patient Education: Patient Medication Summary Completed 07/18/2013 Visit Plan: Suspect that Vanessa is having side effects from her anastrazole - I will talk to Dr. Manuel about potentially stopping the medication to see if these symptoms stop after being off the the anastrozole. Dr. Manuel agreed to allowing vanessa to stop her anastrozole, and we will see how she does off of the medication for the next month. 06/27/2013 Appointment: Liz Diaz WPtel: [phone] [facility] Follow up 06/27/2013 Patient Education: Patient Medication Summary Completed 06/27/2013 Appointment: Liz Diaz WPtel: [phone] [facility] Follow up 06/12/2013 Visit Plan: Joint pjjj-tnrnginh-xuht to check labs and proceed as indicated-recommend patient stay adequetly hydrated and call if sympotms do not improve, or if any worse. Fatigue-check labs-may need to cut back on some her her medications that cause drowsiness Headaches-becoming more frequent-patient states she has recently had one done-get records from the hospital. 06/01/2013 Patient Education: Patient Medication Summary Completed 06/01/2013 Visit Plan: Allergies - chronic - recommended pt to use allergy medication as prescribed. Pt has been counseled as the the appropriate use of the medication. Pt to call if allergy symptoms are not controlled with the medication. If using nasal spray, instructions as follows: Nasal spray- use twice daily, one spray per nostril twice daily, after 30 minutes, rinse out nose with saline spray.. Use opposite hand per nostril to spray in the nasal steroid allergy spray. 05/25/2013 Appointment: Liz Diaz WPtel: [facility]3 [facility] Follow up 05/25/2013 Patient Education: Patient Medication Summary Completed 05/25/2013 Visit Plan: Pneumonia - Pt has been diagnosed with pneumonia by physical exam. A chest xray has been ordered as have antibiotics. The pt is aware of the diagnosis and the need for acute treatment of this illness. RX sent to patient's pharmacy. Acute Migraine - pt has chronic migraine headaches, but comes into clinic today complaining of intractible migraine headache symptoms. I have recommended changes to the chronic symptoms management and the pt has been given the following acute treatment in clinic today: toradol and phenergan IM RX for percocet if pain unrelieved. Nausea- phenergan injection today in the office 05/15/2013 Appointment: Karolina Ochoa WPtel: [phone] Sick 05/15/2013 Patient Education: Patient Medication Summary Completed 05/15/2013 Visit Plan: Sinusitis - Pt has acute infection - pain in face, maxillary region, Pt informed to use decongestant, RX given to patient, sinus rinses also recommended. Call if symptoms do not show improvement. Heachache-toradol injection today in the office 05/09/2013 Appointment: Karolina Ochoa WPtel: [facility]4 [phone] Other 05/09/2013 Patient Education: Patient Medication Summary Completed 05/09/2013 Visit Plan: BPPV - Benign Paroxysmal Positional Vertigo - discussed diagnosis with the patient, offered the pt the appropriate additional information in hand-out. Pt instructed in home exercises to help alleviate and prevent future recurrent episodes of vertigo. Pt informed that if symptoms worsen, call the office for further instructions/medication interventions. 03/13/2013 Appointment: Liz Diaz WPtel: [address] [place], [place] [phone] Follow up 03/13/2013 Patient Education: Patient Medication Summary Completed 03/13/2013 Appointment: Liz Diaz WPtel: [address] [place], [place] [phone] Follow up 02/07/2013 Visit Plan: BPPV - Benign Paroxysmal Positional Vertigo - discussed diagnosis with the patient, offered the pt the appropriate additional information in hand-out. Pt instructed in home exercises to help alleviate and prevent future recurrent episodes of vertigo. Pt informed that if symptoms worsen, call the office for further instructions/medication interventions. Referral to physical therapy - pt to cut back on use of traxene and start valium , also referred pt to Dr. Vernon for repeat evalution of her dizziness situation as there does not appear to be any specific cardiac or other neurologic component to her persistent dizziness. 02/02/2013 Appointment: Emily Liz WPtel: [address] [place], [place] [phone] Follow up 02/02/2013 Patient Education: Patient Medication Summary Completed 02/02/2013 Visit Plan: Vertigo-cardiac work up negative--continue meclizine-start BPPV exercises as directed and call if symptoms do not resolve Cerumen impaction-right ear-removed with water pick today in the office Dyspnea- schedule PFTs 01/10/2013 Appointment: Karolina cOhoa WPtel: [address] [place], [place] [phone] Follow up 01/10/2013 Patient Education: Patient Medication Summary Completed 01/10/2013 Patient Education: .Amazing charts Paroxysmal positional vertigo Completed Visit Plan: Allergies - chronic - recommended pt to use allergy medication as prescribed. Pt has been counseled as the the appropriate use of the medication. Pt to call if allergy symptoms are not controlled with the medication. If using nasal spray, instructions as follows: Nasal spray- use twice daily, one spray per nostril twice daily, after 30 minutes, rinse out nose with saline spray.. Use opposite hand per nostril to spray in the nasal steroid allergy spray. Kenalog injection today in the office. Dizzines-cardiac work up negative-plan to treat allergy symptoms and monitor. Check labs. Cerumen impaction-right ear-recommend sweet oil Yeast infection-RX for fluconazole History of UTI-UA negative today in the office. 12/27/2012 Appointment: [facility]el[phone] [facility] Patient 12/27/2012 Patient Education: Patient Medication Summary Completed 12/27/2012 Referral: External, Ordering Provider Referral Appointment Requested Referral: [facility] Referral Initiated Instructions Comment . Wound Instructions - Pt was instructed to keep the wound clean, wash with antibacterial soap, use triple antibiotic ointment, call if redness, pustular drainage, or any other acute concerns. . Headaches - suspect is tension headache - due to severe shoulder, upper back tension. Pt to go to physical therapy for her upper back muscle tension, shoulder pain on right and left knee pain. Injections today for shoulder arthritis and knee pain. . Poison Nu-Dr Diaz in to see patient-kenalog injection today in the office-blue goo provided for patient and instructed on use-call if symptoms do not resolve or if any worse. increase vitamin b12 to 2000mcg daily decrease topamax to 1/2 tab daily x 2 weeks then every other day x 2 weeks then stop increase gabapentin to 200mg at bedtime to see if that helps with your legs CT Head . Lumbar radiculopathy-increase gabapentin to 200mg q HS -increase vitamin B12 2000 units daily Dizziness-CT head-recommend referral for PT Gas and bloating-recommend beano as directed-call if symptoms do not resolve Headaches -improved-wants to stop topamax-will taper off medication and monitor symptoms . Sinusitis - Pt has acute infection - pain in face, maxillary region, Pt informed to use decongestant, RX given to patient, sinus rinses also recommended. Call if symptoms do not show improvement. RESTART FLONASE . Sinusitis - Pt has acute infection - pain in face, maxillary region, Pt informed to use decongestant, RX given to patient, sinus rinses also recommended. Call if symptoms do not show improvement. Kenalog injection to day in the office. Allergies - chronic - recommended pt to use allergy medication as prescribed. Pt has been counseled as to the appropriate use of the medication. Pt to call if allergy symptoms are not controlled with the medication. If using nasal spray, instructions as follows: Nasal spray- use twice daily, one spray per nostril twice daily, after 30 minutes, rinse out nose with saline spray.. Use opposite hand per nostril to spray in the nasal steroid allergy spray. If redness, warmth, or it spreads start the doxycycline and come back in for me to see it. . Rash - pt states that she thinks she got bit by some type of bug - The patient was instructed to use the ointment as per RX. The patient is to call for any change in symptoms, increase in size of the lesion, increase in pain, worsening redness, warmth, discharge. . Sinusitis - Pt has acute infection - pain in face, maxillary region, Pt informed to use decongestant, RX given to patient, sinus rinses also recommended. Call if symptoms do not show improvement. Bronchitis - acute case of bronchitis identified. Pt has been given antibiotics , breathing treatments as appropriate, and pt has been instructed to call if symptoms are not improved, or if symptoms acutely worsen. RECOMMEND PROBIOTIC TWICE DAILY FOR THE NEXT WEEK . Urinary Tract Infection-discussed natural and expected course of this diagnosis and to alert me if symptoms do not follow expected course, or if any worse. UA positive for infection today in the office-plan to send for culture and will call patient with results. RX sent to patient's pharmacy. Avoid tub baths, restrictive underwear, etc. Recommend patient start on probiotic while taking the antibiotic to prevent diarrhea. Patient verbalized understanding of plan. Contipation-start prune juice Consider CT scan head if headache or dizziness worsen, develop nausea and/or vomiting, or decreased level of consciousness. Call clinic if experiencing any of these symptoms. X-ray of nose to rule out fracture. Ice and rest left shoulder. Notify provider if pain worsens or ROM decreases. . Headache-monitor symptoms-call or go to ER for worsening headache, nausea, vomiting, confusion, etc. Patient verbalized understanding of plan. Contusion of nose-xray nasal bones Left shoulder contusion-rest, ice, anti inflammatories as directed-call if symptoms do not resolve or if any worse. Xray lumbar spine INCREASE GABAPENTIN TO 1 PILL IN THE MORNING, AFTERNOON AND THEN 2 PILLS AT BEDTIME . Low back pain-numbness in left leg-increase gabapentin-xray lumbar spine- call if symptoms do not resolve or if any worse SCHEDULE BONE DENSITY WHEN YOU GET HOME FROM [place] INCREASE PO FLUIDS DECREASE GABAPENTIN TO 1 CAPSULE TWICE DAILY DECREASE TOPAMAX TO 1/2 TAB IN THE MORNING AND A FULL TAB AT BEDTIME PUMP YOUR LEGS BEFORE STANDING . Right radial neck fracture-managed by Dr Rodriguez-wearing sling-schedule bone density when back from [place] Nasal fracture-no treatment indicated-monitor Orthostasis-patient instructed to change positions slowly-pump legs before standing-also increase po fluids Dizziness-decrease gabapentin as directed-then decrease topamax-rx for meclizine to use as needed-follow up in 3 weeks, sooner if needed RX for cipro sent in case patient needs while traveling in [place]. . Dr. Manuel not available this morning to converse with - I have left a message that I would like a call back jerry pt sent over to the Cancer center to have labs done as they were supposed to be drawn after her appointment on 12/01, but pt did not get instructed to have labs performed. Pt may need a pet scan. KENALOG START ORAL PREDNISONE . Allergies - chronic - recommended pt to use allergy medication as prescribed. Pt has been counseled as to the appropriate use of the medication. Pt to call if allergy symptoms are not controlled with the medication. If using nasal spray, instructions as follows: Nasal spray- use twice daily, one spray per nostril twice daily, after 30 minutes, rinse out nose with saline spray.. Use opposite hand per nostril to spray in the nasal steroid allergy spray. Augmentin antibiotic - take with food and take with a probiotic (culturelle, [employer], or generic) Prednisone . Sinusitis - Pt has acute infection - pain in face, maxillary region , Pt informed to use decongestant, RX given to patient, sinus rinses also recommended. Call if symptoms do not show improvement. Allergies - chronic - recommended pt to use allergy medication as prescribed. Pt has been counseled as to the appropriate use of the medication. Pt to call if allergy symptoms are not controlled with the medication. If using nasal spray, instructions as follows: Nasal spray- use twice daily, one spray per nostril twice daily, after 30 minutes, rinse out nose with saline spray.. Use opposite hand per nostril to spray in the nasal steroid allergy spray. . Medicare Exam - today we discussed the patients past history, immunizations, preventative exams/evaluations - colonoscopy, fecal occult blood testing, routine labs for renal function, glucose, cholesterol, osteoporosis evaluations, cardiovascular testing and cancer screenings. We have also discussed mental health and the signs/symptoms of depression. The patient was advised of home safety evaluations and the need to make sure that as the aging process continues, we need to be aware of different ways to make the home a safer place to reside. The patient has also been counseled that exercise is necessary - and of utmost importance as we age to help decrease fall risk and to maintain independence in the home. Today we discussed the need for the patient to create paperwork for Advanced directives as well as for the patient to provide this office with a copy of her [employer] paperwork for health care surrogate. . Allergies - chronic - recommended pt to use allergy medication as prescribed. Pt has been counseled as to the appropriate use of the medication. Pt to call if allergy symptoms are not controlled with the medication. If using nasal spray, instructions as follows: Nasal spray- use twice daily, one spray per nostril twice daily, after 30 minutes, rinse out nose with saline spray.. Use opposite hand per nostril to spray in the nasal steroid allergy spray. Kenalog injection today in the office Sinus congestion-call Wednesday if not better-will send RX for sinus infection to the pharmacy . Pneumonia - Pt has been diagnosed with pneumonia by physical exam. A chest xray has been ordered as have antibiotics. The pt is aware of the diagnosis and the need for acute treatment of this illness. RX sent to patient's pharmacy. Acute Migraine - pt has chronic migraine headaches, but comes into clinic today complaining of intractible migraine headache symptoms. I have recommended changes to the chronic symptoms management and the pt has been given the following acute treatment in clinic today: toradol and phenergan IM RX for percocet if pain unrelieved. Nausea-phenergan injection today in the office pt is to cut meclizine to 1/2 pill three times daily.. BPPV - Benign Paroxysmal Positional Vertigo - discussed diagnosis with the patient, offered the pt the appropriate additional information in hand-out. Pt instructed in home exercises to help alleviate and prevent future recurrent episodes of vertigo. Pt informed that if symptoms worsen, call the office for further instructions/medication interventions. . Irritated warts - one on right index finger and one on right medial great toe - burned off with electrocautery - Wound Instructions - Pt was instruced to keep the wound clean, wash with antibacterial soap, use triple antibiotic ointment, call if redness, pustular drainage, or any other acute conerns. . Irritated and painful warts - one on right index finger and one on right medial great toe - burned off with electrocautery - Wound Instructions - Pt was instruced to keep the wound clean, wash with antibacterial soap, use triple antibiotic ointment, call if redness, pustular drainage, or any other acute conerns. . Sinusitis - Pt has acute infection - pain in face, maxillary region, Pt informed to use decongestant, RX given to patient, sinus rinses also recommended. Call if symptoms do not show improvement. . Sinusitis - Pt has acute infection - pain in face, maxillary region, Pt informed to use decongestant, RX given to patient, sinus rinses also recommended. Call if symptoms do not show improvement. increase the topiramate to 50mg at bedtime and 25mg in the morning x 1 week, then increase up to 50mg twice daily.. start taking the levaquin - antibiotic for the sinus infection daily x 1 week, while on the antibiotic, please take a probiotic (like culturelle) twice daily to prevent diarrhea from the antibiotic. . Chronic Migraine headaches - increase the topiramate to 50mg at bedtime and 25mg in the morning x 1 week, then increase up to 50mg twice daily.. Sinusitis - start taking the levaquin - antibiotic for the sinus infection daily x 1 week, while on the antibiotic, please take a probiotic (like culturelle) twice daily to prevent diarrhea from the antibiotic. . Thrush-discussed diagnosis with patient and instructed her to call if sympotms do not resolve, or if any worse. RX sent to patient's pharmamcy and instructed on use. Patient verbalized understanding of plan. . Acute Migraine - pt has chronic migraine headaches, but comes into clinic today complaining of intractable migraine headache symptoms. I have recommended changes to the chronic symptoms management and the pt has been given the following acute treatment in clinic today: toradol 60mg and phenergan 50mg IM Follow up with headache clinic as scheduled on 12/31/13 . Bronchitis - acute case of bronchitis identified. Pt has been given antibiotics, breathing treatments as appropriate, and pt has been instructed to call if symptoms are not improved, or if symptoms acutely worsen. Recommend eye exam Restart nasonex 2 sprays daily . Allergies - chronic - recommended pt to use allergy medication as prescribed. Pt has been counseled as the the appropriate use of the medication. Pt to call if allergy symptoms are not controlled with the medication. If using nasal spray, instructions as follows: Nasal spray- use twice daily, one spray per nostril twice daily, after 30 minutes, rinse out nose with saline spray.. Use opposite hand per nostril to spray in the nasal steroid allergy spray. Kenalog injection today in the office. Dizzines-cardiac work up negative-plan to treat allergy symptoms and monitor. Check labs. Cerumen impaction-right ear-recommend sweet oil Yeast infection-RX for fluconazole History of UTI-UA negative today in the office. Schedule pulmonary function testing Continue meclizine as needed Start BPPV exercises Call in 1 week with update of symptoms . Vertigo-cardiac work up negative-- continue meclizine-start BPPV exercises as directed and call if symptoms do not resolve Cerumen impaction-right ear-removed with water pick today in the office Dyspnea-schedule PFTs . BPPV - Benign Paroxysmal Positional Vertigo - discussed diagnosis with the patient, offered the pt the appropriate additional information in hand-out. Pt instructed in home exercises to help alleviate and prevent future recurrent episodes of vertigo. Pt informed that if symptoms worsen, call the office for further instructions/medication interventions. Referral to physical therapy - pt to cut back on use of traxene and start valium , also referred pt to Dr. Vernon for repeat evalution of her dizziness situation as there does not appear to be any specific cardiac or other neurologic component to her persistent dizziness. . Sinusitis - Pt has acute infection - pain in face, maxillary region, Pt informed to use decongestant, RX given to patient, sinus rinses also recommended. Call if symptoms do not show improvement. [place]-toradol injection today in the office Carafate by mouth 4 times per day Continue Omeprazole daily . Nausea/Indigestion- Check labs today. CBC, CMP. Start carafate QID, continue Omeprazole. If no improvement in 2 weeks, gall bladder ultrasound at [address]. Pt verbalizes understanding. Dysuria- UA negative. Increase fluids. Checking labs. Nasal spray- use twice daily, one spray per nostril twice daily, after 30 minutes, rinse out nose with saline spray.. Use opposite hand per nostril to spray in the nasal steroid allergy spray.. Allergies - chronic - recommended pt to use allergy medication as prescribed. Pt has been counseled as the the appropriate use of the medication. Pt to call if allergy symptoms are not controlled with the medication. If using nasal spray, instructions as follows: Nasal spray- use twice daily, one spray per nostril twice daily, after 30 minutes, rinse out nose with saline spray.. Use opposite hand per nostril to spray in the nasal steroid allergy spray. . Urinary Tract Infection-discussed natural and expected course of this diagnosis and to alert me if symptoms do not follow expected course, or if any worse. UA positive for infection today in the office-plan to send for culture and will call patient with results. RX sent to patient's pharmacy. Avoid tub baths, restrictive underwear, etc. Recommend patient start on probiotic while taking the antibiotic to prevent diarrhea. Patient verbalized understanding of plan. . Joint qpxv-[id number] to check labs and proceed as indicated-recommend patient stay adequetly hydrated and call if sympotms do not improve, or if any worse. Fatigue-check labs-may need to cut back on some her her medications that cause drowsiness Headaches-becoming more frequent-patient states she has recently had one done- get records from the hospital. . Suspect that Vanessa is having side effects from her anastrazole - I will talk to Dr. Manuel about potentially stopping the medication to see if these symptoms stop after being off the the anastrozole. Dr. Manuel agreed to allowing vanessa to stop her anastrozole, and we will see how she does off of the medication for the next month. . Skin lesion - plantar wart - needs treatment with laser therapy - referral to Dr. Souza FAX [phone] . Skin lesion - plantar wart - needs treatment with laser therapy - referral to Dr. Souza FAX [phone] . Rash - resolving - continue with current current treatment. . Allergies - chronic - recommended pt to use allergy medication as prescribed. Pt has been counseled as to the appropriate use of the medication. Pt to call if allergy symptoms are not controlled with the medication. Continue erik-recommend otc allergy eye drop with antihistamine-if drainage becomes colored or eye becomes crusted, start cipro drops this and call wednesday. CALL WEDNESDAY IF NOT BETTER CONTINUE ERIK/FLONASE . Thrush -add nystatin Cough-recent [id number] zpack to cover mycoplasma-continue erik /flonse-call if not better, sooner if needed. Patient verbalized understanding of plan. . Sinusitis - Pt has acute infection - pain in face, maxillary region, Pt informed to use decongestant, RX given to patient, sinus rinses also recommended. Call if symptoms do not show improvement. Chronic UTI's - pt to be on bactrim - once completed, will then start on trimethoprim. . Sinusitis/headache - Pt has acute infection - pain in face, maxillary region, Pt informed to use decongestant, RX given to patient, sinus rinses also recommended. Call if symptoms do not show improvement. Allergies - chronic - recommended pt to use allergy medication as prescribed. Pt has been counseled as to the appropriate use of the medication. Pt to call if allergy symptoms are not controlled with the medication. If using nasal spray, instructions as follows: Nasal spray- use twice daily, one spray per nostril twice daily, after 30 minutes, rinse out nose with saline spray.. Use opposite hand per nostril to spray in the nasal steroid allergy spray. Esophageal Reflux - the patient has been counseled against excessive intake of caffeine, spicy foods, peppermint, and cinnamon - all of which can exacerbate esophageal reflux. The patient is to take medications as prescribed and call the office if the symptoms are not improving.
[2017-10-11] MEDS ORDERED: LACTATED RINGERS 1,000 ML IV ONE (12:34)
--- OUTSIDE RECORDS SUMMARY | 2017-10-11 12:36 | XMS REPORT | CCD ---
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 Unknown Has never used illegal drugs 12/27/2012 Allergies, Adverse Reactions, Alerts Substance Reaction Codes Entered Date Inactivated Date Status bactrim abdominal pain RxNorm: 806966 10/22/2014 No Inactive Date Active Past Medical [...] Start Date Stop Date Status Fill Instructions Augmentin 875 mg-125 mg tablet RxNorm: 826542 1 Tablet(s) PO BID 04/20/2017 04/29/2017 Active Augmentin 875 mg-125 mg tablet RxNorm: 023805 1 Tablet(s) PO BID 04/20/2017 04/19/2017 Inactive Mobic 15 mg tablet RxNorm: 421836 TAKE 1 TABLET EVERY DAY 10/201706/21/2018 Active Augmentin 500 mg-125 mg tablet RxNorm: 980349 1 Tablet(s) PO TID 03/12/2017 03/21/2017 Inactive prednisone 20 mg tablet RxNorm: 263949 2 Tablet(s) PO daily 03/16/2017 Inactive diazepam 5 mg tablet RxNorm: 646919 1 Tablet(s) PO BID 201602/04/2018 Active omeprazole 20 mg capsule,delayed release RxNorm: 293390 TAKE 1 CAPSULE EVERY DAY 01/26/2017 01/20/2018 Active topiramate 50 mg tablet RxNorm: 122865 1 Tablet(s) PO daily 09/201601/20/2018 Active citalopram 20 mg tablet RxNorm: 606720 TAKE 1 TABLET EVERY DAY 01/21/2017 10/17/2017 Active omeprazole 20 mg capsule,delayed release RxNorm: 198795 Capsule(s) TAKE 1 CAPSULE EVERY DAY 01/20/2017 01/25/2017 Inactive topiramate 50 mg tablet RxNorm: 234092 Tablet(s) PO daily 25mg QD x 1 week then if needed increase to 50mg QD 01/20/2017 01/25/2017 Inactive [SAVINGS FOR NON- COVERED DRUGS -- BIN:300194, PCN: ASPROD1, Group: XXXXX, ID# [id number], Questions : . THIS IS NOT INSURANCE.] Zithromax Z-Nitin 250 mg tablet RxNorm: 503848 1 Tablet(s) PO UD 01/20/2017 01/24/2017 Inactive Kenalog 40 mg/mL suspension for injection RxNorm: 7569746 Milliliter(s) Inj 01/20/2017 01/20/2017 Inactive Erik 180 mg tablet RxNorm: 623420 TAKE 1 TABLET EVERY DAY 12/05/2017 Active Forteo 20 mcg/dose (600 mcg/2.4 mL) subcutaneous pen injector RxNorm: 6811840 20 Microgram(s) SQ daily 10/11/2016 Inactive Dispense quantity sufficient triamcinolone acetonide 0.025 % topical cream RxNorm: 1484581 1 Application TOP BID 08/31/2016 No Stop Date Active doxycycline hyclate 100 mg capsule RxNorm: 2284634 1 Capsule(s) PO BID 08/31/2016 09/09/2016 Inactive meclizine 25 mg tablet RxNorm: 285427 1 Tablet(s) PO Q6 PRN No Stop Date Active Cipro 500 mg tablet RxNorm: 726494 1 Tablet(s) PO BID 201608/23/2016 Inactive amoxicillin 500 mg capsule RxNorm: 048291 1 Capsule(s) PO TID 08/08/2016 08/13/2016 Inactive citalopram 20 mg tablet RxNorm: 049258 TAKE 1 TABLET EVERY DAY 06/29/2016 01/20/2017 Inactive fluconazole 150 mg tablet RxNorm: 231312 1 Tablet(s) PO daily 06/16/2016 06/16/2016 Inactive Zithromax Z-Nitin 250 mg tablet RxNorm: 865461 1 Tablet(s) PO UD 06/16/2016 06/20/2016 Inactive nystatin 100,000 unit/mL oral suspension RxNorm: 077773 5 Milliliter(s) PO QID 06/16/2016 06/25/2016 Inactive swish and swallow fluconazole 150 mg tablet RxNorm: 402096 1 Tablet(s) PO daily 06/16/2016 06/16/2016 Inactive promethazine-DM 6.25 mg-15 mg/5 mL syrup RxNorm: 725674 5 Milliliter(s) PO Q6 PRN 06/08/2016 No Stop Date Active Levaquin 500 mg tablet RxNorm: 770569 1 Tablet(s) PO daily 06/14/2016 Inactive prednisone 20 mg tablet RxNorm: 522320 1 Tablet(s) PO BID 06/0806/12/2016 Inactive Kenalog 40 mg/mL suspension for injection RxNorm: 2232161 1 Milliliter(s) Inj 06/08/2016 06/08/2016 Inactive diazepam 5 mg tablet RxNorm: 493354 1 Tablet(s) PO BID 201605/18/2017 Active Flonase Allergy Relief 50 mcg/actuation nasal spray, suspension RxNorm: 2764568 1 [place] NASAL daily 05/11/20162016 Inactive azithromycin 250 mg tablet RxNorm: 651882 2 Tablet(s) PO on day #1, then one pill daily x 4 days 05/11/2016 05/24/2016 Inactive gabapentin 100 mg capsule RxNorm: 813116 1 Capsule PO QAM, 2 Capsules PO at NOON, and 2 Capsules PO QHS Capsule(s) PO UD 05/06/2016 04/30/2017 Active gabapentin 100 mg capsule RxNorm: 239814 1 in the am 2 at noon and 2 at hs Capsule (s) PO TID 05/01/2016 05/05/2016 Inactive [SAVINGS FOR NON-COVERED DRUGS -- BIN: 078142, PCN: ASPROD1, Group: XXXXX, ID# [id number], Questions: . THIS IS NOT INSURANCE.] Mobic 15 mg tablet RxNorm: 676637 TAKE 1 TABLET EVERY DAY 05/201603/28/2017 Inactive Kenalog 40 mg/mL suspension for injection RxNorm: 1318987 1 Milliliter(s) Inj 04/14/2016 04/14/2016 Inactive prednisone 20 mg tablet RxNorm: 057845 1 Tablet(s) PO BID 04/1404/18/2016 Inactive gabapentin 100 mg capsule RxNorm: 422257 Capsule(s) TAKE 1 CAPSULE THREE TIMES DAILY 02/28/2016 05/05/2016 Inactive gabapentin 100 mg capsule RxNorm: 294526 TAKE 1 CAPSULE THREE TIMES DAILY 02/28/2016 02/27/2016 Inactive omeprazole 20 mg capsule,delayed release RxNorm: 968388 TAKE 1 CAPSULE EVERY DAY 02/24/2016 01/19/2017 Inactive topiramate 50 mg tablet RxNorm: 942491 1 Tablet(s) PO BID 12/3012/24/2016 Inactive [SAVINGS FOR NON-COVERED DRUGS -- BIN:612440, PCN: ASPROD1, Group: XXXXX, ID # [id number], Questions: . THIS IS NOT INSURANCE.] topiramate 50 mg tablet RxNorm: 825979 1 Tablet(s) PO BID 12/3012/30/2015 Inactive [SAVINGS FOR NON-COVERED DRUGS -- BIN:841786, PCN: ASPROD1, Group: XXXXX, ID # [id number], Questions: . THIS IS NOT INSURANCE.] topiramate 50 mg tablet RxNorm: 458313 1 Tablet(s) PO BID 12/2412/30/2015 Inactive [SAVINGS FOR NON-COVERED DRUGS -- BIN:453675, PCN: ASPROD1, Group: XXXXX, ID # [id number], Questions: . THIS IS NOT INSURANCE.] Erik 180 mg tablet RxNorm: 169381 TAKE 1 TABLET EVERY DAY 07/201512/10/2016 Inactive Levaquin 500 mg tablet RxNorm: 087253 1 Tablet(s) PO daily 05/10/2016 Inactive Levaquin 500 mg tablet RxNorm: 411540 1 Tablet(s) PO daily 11/07/2015 Inactive gabapentin 100 mg capsule RxNorm: 606019 1 in the am 2 at noon and 2 at hs Capsule (s) PO TID 11/07/2015 11/06/2015 Inactive [SAVINGS FOR NON-COVERED DRUGS -- BIN: 510646, PCN: ASPROD1, Group: XXXXX, ID# [id number], Questions: . THIS IS NOT INSURANCE.] gabapentin 100 mg capsule RxNorm: 105410 1 in the am 2 at noon and 2 at hs Capsule (s) PO TID 11/07/2015 02/27/2016 Inactive [SAVINGS FOR NON-COVERED DRUGS -- BIN: 452795, PCN: ASPROD1, Group: XXXXX, ID# [id number], Questions: . THIS IS NOT INSURANCE.] Kenalog 40 mg/mL suspension for injection RxNorm: 2652697 1.5 Milliliter(s) Inj 11/07/2015 11/07/2015 Inactive citalopram 20 mg tablet RxNorm: 493709 Tablet(s) TAKE 1 TABLET EVERY DAY 09/18/2015 06/13/2016 Inactive diazepam 5 mg tablet RxNorm: 240449 1 Tablet(s) PO BID 201502/27/2016 Inactive [SAVINGS FOR UNINSURED PATIENTS -- BIN:628805, PCN: ASPROD1, Group: AME08, ID # [id number], Process claim through [employer], for questions: . THIS IS NOT INSURANCE.] topiramate 50 mg tablet RxNorm: 577412 1 Tablet(s) PO BID 06/2712/24/2015 Inactive [SAVINGS FOR NON-COVERED DRUGS -- BIN:448805, PCN: ASPROD1, Group: XXXXX, ID # [id number], Questions: . THIS IS NOT INSURANCE.] topiramate 50 mg tablet RxNorm: 313624 1 Tablet(s) PO BID 06/2706/27/2015 Inactive [SAVINGS FOR NON-COVERED DRUGS -- BIN:725379, PCN: ASPROD1, Group: XXXXX, ID # [id number], Questions: . THIS IS NOT INSURANCE.] omeprazole 20 mg capsule,delayed release RxNorm: 095469 TAKE 1 CAPSULE EVERY DAY 05/02/2015 02/23/2016 Inactive Mobic 15 mg tablet RxNorm: 939445 TAKE 1 TABLET EVERY DAY 01/201604/23/2016 Inactive gabapentin 100 mg capsule RxNorm: 966005 1 Capsule(s) PO TID 11/06/2015 Inactive [SAVINGS FOR NON-COVERED DRUGS -- BIN:113118, PCN: ASPROD1, Group: XXXXX , ID# [id number], Questions: . THIS IS NOT INSURANCE.] levofloxacin 500 mg tablet RxNorm: 610369 1 Tablet(s) PO daily 02/20/2015 02/26/2015 Inactive citalopram 20 mg tablet RxNorm: 187654 TAKE 1 TABLET EVERY DAY 02/19/2015 09/17/2015 Inactive gabapentin 100 mg capsule RxNorm: 787843 1 Capsule(s) PO TID 02/24/2015 Inactive [SAVINGS FOR NON-COVERED DRUGS -- BIN:186614, PCN: ASPROD1, Group: XXXXX , ID# [id number], Questions: . THIS IS NOT INSURANCE.] Kenalog 40 mg/mL suspension for injection RxNorm: 5870258 Milliliter(s) Inj 12/10/2014 12/10/2014 Inactive Levaquin 500 mg tablet RxNorm: 894623 1 Tablet(s) PO daily 04/201411/27/2014 Inactive Kenalog 40 mg/mL suspension for injection RxNorm: 4526301 Milliliter(s) Inj 11/21/2014 11/21/2014 Inactive topiramate 50 mg tablet RxNorm: 265407 1 Tablet(s) PO BID 11/2106/27/2015 Inactive [SAVINGS FOR NON-COVERED DRUGS -- BIN:898737, PCN: ASPROD1, Group: XXXXX, ID # [id number], Questions: . THIS IS NOT INSURANCE.] Erik 180 mg tablet RxNorm: 428490 TAKE 1 TABLET EVERY DAY 11/09/2015 Inactive Flonase Allergy Relief 50 mcg/actuation nasal spray, suspension RxNorm: 9710670 1 [place] NASAL daily 11/13/20142015 Inactive Flonase Allergy Relief 50 mcg/actuation nasal spray, suspension RxNorm: 1 [place] NASAL daily 11/13/2014 11/12/2014 Inactive Cipro 500 mg tablet RxNorm: 007222 1 Tablet(s) PO BID 201410/28/2014 Inactive Cipro 500 mg tablet RxNorm: 274370 1 Tablet(s) PO BID 201410/21/2014 Inactive omeprazole 20 mg capsule,delayed release RxNorm: 727107 1 Capsule(s) PO BID 09/25/2014 05/01/2015 Inactive [SAVINGS FOR NON-COVERED DRUGS -- BIN:027729, PCN: ASPROD1, Group: XXXXX, ID# [id number], Questions: . THIS IS NOT INSURANCE.] Carafate 1 gram tablet RxNorm: 505741 1 Tablet(s) PO QID 201410/03/2014 Inactive Take one tablet before each meal and at bedtime everyday diazepam 5 mg tablet RxNorm: 810067 1 Tablet(s) PO BID 201408/29/2015 Inactive [SAVINGS FOR UNINSURED PATIENTS -- BIN:197101, PCN: ASPROD1, Group: AME08, ID # [id number], Process claim through [employer], for questions: . THIS IS NOT INSURANCE.] Carafate 100 mg/mL oral suspension RxNorm: 228789 1 Gram(s) PO QID 09/04/2014 10/03/2014 Inactive topiramate 25 mg tablet RxNorm: 252618 1 Tablet(s) PO BID 08/0111/20/2014 Inactive [SAVINGS FOR NON-COVERED DRUGS -- BIN:564403, PCN: ASPROD1, Group: XXXXX, ID # [id number], Questions: . THIS IS NOT INSURANCE.] fluticasone 50 mcg/actuation blister powder for inhalation RxNorm: 820828 1 [place] INH BID Nasal spray- use twice daily, one spray per nostril twice daily, after 30 minutes, rinse out nose with saline spray. 06/25/2014 10/21/2014 Inactive [ SAVINGS FOR NON-COVERED DRUGS -- BIN:173574, PCN: ASPROD1, Group: XXXXX, ID# [id number], Questions: . THIS IS NOT INSURANCE.] Mobic 15 mg tablet RxNorm: 853619 TAKE 1 TABLET EVERY DAY 07/201405/01/2015 Inactive gabapentin 100 mg tablet RxNorm: 790050 1 Tablet(s) PO TID 06/201402/18/2015 Inactive [SAVINGS FOR NON-COVERED DRUGS -- BIN:394395, PCN: ASPROD1, Group: XXXXX, ID# [id number], Questions: . THIS IS NOT INSURANCE.] Mobic 15 mg tablet RxNorm: 179432 1 Tablet(s) PO daily TAKE 1 TABLET EVERY DAY 05/23/2014 05/23/2014 Inactive [SAVINGS FOR NON-COVERED DRUGS -- BIN:051617, PCN: ASPROD1, Group: XXXXX, ID# [id number], Questions: . THIS IS NOT INSURANCE.] omeprazole 20 mg capsule,delayed release RxNorm: 626915 1 Capsule(s) PO daily 05/21/2014 09/24/2014 Inactive [SAVINGS FOR NON-COVERED DRUGS -- BIN:093754, PCN: ASPROD1, Group: XXXXX, ID# [id number], Questions: . THIS IS NOT INSURANCE.] diazepam 5 mg tablet RxNorm: 102161 1 Tablet(s) PO BID 201409/03/2014 Inactive [SAVINGS FOR UNINSURED PATIENTS -- BIN:379635, PCN: ASPROD1, Group: AME08, ID # [id number], Process claim through [employer], for questions: . THIS IS NOT INSURANCE.] Pyridium 200 mg tablet RxNorm: 6475911 1 Tablet(s) PO TID 04/0304/07/2014 Inactive [SAVINGS FOR UNINSURED PATIENTS -- BIN:376761, PCN: ASPROD1, Group: AME08, ID# [id number], Process claim through [employer], for questions: . THIS IS NOT INSURANCE.] trimethoprim 100 mg tablet RxNorm: 932549 1 Tablet(s) PO QAM 10/16/2014 Inactive [SAVINGS FOR UNINSURED PATIENTS -- BIN:416013, PCN: ASPROD1, Group: AME08 , ID# [id number], Process claim through [employer], for questions: . THIS IS NOT INSURANCE.] Bactrim DS 800 mg-160 mg tablet RxNorm: 195184 1 Tablet(s) PO BID 04/03/2014 04/09/2014 Inactive [SAVINGS FOR UNINSURED PATIENTS -- BIN:998186, PCN: ASPROD1, Group : AME08, ID# [id number], Process claim through [employer], for questions: [phone]. THIS IS NOT INSURANCE.] Cipro 500 mg tablet RxNorm: 305115 1 Tablet(s) PO BID 201404/09/2014 Inactive Kenalog 40 mg/mL suspension for injection RxNorm: 3816394 Milliliter(s) Inj 03/27/2014 03/27/2014 Inactive Bactrim DS 800 mg-160 mg tablet RxNorm: 940610 1 Tablet(s) PO BID 02/08/2014 02/14/2014 Inactive citalopram 20 mg tablet RxNorm: 789151 TAKE 1 TABLET EVERY DAY 02/01/2014 01/26/2015 Inactive Erik 180 mg tablet RxNorm: 439897 1 Tablet(s) PO daily 201311/14/2014 Inactive ciprofloxacin 0.3 % eye drops RxNorm: 671041 2 Drop(s) OPH TID 12/29/2013 01/04/2014 Inactive promethazine 25 mg/mL injection solution RxNorm: 564550 2 Milliliter(s) Inj 12/21/2013 12/21/2013 Inactive ketorolac 60 mg/2 mL intramuscular solution RxNorm: 034711 2 Milliliter(s) IM 12/21/2013 12/21/2013 Inactive Bactrim DS 800 mg-160 mg tablet RxNorm: 995827 1 Tablet(s) PO BID 10/31/2013 11/06/2013 Inactive topiramate 25 mg tablet RxNorm: 561947 1 Tablet(s) PO BID 10/0207/31/2014 Inactive Mobic 15 mg tablet RxNorm: 143302 TAKE 1 TABLET EVERY DAY 05/22/2014 Inactive topiramate 25 mg tablet RxNorm: 706549 1 Tablet(s) PO BID 08/1510/01/2013 Inactive nystatin 100,000 unit/mL oral suspension RxNorm: 553237 6 Unit(s) PO QID 08/10/2013 09/06/2013 Inactive sulfamethoxazole 800 mg-trimethoprim 160 mg tablet RxNorm: 748655 1 Tablet(s) PO BID 08/02/2013 08/11/2013 Inactive topiramate 25 mg tablet RxNorm: 159072 1 Tablet(s) PO BID 08/0208/14/2013 Inactive Mag-Oxide 400 mg tablet RxNorm: 572547 1 Tablet(s) PO TIW 06/0206/01/2013 Inactive Mag-Oxide 400 mg tablet RxNorm: 440233 1 Tablet(s) PO TIW 06/0208/30/2013 Inactive fluticasone 50 mcg/actuation disk powder for inhalation RxNorm: 737526 1 [place] INH BID Nasal spray- use twice daily, one spray per nostril twice daily, after 30 minutes, rinse out nose with saline spray. 05/25/2013 09/21/2013 Inactive ketorolac 60 mg/2 mL intramuscular solution RxNorm: 813736 Milliliter(s) IM 05/15/2013 05/15/2013 Inactive promethazine 25 mg/mL injection solution RxNorm: 612869 Milliliter(s) Inj 05/15/2013 05/15/2013 Inactive Levaquin 500 mg tablet RxNorm: 041919 1 Tablet(s) PO daily 05/21/2013 Inactive ketorolac 60 mg/2 mL intramuscular solution RxNorm: 688077 1 Milliliter(s) IM 05/09/2013 05/09/2013 Inactive Mobic 15 mg tablet RxNorm: 819427 1 Tablet(s) PO daily 201309/03/2013 Inactive omeprazole 20 mg capsule,delayed release RxNorm: 966446 1 Capsule(s) PO daily 04/13/2013 04/07/2014 Inactive diazepam 5 mg tablet RxNorm: 646961 1 Tablet(s) PO BID 201304/07/2014 Inactive gabapentin 100 mg tablet RxNorm: 511709 1 Tablet(s) PO TID 04/07/2014 Inactive citalopram 20 mg tablet RxNorm: 851112 1 Tablet(s) PO daily 01/31/2014 Inactive Mobic 15 mg tablet RxNorm: 413676 1 Tablet(s) PO daily 201304/12/2013 Inactive citalopram 20 mg tablet RxNorm: 761629 1 Tablet(s) PO daily 09/201304/12/2013 Inactive Mobic 15 mg tablet RxNorm: 027514 1 Tablet(s) PO daily 201202/01/2013 Inactive Mobic 15 mg tablet RxNorm: 057528 1 Tablet(s) PO daily 201203/27/2013 Inactive prednisone 20 mg tablet RxNorm: 658501 1 Tablet(s) PO TID 01/2601/25/2013 Inactive prednisone 20 mg tablet RxNorm: 784793 1 Tablet(s) PO TID 01/2601/28/2013 Inactive meclizine 25 mg capsule RxNorm: 126869 1 Capsule(s) PO Q6 PRN 01/23/2013 01/22/2013 Inactive meclizine 25 mg capsule RxNorm: 700009 1 Capsule(s) PO Q6 PRN 01/23/2013 04/12/2013 Inactive prednisone 10 mg tablet RxNorm: 121709 Tablet(s) PO 6-5-4-3-2-1 taper 01/13/2013 04/12/2013 Inactive fluconazole 150 mg tablet RxNorm: 945480 1 Tablet(s) PO daily 12/27/2012 01/02/2013 Inactive Kenalog 40 mg/mL Susp for Injection RxNorm: 2292495 Milliliter(s) Inj 12/27/2012 12/27/2012 Inactive Calcium 500 + D (D3) 500 mg-125 unit tablet RxNorm: 690311 1 Tablet(s) PO daily No Start Date Active Fish Oil 1,000 mg capsule RxNorm: 1 Capsule(s) PO BID No Start Date Active multivitamin capsule RxNorm: 1 Capsule(s) PO daily No Start Date Active nabumetone 750 mg tablet RxNorm: 046706 2 Tablet(s) PO daily No Start Date Active guaifenesin 400 mg tablet RxNorm: 928279 1 Tablet(s) PO Q4H No Start Date Active hydrocodone 5 mg-acetaminophen 325 mg tablet RxNorm: 525804 1 Tablet(s) PO Q6 as needed No Start Date Active citalopram 20 mg tablet RxNorm: 898017 1 Tablet(s) PO daily No Start Date 03/27/2013 Inactive prednisone 10 mg tablet RxNorm: 764996 Tablet(s) PO 6-5-4-3-2-1 taper No Start Date 01/12/2013 Inactive anastrozole 1 mg tablet RxNorm: 615370 1 Tablet(s) PO daily No Start Date 08/10/2013 Inactive omeprazole 40 mg capsule,delayed release RxNorm: 927965 1 Capsule(s) PO daily No Start Date 04/12/2013 Inactive gabapentin 100 mg tablet RxNorm: 680787 1 Tablet(s) PO TID No Start Date 04/12/2013 Inactive Zithromax Z-Nitin 250 mg tablet RxNorm: 934308 Tablet(s) PO No Start Date 05/31/2013 Inactive Diflucan 150 mg tablet RxNorm: 686370 1 Tablet(s) PO daily No Start Date 06/16/2015 Inactive Erik 180 mg tablet RxNorm: 132122 1 Tablet(s) PO daily No Start Date 01/30/2014 Inactive clorazepate dipotassium 3.75 mg tablet RxNorm: 096376 1 Tablet(s) PO BID No Start Date 06/05/2013 Inactive Medication Administered Medication Codes Instructions Start Date Status Kenalog 40 mg/mL suspension for injection RxNorm: 3279894 Milliliter 01/20/2017 No longer Active Kenalog 40 mg/mL suspension for injection RxNorm: 5211086 1Milliliter 06/08/2016 No longer Active Kenalog 40 mg/mL suspension for injection RxNorm: 1237833 1Milliliter 04/14/2016 No longer Active Kenalog 40 mg/mL suspension for injection RxNorm: 8960153 1.5Milliliter 11/07/2015 No longer Active Kenalog 40 mg/mL suspension for injection RxNorm: 8587928 Milliliter 12/10/2014 No longer Active Kenalog 40 mg/mL suspension for injection RxNorm: 3840974 Milliliter 11/21/2014 No longer Active Kenalog 40 mg/mL suspension for injection RxNorm: 9812255 Milliliter 03/27/2014 No longer Active ketorolac 60 mg/2 mL intramuscular solution RxNorm: 139685 2Milliliter 12/21/2013 No longer Active promethazine 25 mg/mL injection solution RxNorm: 909519 2Milliliter 12/21/2013 No longer Active ketorolac 60 mg/2 mL intramuscular solution RxNorm: 128893 Milliliter 05/15/2013 No longer Active promethazine 25 mg/mL injection solution RxNorm: 560588 Milliliter 05/15/2013 No longer Active ketorolac 60 mg/2 mL intramuscular solution RxNorm: 318063 1Milliliter 05/09/2013 No longer Active Kenalog 40 mg/mL Susp for Injection RxNorm: 4345151 Milliliter 12/27/2012 No longer Active Immunizations Vaccine [...] Item Item Code Result Date Culture Urine [id number] URINE CULTURE SEE NOTES 04/23/2017 Culture Urine [id number] Continued Results 04/23/2017 Urine Culture Ucult Complete >100,000 col/ml aerobic growth sent to ref lab 04/21/2017 Comp Metabolic Vhv177 NA 142 mEq/L 09/29/2016 Comp Metabolic Fir376 K 4.6 mEq/L 09/29/2016 Comp Metabolic Anh726 CL 112 mEq/L 09/29/2016 Comp Metabolic Qon170 CO2 25.0 mEq/L 09/29/2016 Comp Metabolic Yra899 ANION GAP 10 09/29/2016 Comp Metabolic Xmi934 GLUCOSE 88 mg/dL 09/29/2016 Comp Metabolic Urd499 Creat 1.1 mg/dL 09/29/2016 Comp Metabolic Nph339 eGFR 52 ml/min/1.73m2 09/29/2016 Comp Metabolic Nil376 BUN 21 mg/dL 09/29/2016 Comp Metabolic Mjh080 B/C Ratio 19.1 Ratio 09/29/2016 Comp Metabolic Tth487 CALCIUM 8.9 mg/dL 09/29/2016 Comp Metabolic Ecl211 ALK PHOS 58 U/L 09/29/2016 Comp Metabolic Jbm589 AST(SGOT) 14 U/L 09/29/2016 Comp Metabolic Wji957 ALT(SGPT) 9 U/L 09/29/2016 Comp Metabolic Slm879 BILI T 0.3 mg/dL 09/29/2016 Comp Metabolic Yjq224 ALBUMIN 3.6 g/dL 09/29/2016 Comp Metabolic Qdt972 TPRO 5.8 g/dL 09/29/2016 Comp Metabolic Cjb427 GLOB 2.2 g/dL 09/29/2016 Comp Metabolic Gsy169 A/G Ratio 1.6 Ratio 09/29/2016 Comp Metabolic Smg207 Osmo 286 mOsmo 09/29/2016 Cbc With Differential Ord2 WBC 3.35 K/ul 09/29/2016 Cbc With Differential Ord2 RBC 4.00 M/ul 09/29/2016 Cbc With Differential Ord2 HGB 12.7 g/dl 09/29/2016 Cbc With Differential Ord2 Neut% 44.7 % 09/29/2016 Cbc With Differential Ord2 HCT 38.3 % 09/29/2016 Cbc With Differential Ord2 MCV 95.8 fl 09/29/2016 Cbc With Differential Ord2 Lymph% 42.1 % 09/29/2016 Cbc With Differential Ord2 MCH 31.8 pg 09/29/2016 Cbc With Differential Ord2 [place]% 9.6 % 09/29/2016 Cbc With Differential Ord2 MCHC 33.2 pg 09/29/2016 Cbc With Differential Ord2 Eos% 2.7 % 09/29/2016 Cbc With Differential Ord2 PLT 253 K/ul 09/29/2016 Cbc With Differential Ord2 Baso% 0.9 % 09/29/2016 Cbc With Differential Ord2 RDW 12.9 % 09/29/2016 Cbc With Differential Ord2 Neut ABS# 1.50 K/ul 09/29/2016 Cbc With Differential Ord2 Lymph ABS# 1.41 K/ul 09/29/2016 Cbc With Differential Ord2 [place] ABS# 0.3 K/ul 09/29/2016 Cbc With Differential Ord2 Eos ABS# 0.1 K/ul 09/29/2016 Cbc With Differential Ord2 Baso ABS# 0.0 K/ul 09/29/2016 Tsh Ord6 hTSH II 1.67 uIU/mL 09/29/2016 Cbc With Differential Ord2 WBC 3.7 K/uL [...] With Differential Ord2 RDW 14.5 % 11/21/2014 Tsh Ord6 hTSH II 1.76 uIU/mL 11/21/2014 Comp Metabolic Qro885 NA 137 mEq/L 11/21/2014 Comp Metabolic Flx980 K 3.7 mEq/L 11/21/2014 Comp Metabolic Ntu169 CL 108 mEq/L 11/21/2014 Comp Metabolic Wud884 CO2 24.0 mEq/L 11/21/2014 Comp Metabolic Blj407 ANION GAP 9 11/21/2014 Comp Metabolic Wal986 GLUCOSE 83 mg/dL 11/21/2014 Comp Metabolic Oxs636 Creat 1.2 mg/dL 11/21/2014 Comp Metabolic Miw309 eGFR 46 ml/min/1.73m2 11/21/2014 Comp Metabolic Eer126 BUN 16 mg/dL 11/21/2014 Comp Metabolic Bnh616 B/C Ratio 13.0 Ratio 11/21/2014 Comp Metabolic Xsf183 CALCIUM 9.1 mg/dL 11/21/2014 Comp Metabolic Oun868 ALK PHOS 58 U/L 11/21/2014 Comp Metabolic Gtk573 AST(SGOT) 17 U/L 11/21/2014 Comp Metabolic Pjr218 ALT(SGPT) 11 U/L 11/21/2014 Comp Metabolic Mzi260 BILI T 0.4 mg/dL 11/21/2014 Comp Metabolic Gvx875 ALBUMIN 3.8 g/dL 11/21/2014 Comp Metabolic Cjs152 TPRO 6.2 g/dL 11/21/2014 Comp Metabolic Mez795 GLOB 2.4 g/dL 11/21/2014 Comp Metabolic Opq264 A/G Ratio 1.6 Ratio 11/21/2014 Comp Metabolic Cie840 Osmo 274 mOsmo 11/21/2014 Culture Urine [id number] URINE CULTURE SEE NOTES 10/25/2014 Culture Urine [id number] Continued Results 10/25/2014 Urine Culture Ucult Complete >100,000 col/ml aerobic growth sent to ref lab 10/23/2014 JEISON SCR [id number] JEISON SCR <1:80 06/02/2013 GFR CALC 9492374 GFR AA >60 ML/MIN 06/01/2013 GFR CALC 1495769 GFR NON-AA >60 ML/MIN 06/01/2013 CHEM 14 5953564 AST 19 U/L 06/01/2013 CHEM 14 9863037 ALT 11 IU/L 06/01/2013 CHEM 14 6247353 BUN 14 MG/DL 06/01/2013 CHEM 14 9110580 ALBUMIN 4.1 GM/DL 06/01/2013 CHEM 14 2497530 CHLORIDE 106 MMOL/L 06/01/2013 CHEM 14 3040226 BILI TOT 0.3 MG/DL 06/01/2013 CHEM 14 1394626 ALK PHOS 66 U/L 06/01/2013 CHEM 14 7322844 SODIUM 140 MMOL/L 06/01/2013 CHEM 14 6126038 CREATININE 0.90 MG/DL 06/01/2013 CHEM 14 7856155 CALCIUM 9.3 MG/DL 06/01/2013 CHEM 14 5731715 POTASSIUM 4.1 MMOL/L 06/01/2013 CHEM 14 3885231 PROT TOT 6.5 GM/DL 06/01/2013 CHEM 14 6139569 GLUCOSE 91 MG/DL 06/01/2013 CHEM 14 8582657 BICARB 27 MMOL/L 06/01/2013 CHEM 14 5209521 ANION GAP 7 MEQ/L 06/01/2013 CBC 5738351 WBC 3.4 10e9/L 06/01/2013 CBC 3554083 RBC 4.28 10e12/L 06/01/2013 CBC 8390305 HGB 12.6 g/dL 06/01/2013 CBC 7400679 HCT DET 37.9 % 06/01/2013 CBC 4133658 MCV 88.6 fL 06/01/2013 CBC 1772779 MCH 29.4 pg 06/01/2013 CBC 4391446 MCHC 33.2 g/dL 06/01/2013 CBC 0039341 PLT 327 10e9/L 06/01/2013 CBC 7048834 MPV 9.3 fL 06/01/2013 CBC 6971709 MAKAYLA % 46.4 % 06/01/2013 CBC 3894564 LY % 38.3 % 06/01/2013 CBC 5639318 MON % 9.1 % 06/01/2013 CBC 8565923 EOS % 5.3 % 06/01/2013 CBC 9895660 BASO % 0.9 % 06/01/2013 CBC 9162637 RDW 13.3 % 06/01/2013 CBC 9758348 ABS MAKAYLA 1.58 10e9/L 06/01/2013 CBC 0949764 ABS LYMPH 1.30 10e9/L 06/01/2013 CBC 9341776 ABS MONO 0.31 10e9/L 06/01/2013 CBC 8731041 ABS EOS 0.18 10e9/L 06/01/2013 CBC 5894097 ABS BASO 0.03 10e9/L 06/01/2013 CBC 9846107 RDW-SD 42.4 fL 06/01/2013 VIT D TOTL [id number] VIT D TOTL 31 NG/ML 06/01/2013 CRP [id number] CRP 0.2 MG/DL 06/01/2013 MAGNESIUM [id number] MAGNESIUM 1.5 MEQ/L 06/01/2013 ESR 1609515 ESR 22 MM/HR 06/01/2013 TSH 6859674 TSH 1.695 uIU/ML 06/01/2013 UA 33142 Specific [place] 1.030 DateTime(Free Text in ) UA 48437 PH 5 DateTime(Free Text in ) UA 45395 GLUCOSE - DateTime(Free Text in ) UA 53448 Protein + DateTime(Free Text in ) UA 48333 Blood mod DateTime(Free Text in ) UA 67103 Bilirubin - DateTime(Free Text in ) UA 98971 Ketones - DateTime(Free Text in ) UA 04786 Urobilinogen .2 DateTime(Free Text in ) UA 25962 Nitrite - DateTime(Free Text in ) UA 31362 Leukocytes mod DateTime(Free Text in ) Review [...] affect 03/13/2013 None Full Exam - General 1995 Constitutional general appearance Overall: well developed 02/02/2013 [...] 1995 Ears/Nose/Throat oral cavity/pharynx/larynx Overall: no masses 02/02/2013 [...] Codes Date URINALYSIS NONAUTO W/O SCOPE CPT-4: 58539 04/20/2017 THER/PROPH/DIAG INJ SC/IM CPT-4: 07180 01/20/2017 TRIAMCINOLONE ACET INJ NOS CPT-4: J3301 01/20/2017 FLU VAC NO PRSV 4 JANELLE 3 YRS+ CPT-4: 04543 01/11/2017 PNEUMOCOCCAL VACC 23 JANELLE IM CPT-4: 44245 01/11/2017 ADMIN INFLUENZA VIRUS VAC CPT-4: G0008 01/11/2017 [address]MIN [address] VACCINE SNOMED CT: 54692350 CPT-4: G0009 01/11/2017 PPPS, SUBSEQ VISIT CPT -4: G0439 09/29/2016 TRIAMCINOLONE ACET INJ NOS CPT-4: J3301 06/08/2016 THER/PROPH/DIAG INJ SC/IM CPT-4: 90374 04/14/2016 TRIAMCINOLONE ACET INJ NOS CPT-4: J3301 04/14/2016 ADMIN INFLUENZA VIRUS VAC CPT-4: G0008 12/31/2015 FLU VACC 4 JANELLE [address] PLUS IM SNOMED CT: 92219605 CPT-4: 29423 12/31/2015 TRIAMCINOLONE ACET INJ NOS CPT-4: J3301 11/07/2015 PRESCRIP TRANSMIT VIA ERX SY CPT-4: G8553 02/20/2015 TRIAMCINOLONE ACET INJ NOS CPT-4: J3301 12/10/2014 TRIAMCINOLONE ACET INJ NOS CPT-4: J3301 11/21/2014 THER/PROPH/DIAG INJ SC/IM CPT-4: 49630 11/21/2014 URINALYSIS NONAUTO W/O SCOPE CPT-4: 26849 10/22/2014 URINALYSIS NONAUTO W/O SCOPE CPT-4: 49745 09/04/2014 DESTRUCT PREMALG LESION CPT-4: 15303 05/01/2014 TRIM SKIN LESION CPT-4 : 42243 05/01/2014 URINALYSIS NONAUTO W/O SCOPE CPT-4: 95620 04/03/2014 TRIAMCINOLONE ACET INJ NOS CPT-4: J3301 03/27/2014 ADMIN INFLUENZA VIRUS VAC Assigned to CPT-4: J9664Idshtoh 02/08/2014 FLU VAC NO PRSV 4 JANELLE 3 YRS+ CPT-4: 25836 02/08/2014 KETOROLAC TROMETHAMINE INJ CPT-4: J1885 12/21/2013 PROMETHAZINE HCL INJECTION CPT-4: J2550 12/21/2013 URINALYSIS NONAUTO W/O SCOPE CPT-4: 83508 10/31/2013 TRIM SKIN LESIONS 2 TO 4 CPT-4: 68693 08/23/2013 Referral Order Assigned to/Nurses, Assigned to, Current Referral Status/Initiated, Medical service provider, Message Urgency/Routine SNOMED CT: 729132215 CPT-4: ReferralUnknown 08/02/2013 DRAIN/INJECT JOINT/BURSA CPT-4: 31723 07/18/2013 DRAIN/INJECT JOINT/BURSA CPT-4: 27547 07/18/2013 ROUTINE VENIPUNCTURE CPT-4: 78824 06/01/2013 KETOROLAC TROMETHAMINE INJ CPT-4: J1885 05/15/2013 THER/PROPH/DIAG INJ SC/IM CPT-4: 98260 05/15/2013 PROMETHAZINE HCL INJECTION CPT-4: J2550 05/15/2013 THER/PROPH/DIAG INJ SC/IM CPT-4: 41444 05/09/2013 KETOROLAC TROMETHAMINE INJ CPT-4: J1885 05/09/2013 ADMIN INFLUENZA VIRUS VAC CPT-4: G0008 01/10/2013 FLULAVAL VACC, 3 YRS & >, IM CPT-4: Q2036 01/10/2013 TRIAMCINOLONE ACET INJ NOS CPT-4: J3301 12/27/2012 PRESCRIP TRANSMIT VIA ERX SY CPT-4: G8553 12/27/2012 Vital Signs Date Vital 03/12/2017 Blood Pressure 1: 128/68 Code : 8480-6 BMI: 25.1 Code : 05941-1 Heart Rate 1 : 96 bpm Height: 5'7" SpO2: 96% Weight: 160 lbs 01/20/2017 Blood Pressure 1: 126/70 Code : 8480-6 BMI: 25.1 Code : 36013-6 Heart Rate 1 : 92 bpm Height: 5'7" SpO2: 98% Weight: 160 lbs 11/03/2016 Blood Pressure 1: 122/70 Code : 8480-6 BMI: 25.1 Code : 07731-0 Heart Rate 1 : 99 bpm Height: 5'7" SpO2: 96% Weight: 160 lbs 09/29/2016 Heart Rate 1: 97 bpm SpO2: 97% 09/15/2016 Blood Pressure 1: 130/80 Code : 8480-6 BMI: 24.9 Code : 35851-4 Heart Rate 1 : 87 bpm Height: [...] Code : 8480-6 BMI: 24.7 Code : 54578-6 Heart Rate 1 : 79 bpm Height: 5'7" SpO2: 97% Temperature: 36.8 (C) / 98.2 (F) Weight: 158 lbs 05/11/2016 Blood Pressure 1: 128/76 Code : 8480-6 BMI: 24.9 Code : 25580-4 Heart Rate 1 : 75 bpm Height: 5'7" SpO2: 97% Temperature: 36.6 (C) / 97.8 (F) Weight: 159 lbs 04/14/2016 Blood Pressure 1: 122/72 Code : 8480-6 Height: Weight: 12/25/2015 Blood Pressure 1: 132/72 Code : 8480-6 BMI: 24.9 Code : 32180-7 Heart Rate 1 : 74 bpm Height: 5'7" SpO2: 94% Weight: 159 lbs 11/07/2015 BMI: 24.7 Code: 42318-6 Heart Rate 1: 80 bpm Height: 5'7" SpO2: 99% Weight: 158 lbs 06/17/2015 Blood Pressure 1: 124/66 Code : 8480-6 BMI: 25.2 Code : 67250-2 Heart Rate 1 : 74 bpm Height: 5'7" SpO2: 97% Weight: 161 lbs 02/20/2015 Blood Pressure 1: 108/78 Code : 8480-6 BMI: 25.4 Code : 52651-6 Heart Rate 1 : 78 bpm Height: 5'7" SpO2: 98% Weight: 162 lbs 12/10/2014 Blood Pressure 1: 110/62 Code : 8480-6 BMI: 26.0 Code : 77074-8 Heart Rate 1 : 77 bpm Height: 5'7" SpO2: 98% Weight: 166 lbs 11/21/2014 Blood Pressure 1: 102/58 Code : 8480-6 BMI: 26.2 Code : 91759-2 Heart Rate 1 : 91 bpm Height: 5'7" SpO2: 94% Weight: 167 lbs 10/23/2014 Blood Pressure 1: 136/80 Code : 8480-6 BMI: 26.0 Code : 02208-5 Heart Rate 1 : 80 bpm Height: 5'7" Weight: 166 lbs 09/04/2014 Blood Pressure 1: 112/70 Code : 8480-6 BMI: 26.0 Code : 23111-1 Heart Rate 1 : 99 bpm Height: 5'7" Respiratory Rate: 20 bpm Weight: 166 lbs 04/03/2014 Blood Pressure 1: 106/70 Code : 8480-6 BMI: 26.9 Code : 46834-4 Heart Rate 1 : 72 bpm Height: 5'7" Weight: 172 lbs 03/27/2014 Blood Pressure 1: 112/62 Code : 8480-6 BMI: 27.1 Code : 43953-1 Heart Rate 1 : 92 bpm Height: 5'7" Weight: 173 lbs 02/08/2014 Blood Pressure 1: 122/70 Code : 8480-6 BMI: 27.9 Code : 72910-6 Height: 5'7" Weight: 178 lbs 12/29/2013 Blood Pressure 1: 130/88 Code : 8480-6 BMI: 27.9 Code : 02604-7 Height: 5'7" Weight: 178 lbs 12/21/2013 Blood Pressure 1: 132/82 Code : 8480-6 Heart Rate 1: 86 bpm Height: SpO2: 98% Weight: 10/31/2013 Blood Pressure 1: 11262 Code : 8480-6 BMI: 27.7 Code : 53202-1 Heart Rate 1 : 72 bpm Height: [...] Weight: 182 lbs 05/25/2013 Blood Pressure 1: 112/ Code : 8480-6 Heart Rate 1: 84 [...] Otalgia, right ear[ICD10: H92.01] Astrid Diaz MD, [facility] CPT -4: 33400 03/12/2017 64088 EST. PATIENT, LEVEL IV Diagnosis: Other acute sinusitis[ICD10: J01.80] Diagnosis: Other allergic rhinitis[ICD10: J30.89] Diagnosis: Gastro-esophageal reflux disease without esophagitis[ICD10: K21.9] Astrid Diaz MD, [facility] CPT-4: 56412 01/20/2017 ([id number]) 36890 EST. PATIENT, LEVEL IV Diagnosis: Radiculopathy, lumbar region[ICD10: M54.16] Diagnosis: Headache[ICD10: R51] Diagnosis: Dizziness and giddiness[ICD10: R42] Diagnosis: Gas pain[ICD10: R14.1] Karolina Diaz MD, [facility] CPT-4: 75493 11/03/2016 ([id number]) 63038 EST. PATIENT, LEVEL III Diagnosis: Rash and other nonspecific skin eruption[ICD10: R21] Liz Diaz MD, [facility] CPT-4: 69224 09/15/2016 [id number] EST. PATIENT, LEVEL III Diagnosis: Rash and other nonspecific skin eruption[ICD10: R21] Astrid Diaz MD, [facility] CPT-4: 01717 08/31/2016 ([id number]) 82621 EST. PATIENT, LEVEL IV Diagnosis: Nondisplaced fracture of neck of right radius, initial encounter for closed fracture[ICD10: S52.134A] Diagnosis: Orthostatic hypotension[ICD10: I95.1] Diagnosis: Dizziness and giddiness[ICD10: R42] Diagnosis: Fracture of nasal bones, initial encounter for closed fracture[ICD10 : S02.2XXA] Karolina Diaz MD, [facility] CPT-4: 67189 08/14/2016 ([id number]) 78613 EST. PATIENT, LEVEL III Diagnosis: Headache[ICD10: R51] Diagnosis: Contusion of nose, initial encounter[ICD10: S00.33XA] Diagnosis: Pain in left shoulder[ICD10: M25.512] Karolina Diaz MD, [facility] CPT-4: 23751 07/30/2016 ([id number]) 53345 EST. PATIENT, LEVEL III Diagnosis: Cough[ICD10: R05] Diagnosis: Candidal stomatitis[ICD10: B37.0] Karolina Diaz MD, [facility] CPT-4: 76441 06/16/2016 ([id number]) 92283 EST. PATIENT, LEVEL III Diagnosis: Cough[ICD10: R05] Diagnosis: Acute bronchitis, unspecified[ICD10: J20.9] Karolina Diaz MD, [facility] CPT-4: 46951 06/08/2016 ([id number]) 81085 EST. PATIENT, LEVEL III Diagnosis: Acute recurrent maxillary sinusitis[ICD10: J01.01] Liz Diaz MD [facility] CPT-4: 88435 05/11/2016 ([id number]) 73333 EST. PATIENT, LEVEL III Diagnosis: Cough[ICD10: R05] Diagnosis: Allergic rhinitis due to pollen[ICD10: J30.1] Liz Diaz MD [facility] CPT-4: 69830 04/14/2016 ([id number]) 09165 EST. PATIENT, LEVEL III Diagnosis: Mastodynia[ICD10: N64.4] Liz Diaz MD [facility] CPT-4: 88195 12/25/2015 ([id number]) 58925 EST. PATIENT, LEVEL III Diagnosis: Allergic rhinitis due to pollen[ICD10: J30.1] Diagnosis: Migraine, unspecified, not intractable, without status migrainosus[ ICD10: G43.909] Karolina Diaz MD, [facility] CPT-4: 93606 11/07/2015 ([id number]) 66369 EST. PATIENT, LEVEL III Diagnosis: Plantar wart[ICD10: B07.0] Liz Diaz MD [facility] CPT- 4: 10461 06/17/2015 ([id number]) 42346 EST. PATIENT, LEVEL III Diagnosis: Other acute sinusitis[ICD10: J01.80] Diagnosis: Acute bronchitis, unspecified[ICD10: J20.9] Diagnosis: Cough[ICD10: R05] Liz Diaz MD [facility] CPT-4: 10270 02/20/2015 58396 EST. PATIENT, LEVEL II Diagnosis: Rash[ICD9: 782.1] Liz Diaz MD [facility] CPT-4: 22651 12/10/2014 ([id number]) 74576 EST. PATIENT, LEVEL III Diagnosis: ACUTE SINUSITIS[ICD9: 461.9] Diagnosis: Migraine headache[ICD9: 346.90] Diagnosis: SPONTANEOUS ECCHYMOSES[ICD9: 782.7] Liz Diaz MD [facility] CPT-4: 43419 11/21/2014 ([id number]) 03144 EST. PATIENT, LEVEL III Diagnosis: Low back pain[ICD9: 724.2] Diagnosis: Leg pain, left[ICD9: 729.5] Karolina Diaz MD, [facility] CPT-4: 29166 10/23/2014 ([id number]) 92758 EST. PATIENT, LEVEL III Diagnosis: Gastroesophageal reflux disease[ICD9: 530.81] Diagnosis: Anxiety[ICD9: 300.00] Dorita Diaz MD, [facility] CPT-4: 55842 09/04/2014 ([id number]) 20634 EST. PATIENT, LEVEL III Diagnosis: Urinary tract infection[ICD9: 599.0] Diagnosis: Cough[ICD9: 786.2] Diagnosis: ACUTE SINUSITIS[ICD9: 461.9] Liz Diaz MD, [facility] CPT- 4: 89418 04/03/2014 ([id number]) 29426 EST. PATIENT, LEVEL III Diagnosis: ACUTE SINUSITIS[ICD9: 461.9] Diagnosis: ALLERGIC RHINITIS[ICD9: 477.9] Karolina Diaz MD, [facility] CPT-4: 71341 03/27/2014 ([id number]) 71562 EST. PATIENT, LEVEL III Diagnosis: UTI (urinary tract infection)[ICD9: 599.0] Diagnosis: Constipation[ICD9: 564.00] Liz Diaz MD, [facility] CPT- 4: 95421 02/08/2014 77630 EST. PATIENT, LEVEL III Diagnosis: ALLERGIC RHINITIS[ICD9: 477.9] Karolina Diaz MD, [facility] CPT-4: 70671 12/29/2013 ([id number]) 06749 EST. PATIENT, LEVEL III Diagnosis: Migraine headache[ICD9: 346.90] Diagnosis: Nausea[ICD9: 787.02] Diagnosis: Tension headache[ICD9: 307.81] Karolina Diaz MD, [facility] CPT-4: 73405 12/21/2013 ([id number]) 19886 EST. PATIENT, LEVEL III Diagnosis: Urinary tract infection[ICD9: 599.0] Karolina Diaz MD, [facility] CPT-4: 05204 10/31/2013 ([id number]) 37753 EST. PATIENT, LEVEL III Diagnosis: Thrush[ICD9: 112.0] Liz Diaz MD, [facility] CPT-4: 41452 08/10/2013 ([id number]) 94447 EST. PATIENT, LEVEL III Diagnosis: ACUTE SINUSITIS[ICD9: 461.9] Diagnosis: HEADACHE[ICD9: 784.0] Liz Diaz MD, [facility] CPT-4: 95171 08/02/2013 ([id number]) 21643 EST. PATIENT, LEVEL III Diagnosis: HEADACHE[ICD9: 784.0] Diagnosis: Shoulder pain, right[ICD9: 719.41] Diagnosis: Pain in left knee[ICD9: 719.46] Diagnosis: Muscle spasms of neck[ICD9: 728.85] Liz Diaz MD, [facility] CPT-4: 62955 07/18/2013 ([id number]) 27043 EST. PATIENT, LEVEL III Diagnosis: Migraine headache[ICD9: 346.90] Diagnosis: Myalgia[ICD9: 729.1] Diagnosis: DIZZINESS AND GIDDINESS[ICD9: 780.4] Diagnosis: Fatigue[ICD9: 780.79] Diagnosis: Nausea[ICD9: 787.02] Liz Diaz MD, [facility] CPT-4: 83883 06/27/2013 ([id number]) 89530 EST. PATIENT, LEVEL IV Diagnosis: Multiple joint pain[ICD9: 719.49] Diagnosis: Myalgia[ICD9: 729.1] Diagnosis: Fatigue[ICD9: 780.79] Diagnosis: Worsening headaches[ICD9: 784.0] Karolina Diaz MD, [facility] CPT-4: 60680 06/01/2013 ([id number]) 96434 EST. PATIENT, LEVEL III Diagnosis: Nasal inflammation due to allergen[ICD9: 477.9] Diagnosis: Cough[ICD9: 786.2] Liz Diaz MD, [facility] CPT-4: 32101 05/25/2013 ([id number]) 42791 EST. PATIENT, LEVEL III Diagnosis: Migraine headache[ICD9: 346.90] Diagnosis: Nausea[ICD9: 787.02] Diagnosis: Pneumonia[ICD9: 486] Karolina Diaz MD, [facility] CPT-4: 93606 05/15/2013 ([id number]) 71071 EST. PATIENT, LEVEL III Diagnosis: ACUTE SINUSITIS[ICD9: 461.9] Diagnosis: Headache[ICD9: 784.0] Karolina Diaz MD, [facility] CPT-4: 66233 05/09/2013 ([id number]) 31417 EST. PATIENT, LEVEL III Diagnosis: BPPV (benign paroxysmal positional vertigo)[ICD9: 386.11] Diagnosis: DIZZINESS AND GIDDINESS[ICD9: 780.4] Liz Diaz MD [facility] CPT-4: 41600 03/13/2013 ([id number]) 78848 EST. PATIENT, LEVEL IV Diagnosis: BPPV (benign paroxysmal positional vertigo)[ICD9: 386.11] Diagnosis: DIZZINESS AND GIDDINESS[ICD9: 780.4] Liz Diaz MD [facility] CPT-4: 52018 02/02/2013 ([id number]) 24735 EST. PATIENT, LEVEL III Diagnosis: DIZZINESS AND GIDDINESS[ICD9: 780.4] Diagnosis: IMPACTED CERUMEN[ICD9: 380.4] Diagnosis: Dyspnea[ICD9: 786.09] Karolina Diaz MD, [facility] CPT-4: 90048 01/10/2013 ([id number]) OFFICE VISIT, NEW - LEVEL 3 Diagnosis: ALLERGIC RHINITIS[ICD9: 477.9] Diagnosis: Dizziness[ICD9: 780.4] Diagnosis: Cerumen impaction[ICD9: 380.4] Diagnosis: Vaginal yeast infection[ICD9: 112.1] Diagnosis: History of UTI[ICD9: V13.02] Karolina Diaz MD, [facility] CPT-4: 19313 12/27/2012 Plan of Care Planned Activity Notes [...] allergy spray. 03/12/2017 Appointment: Astrid Wise WPtel: [phone] [facility] (15 min) Moderate 03/12/2017 Patient Education: Patient Medication Summary Completed 03/12/2017 Appointment: Astrid Wise WPtel: [phone] [facility] (30 min) Complex 03/11/2017 Visit Plan: Sinusitis/headache [...] not improving. 01/20/2017 Appointment: Astrid Wise WPtel: [phone] [facility] (30 min) Complex 01/20/2017 Patient Education: Patient [...] monitor symptoms 11/03/2016 Appointment: Karolina Ochoa WPtel: [facility]1 [phone] (15 min) Moderate 11/03/2016 Patient Education: Patient [...] care surrogate. 09/29/2016 Appointment: Astrid Wise WPtel: [facility]8 [facility] [place] [address] - Annual Wellness Visit 09/29/2016 Patient Education: Patient Medication Summary Completed 09/29/2016 Visit Plan: Rash - resolving - continue with current current treatment. 09/15/2016 Appointment: Liz Diaz WPtel: [facility]1 [facility] (15 min) Moderate 09/15/2016 Patient Education: Patient [...] warmth, discharge. 08/31/2016 Appointment: Astrid Wise WPtel: [facility]9 [facility] (15 min) Moderate 08/31/2016 Patient Education: Patient Medication Summary Completed 08/31/2016 Visit Plan: Right radial neck fracture-managed by Dr Rodriguez -wearing sling-schedule bone density when back from [place] Nasal fracture-no treatment indicated-monitor Orthostasis-patient instructed to change positions slowly-pump legs before standing-also increase po fluids Dizziness-decrease gabapentin as directed-then decrease topamax-rx for meclizine to use as needed- follow up in 3 weeks, sooner if needed RX for cipro sent in case patient needs while traveling in [place]. 08/14/2016 Appointment: Karolina Ochoa WPtel: [address] [place] [address] (15 min) Moderate 08/14/2016 Patient Education: Patient Medication Summary Completed 08/14/2016 Visit Plan: Headache-monitor symptoms-call or go to ER for worsening headache, nausea, vomiting, confusion, etc. Patient verbalized understanding of plan. Contusion of nose-xray nasal bones Left shoulder contusion-rest, ice, anti inflammatories as directed-call if symptoms do not resolve or if any worse. 07/30/2016 Appointment: Karolina Ochoa WPtel: [address] [place] [address] (15 min) Moderate 07/30/2016 Patient Education: Patient Medication Summary Completed 07/30/2016 Visit Plan: Thrush -add nystatin Cough-recent bronchitis- allergies-add zpack to cover mycoplasma-continue erik/flonse-call if not better, sooner if needed. Patient verbalized understanding of plan. 06/16/2016 Appointment: Karolina Ochoa WPtel: [facility]9 [address] (10 min) Simple 06/16/2016 Patient Education: Patient Medication Summary Completed 06/16/2016 Visit Plan: Bronchitis - acute case of bronchitis identified. Pt has been given antibiotics, breathing treatments as appropriate, and pt has been instructed to call if symptoms are not improved, or if symptoms acutely worsen. 06/08/2016 Appointment: Karolina Ochoa WPtel: [phone] (30 min) Complex 06/08/2016 Patient Education: Patient [...] improvement. 05/11/2016 Appointment: Liz Diaz WPtel: [phone] [facility] (15 min) Moderate 05/11/2016 Patient Education: Patient [...] spray. 04/14/2016 Appointment: Karolina Ochoa WPtel: [phone] [phone] (15 min) Moderate 04/14/2016 Patient Education: Patient [...] pharmacy 11/07/2015 Appointment: Karolina Ochoa WPtel: [phone] [phone] (15 min) Moderate 11/07/2015 Patient Education: Patient Medication Summary Completed 11/07/2015 Referral: External, Ordering Provider Referral Completed 06/18/2015 Visit Plan: Skin lesion - plantar wart - needs treatment with laser therapy - referral to Dr. Souza FAX [phone] 06/17/2015 Visit Plan: Skin lesion - plantar wart - needs treatment with laser therapy - referral to Dr. Souza FAX [phone] 06/17/2015 Appointment: Liz Diaz WPtel: [facility]2 [facility] (30 min) Complex 06/17/2015 Patient Education: Patient Medication Summary Completed 06/17/2015 Care Plan: Referral Order SNOMED-CT : [id number] Ordered 06/17/2015 Visit Plan: Sinusitis - Pt [...] acutely worsen. 02/20/2015 Appointment: Liz Diaz WPtel: [facility]4 [place] [phone] (15 min) Moderate 02/20/2015 Patient Education: Patient Medication Summary Completed 02/20/2015 Visit Plan: Elizabeth Judge-Dr Diaz in to see patient- kenalog injection today in the office-blue goo provided for patient and instructed on use-call if symptoms do not resolve or if any worse. 12/10/2014 Appointment: Karolina Ochoa WPtel: [facility]5 [phone] (10 min) Simple 12/10/2014 Patient Education: Patient [...] acute concerns. 05/01/2014 Appointment: Liz Diaz WPtel: [facility] [facility] 05/01/2014 Patient Education: Patient Medication [...] Medication Summary Completed 10/31/2013 Visit Plan: Irritated and painful warts - one on right index finger and one on right medial great toe - burned off with electrocautery - Wound Instructions - Pt was instruced to keep the wound clean, wash with antibacterial soap, use triple antibiotic ointment, call if redness, pustular drainage, or any other acute conerns. 08/23/2013 Visit Plan: Irritated warts - one on right index finger and one on right medial great toe - burned off with electrocautery - Wound Instructions - Pt was instruced to keep the wound clean, wash with antibacterial soap, use triple antibiotic ointment, call if redness, pustular drainage, or any other acute conerns. 08/23/2013 Appointment: Liz Diaz WPtel: [address] [place], [place] [phone] burn warts on finger and toe Other 08/23/2013 Patient Education: Patient Medication Summary Completed 08/23/2013 Appointment: Liz Diaz WPtel: [address] [place], [place] [phone] Follow up 08/16/2013 Visit Plan: Thrush-discussed diagnosis with patient and instructed her to call if sympotms do not resolve, or if any worse. RX sent to patient's pharmamcy and instructed on use. Patient verbalized understanding of plan. 08/10/2013 Appointment: Karolina Ochoa WPtel: [address] [place], [place] [phone] Other 08/10/2013 Patient Education: Patient Medication Summary Completed 08/10/2013 Visit Plan: Sinusitis - Pt has acute infection - pain in face, maxillary region, Pt informed to use decongestant, RX given to patient, sinus rinses also recommended. Call if symptoms do not show improvement. 08/02/2013 Appointment: Liz Diaz WPtel: [facility]5 [facility] Sick 08/02/2013 Patient Education: Patient Medication Summary Completed 08/02/2013 Visit Plan: Headaches - suspect is tension headache - due to severe shoulder, upper back tension. Pt to go to physical therapy for her upper back muscle tension, shoulder pain on right and left knee pain. Injections today for shoulder arthritis and knee pain. 07/18/2013 Appointment: Liz Diaz WPtel: [facility]5 [facility] Follow up 07/18/2013 Patient Education: Patient Medication [...] next month. 06/27/2013 Appointment: Liz Diaz WPtel: [address] [place], [place] [phone] Follow up 06/27/2013 Patient Education: Patient Medication Summary Completed 06/27/2013 Appointment: Liz Diaz WPtel: [facility]5 [facility] Follow up 06/12/2013 Visit Plan: Joint uznf-[id number]-iwje to check labs and proceed as indicated-recommend [...] allergy spray. 05/25/2013 Appointment: Liz Diaz WPtel: [phone] [facility] Follow up 05/25/2013 Patient Education: Patient Medication [...] the office 05/15/2013 Appointment: Karolina Ochoa WPtel: [facility]5 [phone] Sick 05/15/2013 Patient Education: Patient Medication Summary Completed 05/15/2013 Visit Plan: Sinusitis - Pt has acute infection - pain in face, maxillary region, Pt informed to use decongestant, RX given to patient, sinus rinses also recommended. Call if symptoms do not show improvement. Heachache-toradol injection today in the office 05/09/2013 Appointment: Karolina Ochoa WPtel: [facility]5 [phone] Other 05/09/2013 Patient Education: Patient Medication Summary [...] instructions/medication interventions. 03/13/2013 Appointment: Liz Diaz WPtel: [facility]5 [facility] Follow up 03/13/2013 Patient Education: Patient Medication Summary Completed 03/13/2013 Appointment: Liz Diaz WPtel: [address] [place], [place] [phone] Follow up 02/07/2013 Visit Plan: BPPV - [...] component to her persistent dizziness. 02/02/2013 Appointment: Liz Diaz WPtel: [address] [place] [address] Follow up 02/02/2013 Patient Education: Patient Medication Summary Completed 02/02/2013 Visit Plan: Vertigo-cardiac work up negative--continue meclizine-start BPPV exercises as directed and call if symptoms do not resolve Cerumen impaction-right ear-removed with water pick today in the office Dyspnea- schedule PFTs 01/10/2013 Appointment: Karolina Ochoa WPtel: [facility]2 [phone] Follow up 01/10/2013 Patient Education: Patient Medication [...] the office. 12/27/2012 Appointment: Karolina Ochoa WPtel: [phone] New Patient 12/27/2012 Patient Education: Patient Medication Summary Completed 12/27/2012 Referral: External, Ordering Provider Referral Appointment Requested Referral: [facility] Referral Initiated Instructions Comment . Sinusitis - Pt has acute infection - pain in face, maxillary region, Pt informed to use decongestant, RX given to patient, sinus rinses also recommended. Call if symptoms do not show improvement. KENALOG START ORAL PREDNISONE . Allergies - [...] in the nasal steroid allergy spray. . Allergies - chronic - recommended pt [...] for sinus infection to the pharmacy . Acute Migraine - pt has chronic migraine headaches, but comes into clinic today complaining of intractable migraine headache symptoms. I have recommended changes to the chronic symptoms management and the pt has been given the following acute treatment in clinic today: toradol 60mg and phenergan 50mg IM Follow up with headache clinic as scheduled on 12/31/[address] Manuel not available this morning to converse with - I have left a message that I would like a call back jerry pt [facility] to have labs done as they were supposed to be drawn after her appointment on 12/01, but pt did not get instructed to have labs performed. Pt may need a pet scan. Recommend eye exam Restart nasonex 2 sprays [...] of UTI-UA negative today in the office. SCHEDULE BONE DENSITY WHEN YOU GET HOME FROM [place] INCREASE PO FLUIDS DECREASE GABAPENTIN TO 1 CAPSULE TWICE DAILY DECREASE TOPAMAX TO 1/2 TAB IN THE MORNING AND A FULL TAB AT BEDTIME PUMP YOUR LEGS BEFORE STANDING . Right radial neck fracture-managed by Dr Rodriguez-wearing sling-schedule bone density when back from [place] Nasal fracture-no treatment indicated-monitor Orthostasis-patient instructed to change positions slowly-pump legs before standing-also increase po fluids Dizziness-decrease gabapentin as directed-then decrease topamax-rx for meclizine to use as needed-follow up in 3 weeks, sooner if needed RX for cipro sent in case patient needs while traveling in [place]. Xray lumbar spine INCREASE GABAPENTIN TO 1 PILL IN THE MORNING, AFTERNOON AND THEN 2 PILLS AT BEDTIME . Low back pain-numbness in left leg-increase gabapentin-xray lumbar spine- call if symptoms do not resolve or if any worse Consider CT scan head if headache or [...] do not resolve or if any worse. RECOMMEND PROBIOTIC TWICE DAILY FOR THE NEXT [...] verbalized understanding of plan. Contipation-start prune juice . Sinusitis - Pt has acute infection [...] not improved, or if symptoms acutely worsen. If redness, warmth, or it spreads start [...] increase in pain, worsening redness, warmth, discharge. RESTART FLONASE . Sinusitis - Pt has [...] spray in the nasal steroid allergy spray. increase vitamin b12 to 2000mcg daily decrease [...] taper off medication and monitor symptoms . Poison Nu-Dr Diaz in to see patient-kenalog injection today in the office-blue goo provided for patient and instructed on use-call if symptoms do not resolve or if any worse. . Headaches - suspect is tension headache - due to severe shoulder, upper back tension. Pt to go to physical therapy for her upper back muscle tension, shoulder pain on right and left knee pain. Injections today for shoulder arthritis and knee pain. . Wound Instructions - Pt was instructed to keep the wound clean, wash with antibacterial soap, use triple antibiotic ointment, call if redness, pustular drainage, or any other acute concerns. . Thrush-discussed diagnosis with patient and instructed her to call if sympotms do not resolve, or if any worse. RX sent to patient's [employer] and instructed on use. Patient verbalized understanding of plan. increase the topiramate to 50mg at bedtime [...] to prevent diarrhea from the antibiotic. . Sinusitis - Pt has acute infection [...] completed, will then start on trimethoprim. . Sinusitis - Pt has acute infection - pain in face, maxillary region, Pt informed to use decongestant, RX given to patient, sinus rinses also recommended. Call if symptoms do not show improvement. . Irritated and painful warts - one on right index finger and one on right medial great toe - burned off with electrocautery - Wound Instructions - Pt was instruced to keep the wound clean, wash with antibacterial soap, use triple antibiotic ointment, call if redness, pustular drainage, or any other acute conerns. . Irritated warts - one on right index finger and one on right medial great toe - burned off with electrocautery - Wound Instructions - Pt was instruced to keep the wound clean, wash with antibacterial soap, use triple antibiotic ointment, call if redness, pustular drainage, or any other acute conerns. pt is to cut meclizine to 1/2 pill three times daily.. BPPV - Benign Paroxysmal Positional Vertigo - discussed diagnosis with the patient, offered the pt the appropriate additional information in hand-out. Pt instructed in home exercises to help alleviate and prevent future recurrent episodes of vertigo. Pt informed that if symptoms worsen, call the office for further instructions/medication interventions. . Pneumonia - Pt has been diagnosed [...] unrelieved. Nausea-phenergan injection today in the office . 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 Augmentin antibiotic - take with food and take with a probiotic ([employer], Gummii, or generic) Prednisone . Sinusitis - Pt [...] in the nasal steroid allergy spray. . Bronchitis - acute case of bronchitis identified. Pt has been given antibiotics, breathing treatments as appropriate, and pt has been instructed to call if symptoms are not improved, or if symptoms acutely worsen. Schedule pulmonary function testing Continue meclizine as [...] Patient verbalized understanding of plan. . Joint azol-usxkrynl-cgeb to check labs and proceed as indicated-recommend [...] therapy - referral to Dr. Souza FAX [phone] . Skin lesion - plantar wart - needs treatment with laser therapy - referral to Dr. Souza FAX [phone] . Allergies - chronic - recommended pt [...] CONTINUE ERIK/FLONASE . Thrush -add nystatin Cough-recent dmaumvjmsf-whthqegpi-pjx zpack to cover mycoplasma-continue erik /flonse-call if not better, sooner if needed. Patient verbalized understanding of plan. . Sinusitis/headache - Pt has acute infection [...] office if the symptoms are not improving. . Rash - resolving - continue with current current treatment.
--- OUTSIDE RECORDS SUMMARY | 2017-10-11 12:55 | XMS REPORT | CCD ---
Author Author Karolina Ochoa Organization [facility] Address [address] [place] [address] Phone Care Team Providers Care Washateria Attendant Name Role Phone PP Unavailable CCM Unavailable Summary Purpose Interface Exchange Insurance Providers Payer name Policy type / Coverage type Covered democrat ID Effective Begin Date Effective End Date WPS Medicare Part B [id number] 2015 Unknown [employer] [id number] 2015 Unknown Family history Uncle Diagnosis Age [...] Unknown Retired 12/27/[address]: 581316523 Never smoker 12/27/[address]: 813495848 Never drinks alcohol 12/27/2012 Has the patient ever used illegal drugs? Unknown Has never used illegal drugs 12/27/2012 Allergies, Adverse Reactions, Alerts Substance Reaction Codes Entered Date Inactivated Date Status bactrim abdominal pain RxNorm: 618485 10/22/2014 No Inactive Date Active Past Medical [...] Fill Instructions Mobic 15 mg tablet RxNorm: 680172 TAKE 1 TABLET EVERY DAY 10/201706/21/2018 Active Augmentin 500 mg-125 mg tablet RxNorm: 733838 1 Tablet(s) PO TID 03/12/2017 03/21/2017 Inactive prednisone 20 mg tablet RxNorm: 597529 2 Tablet(s) PO daily 03/16/2017 Inactive diazepam 5 mg tablet RxNorm: 787008 1 Tablet(s) PO BID 201602/04/2018 Active omeprazole 20 mg capsule,delayed release RxNorm: 358005 TAKE 1 CAPSULE EVERY DAY 01/26/2017 01/20/2018 Active topiramate 50 mg tablet RxNorm: 279822 1 Tablet(s) PO daily 09/201601/20/2018 Active citalopram 20 mg tablet RxNorm: 667814 TAKE 1 TABLET EVERY DAY 01/21/2017 10/17/2017 Active omeprazole 20 mg capsule,delayed release RxNorm: 860455 Capsule(s) TAKE 1 CAPSULE EVERY DAY 01/20/2017 01/25/2017 Inactive topiramate 50 mg tablet RxNorm: 510258 Tablet(s) PO daily 25mg QD x 1 week then if needed increase to 50mg QD 01/20/2017 01/25/2017 Inactive [SAVINGS FOR NON- COVERED DRUGS -- BIN:637779, PCN: ASPROD1, Group: XXXXX, ID# [id number], Questions : . THIS IS NOT INSURANCE.] Zithromax Z-Nitin 250 mg tablet RxNorm: 775730 1 Tablet(s) PO UD 01/20/2017 01/24/2017 Inactive Kenalog 40 mg/mL suspension for injection RxNorm: 8184101 Milliliter(s) Inj 01/20/2017 01/20/2017 Inactive Bonnie 180 mg tablet RxNorm: 611193 TAKE 1 TABLET EVERY DAY 12/05/2017 Active Forteo 20 mcg/dose (600 mcg/2.4 mL) subcutaneous pen injector RxNorm: 3815038 20 Microgram(s) SQ daily 10/11/2016 Inactive Dispense quantity sufficient triamcinolone acetonide 0.025 % topical cream RxNorm: 2729654 1 Application TOP BID 08/31/2016 No Stop Date Active doxycycline hyclate 100 mg capsule RxNorm: 9238701 1 Capsule(s) PO BID 08/31/2016 09/09/2016 Inactive meclizine 25 mg tablet RxNorm: 056753 1 Tablet(s) PO Q6 PRN No Stop Date Active Cipro 500 mg tablet RxNorm: 563489 1 Tablet(s) PO BID 201608/23/2016 Inactive amoxicillin 500 mg capsule RxNorm: 876039 1 Capsule(s) PO TID 08/08/2016 08/13/2016 Inactive citalopram 20 mg tablet RxNorm: 565489 TAKE 1 TABLET EVERY DAY 06/29/2016 01/20/2017 Inactive fluconazole 150 mg tablet RxNorm: 667818 1 Tablet(s) PO daily 06/16/2016 06/16/2016 Inactive Zithromax Z-Nitin 250 mg tablet RxNorm: 093225 1 Tablet(s) PO UD 06/16/2016 06/20/2016 Inactive nystatin 100,000 unit/mL oral suspension RxNorm: 211957 5 Milliliter(s) PO QID 06/16/2016 06/25/2016 Inactive swish and swallow fluconazole 150 mg tablet RxNorm: 392198 1 Tablet(s) PO daily 06/16/2016 06/16/2016 Inactive promethazine-DM 6.25 mg-15 mg/5 mL syrup RxNorm: 173599 5 Milliliter(s) PO Q6 PRN 06/08/2016 No Stop Date Active Levaquin 500 mg tablet RxNorm: 805101 1 Tablet(s) PO daily 06/14/2016 Inactive prednisone 20 mg tablet RxNorm: 006798 1 Tablet(s) PO BID 06/0806/12/2016 Inactive Kenalog 40 mg/mL suspension for injection RxNorm: 4849659 1 Milliliter(s) Inj 06/08/2016 06/08/2016 Inactive diazepam 5 mg tablet RxNorm: 699259 1 Tablet(s) PO BID 201605/18/2017 Active Flonase Allergy Relief 50 mcg/actuation nasal spray, suspension RxNorm: 0144822 1 [place] NASAL daily 05/11/20162016 Inactive azithromycin 250 mg tablet RxNorm: 374879 2 Tablet(s) PO on day #1, then one pill daily x 4 days 05/11/2016 05/24/2016 Inactive gabapentin 100 mg capsule RxNorm: 856190 1 Capsule PO QAM, 2 Capsules PO at NOON, and 2 Capsules PO QHS Capsule(s) PO UD 05/06/2016 04/30/2017 Active gabapentin 100 mg capsule RxNorm: 769788 1 in the am 2 at noon and 2 at hs Capsule (s) PO TID 05/01/2016 05/05/2016 Inactive [SAVINGS FOR NON-COVERED DRUGS -- BIN: 819892, PCN: ASPROD1, Group: XXXXX, ID# [id number], Questions: . THIS IS NOT INSURANCE.] Mobic 15 mg tablet RxNorm: 169096 TAKE 1 TABLET EVERY DAY 05/201603/28/2017 Inactive Kenalog 40 mg/mL suspension for injection RxNorm: 0573778 1 Milliliter(s) Inj 04/14/2016 04/14/2016 Inactive prednisone 20 mg tablet RxNorm: 976448 1 Tablet(s) PO BID 04/1404/18/2016 Inactive gabapentin 100 mg capsule RxNorm: 496806 Capsule(s) TAKE 1 CAPSULE THREE TIMES DAILY 02/28/2016 05/05/2016 Inactive gabapentin 100 mg capsule RxNorm: 409391 TAKE 1 CAPSULE THREE TIMES DAILY 02/28/2016 02/27/2016 Inactive omeprazole 20 mg capsule,delayed release RxNorm: 112157 TAKE 1 CAPSULE EVERY DAY 02/24/2016 01/19/2017 Inactive topiramate 50 mg tablet RxNorm: 827818 1 Tablet(s) PO BID 12/3012/24/2016 Inactive [SAVINGS FOR NON-COVERED DRUGS -- BIN:416498, PCN: ASPROD1, Group: XXXXX, ID # [id number], Questions: . THIS IS NOT INSURANCE.] topiramate 50 mg tablet RxNorm: 723115 1 Tablet(s) PO BID 12/3012/30/2015 Inactive [SAVINGS FOR NON-COVERED DRUGS -- BIN:828022, PCN: ASPROD1, Group: XXXXX, ID # [id number], Questions: . THIS IS NOT INSURANCE.] topiramate 50 mg tablet RxNorm: 934413 1 Tablet(s) PO BID 12/2412/30/2015 Inactive [SAVINGS FOR NON-COVERED DRUGS -- BIN:094722, PCN: ASPROD1, Group: XXXXX, ID # [id number], Questions: . THIS IS NOT INSURANCE.] Bonnie 180 mg tablet RxNorm: 849005 TAKE 1 TABLET EVERY DAY 07/201512/10/2016 Inactive Levaquin 500 mg tablet RxNorm: 202729 1 Tablet(s) PO daily 05/10/2016 Inactive Levaquin 500 mg tablet RxNorm: 481344 1 Tablet(s) PO daily 11/07/2015 Inactive gabapentin 100 mg capsule RxNorm: 651064 1 in the am 2 at noon and 2 at hs Capsule (s) PO TID 11/07/2015 11/06/2015 Inactive [SAVINGS FOR NON-COVERED DRUGS -- BIN: 260577, PCN: ASPROD1, Group: XXXXX, ID# [id number], Questions: . THIS IS NOT INSURANCE.] gabapentin 100 mg capsule RxNorm: 112716 1 in the am 2 at noon and 2 at hs Capsule (s) PO TID 11/07/2015 02/27/2016 Inactive [SAVINGS FOR NON-COVERED DRUGS -- BIN: 898285, PCN: ASPROD1, Group: XXXXX, ID# [id number], Questions: . THIS IS NOT INSURANCE.] Kenalog 40 mg/mL suspension for injection RxNorm: 5365159 1.5 Milliliter(s) Inj 11/07/2015 11/07/2015 Inactive citalopram 20 mg tablet RxNorm: 624560 Tablet(s) TAKE 1 TABLET EVERY DAY 09/18/2015 06/13/2016 Inactive diazepam 5 mg tablet RxNorm: 032165 1 Tablet(s) PO BID 201502/27/2016 Inactive [SAVINGS FOR UNINSURED PATIENTS -- BIN:528845, PCN: ASPROD1, Group: AME08, ID # [id number], Process claim through [employer], for questions: . THIS IS NOT INSURANCE.] topiramate 50 mg tablet RxNorm: 779823 1 Tablet(s) PO BID 06/2712/24/2015 Inactive [SAVINGS FOR NON-COVERED DRUGS -- BIN:582628, PCN: ASPROD1, Group: XXXXX, ID # [id number], Questions: . THIS IS NOT INSURANCE.] topiramate 50 mg tablet RxNorm: 023745 1 Tablet(s) PO BID 06/2706/27/2015 Inactive [SAVINGS FOR NON-COVERED DRUGS -- BIN:562287, PCN: ASPROD1, Group: XXXXX, ID # [id number], Questions: . THIS IS NOT INSURANCE.] omeprazole 20 mg capsule,delayed release RxNorm: 502005 TAKE 1 CAPSULE EVERY DAY 05/02/2015 02/23/2016 Inactive Mobic 15 mg tablet RxNorm: 406182 TAKE 1 TABLET EVERY DAY 01/201604/23/2016 Inactive gabapentin 100 mg capsule RxNorm: 364993 1 Capsule(s) PO TID 11/06/2015 Inactive [SAVINGS FOR NON-COVERED DRUGS -- BIN:620700, PCN: ASPROD1, Group: XXXXX , ID# [id number], Questions: . THIS IS NOT INSURANCE.] levofloxacin 500 mg tablet RxNorm: 222476 1 Tablet(s) PO daily 02/20/2015 02/26/2015 Inactive citalopram 20 mg tablet RxNorm: 688250 TAKE 1 TABLET EVERY DAY 02/19/2015 09/17/2015 Inactive gabapentin 100 mg capsule RxNorm: 600766 1 Capsule(s) PO TID 02/24/2015 Inactive [SAVINGS FOR NON-COVERED DRUGS -- BIN:399538, PCN: ASPROD1, Group: XXXXX , ID# [id number], Questions: . THIS IS NOT INSURANCE.] Kenalog 40 mg/mL suspension for injection RxNorm: 6089451 Milliliter(s) Inj 12/10/2014 12/10/2014 Inactive Levaquin 500 mg tablet RxNorm: 696198 1 Tablet(s) PO daily 04/201411/27/2014 Inactive Kenalog 40 mg/mL suspension for injection RxNorm: 0255771 Milliliter(s) Inj 11/21/2014 11/21/2014 Inactive topiramate 50 mg tablet RxNorm: 719838 1 Tablet(s) PO BID 11/2106/27/2015 Inactive [SAVINGS FOR NON-COVERED DRUGS -- BIN:506135, PCN: ASPROD1, Group: XXXXX, ID # [id number], Questions: . THIS IS NOT INSURANCE.] Bonnie 180 mg tablet RxNorm: 014640 TAKE 1 TABLET EVERY DAY 11/09/2015 Inactive Flonase Allergy Relief 50 mcg/actuation nasal spray, suspension RxNorm: 9881577 1 [place] NASAL daily 11/13/20142015 Inactive Flonase Allergy Relief 50 mcg/actuation nasal spray, suspension RxNorm: 1 [place] NASAL daily 11/13/2014 11/12/2014 Inactive Cipro 500 mg tablet RxNorm: 239456 1 Tablet(s) PO BID 201410/28/2014 Inactive Cipro 500 mg tablet RxNorm: 204235 1 Tablet(s) PO BID 201410/21/2014 Inactive omeprazole 20 mg capsule,delayed release RxNorm: 575085 1 Capsule(s) PO BID 09/25/2014 05/01/2015 Inactive [SAVINGS FOR NON-COVERED DRUGS -- BIN:631131, PCN: ASPROD1, Group: XXXXX, ID# [id number], Questions: . THIS IS NOT INSURANCE.] Carafate 1 gram tablet RxNorm: 868119 1 Tablet(s) PO QID 201410/03/2014 Inactive Take one tablet before each meal and at bedtime everyday diazepam 5 mg tablet RxNorm: 788573 1 Tablet(s) PO BID 201408/29/2015 Inactive [SAVINGS FOR UNINSURED PATIENTS -- BIN:079846, PCN: ASPROD1, Group: AME08, ID # [id number], Process claim through [employer], for questions: . THIS IS NOT INSURANCE.] Carafate 100 mg/mL oral suspension RxNorm: 955014 1 Gram(s) PO QID 09/04/2014 10/03/2014 Inactive topiramate 25 mg tablet RxNorm: 097093 1 Tablet(s) PO BID 08/0111/20/2014 Inactive [SAVINGS FOR NON-COVERED DRUGS -- BIN:301864, PCN: ASPROD1, Group: XXXXX, ID # [id number], Questions: . THIS IS NOT INSURANCE.] fluticasone 50 mcg/actuation blister powder for inhalation RxNorm: 248712 1 [place] INH BID Nasal spray- use twice daily, one spray per nostril twice daily, after 30 minutes, rinse out nose with saline spray. 06/25/2014 10/21/2014 Inactive [ SAVINGS FOR NON-COVERED DRUGS -- BIN:798550, PCN: ASPROD1, Group: XXXXX, ID# [id number], Questions: . THIS IS NOT INSURANCE.] Mobic 15 mg tablet RxNorm: 166034 TAKE 1 TABLET EVERY DAY 07/201405/01/2015 Inactive gabapentin 100 mg tablet RxNorm: 344989 1 Tablet(s) PO TID 06/201402/18/2015 Inactive [SAVINGS FOR NON-COVERED DRUGS -- BIN:354443, PCN: ASPROD1, Group: XXXXX, ID# [id number], Questions: . THIS IS NOT INSURANCE.] Mobic 15 mg tablet RxNorm: 183567 1 Tablet(s) PO daily TAKE 1 TABLET EVERY DAY 05/23/2014 05/23/2014 Inactive [SAVINGS FOR NON-COVERED DRUGS -- BIN:164526, PCN: ASPROD1, Group: XXXXX, ID# [id number], Questions: . THIS IS NOT INSURANCE.] omeprazole 20 mg capsule,delayed release RxNorm: 663396 1 Capsule(s) PO daily 05/21/2014 09/24/2014 Inactive [SAVINGS FOR NON-COVERED DRUGS -- BIN:020469, PCN: ASPROD1, Group: XXXXX, ID# [id number], Questions: . THIS IS NOT INSURANCE.] diazepam 5 mg tablet RxNorm: 308225 1 Tablet(s) PO BID 201409/03/2014 Inactive [SAVINGS FOR UNINSURED PATIENTS -- BIN:640802, PCN: ASPROD1, Group: AME08, ID # [id number], Process claim through [employer], for questions: . THIS IS NOT INSURANCE.] Pyridium 200 mg tablet RxNorm: 2123157 1 Tablet(s) PO TID 04/0304/07/2014 Inactive [SAVINGS FOR UNINSURED PATIENTS -- BIN:329557, PCN: ASPROD1, Group: AME08, ID# [id number], Process claim through [employer], for questions: . THIS IS NOT INSURANCE.] trimethoprim 100 mg tablet RxNorm: 311368 1 Tablet(s) PO QAM 10/16/2014 Inactive [SAVINGS FOR UNINSURED PATIENTS -- BIN:328332, PCN: ASPROD1, Group: AME08 , ID# [id number], Process claim through [employer], for questions: . THIS IS NOT INSURANCE.] Bactrim DS 800 mg-160 mg tablet RxNorm: 538575 1 Tablet(s) PO BID 04/03/2014 04/09/2014 Inactive [SAVINGS FOR UNINSURED PATIENTS -- BIN:281330, PCN: ASPROD1, Group : AME08, ID# [id number], Process claim through [employer], for questions: [phone]. THIS IS NOT INSURANCE.] Cipro 500 mg tablet RxNorm: 790666 1 Tablet(s) PO BID 201404/09/2014 Inactive Kenalog 40 mg/mL suspension for injection RxNorm: 2437874 Milliliter(s) Inj 03/27/2014 03/27/2014 Inactive Bactrim DS 800 mg-160 mg tablet RxNorm: 007645 1 Tablet(s) PO BID 02/08/2014 02/14/2014 Inactive citalopram 20 mg tablet RxNorm: 410878 TAKE 1 TABLET EVERY DAY 02/01/2014 01/26/2015 Inactive Bonnie 180 mg tablet RxNorm: 605578 1 Tablet(s) PO daily 201311/14/2014 Inactive ciprofloxacin 0.3 % eye drops RxNorm: 044398 2 Drop(s) OPH TID 12/29/2013 01/04/2014 Inactive promethazine 25 mg/mL injection solution RxNorm: 859703 2 Milliliter(s) Inj 12/21/2013 12/21/2013 Inactive ketorolac 60 mg/2 mL intramuscular solution RxNorm: 867028 2 Milliliter(s) IM 12/21/2013 12/21/2013 Inactive Bactrim DS 800 mg-160 mg tablet RxNorm: 739244 1 Tablet(s) PO BID 10/31/2013 11/06/2013 Inactive topiramate 25 mg tablet RxNorm: 608776 1 Tablet(s) PO BID 10/0207/31/2014 Inactive Mobic 15 mg tablet RxNorm: 987519 TAKE 1 TABLET EVERY DAY 05/22/2014 Inactive topiramate 25 mg tablet RxNorm: 009714 1 Tablet(s) PO BID 08/1510/01/2013 Inactive nystatin 100,000 unit/mL oral suspension RxNorm: 274717 6 Unit(s) PO QID 08/10/2013 09/06/2013 Inactive sulfamethoxazole 800 mg-trimethoprim 160 mg tablet RxNorm: 732562 1 Tablet(s) PO BID 08/02/2013 08/11/2013 Inactive topiramate 25 mg tablet RxNorm: 367746 1 Tablet(s) PO BID 08/0208/14/2013 Inactive Mag-Oxide 400 mg tablet RxNorm: 320958 1 Tablet(s) PO TIW 06/0206/01/2013 Inactive Mag-Oxide 400 mg tablet RxNorm: 919094 1 Tablet(s) PO TIW 06/0208/30/2013 Inactive fluticasone 50 mcg/actuation disk powder for inhalation RxNorm: 352758 1 [place] INH BID Nasal spray- use twice daily, one spray per nostril twice daily, after 30 minutes, rinse out nose with saline spray. 05/25/2013 09/21/2013 Inactive ketorolac 60 mg/2 mL intramuscular solution RxNorm: 287770 Milliliter(s) IM 05/15/2013 05/15/2013 Inactive promethazine 25 mg/mL injection solution RxNorm: 851840 Milliliter(s) Inj 05/15/2013 05/15/2013 Inactive Levaquin 500 mg tablet RxNorm: 968652 1 Tablet(s) PO daily 05/21/2013 Inactive ketorolac 60 mg/2 mL intramuscular solution RxNorm: 088902 1 Milliliter(s) IM 05/09/2013 05/09/2013 Inactive Mobic 15 mg tablet RxNorm: 196937 1 Tablet(s) PO daily 201309/03/2013 Inactive omeprazole 20 mg capsule,delayed release RxNorm: 105223 1 Capsule(s) PO daily 04/13/2013 04/07/2014 Inactive diazepam 5 mg tablet RxNorm: 151394 1 Tablet(s) PO BID 201304/07/2014 Inactive gabapentin 100 mg tablet RxNorm: 785470 1 Tablet(s) PO TID 04/07/2014 Inactive citalopram 20 mg tablet RxNorm: 620552 1 Tablet(s) PO daily 01/31/2014 Inactive Mobic 15 mg tablet RxNorm: 180856 1 Tablet(s) PO daily 201304/12/2013 Inactive citalopram 20 mg tablet RxNorm: 306848 1 Tablet(s) PO daily 09/201304/12/2013 Inactive Mobic 15 mg tablet RxNorm: 408736 1 Tablet(s) PO daily 201202/01/2013 Inactive Mobic 15 mg tablet RxNorm: 724099 1 Tablet(s) PO daily 201203/27/2013 Inactive prednisone 20 mg tablet RxNorm: 616366 1 Tablet(s) PO TID 01/2601/25/2013 Inactive prednisone 20 mg tablet RxNorm: 050209 1 Tablet(s) PO TID 01/2601/28/2013 Inactive meclizine 25 mg capsule RxNorm: 328716 1 Capsule(s) PO Q6 PRN 01/23/2013 01/22/2013 Inactive meclizine 25 mg capsule RxNorm: 664153 1 Capsule(s) PO Q6 PRN 01/23/2013 04/12/2013 Inactive prednisone 10 mg tablet RxNorm: 281016 Tablet(s) PO 6-5-4-3-2-1 taper 01/13/2013 04/12/2013 Inactive fluconazole 150 mg tablet RxNorm: 421422 1 Tablet(s) PO daily 12/27/2012 01/02/2013 Inactive Kenalog 40 mg/mL Susp for Injection RxNorm: 8823106 Milliliter(s) Inj 12/27/2012 12/27/2012 Inactive Calcium 500 + D (D3) 500 mg-125 unit tablet RxNorm: 660988 1 Tablet(s) PO daily No Start Date Active Fish Oil 1,000 mg capsule RxNorm: 1 Capsule(s) PO BID No Start Date Active multivitamin capsule RxNorm: 1 Capsule(s) PO daily No Start Date Active nabumetone 750 mg tablet RxNorm: 155558 2 Tablet(s) PO daily No Start Date Active guaifenesin 400 mg tablet RxNorm: 002664 1 Tablet(s) PO Q4H No Start Date Active hydrocodone 5 mg-acetaminophen 325 mg tablet RxNorm: 285002 1 Tablet(s) PO Q6 as needed No Start Date Active citalopram 20 mg tablet RxNorm: 229607 1 Tablet(s) PO daily No Start Date 03/27/2013 Inactive prednisone 10 mg tablet RxNorm: 745147 Tablet(s) PO 6-5-4-3-2-1 taper No Start Date 01/12/2013 Inactive anastrozole 1 mg tablet RxNorm: 101167 1 Tablet(s) PO daily No Start Date 08/10/2013 Inactive omeprazole 40 mg capsule,delayed release RxNorm: 279203 1 Capsule(s) PO daily No Start Date 04/12/2013 Inactive gabapentin 100 mg tablet RxNorm: 422192 1 Tablet(s) PO TID No Start Date 04/12/2013 Inactive Zithromax Z-Nitin 250 mg tablet RxNorm: 805190 Tablet(s) PO No Start Date 05/31/2013 Inactive Diflucan 150 mg tablet RxNorm: 021526 1 Tablet(s) PO daily No Start Date 06/16/2015 Inactive Bonnie 180 mg tablet RxNorm: 855354 1 Tablet(s) PO daily No Start Date 01/30/2014 Inactive clorazepate dipotassium 3.75 mg tablet RxNorm: 432155 1 Tablet(s) PO BID No Start Date 06/05/2013 Inactive Medication Administered Medication Codes Instructions Start Date Status Kenalog 40 mg/mL suspension for injection RxNorm: 0948023 Milliliter 01/20/2017 No longer Active Kenalog 40 mg/mL suspension for injection RxNorm: 1054664 1Milliliter 06/08/2016 No longer Active Kenalog 40 mg/mL suspension for injection RxNorm: 6702622 1Milliliter 04/14/2016 No longer Active Kenalog 40 mg/mL suspension for injection RxNorm: 5886662 1.5Milliliter 11/07/2015 No longer Active Kenalog 40 mg/mL suspension for injection RxNorm: 9577477 Milliliter 12/10/2014 No longer Active Kenalog 40 mg/mL suspension for injection RxNorm: 2321374 Milliliter 11/21/2014 No longer Active Kenalog 40 mg/mL suspension for injection RxNorm: 9174737 Milliliter 03/27/2014 No longer Active ketorolac 60 mg/2 mL intramuscular solution RxNorm: 091796 2Milliliter 12/21/2013 No longer Active promethazine 25 mg/mL injection solution RxNorm: 019388 2Milliliter 12/21/2013 No longer Active ketorolac 60 mg/2 mL intramuscular solution RxNorm: 912602 Milliliter 05/15/2013 No longer Active promethazine 25 mg/mL injection solution RxNorm: 218269 Milliliter 05/15/2013 No longer Active ketorolac 60 mg/2 mL intramuscular solution RxNorm: 649694 1Milliliter 05/09/2013 No longer Active Kenalog 40 mg/mL Susp for Injection RxNorm: 9810648 Milliliter 12/27/2012 No longer Active Immunizations Vaccine [...] 44.7 % 09/29/2016 Cbc With Differential Ord2 MCV 95.8 fl 09/29/2016 Cbc With Differential Ord2 Lymph% 42.1 % 09/29/2016 Cbc With Differential Ord2 MCH 31.8 pg 09/29/2016 Cbc With Differential Ord2 Gregory% 9.6 % 09/29/2016 Cbc With Differential Ord2 MCHC 33.2 pg 09/29/2016 Cbc With Differential Ord2 Eos% 2.7 % 09/29/2016 Cbc With Differential Ord2 PLT 253 K/ul 09/29/2016 Cbc With Differential Ord2 Baso% 0.9 % 09/29/2016 Cbc With Differential Ord2 Neut ABS# 1.50 K/ul 09/29/2016 Cbc With Differential Ord2 RDW 12.9 % 09/29/2016 Cbc With Differential Ord2 Lymph ABS# 1.41 K/ul 09/29/2016 Cbc With Differential Ord2 Gregory ABS# 0.3 K/ul 09/29/2016 Cbc With Differential Ord2 Eos ABS# 0.1 K/ul 09/29/2016 Cbc With Differential Ord2 Baso ABS# 0.0 K/ul 09/29/2016 Tsh Ord6 hTSH II 1.67 uIU/mL 09/29/2016 Comp Metabolic Yte061 NA 142 mEq/L 09/29/2016 Comp Metabolic Qpd306 K 4.6 mEq/L 09/29/2016 Comp Metabolic Sit670 CL 112 mEq/L 09/29/2016 Comp Metabolic Ums940 CO2 25.0 mEq/L 09/29/2016 Comp Metabolic Och718 ANION GAP 10 09/29/2016 Comp Metabolic Lkv186 GLUCOSE 88 mg/dL 09/29/2016 Comp Metabolic Jqc384 Creat 1.1 mg/dL 09/29/2016 Comp Metabolic Goz068 eGFR 52 ml/min/1.73m2 09/29/2016 Comp Metabolic Caa226 BUN 21 mg/dL 09/29/2016 Comp Metabolic Iil222 B/C Ratio 19.1 Ratio 09/29/2016 Comp Metabolic Zcy479 CALCIUM 8.9 mg/dL 09/29/2016 Comp Metabolic Ogu030 ALK PHOS 58 U/L 09/29/2016 Comp Metabolic Ico727 AST(SGOT) 14 U/L 09/29/2016 Comp Metabolic Uxo556 ALT(SGPT) 9 U/L 09/29/2016 Comp Metabolic Kpo992 BILI T 0.3 mg/dL 09/29/2016 Comp Metabolic Mvz789 ALBUMIN 3.6 g/dL 09/29/2016 Comp Metabolic Nmt106 TPRO 5.8 g/dL 09/29/2016 Comp Metabolic Ewt756 GLOB 2.2 g/dL 09/29/2016 Comp Metabolic Lja298 A/G Ratio 1.6 Ratio 09/29/2016 Comp Metabolic Lun872 Osmo 286 mOsmo 09/29/2016 Tsh Ord6 hTSH [...] Ord2 RDW 14.5 % 11/21/2014 Comp Metabolic Jxu299 NA 137 mEq/L 11/21/2014 Comp Metabolic Wkq287 K 3.7 mEq/L 11/21/2014 Comp Metabolic Epu733 CL 108 mEq/L 11/21/2014 Comp Metabolic Wvz034 CO2 24.0 mEq/L 11/21/2014 Comp Metabolic Nyl259 ANION GAP 9 11/21/2014 Comp Metabolic Jzs270 GLUCOSE 83 mg/dL 11/21/2014 Comp Metabolic Ilv979 Creat 1.2 mg/dL 11/21/2014 Comp Metabolic Tsp843 eGFR 46 ml/min/1.73m2 11/21/2014 Comp Metabolic Bjy731 BUN 16 mg/dL 11/21/2014 Comp Metabolic Rdf084 B/C Ratio 13.0 Ratio 11/21/2014 Comp Metabolic Afc639 CALCIUM 9.1 mg/dL 11/21/2014 Comp Metabolic Iap108 ALK PHOS 58 U/L 11/21/2014 Comp Metabolic Hez541 AST(SGOT) 17 U/L 11/21/2014 Comp Metabolic Dxe560 ALT(SGPT) 11 U/L 11/21/2014 Comp Metabolic Tcn144 BILI T 0.4 mg/dL 11/21/2014 Comp Metabolic Lvq390 ALBUMIN 3.8 g/dL 11/21/2014 Comp Metabolic Txm048 TPRO 6.2 g/dL 11/21/2014 Comp Metabolic Nta385 GLOB 2.4 g/dL 11/21/2014 Comp Metabolic Her328 A/G Ratio 1.6 Ratio 11/21/2014 Comp Metabolic Udg473 Osmo 274 mOsmo 11/21/2014 Culture Urine [id number] URINE CULTURE SEE NOTES 10/25/2014 Culture Urine [id number] Continued Results 10/25/2014 Urine Culture Ucult Complete >100,000 col/ml aerobic growth sent to ref lab 10/23/2014 JEISON SCR [id number] JEISON SCR <1:80 06/02/2013 CBC [id number] WBC 3.4 10e9/L 06/01/2013 CBC [id number] RBC 4.28 10e12/L 06/01/2013 CBC [id number] HGB 12.6 g/dL 06/01/2013 CBC [id number] HCT DET 37.9 % 06/01/2013 CBC [id number] MCV 88.6 fL 06/01/2013 CBC [id number] MCH 29.4 pg 06/01/2013 CBC 2061347 MCHC 33.2 g/dL 06/01/2013 CBC [id number] PLT 327 10e9/L 06/01/2013 CBC 9531070 MPV 9.3 fL 06/01/2013 CBC [id number] MAKAYLA % 46.4 % 06/01/2013 CBC 3461081 LY % 38.3 % 06/01/2013 CBC 2791297 MON % 9.1 % 06/01/2013 CBC 6654775 EOS % 5.3 % 06/01/2013 CBC 9781084 BASO % 0.9 % 06/01/2013 CBC 5979484 RDW 13.3 % 06/01/2013 CBC 1643298 ABS MAKAYLA 1.58 10e9/L 06/01/2013 CBC 5671937 ABS LYMPH 1.30 10e9/L 06/01/2013 CBC 7298481 ABS MONO 0.31 10e9/L 06/01/2013 CBC 8408560 ABS EOS 0.18 10e9/L 06/01/2013 CBC [id number] ABS BASO 0.03 10e9/L 06/01/2013 CBC 9612910 RDW-SD 42.4 fL 06/01/2013 VIT D TOTL 7929710 VIT D TOTL 31 NG/ML 06/01/2013 CRP [id number] CRP 0.2 MG/DL 06/01/2013 GFR CALC 3350897 GFR AA >60 ML/MIN 06/01/2013 GFR CALC 3877381 GFR NON-AA >60 ML/MIN 06/01/2013 CHEM 14 7381695 AST 19 U/L 06/01/2013 CHEM 14 0628389 ALT 11 IU/L 06/01/2013 CHEM 14 0358392 BUN 14 MG/DL 06/01/2013 CHEM 14 0326230 ALBUMIN 4.1 GM/DL 06/01/2013 CHEM 14 2347623 CHLORIDE 106 MMOL/L 06/01/2013 CHEM 14 9073574 BILI TOT 0.3 MG/DL 06/01/2013 CHEM 14 2673411 ALK PHOS 66 U/L 06/01/2013 CHEM 14 5609557 SODIUM 140 MMOL/L 06/01/2013 CHEM 14 3471265 CREATININE 0.90 MG/DL 06/01/2013 CHEM 14 1308083 CALCIUM 9.3 MG/DL 06/01/2013 CHEM 14 6971480 POTASSIUM 4.1 MMOL/L 06/01/2013 CHEM 14 9816285 PROT TOT 6.5 GM/DL 06/01/2013 CHEM 14 9996931 GLUCOSE 91 MG/DL 06/01/2013 CHEM 14 5989235 BICARB 27 MMOL/L 06/01/2013 CHEM 14 2340914 ANION GAP 7 MEQ/L 06/01/2013 TSH 6784532 TSH 1.695 uIU/ML 06/01/2013 MAGNESIUM 7132891 MAGNESIUM 1.5 MEQ/L 06/01/2013 ESR 1095219 ESR 22 MM/HR 06/01/2013 UA 67289 Specific [place] 1.030 DateTime(Free Text in ) UA 13736 PH 5 DateTime(Free Text in Aprima) UA 82998 GLUCOSE - DateTime(Free Text in Aprima) UA 97103 Protein + DateTime(Free Text in Aprima) UA 63761 Blood mod DateTime(Free Text in Aprima) UA 24943 Bilirubin - DateTime(Free Text in Aprima) UA 50687 Ketones - DateTime(Free Text in Aprima) UA 83373 Urobilinogen .2 DateTime(Free Text in Junima) UA 22540 Nitrite - DateTime(Free Text in Aprima) UA 26874 Leukocytes mod DateTime(Free Text in Junima) Review [...] Procedure Codes Date THER/PROPH/DIAG INJ SC/IM CPT-4: 55653 01/20/2017 TRIAMCINOLONE ACET INJ NOS CPT-4: J3301 01/20/2017 FLU VAC NO PRSV 4 JANELLE 3 YRS+ CPT-4: 16638 01/11/2017 PNEUMOCOCCAL VACC 23 JANELLE IM CPT-4: 74055 01/11/2017 ADMIN INFLUENZA VIRUS VAC CPT-4: G0008 01/11/2017 ADMIN P[address]OCOCCAL VACCINE SNOMED CT: [id number] CPT-4: G0009 01/11/2017 PPPS, SUBSEQ VISIT CPT -4: G0439 09/29/2016 TRIAMCINOLONE ACET INJ NOS CPT-4: J3301 06/08/2016 THER/PROPH/DIAG INJ SC/IM CPT-4: 76541 04/14/2016 TRIAMCINOLONE ACET INJ NOS CPT-4: J3301 04/14/2016 ADMIN INFLUENZA VIRUS VAC CPT-4: G0008 12/31/2015 FLU VACC 4 JANELLE 2 Y[address] PLUS IM SNOMED CT: [id number] CPT-4: 08265 12/31/2015 TRIAMCINOLONE ACET INJ NOS CPT-4: J3301 11/07/2015 PRESCRIP TRANSMIT VIA ERX SY CPT-4: G8553 02/20/2015 TRIAMCINOLONE ACET INJ NOS CPT-4: J3301 12/10/2014 TRIAMCINOLONE ACET INJ NOS CPT-4: J3301 11/21/2014 THER/PROPH/DIAG INJ SC/IM CPT-4: 32940 11/21/2014 URINALYSIS NONAUTO W/O SCOPE CPT-4: 95008 10/22/2014 URINALYSIS NONAUTO W/O SCOPE CPT-4: 91572 09/04/2014 DESTRUCT PREMALG LESION CPT-4: 48030 05/01/2014 TRIM SKIN LESION CPT-4 : 51845 05/01/2014 URINALYSIS NONAUTO W/O SCOPE CPT-4: 50612 04/03/2014 TRIAMCINOLONE ACET INJ NOS CPT-4: J3301 03/27/2014 ADMIN INFLUENZA VIRUS VAC Assigned to CPT-4: [id number] 02/08/2014 FLU VAC NO PRSV 4 JANELLE 3 YRS+ CPT-4: 90179 02/08/2014 KETOROLAC TROMETHAMINE INJ CPT-4: J1885 12/21/2013 PROMETHAZINE HCL INJECTION CPT-4: J2550 12/21/2013 URINALYSIS NONAUTO W/O SCOPE CPT-4: 31816 10/31/2013 TRIM SKIN LESIONS 2 TO 4 CPT-4: 64044 08/23/2013 Referral Order Assigned to/Nurses, Assigned to, Current Referral Status/Initiated, Medical service provider, Message Urgency/Routine SNOMED CT: [id number] CPT-4: ReferralUnknown 08/02/2013 DRAIN/INJECT JOINT/BURSA CPT-4: 84456 07/18/2013 DRAIN/INJECT JOINT/BURSA CPT-4: 71479 07/18/2013 ROUTINE VENIPUNCTURE CPT-4: 14217 06/01/2013 KETOROLAC TROMETHAMINE INJ CPT-4: J1885 05/15/2013 THER/PROPH/DIAG INJ SC/IM CPT-4: 55134 05/15/2013 PROMETHAZINE HCL INJECTION CPT-4: J2550 05/15/2013 THER/PROPH/DIAG INJ SC/IM CPT-4: 28039 05/09/2013 KETOROLAC TROMETHAMINE INJ CPT-4: J1885 05/09/2013 ADMIN INFLUENZA VIRUS VAC CPT-4: G0008 01/10/2013 FLULAVAL VACC, 3 YRS & >, IM CPT-4: Q2036 01/10/2013 TRIAMCINOLONE ACET INJ NOS CPT-4: J3301 12/27/2012 PRESCRIP TRANSMIT VIA ERX SY CPT-4: G8553 12/27/2012 Vital Signs Date Vital 03/12/2017 Blood Pressure 1: 128/68 Code : 8480-6 BMI: 25.1 Code : 66594-1 Heart Rate 1 : 96 bpm Height: 5'7" SpO2: 96% Weight: 160 lbs 01/20/2017 Blood Pressure 1: 126/70 Code : 8480-6 BMI: 25.1 Code : 88995-1 Heart Rate 1 : 92 bpm Height: 5'7" SpO2: 98% Weight: 160 lbs 11/03/2016 Blood Pressure 1: 122/70 Code : 8480-6 BMI: 25.1 Code : 21068-8 Heart Rate 1 : 99 bpm Height: 5'7" SpO2: 96% Weight: 160 lbs 09/29/2016 Heart Rate 1: 97 bpm SpO2: 97% 09/15/2016 Blood Pressure 1: 130/80 Code : 8480-6 BMI: 24.9 Code : 95825-8 Heart Rate 1 : 87 bpm Height: [...] Code : 8480-6 BMI: 24.7 Code : 50189-8 Heart Rate 1 : 79 bpm Height: 5'7" SpO2: 97% Temperature: 36.8 (C) / 98.2 (F) Weight: 158 lbs 05/11/2016 Blood Pressure 1: 128/76 Code : 8480-6 BMI: 24.9 Code : 72877-3 Heart Rate 1 : 75 bpm Height: 5'7" SpO2: 97% Temperature: 36.6 (C) / 97.8 (F) Weight: 159 lbs 04/14/2016 Blood Pressure 1: 122/72 Code : 8480-6 Height: Weight: 12/25/2015 Blood Pressure 1: 132/72 Code : 8480-6 BMI: 24.9 Code : 59126-0 Heart Rate 1 : 74 bpm Height: 5'7" SpO2: 94% Weight: 159 lbs 11/07/2015 BMI: 24.7 Code: 41014-5 Heart Rate 1: 80 bpm Height: 5'7" SpO2: 99% Weight: 158 lbs 06/17/2015 Blood Pressure 1: 124/66 Code : 8480-6 BMI: 25.2 Code : 96225-5 Heart Rate 1 : 74 bpm Height: 5'7" SpO2: 97% Weight: 161 lbs 02/20/2015 Blood Pressure 1: 108/78 Code : 8480-6 BMI: 25.4 Code : 01797-1 Heart Rate 1 : 78 bpm Height: 5'7" SpO2: 98% Weight: 162 lbs 12/10/2014 Blood Pressure 1: 110/62 Code : 8480-6 BMI: 26.0 Code : 81532-7 Heart Rate 1 : 77 bpm Height: 5'7" SpO2: 98% Weight: 166 lbs 11/21/2014 Blood Pressure 1: 102/58 Code : 8480-6 BMI: 26.2 Code : 04127-0 Heart Rate 1 : 91 bpm Height: 5'7" SpO2: 94% Weight: 167 lbs 10/23/2014 Blood Pressure 1: 136/80 Code : 8480-6 BMI: 26.0 Code : 41384-6 Heart Rate 1 : 80 bpm Height: 5'7" Weight: 166 lbs 09/04/2014 Blood Pressure 1: 112/70 Code : 8480-6 BMI: 26.0 Code : 55301-4 Heart Rate 1 : 99 bpm Height: 5'7" Respiratory Rate: 20 bpm Weight: 166 lbs 04/03/2014 Blood Pressure 1: 106/70 Code : 8480-6 BMI: 26.9 Code : 84094-4 Heart Rate 1 : 72 bpm Height: 5'7" Weight: 172 lbs 03/27/2014 Blood Pressure 1: 112/62 Code : 8480-6 BMI: 27.1 Code : 30201-9 Heart Rate 1 : 92 bpm Height: 5'7" Weight: 173 lbs 02/08/2014 Blood Pressure 1: 122/70 Code : 8480-6 BMI: 27.9 Code : 28098-4 Height: 5'7" Weight: 178 lbs 12/29/2013 Blood Pressure 1: 130/88 Code : 8480-6 BMI: 27.9 Code : 59382-7 Height: 5'7" Weight: 178 lbs 12/21/2013 Blood Pressure 1: 132/82 Code : 8480-6 Heart Rate 1: 86 bpm Height: SpO2: 98% Weight: 10/31/2013 Blood Pressure 1: 112/62 Code : 8480-6 BMI: 27.7 Code : 18882-0 Heart Rate 1 : 72 bpm Height: [...] Otalgia, right ear[ICD10: H92.01] Astrid Diaz MD, [facility] CPT -4: 82484 03/12/2017 [id number] EST. PATIENT, LEVEL IV Diagnosis: Other acute sinusitis[ICD10: J01.80] Diagnosis: Other allergic rhinitis[ICD10: J30.89] Diagnosis: Gastro-esophageal reflux disease without esophagitis[ICD10: K21.9] Astrid Diaz MD, [facility] CPT-4: 46190 01/20/2017 ([id number]) 04807 EST. PATIENT, LEVEL IV Diagnosis: Radiculopathy, lumbar region[ICD10: M54.16] Diagnosis: Headache[ICD10: R51] Diagnosis: Dizziness and giddiness[ICD10: R42] Diagnosis: Gas pain[ICD10: R14.1] Karolina Diaz MD, [facility] CPT-4: 00149 11/03/2016 ([id number]) 24246 EST. PATIENT, LEVEL III Diagnosis: Rash and other nonspecific skin eruption[ICD10: R21] Liz Diaz MD, [facility] CPT-4: 39347 09/15/2016 10367 EST. PATIENT, LEVEL III Diagnosis: Rash and other nonspecific skin eruption[ICD10: R21] Astrid Diaz MD, [facility] CPT-4: 80444 08/31/2016 ([id number]) 58154 EST. PATIENT, LEVEL IV Diagnosis: Nondisplaced fracture of neck of right radius, initial encounter for closed fracture[ICD10: S52.134A] Diagnosis: Orthostatic hypotension[ICD10: I95.1] Diagnosis: Dizziness and giddiness[ICD10: R42] Diagnosis: Fracture of nasal bones, initial encounter for closed fracture[ICD10 : S02.2XXA] Karolina Diaz MD, [facility] CPT-4: 90062 08/14/2016 ([id number]) 21618 EST. PATIENT, LEVEL III Diagnosis: Headache[ICD10: R51] Diagnosis: Contusion of nose, initial encounter[ICD10: S00.33XA] Diagnosis: Pain in left shoulder[ICD10: M25.512] Karolina Diaz MD, [facility] CPT-4: 79061 07/30/2016 ([id number]) 72737 EST. PATIENT, LEVEL III Diagnosis: Cough[ICD10: R05] Diagnosis: Candidal stomatitis[ICD10: B37.0] Karolina Diaz MD, [facility] CPT-4: 01164 06/16/2016 ([id number]) 49330 EST. PATIENT, LEVEL III Diagnosis: Cough[ICD10: R05] Diagnosis: Acute bronchitis, unspecified[ICD10: J20.9] Karolina Diaz MD, [facility] CPT-4: 16945 06/08/2016 ([id number]) 30044 EST. PATIENT, LEVEL III Diagnosis: Acute recurrent maxillary sinusitis[ICD10: J01.01] Liz Diaz MD, [facility] CPT-4: 58180 05/11/2016 ([id number]) 67942 EST. PATIENT, LEVEL III Diagnosis: Cough[ICD10: R05] Diagnosis: Allergic rhinitis due to pollen[ICD10: J30.1] Liz Diaz MD, [facility] CPT-4: 12547 04/14/2016 ([id number]) 11911 EST. PATIENT, LEVEL III Diagnosis: Mastodynia[ICD10: N64.4] Liz Diaz MD, [facility] CPT-4: 15310 12/25/2015 ([id number]) 28381 EST. PATIENT, LEVEL III Diagnosis: Allergic rhinitis due to pollen[ICD10: J30.1] Diagnosis: Migraine, unspecified, not intractable, without status migrainosus[ ICD10: G43.909] Karolina Diaz MD, [facility] CPT-4: 59555 11/07/2015 ([id number]) 18160 EST. PATIENT, LEVEL III Diagnosis: Plantar wart[ICD10: B07.0] Liz Diaz MD, [facility] CPT- 4: 14893 06/17/2015 ([id number]) 31634 EST. PATIENT, LEVEL III Diagnosis: Other acute sinusitis[ICD10: J01.80] Diagnosis: Acute bronchitis, unspecified[ICD10: J20.9] Diagnosis: Cough[ICD10: R05] Liz Diaz MD, [facility] CPT-4: 38624 02/20/2015 40705 EST. PATIENT, LEVEL II Diagnosis: Rash[ICD9: 782.1] Liz Diaz MD, [facility] CPT-4: 15885 12/10/2014 ([id number]) 46205 EST. PATIENT, LEVEL III Diagnosis: ACUTE SINUSITIS[ICD9: 461.9] Diagnosis: Migraine headache[ICD9: 346.90] Diagnosis: SPONTANEOUS ECCHYMOSES[ICD9: 782.7] Liz Diaz MD, [facility] CPT-4: 06709 11/21/2014 ([id number]) 58247 EST. PATIENT, LEVEL III Diagnosis: Low back pain[ICD9: 724.2] Diagnosis: Leg pain, left[ICD9: 729.5] Karolina Diaz MD, [facility] CPT-4: 35959 10/23/2014 ([id number]) 12901 EST. PATIENT, LEVEL III Diagnosis: Gastroesophageal reflux disease[ICD9: 530.81] Diagnosis: Anxiety[ICD9: 300.00] Dorita Diaz MD, [facility] CPT-4: 47483 09/04/2014 ([id number]) 36132 EST. PATIENT, LEVEL III Diagnosis: Urinary tract infection[ICD9: 599.0] Diagnosis: Cough[ICD9: 786.2] Diagnosis: ACUTE SINUSITIS[ICD9: 461.9] Liz Diaz MD, [facility] CPT- 4: 82065 04/03/2014 ([id number]) 09492 EST. PATIENT, LEVEL III Diagnosis: ACUTE SINUSITIS[ICD9: 461.9] Diagnosis: ALLERGIC RHINITIS[ICD9: 477.9] Karolina Diaz MD [facility] CPT-4: 71994 03/27/2014 ([id number]) 51079 EST. PATIENT, LEVEL III Diagnosis: UTI (urinary tract infection)[ICD9: 599.0] Diagnosis: Constipation[ICD9: 564.00] Liz Diaz MD [facility] CPT- 4: 16628 02/08/2014 37182 EST. PATIENT, LEVEL III Diagnosis: ALLERGIC RHINITIS[ICD9: 477.9] Karolina Diaz MD [facility] CPT-4: 01935 12/29/2013 ([id number]) 31648 EST. PATIENT, LEVEL III Diagnosis: Migraine headache[ICD9: 346.90] Diagnosis: Nausea[ICD9: 787.02] Diagnosis: Tension headache[ICD9: 307.81] Karolina Diaz MD [facility] CPT-4: 44633 12/21/2013 ([id number]) 60990 EST. PATIENT, LEVEL III Diagnosis: Urinary tract infection[ICD9: 599.0] Karolina Diaz MD [facility] CPT-4: 39782 10/31/2013 ([id number]) 65586 EST. PATIENT, LEVEL III Diagnosis: Thrush[ICD9: 112.0] Liz Diaz MD [facility] CPT-4: 30241 08/10/2013 ([id number]) 50369 EST. PATIENT, LEVEL III Diagnosis: ACUTE SINUSITIS[ICD9: 461.9] Diagnosis: HEADACHE[ICD9: 784.0] Liz Diaz MD [facility] CPT-4: 28598 08/02/2013 ([id number]) 35702 EST. PATIENT, LEVEL III Diagnosis: HEADACHE[ICD9: 784.0] Diagnosis: Shoulder pain, right[ICD9: 719.41] Diagnosis: Pain in left knee[ICD9: 719.46] Diagnosis: Muscle spasms of neck[ICD9: 728.85] Liz Diaz MD [facility] CPT-4: 48661 07/18/2013 ([id number]) 09890 EST. PATIENT, LEVEL III Diagnosis: Migraine headache[ICD9: 346.90] Diagnosis: Myalgia[ICD9: 729.1] Diagnosis: DIZZINESS AND GIDDINESS[ICD9: 780.4] Diagnosis: Fatigue[ICD9: 780.79] Diagnosis: Nausea[ICD9: 787.02] Liz Diaz MD [facility] CPT-4: 92067 06/27/2013 ([id number]) 62684 EST. PATIENT, LEVEL IV Diagnosis: Multiple joint pain[ICD9: 719.49] Diagnosis: Myalgia[ICD9: 729.1] Diagnosis: Fatigue[ICD9: 780.79] Diagnosis: Worsening headaches[ICD9: 784.0] Karolina Diaz MD, [facility] CPT-4: 45904 06/01/2013 ([id number]) 17087 EST. PATIENT, LEVEL III Diagnosis: Nasal inflammation due to allergen[ICD9: 477.9] Diagnosis: Cough[ICD9: 786.2] Liz Diaz MD, [facility] CPT-4: 06167 05/25/2013 ([id number]) 92198 EST. PATIENT, LEVEL III Diagnosis: Migraine headache[ICD9: 346.90] Diagnosis: Nausea[ICD9: 787.02] Diagnosis: Pneumonia[ICD9: 486] Karolina Diaz MD [facility] CPT-4: 68090 05/15/2013 ([id number]) 61346 EST. PATIENT, LEVEL III Diagnosis: ACUTE SINUSITIS[ICD9: 461.9] Diagnosis: Headache[ICD9: 784.0] Karolina Diaz MD, [facility] CPT-4: 03954 05/09/2013 ([id number]) 63575 EST. PATIENT, LEVEL III Diagnosis: BPPV (benign paroxysmal positional vertigo)[ICD9: 386.11] Diagnosis: DIZZINESS AND GIDDINESS[ICD9: 780.4] Liz Diaz MD [facility] CPT-4: 34574 03/13/2013 ([id number]) 62562 EST. PATIENT, LEVEL IV Diagnosis: BPPV (benign paroxysmal positional vertigo)[ICD9: 386.11] Diagnosis: DIZZINESS AND GIDDINESS[ICD9: 780.4] [facility] CPT-4: 49092 02/02/2013 ([id number]) 95198 EST. PATIENT, LEVEL III Diagnosis: DIZZINESS AND GIDDINESS[ICD9: 780.4] Diagnosis: IMPACTED CERUMEN[ICD9: 380.4] Diagnosis: Dyspnea[ICD9: 786.09] [facility] CPT-4: 42321 01/10/2013 ([id number]) OFFICE VISIT, NEW - LEVEL 3 Diagnosis: ALLERGIC RHINITIS[ICD9: 477.9] Diagnosis: Dizziness[ICD9: 780.4] Diagnosis: Cerumen impaction[ICD9: 380.4] Diagnosis: Vaginal yeast infection[ICD9: 112.1] Diagnosis: History of UTI[ICD9: V13.02] [facility] CPT-4: 61991 12/27/2012 Plan of Care Planned Activity Notes Codes Status Date Appointment: Astrid Wise WPtel: [phone] [facility] (15 min) Moderate 03/12/2017 Patient Education: Patient Medication Summary Completed 03/12/2017 Appointment: Astrid Wise WPtel: [phone] [facility] (30 min) Complex 03/11/2017 Appointment: Astrid Wise WPtel: [phone] [facility] (30 min) Complex 01/20/2017 Patient Education: Patient Medication Summary Completed 01/20/2017 Appointment: Injection 01/11/2017 Patient Education: Patient Medication Summary Completed 01/11/2017 Appointment: Karolina Ochoa WPtel: [phone] [phone] [place] (15 min) Moderate 11/03/2016 Patient Education: Patient Medication Summary Completed 11/03/2016 [phone] [place] [facility] - Annual Wellness Visit 09/29/2016 Patient Education: Patient Medication Summary Completed 09/29/2016 [facility]ment[phone] [place] (15 min) Moderate 09/15/2016 Patient Education: Patient Medication Summary Completed 09/15/2016 App[facility]ment: [phone] [facility] [place] (15 min) Moderate 08/31/2016 Patient Education: Patient Medication Summary Completed 08/31/2016 Appointment: Karolina Ochoa WPtel: [phone] [facility] [place] (15 min) Moderate 08/14/2016 Patient Education: Patient Medication Summary Completed 08/14/2016 Appointment: Karolina Ochoa WPtel: [phone] [facility] [place] (15 min) Moderate 07/30/2016 Patient Education: Patient Medication Summary Completed 07/30/2016 Appointment: Karolina Ochoa WPtel: [phone] [facility] [place] (10 min) Simple 06/16/2016 Patient Education: Patient Medication Summary Completed 06/16/2016 Appointment: Karolina Ochoa WPtel: [phone] [place] (30 min) Complex 06/08/2016 Patient Education: Patient Medication Summary Completed 06/08/2016 Appointment: [facility] [phone] [facility] [place] (15 min) Moderate 05/11/2016 Patient Education: Patient Medication Summary Completed 05/11/2016 Appointment: Karolina Ochoa WPtel: [phone] [phone] [place] (15 min) Moderate 04/14/2016 Patient Education: Patient Medication Summary Completed 04/14/2016 Appointment: Mert 12/31/2015 Patient Education: Patient Medication Summary Completed 12/31/2015 Patient Education: Patient Medication Summary Completed 12/25/2015 Appointment: Karolina Ochoa WPtel: [facility] (15 min) Moderate 11/07/2015 Patient Education: Patient Medication Summary Completed 11/07/2015 Referral: External, Ordering Provider Referral Completed 06/18/2015 App[facility]ment: [phone] ([facility] min) Complex 06/17/2015 Patient Education: Patient Medication Summary Completed 06/17/2015 Care Plan: Referral Order SNOMED-CT : [id number] Ordered 06/17/2015 Appointment: Liz Diaz WPtel: [facility] (15 min) Moderate 02/20/2015 Patient Education: Patient Medication Summary Completed 02/20/2015 Appointment: Karolina Ochoa WPtel: [facility] (10 min) Simple 12/10/2014 Patient Education: Patient Medication Summary Completed 12/10/2014 Patient Education: Patient Medication Summary Completed 11/21/2014 Patient Education: Patient Medication Summary Completed 10/23/2014 Appointment: Lab Draw 10/22/2014 Patient Education: Patient Medication Summary Completed 10/22/2014 Patient Education: Patient Medication Summary Completed 09/04/2014 Appointment: Liz Diaz WPtel: [facility] Surgical Procedure 05/01/2014 Patient Education: Patient Medication [...] Summary Completed 10/31/2013 Appointment: Liz Diaz WPtel: [address] [place], [place] [phone] burn warts on finger and toe Other 08/23/2013 Patient Education: Patient Medication Summary Completed 08/23/2013 Appointment: Liz Diaz WPtel: [address] [place], [place] [phone] Follow up 08/16/2013 Appointment: Karolina Ochoa WPtel: [facility]5 [phone] Other 08/10/2013 Patient Education: Patient Medication Summary Completed 08/10/2013 Appointment: Liz Diaz WPtel: [address] [place], [place] [phone] Sick 08/02/2013 Patient Education: Patient Medication Summary Completed 08/02/2013 Appointment: Liz Diaz WPtel: [address] [place], [place] [phone] Follow up 07/18/2013 Patient Education: Patient Medication Summary Completed 07/18/2013 Appointment: Liz Diaz WPtel: [address] [place], [place] [phone] Follow up 06/27/2013 Patient Education: Patient Medication Summary Completed 06/27/2013 Appointment: Liz Diza WPtel: [address] [place], [place] [phone] Follow up 06/12/2013 Patient Education: Patient Medication Summary Completed 06/01/2013 Appointment: Liz Diaz WPtel: [address] [place] [address] Follow up 05/25/2013 Patient Education: Patient Medication Summary Completed 05/25/2013 Appointment: Karolina Ochoa WPtel: [address] [place] [address] [place] Sick 05/15/2013 Patient Education: Patient Medication Summary Completed 05/15/2013 Appointment: Karolina Ochoa WPtel: [phone] Other 05/09/2013 Patient Education: Patient Medication Summary Completed 05/09/2013 Appointment: Liz Diaz WPtel: [address] [place] [address] Follow up 03/13/2013 Patient Education: Patient Medication Summary Completed 03/13/2013 App[facility]ment: [phone] Follow up 02/07/2013 Appointment: Liz Diaz WPtel: [facility] Follow up 02/02/2013 Patient Education: Patient Medication Summary Completed 02/02/2013 Appointment: Karolina Ochoa WPtel: [facility] Follow up 01/10/2013 Patient Education: Patient Medication Summary Completed 01/10/2013 Patient Education: .Amazing charts Paroxysmal positional vertigo Completed Appointment: Karolina Ochoa WPtel: [facility] New Patient 12/27/2012 Patient Education: Patient Medication Summary Completed 12/27/2012 Referral: External, Ordering Provider Referral Appointment Requested Referral: [facility] Referral Initiated Instructions No Instructions
--- OUTSIDE RECORDS SUMMARY | 2017-10-11 13:01 | XMS REPORT | CCD ---
Author Author Karolina Ochoa Organization [facility] Address [address] [place] [address] Phone Care Team Providers Care School Lunch Monitor Name Role Phone PP Unavailable CCM Unavailable Summary Purpose Interface Exchange Insurance Providers Payer name Policy type / Coverage type Covered green party ID Effective Begin Date Effective End Date WPS Medicare Part B [id number] 2015 Unknown [employer] [id number] 2015 Unknown Family history Uncle Diagnosis Age [...] Unknown Retired 12/27/[address]: 829448485 Never smoker 12/27/[address]: 828396285 Never drinks alcohol 12/27/2012 Has the patient ever used illegal drugs? Unknown Has never used illegal drugs 12/27/2012 Allergies, Adverse Reactions, Alerts Substance Reaction Codes Entered Date Inactivated Date Status bactrim abdominal pain RxNorm: 720885 10/22/2014 No Inactive Date Active Past Medical [...] Instructions Augmentin 875 mg-125 mg tablet RxNorm: 763976 1 Tablet(s) PO BID 04/20/2017 04/29/2017 Active Augmentin 875 mg-125 mg tablet RxNorm: 135162 1 Tablet(s) PO BID 04/20/2017 04/19/2017 Inactive Mobic 15 mg tablet RxNorm: 132336 TAKE 1 TABLET EVERY DAY 10/201706/21/2018 Active Augmentin 500 mg-125 mg tablet RxNorm: 783391 1 Tablet(s) PO TID 03/12/2017 03/21/2017 Inactive prednisone 20 mg tablet RxNorm: 349691 2 Tablet(s) PO daily 03/16/2017 Inactive diazepam 5 mg tablet RxNorm: 697644 1 Tablet(s) PO BID 201602/04/2018 Active omeprazole 20 mg capsule,delayed release RxNorm: 315908 TAKE 1 CAPSULE EVERY DAY 01/26/2017 01/20/2018 Active topiramate 50 mg tablet RxNorm: 382963 1 Tablet(s) PO daily 09/201601/20/2018 Active citalopram 20 mg tablet RxNorm: 934664 TAKE 1 TABLET EVERY DAY 01/21/2017 10/17/2017 Active omeprazole 20 mg capsule,delayed release RxNorm: 568625 Capsule(s) TAKE 1 CAPSULE EVERY DAY 01/20/2017 01/25/2017 Inactive topiramate 50 mg tablet RxNorm: 380760 Tablet(s) PO daily 25mg QD x 1 week then if needed increase to 50mg QD 01/20/2017 01/25/2017 Inactive [SAVINGS FOR NON- COVERED DRUGS -- BIN:[id number], PCN: ASPROD1, Group: XXXXX, ID# [id number], Questions : . THIS IS NOT INSURANCE.] Zithromax Z-Nitin 250 mg tablet RxNorm: 400705 1 Tablet(s) PO UD 01/20/2017 01/24/2017 Inactive Kenalog 40 mg/mL suspension for injection RxNorm: 1408051 Milliliter(s) Inj 01/20/2017 01/20/2017 Inactive Bonnie 180 mg tablet RxNorm: 331182 TAKE 1 TABLET EVERY DAY 12/05/2017 Active Forteo 20 mcg/dose (600 mcg/2.4 mL) subcutaneous pen injector RxNorm: 7668548 20 Microgram(s) SQ daily 10/11/2016 Inactive Dispense quantity sufficient triamcinolone acetonide 0.025 % topical cream RxNorm: 8673159 1 Application TOP BID 08/31/2016 No Stop Date Active doxycycline hyclate 100 mg capsule RxNorm: 6761552 1 Capsule(s) PO BID 08/31/2016 09/09/2016 Inactive meclizine 25 mg tablet RxNorm: 697618 1 Tablet(s) PO Q6 PRN No Stop Date Active Cipro 500 mg tablet RxNorm: 339115 1 Tablet(s) PO BID 201608/23/2016 Inactive amoxicillin 500 mg capsule RxNorm: 150608 1 Capsule(s) PO TID 08/08/2016 08/13/2016 Inactive citalopram 20 mg tablet RxNorm: 372436 TAKE 1 TABLET EVERY DAY 06/29/2016 01/20/2017 Inactive fluconazole 150 mg tablet RxNorm: 313680 1 Tablet(s) PO daily 06/16/2016 06/16/2016 Inactive Zithromax Z-Nitin 250 mg tablet RxNorm: 198131 1 Tablet(s) PO UD 06/16/2016 06/20/2016 Inactive nystatin 100,000 unit/mL oral suspension RxNorm: 656720 5 Milliliter(s) PO QID 06/16/2016 06/25/2016 Inactive swish and swallow fluconazole 150 mg tablet RxNorm: 909731 1 Tablet(s) PO daily 06/16/2016 06/16/2016 Inactive promethazine-DM 6.25 mg-15 mg/5 mL syrup RxNorm: 455393 5 Milliliter(s) PO Q6 PRN 06/08/2016 No Stop Date Active Levaquin 500 mg tablet RxNorm: 414646 1 Tablet(s) PO daily 06/14/2016 Inactive prednisone 20 mg tablet RxNorm: 074910 1 Tablet(s) PO BID 06/0806/12/2016 Inactive Kenalog 40 mg/mL suspension for injection RxNorm: 9015303 1 Milliliter(s) Inj 06/08/2016 06/08/2016 Inactive diazepam 5 mg tablet RxNorm: 883732 1 Tablet(s) PO BID 201605/18/2017 Active Flonase Allergy Relief 50 mcg/actuation nasal spray, suspension RxNorm: 3664246 1 [place] NASAL daily 05/11/20162016 Inactive azithromycin 250 mg tablet RxNorm: 690010 2 Tablet(s) PO on day #1, then one pill daily x 4 days 05/11/2016 05/24/2016 Inactive gabapentin 100 mg capsule RxNorm: 274841 1 Capsule PO QAM, 2 Capsules PO at NOON, and 2 Capsules PO QHS Capsule(s) PO UD 05/06/2016 04/30/2017 Active gabapentin 100 mg capsule RxNorm: 326114 1 in the am 2 at noon and 2 at hs Capsule (s) PO TID 05/01/2016 05/05/2016 Inactive [SAVINGS FOR NON-COVERED DRUGS -- BIN: [id number], PCN: ASPROD1, Group: XXXXX, ID# [id number], Questions: . THIS IS NOT INSURANCE.] Mobic 15 mg tablet RxNorm: 246683 TAKE 1 TABLET EVERY DAY 05/201603/28/2017 Inactive Kenalog 40 mg/mL suspension for injection RxNorm: 5948977 1 Milliliter(s) Inj 04/14/2016 04/14/2016 Inactive prednisone 20 mg tablet RxNorm: 716028 1 Tablet(s) PO BID 04/1404/18/2016 Inactive gabapentin 100 mg capsule RxNorm: 573737 Capsule(s) TAKE 1 CAPSULE THREE TIMES DAILY 02/28/2016 05/05/2016 Inactive gabapentin 100 mg capsule RxNorm: 013359 TAKE 1 CAPSULE THREE TIMES DAILY 02/28/2016 02/27/2016 Inactive omeprazole 20 mg capsule,delayed release RxNorm: 485621 TAKE 1 CAPSULE EVERY DAY 02/24/2016 01/19/2017 Inactive topiramate 50 mg tablet RxNorm: 869794 1 Tablet(s) PO BID 12/3012/24/2016 Inactive [SAVINGS FOR NON-COVERED DRUGS -- BIN:360931, PCN: ASPROD1, Group: XXXXX, ID # [id number], Questions: . THIS IS NOT INSURANCE.] topiramate 50 mg tablet RxNorm: 977604 1 Tablet(s) PO BID 12/3012/30/2015 Inactive [SAVINGS FOR NON-COVERED DRUGS -- BIN:379273, PCN: ASPROD1, Group: XXXXX, ID # [id number], Questions: . THIS IS NOT INSURANCE.] topiramate 50 mg tablet RxNorm: 014322 1 Tablet(s) PO BID 12/2412/30/2015 Inactive [SAVINGS FOR NON-COVERED DRUGS -- BIN:777433, PCN: ASPROD1, Group: XXXXX, ID # [id number], Questions: . THIS IS NOT INSURANCE.] Bonnie 180 mg tablet RxNorm: 490878 TAKE 1 TABLET EVERY DAY 07/201512/10/2016 Inactive Levaquin 500 mg tablet RxNorm: 202622 1 Tablet(s) PO daily 05/10/2016 Inactive Levaquin 500 mg tablet RxNorm: 855564 1 Tablet(s) PO daily 11/07/2015 Inactive gabapentin 100 mg capsule RxNorm: 646676 1 in the am 2 at noon and 2 at hs Capsule (s) PO TID 11/07/2015 11/06/2015 Inactive [SAVINGS FOR NON-COVERED DRUGS -- BIN: 960023, PCN: ASPROD1, Group: XXXXX, ID# [id number], Questions: . THIS IS NOT INSURANCE.] gabapentin 100 mg capsule RxNorm: 453936 1 in the am 2 at noon and 2 at hs Capsule (s) PO TID 11/07/2015 02/27/2016 Inactive [SAVINGS FOR NON-COVERED DRUGS -- BIN: 217263, PCN: ASPROD1, Group: XXXXX, ID# [id number], Questions: . THIS IS NOT INSURANCE.] Kenalog 40 mg/mL suspension for injection RxNorm: 9566856 1.5 Milliliter(s) Inj 11/07/2015 11/07/2015 Inactive citalopram 20 mg tablet RxNorm: 604421 Tablet(s) TAKE 1 TABLET EVERY DAY 09/18/2015 06/13/2016 Inactive diazepam 5 mg tablet RxNorm: 323282 1 Tablet(s) PO BID 201502/27/2016 Inactive [SAVINGS FOR UNINSURED PATIENTS -- BIN:054264, PCN: ASPROD1, Group: AME08, ID # [id number], Process claim through [employer], for questions: . THIS IS NOT INSURANCE.] topiramate 50 mg tablet RxNorm: 357336 1 Tablet(s) PO BID 06/2712/24/2015 Inactive [SAVINGS FOR NON-COVERED DRUGS -- BIN:167081, PCN: ASPROD1, Group: XXXXX, ID # [id number], Questions: . THIS IS NOT INSURANCE.] topiramate 50 mg tablet RxNorm: 326317 1 Tablet(s) PO BID 06/2706/27/2015 Inactive [SAVINGS FOR NON-COVERED DRUGS -- BIN:250059, PCN: ASPROD1, Group: XXXXX, ID # [id number], Questions: . THIS IS NOT INSURANCE.] omeprazole 20 mg capsule,delayed release RxNorm: 581279 TAKE 1 CAPSULE EVERY DAY 05/02/2015 02/23/2016 Inactive Mobic 15 mg tablet RxNorm: 722883 TAKE 1 TABLET EVERY DAY 01/201604/23/2016 Inactive gabapentin 100 mg capsule RxNorm: 386630 1 Capsule(s) PO TID 11/06/2015 Inactive [SAVINGS FOR NON-COVERED DRUGS -- BIN:105897, PCN: ASPROD1, Group: XXXXX , ID# [id number], Questions: . THIS IS NOT INSURANCE.] levofloxacin 500 mg tablet RxNorm: 221172 1 Tablet(s) PO daily 02/20/2015 02/26/2015 Inactive citalopram 20 mg tablet RxNorm: 742368 TAKE 1 TABLET EVERY DAY 02/19/2015 09/17/2015 Inactive gabapentin 100 mg capsule RxNorm: 634149 1 Capsule(s) PO TID 02/24/2015 Inactive [SAVINGS FOR NON-COVERED DRUGS -- BIN:407186, PCN: ASPROD1, Group: XXXXX , ID# [id number], Questions: . THIS IS NOT INSURANCE.] Kenalog 40 mg/mL suspension for injection RxNorm: 2486499 Milliliter(s) Inj 12/10/2014 12/10/2014 Inactive Levaquin 500 mg tablet RxNorm: 364423 1 Tablet(s) PO daily 04/201411/27/2014 Inactive Kenalog 40 mg/mL suspension for injection RxNorm: 1225288 Milliliter(s) Inj 11/21/2014 11/21/2014 Inactive topiramate 50 mg tablet RxNorm: 875302 1 Tablet(s) PO BID 11/2106/27/2015 Inactive [SAVINGS FOR NON-COVERED DRUGS -- BIN:650421, PCN: ASPROD1, Group: XXXXX, ID # [id number], Questions: . THIS IS NOT INSURANCE.] Bonnie 180 mg tablet RxNorm: 358096 TAKE 1 TABLET EVERY DAY 11/09/2015 Inactive Flonase Allergy Relief 50 mcg/actuation nasal spray, suspension RxNorm: 1544863 1 [place] NASAL daily 11/13/20142015 Inactive Flonase Allergy Relief 50 mcg/actuation nasal spray, suspension RxNorm: 1 [place] NASAL daily 11/13/2014 11/12/2014 Inactive Cipro 500 mg tablet RxNorm: 972276 1 Tablet(s) PO BID 201410/28/2014 Inactive Cipro 500 mg tablet RxNorm: 406755 1 Tablet(s) PO BID 201410/21/2014 Inactive omeprazole 20 mg capsule,delayed release RxNorm: 152578 1 Capsule(s) PO BID 09/25/2014 05/01/2015 Inactive [SAVINGS FOR NON-COVERED DRUGS -- BIN:807573, PCN: ASPROD1, Group: XXXXX, ID# [id number], Questions: . THIS IS NOT INSURANCE.] Carafate 1 gram tablet RxNorm: 930196 1 Tablet(s) PO QID 201410/03/2014 Inactive Take one tablet before each meal and at bedtime everyday diazepam 5 mg tablet RxNorm: 130519 1 Tablet(s) PO BID 201408/29/2015 Inactive [SAVINGS FOR UNINSURED PATIENTS -- BIN:060970, PCN: ASPROD1, Group: AME08, ID # [id number], Process claim through [employer], for questions: . THIS IS NOT INSURANCE.] Carafate 100 mg/mL oral suspension RxNorm: 756356 1 Gram(s) PO QID 09/04/2014 10/03/2014 Inactive topiramate 25 mg tablet RxNorm: 229475 1 Tablet(s) PO BID 08/0111/20/2014 Inactive [SAVINGS FOR NON-COVERED DRUGS -- BIN:268087, PCN: ASPROD1, Group: XXXXX, ID # [id number], Questions: . THIS IS NOT INSURANCE.] fluticasone 50 mcg/actuation blister powder for inhalation RxNorm: 327541 1 [place] INH BID Nasal spray- use twice daily, one spray per nostril twice daily, after 30 minutes, rinse out nose with saline spray. 06/25/2014 10/21/2014 Inactive [ SAVINGS FOR NON-COVERED DRUGS -- BIN:965813, PCN: ASPROD1, Group: XXXXX, ID# [id number], Questions: . THIS IS NOT INSURANCE.] Mobic 15 mg tablet RxNorm: 784815 TAKE 1 TABLET EVERY DAY 07/201405/01/2015 Inactive gabapentin 100 mg tablet RxNorm: 138029 1 Tablet(s) PO TID 06/201402/18/2015 Inactive [SAVINGS FOR NON-COVERED DRUGS -- BIN:597458, PCN: ASPROD1, Group: XXXXX, ID# [id number], Questions: . THIS IS NOT INSURANCE.] Mobic 15 mg tablet RxNorm: 654697 1 Tablet(s) PO daily TAKE 1 TABLET EVERY DAY 05/23/2014 05/23/2014 Inactive [SAVINGS FOR NON-COVERED DRUGS -- BIN:373994, PCN: ASPROD1, Group: XXXXX, ID# [id number], Questions: . THIS IS NOT INSURANCE.] omeprazole 20 mg capsule,delayed release RxNorm: 547183 1 Capsule(s) PO daily 05/21/2014 09/24/2014 Inactive [SAVINGS FOR NON-COVERED DRUGS -- BIN:573399, PCN: ASPROD1, Group: XXXXX, ID# [id number], Questions: . THIS IS NOT INSURANCE.] diazepam 5 mg tablet RxNorm: 725702 1 Tablet(s) PO BID 201409/03/2014 Inactive [SAVINGS FOR UNINSURED PATIENTS -- BIN:330701, PCN: ASPROD1, Group: AME08, ID # [id number], Process claim through [employer], for questions: . THIS IS NOT INSURANCE.] Pyridium 200 mg tablet RxNorm: 6279101 1 Tablet(s) PO TID 04/0304/07/2014 Inactive [SAVINGS FOR UNINSURED PATIENTS -- BIN:165310, PCN: ASPROD1, Group: AME08, ID# [id number], Process claim through [employer], for questions: . THIS IS NOT INSURANCE.] trimethoprim 100 mg tablet RxNorm: 002053 1 Tablet(s) PO QAM 10/16/2014 Inactive [SAVINGS FOR UNINSURED PATIENTS -- BIN:133545, PCN: ASPROD1, Group: AME08 , ID# [id number], Process claim through [employer], for questions: . THIS IS NOT INSURANCE.] Bactrim DS 800 mg-160 mg tablet RxNorm: 458044 1 Tablet(s) PO BID 04/03/2014 04/09/2014 Inactive [SAVINGS FOR UNINSURED PATIENTS -- BIN:438302, PCN: ASPROD1, Group : AME08, ID# [id number], Process claim through [employer], for questions: [phone]. THIS IS NOT INSURANCE.] Cipro 500 mg tablet RxNorm: 745761 1 Tablet(s) PO BID 201404/09/2014 Inactive Kenalog 40 mg/mL suspension for injection RxNorm: 3192234 Milliliter(s) Inj 03/27/2014 03/27/2014 Inactive Bactrim DS 800 mg-160 mg tablet RxNorm: 077333 1 Tablet(s) PO BID 02/08/2014 02/14/2014 Inactive citalopram 20 mg tablet RxNorm: 058135 TAKE 1 TABLET EVERY DAY 02/01/2014 01/26/2015 Inactive Bonnie 180 mg tablet RxNorm: 087516 1 Tablet(s) PO daily 201311/14/2014 Inactive ciprofloxacin 0.3 % eye drops RxNorm: 196214 2 Drop(s) OPH TID 12/29/2013 01/04/2014 Inactive promethazine 25 mg/mL injection solution RxNorm: 519616 2 Milliliter(s) Inj 12/21/2013 12/21/2013 Inactive ketorolac 60 mg/2 mL intramuscular solution RxNorm: 056198 2 Milliliter(s) IM 12/21/2013 12/21/2013 Inactive Bactrim DS 800 mg-160 mg tablet RxNorm: 072312 1 Tablet(s) PO BID 10/31/2013 11/06/2013 Inactive topiramate 25 mg tablet RxNorm: 841343 1 Tablet(s) PO BID 10/0207/31/2014 Inactive Mobic 15 mg tablet RxNorm: 696855 TAKE 1 TABLET EVERY DAY 05/22/2014 Inactive topiramate 25 mg tablet RxNorm: 949121 1 Tablet(s) PO BID 08/1510/01/2013 Inactive nystatin 100,000 unit/mL oral suspension RxNorm: 285172 6 Unit(s) PO QID 08/10/2013 09/06/2013 Inactive sulfamethoxazole 800 mg-trimethoprim 160 mg tablet RxNorm: 984266 1 Tablet(s) PO BID 08/02/2013 08/11/2013 Inactive topiramate 25 mg tablet RxNorm: 148366 1 Tablet(s) PO BID 08/0208/14/2013 Inactive Mag-Oxide 400 mg tablet RxNorm: 883736 1 Tablet(s) PO TIW 06/0206/01/2013 Inactive Mag-Oxide 400 mg tablet RxNorm: 963741 1 Tablet(s) PO TIW 06/0208/30/2013 Inactive fluticasone 50 mcg/actuation disk powder for inhalation RxNorm: 076769 1 [place] INH BID Nasal spray- use twice daily, one spray per nostril twice daily, after 30 minutes, rinse out nose with saline spray. 05/25/2013 09/21/2013 Inactive ketorolac 60 mg/2 mL intramuscular solution RxNorm: 188879 Milliliter(s) IM 05/15/2013 05/15/2013 Inactive promethazine 25 mg/mL injection solution RxNorm: 455138 Milliliter(s) Inj 05/15/2013 05/15/2013 Inactive Levaquin 500 mg tablet RxNorm: 044962 1 Tablet(s) PO daily 05/21/2013 Inactive ketorolac 60 mg/2 mL intramuscular solution RxNorm: 264859 1 Milliliter(s) IM 05/09/2013 05/09/2013 Inactive Mobic 15 mg tablet RxNorm: 654298 1 Tablet(s) PO daily 201309/03/2013 Inactive omeprazole 20 mg capsule,delayed release RxNorm: 852625 1 Capsule(s) PO daily 04/13/2013 04/07/2014 Inactive diazepam 5 mg tablet RxNorm: 255314 1 Tablet(s) PO BID 201304/07/2014 Inactive gabapentin 100 mg tablet RxNorm: 434611 1 Tablet(s) PO TID 04/07/2014 Inactive citalopram 20 mg tablet RxNorm: 389455 1 Tablet(s) PO daily 01/31/2014 Inactive Mobic 15 mg tablet RxNorm: 698855 1 Tablet(s) PO daily 201304/12/2013 Inactive citalopram 20 mg tablet RxNorm: 775510 1 Tablet(s) PO daily 09/201304/12/2013 Inactive Mobic 15 mg tablet RxNorm: 219006 1 Tablet(s) PO daily 201202/01/2013 Inactive Mobic 15 mg tablet RxNorm: 515919 1 Tablet(s) PO daily 201203/27/2013 Inactive prednisone 20 mg tablet RxNorm: 806219 1 Tablet(s) PO TID 01/2601/25/2013 Inactive prednisone 20 mg tablet RxNorm: 811300 1 Tablet(s) PO TID 01/2601/28/2013 Inactive meclizine 25 mg capsule RxNorm: 485380 1 Capsule(s) PO Q6 PRN 01/23/2013 01/22/2013 Inactive meclizine 25 mg capsule RxNorm: 028220 1 Capsule(s) PO Q6 PRN 01/23/2013 04/12/2013 Inactive prednisone 10 mg tablet RxNorm: 196816 Tablet(s) PO 6-5-4-3-2-1 taper 01/13/2013 04/12/2013 Inactive fluconazole 150 mg tablet RxNorm: 179698 1 Tablet(s) PO daily 12/27/2012 01/02/2013 Inactive Kenalog 40 mg/mL Susp for Injection RxNorm: 7447161 Milliliter(s) Inj 12/27/2012 12/27/2012 Inactive Calcium 500 + D (D3) 500 mg-125 unit tablet RxNorm: 824766 1 Tablet(s) PO daily No Start Date Active Fish Oil 1,000 mg capsule RxNorm: 1 Capsule(s) PO BID No Start Date Active multivitamin capsule RxNorm: 1 Capsule(s) PO daily No Start Date Active nabumetone 750 mg tablet RxNorm: 445010 2 Tablet(s) PO daily No Start Date Active guaifenesin 400 mg tablet RxNorm: 994944 1 Tablet(s) PO Q4H No Start Date Active hydrocodone 5 mg-acetaminophen 325 mg tablet RxNorm: 394046 1 Tablet(s) PO Q6 as needed No Start Date Active citalopram 20 mg tablet RxNorm: 812733 1 Tablet(s) PO daily No Start Date 03/27/2013 Inactive prednisone 10 mg tablet RxNorm: 726918 Tablet(s) PO 6-5-4-3-2-1 taper No Start Date 01/12/2013 Inactive anastrozole 1 mg tablet RxNorm: 933666 1 Tablet(s) PO daily No Start Date 08/10/2013 Inactive omeprazole 40 mg capsule,delayed release RxNorm: 508845 1 Capsule(s) PO daily No Start Date 04/12/2013 Inactive gabapentin 100 mg tablet RxNorm: 133257 1 Tablet(s) PO TID No Start Date 04/12/2013 Inactive Zithromax Z-Nitin 250 mg tablet RxNorm: 961148 Tablet(s) PO No Start Date 05/31/2013 Inactive Diflucan 150 mg tablet RxNorm: 834656 1 Tablet(s) PO daily No Start Date 06/16/2015 Inactive Bonnie 180 mg tablet RxNorm: 318617 1 Tablet(s) PO daily No Start Date 01/30/2014 Inactive clorazepate dipotassium 3.75 mg tablet RxNorm: 339262 1 Tablet(s) PO BID No Start Date 06/05/2013 Inactive Medication Administered Medication Codes Instructions Start Date Status Kenalog 40 mg/mL suspension for injection RxNorm: 1504947 Milliliter 01/20/2017 No longer Active Kenalog 40 mg/mL suspension for injection RxNorm: 2389644 1Milliliter 06/08/2016 No longer Active Kenalog 40 mg/mL suspension for injection RxNorm: 3359658 1Milliliter 04/14/2016 No longer Active Kenalog 40 mg/mL suspension for injection RxNorm: 1372553 1.5Milliliter 11/07/2015 No longer Active Kenalog 40 mg/mL suspension for injection RxNorm: 1858383 Milliliter 12/10/2014 No longer Active Kenalog 40 mg/mL suspension for injection RxNorm: 3039166 Milliliter 11/21/2014 No longer Active Kenalog 40 mg/mL suspension for injection RxNorm: 5251856 Milliliter 03/27/2014 No longer Active ketorolac 60 mg/2 mL intramuscular solution RxNorm: 965486 2Milliliter 12/21/2013 No longer Active promethazine 25 mg/mL injection solution RxNorm: 033364 2Milliliter 12/21/2013 No longer Active ketorolac 60 mg/2 mL intramuscular solution RxNorm: 222391 Milliliter 05/15/2013 No longer Active promethazine 25 mg/mL injection solution RxNorm: 278097 Milliliter 05/15/2013 No longer Active ketorolac 60 mg/2 mL intramuscular solution RxNorm: 560909 1Milliliter 05/09/2013 No longer Active Kenalog 40 mg/mL Susp for Injection RxNorm: 6631520 Milliliter 12/27/2012 No longer Active Immunizations Vaccine [...] 31.8 pg 09/29/2016 Cbc With Differential Ord2 [place]% 9.6 % 09/29/2016 Cbc With Differential Ord2 [...] 1.41 K/ul 09/29/2016 Cbc With Differential Ord2 [place] ABS# 0.3 K/ul 09/29/2016 Cbc With Differential Ord2 Eos ABS# 0.1 K/ul 09/29/2016 Cbc With Differential Ord2 Baso ABS# 0.0 K/ul 09/29/2016 Tsh Ord6 hTSH II 1.67 uIU/mL 09/29/2016 Comp Metabolic Ulc262 NA 142 mEq/L 09/29/2016 Comp Metabolic Mdz944 K 4.6 mEq/L 09/29/2016 Comp Metabolic Szw129 CL 112 mEq/L 09/29/2016 Comp Metabolic Wei000 CO2 25.0 mEq/L 09/29/2016 Comp Metabolic Gly546 ANION GAP 10 09/29/2016 Comp Metabolic Raf125 GLUCOSE 88 mg/dL 09/29/2016 Comp Metabolic Gdk931 Creat 1.1 mg/dL 09/29/2016 Comp Metabolic Zna248 eGFR 52 ml/min/1.73m2 09/29/2016 Comp Metabolic Wox053 BUN 21 mg/dL 09/29/2016 Comp Metabolic Dwg160 B/C Ratio 19.1 Ratio 09/29/2016 Comp Metabolic Jfn346 CALCIUM 8.9 mg/dL 09/29/2016 Comp Metabolic Kfy217 ALK PHOS 58 U/L 09/29/2016 Comp Metabolic Vfm335 AST(SGOT) 14 U/L 09/29/2016 Comp Metabolic Mrv145 ALT(SGPT) 9 U/L 09/29/2016 Comp Metabolic Sqe290 BILI T 0.3 mg/dL 09/29/2016 Comp Metabolic Nrz514 ALBUMIN 3.6 g/dL 09/29/2016 Comp Metabolic Prj011 TPRO 5.8 g/dL 09/29/2016 Comp Metabolic Uxo545 GLOB 2.2 g/dL 09/29/2016 Comp Metabolic Had366 A/G Ratio 1.6 Ratio 09/29/2016 Comp Metabolic Rey707 Osmo 286 mOsmo 09/29/2016 Tsh Ord6 hTSH [...] Ord2 RDW 14.5 % 11/21/2014 Comp Metabolic Eyy481 NA 137 mEq/L 11/21/2014 Comp Metabolic Bnr521 K 3.7 mEq/L 11/21/2014 Comp Metabolic Egn270 CL 108 mEq/L 11/21/2014 Comp Metabolic Llc398 CO2 24.0 mEq/L 11/21/2014 Comp Metabolic Gtr172 ANION GAP 9 11/21/2014 Comp Metabolic Juc195 GLUCOSE 83 mg/dL 11/21/2014 Comp Metabolic Xcz750 Creat 1.2 mg/dL 11/21/2014 Comp Metabolic Gkw812 eGFR 46 ml/min/1.73m2 11/21/2014 Comp Metabolic Uzw820 BUN 16 mg/dL 11/21/2014 Comp Metabolic Dlu392 B/C Ratio 13.0 Ratio 11/21/2014 Comp Metabolic Rti592 CALCIUM 9.1 mg/dL 11/21/2014 Comp Metabolic Jia836 ALK PHOS 58 U/L 11/21/2014 Comp Metabolic Qlg992 AST(SGOT) 17 U/L 11/21/2014 Comp Metabolic Emp536 ALT(SGPT) 11 U/L 11/21/2014 Comp Metabolic Pgu341 BILI T 0.4 mg/dL 11/21/2014 Comp Metabolic Tju924 ALBUMIN 3.8 g/dL 11/21/2014 Comp Metabolic Yab326 TPRO 6.2 g/dL 11/21/2014 Comp Metabolic Jbu204 GLOB 2.4 g/dL 11/21/2014 Comp Metabolic Ttw379 A/G Ratio 1.6 Ratio 11/21/2014 Comp Metabolic Nmg103 Osmo 274 mOsmo 11/21/2014 Culture Urine [id number] URINE CULTURE SEE NOTES 10/25/2014 Culture Urine [id number] Continued Results 10/25/2014 Urine Culture Ucult Complete >100,000 col/ml aerobic growth sent to ref lab 10/23/2014 JEISON SCR [id number] JEISON SCR <1:80 06/02/2013 CBC [id number] WBC 3.4 10e9/L 06/01/2013 CBC [id number] RBC 4.28 10e12/L 06/01/2013 CBC [id number] HGB 12.6 g/dL 06/01/2013 CBC 8647005 HCT DET 37.9 % 06/01/2013 CBC 8079083 MCV 88.6 fL 06/01/2013 CBC [id number] MCH 29.4 pg 06/01/2013 CBC 0724097 MCHC 33.2 g/dL 06/01/2013 CBC [id number] PLT 327 10e9/L 06/01/2013 CBC 7893181 MPV 9.3 fL 06/01/2013 CBC 3107271 MAKAYLA % 46.4 % 06/01/2013 CBC 6428835 LY % 38.3 % 06/01/2013 CBC 8503493 MON % 9.1 % 06/01/2013 CBC 7741660 EOS % 5.3 % 06/01/2013 CBC 9384693 BASO % 0.9 % 06/01/2013 CBC 9706345 RDW 13.3 % 06/01/2013 CBC 1101058 ABS MAKAYLA 1.58 10e9/L 06/01/2013 CBC 6040171 ABS LYMPH 1.30 10e9/L 06/01/2013 CBC 7043781 ABS MONO 0.31 10e9/L 06/01/2013 CBC 9942074 ABS EOS 0.18 10e9/L 06/01/2013 CBC 8257966 ABS BASO 0.03 10e9/L 06/01/2013 CBC 4336737 RDW-SD 42.4 fL 06/01/2013 VIT D TOTL 0961151 VIT D TOTL 31 NG/ML 06/01/2013 CRP [id number] CRP 0.2 MG/DL 06/01/2013 GFR CALC 6852235 GFR AA >60 ML/MIN 06/01/2013 GFR CALC 2389912 GFR NON-AA >60 ML/MIN 06/01/2013 CHEM 14 0972712 AST 19 U/L 06/01/2013 CHEM 14 8767045 ALT 11 IU/L 06/01/2013 CHEM 14 9586951 BUN 14 MG/DL 06/01/2013 CHEM 14 8966755 ALBUMIN 4.1 GM/DL 06/01/2013 CHEM 14 5090703 CHLORIDE 106 MMOL/L 06/01/2013 CHEM 14 8755732 BILI TOT 0.3 MG/DL 06/01/2013 CHEM 14 1284588 ALK PHOS 66 U/L 06/01/2013 CHEM 14 1529668 SODIUM 140 MMOL/L 06/01/2013 CHEM 14 1791320 CREATININE 0.90 MG/DL 06/01/2013 CHEM 14 [id number] CALCIUM 9.3 MG/DL 06/01/2013 CHEM 14 [id number] POTASSIUM 4.1 MMOL/L 06/01/2013 CHEM 14 [id number] PROT TOT 6.5 GM/DL 06/01/2013 CHEM 14 4882834 GLUCOSE 91 MG/DL 06/01/2013 CHEM 14 [id number] BICARB 27 MMOL/L 06/01/2013 CHEM 14 2251345 ANION GAP 7 MEQ/L 06/01/2013 TSH 5164994 TSH 1.695 uIU/ML 06/01/2013 MAGNESIUM 5451764 MAGNESIUM 1.5 MEQ/L 06/01/2013 ESR [id number] ESR 22 MM/HR 06/01/2013 UA 77845 Specific [place] 1.030 DateTime(Free Text in ) UA 59744 PH 5 DateTime(Free Text in Aprima) UA 21291 GLUCOSE - DateTime(Free Text in Aprima) UA 77332 Protein + DateTime(Free Text in ) UA 16416 Blood mod DateTime(Free Text in ) UA 80651 Bilirubin - DateTime(Free Text in ) UA 46258 Ketones - DateTime(Free Text in Apr) UA 60295 Urobilinogen .2 DateTime(Free Text in Apr) UA 28942 Nitrite - DateTime(Free Text in Apr) UA 66613 Leukocytes mod DateTime(Free Text in ) Review [...] clear 02/20/2015 None Full Exam - General 1995 Ears/Nose/Throat oral cavity/pharynx/larynx Overall: no masses 02/20/2015 [...] masses 05/25/2013 None Full Exam - General 1995 Respiratory auscultation Overall: breath sounds clear bilaterally 05/25/2013 None Full Exam - General 1995 Respiratory respiratory effort/rhythm Overall: no retractions 05/25/2013 None Full Exam - General 1994 Respiratory respiratory effort/rhythm Overall: normal rate 05/25/2013 None Full Exam - General 1995 Cardiovascular extremities Overall: no clubbing 05/25/2013 None Full Exam - General 1995 Cardiovascular auscultation of heart Overall: regular rate [...] benign 03/13/2013 None Full Exam - General 1994 Ears/Nose/Throat oral cavity/pharynx/larynx Overall: no masses 03/13/2013 [...] developed 01/10/2013 None Full Exam - General 1995 Constitutional general appearance Overall: in no acute [...] Codes Date URINALYSIS NONAUTO W/O SCOPE CPT-4: 14316 04/20/2017 THER/PROPH/DIAG INJ SC/IM CPT-4: 19195 01/20/2017 TRIAMCINOLONE ACET INJ NOS CPT-4: J3301 01/20/2017 FLU VAC NO PRSV 4 JANELLE 3 YRS+ CPT-4: 10662 01/11/2017 PNEUMOCOCCAL VACC 23 JANELLE IM CPT-4: 87874 01/11/2017 ADMIN INFLUENZA VIRUS VAC CPT-4: G0008 01/11/2017 ADMIN PNEUMOCOCCAL VACCINE SNOMED CT: [id number] CPT-4: G0009 01/11/2017 PPPS, SUBSEQ VISIT CPT -4: G0439 09/29/2016 TRIAMCINOLONE ACET INJ NOS CPT-4: J3301 06/08/2016 THER/PROPH/DIAG INJ SC/IM CPT-4: 97085 04/14/2016 TRIAMCINOLONE ACET INJ NOS CPT-4: J3301 04/14/2016 ADMIN INFLUENZA VIRUS VAC CPT-4: G0008 12/31/2015 FLU VACC 4 JANELLE 3 YRS PLUS IM SNOMED CT: [id number] CPT-4: 80170 12/31/2015 TRIAMCINOLONE ACET INJ NOS CPT-4: J3301 11/07/2015 PRESCRIP TRANSMIT VIA ERX SY CPT-4: G8553 02/20/2015 TRIAMCINOLONE ACET INJ NOS CPT-4: J3301 12/10/2014 TRIAMCINOLONE ACET INJ NOS CPT-4: J3301 11/21/2014 THER/PROPH/DIAG INJ SC/IM CPT-4: 89788 11/21/2014 URINALYSIS NONAUTO W/O SCOPE CPT-4: 58000 10/22/2014 URINALYSIS NONAUTO W/O SCOPE CPT-4: 26521 09/04/2014 DESTRUCT PREMALG LESION CPT-4: 88232 05/01/2014 TRIM SKIN LESION CPT-4 : 47045 05/01/2014 URINALYSIS NONAUTO W/O SCOPE CPT-4: 95404 04/03/2014 TRIAMCINOLONE ACET INJ NOS CPT-4: J3301 03/27/2014 ADMIN INFLUENZA VIRUS VAC Assigned to CPT-4: [id number] 02/08/2014 FLU VAC NO PRSV 4 JANELLE 3 YRS+ CPT-4: 47619 02/08/2014 KETOROLAC TROMETHAMINE INJ CPT-4: J1885 12/21/2013 PROMETHAZINE HCL INJECTION CPT-4: J2550 12/21/2013 URINALYSIS NONAUTO W/O SCOPE CPT-4: 82489 10/31/2013 TRIM SKIN LESIONS 2 TO 4 CPT-4: 48594 08/23/2013 Referral Order Assigned to/Nurses, Assigned to, Current Referral Status/Initiated, Medical service provider, Message Urgency/Routine SNOMED CT: [id number] CPT-4: ReferralUnknown 08/02/2013 DRAIN/INJECT JOINT/BURSA CPT-4: 65803 07/18/2013 DRAIN/INJECT JOINT/BURSA CPT-4: 49065 07/18/2013 ROUTINE VENIPUNCTURE CPT-4: 58899 06/01/2013 KETOROLAC TROMETHAMINE INJ CPT-4: J1885 05/15/2013 THER/PROPH/DIAG INJ SC/IM CPT-4: 91329 05/15/2013 PROMETHAZINE HCL INJECTION CPT-4: J2550 05/15/2013 THER/PROPH/DIAG INJ SC/IM CPT-4: 92775 05/09/2013 KETOROLAC TROMETHAMINE INJ CPT-4: J1885 05/09/2013 ADMIN INFLUENZA VIRUS VAC CPT-4: G0008 01/10/2013 FLULAVAL VACC, 3 YRS & >, IM CPT-4: Q2036 01/10/2013 TRIAMCINOLONE ACET INJ NOS CPT-4: J3301 12/27/2012 PRESCRIP TRANSMIT VIA ERX SY CPT-4: G8553 12/27/2012 Vital Signs Date Vital 03/12/2017 Blood Pressure 1: 128/68 Code : 8480-6 BMI: 25.1 Code : 51665-9 Heart Rate 1 : 96 bpm Height: 5'7" SpO2: 96% Weight: 160 lbs 01/20/2017 Blood Pressure 1: 126/70 Code : 8480-6 BMI: 25.1 Code : 56877-8 Heart Rate 1 : 92 bpm Height: 5'7" SpO2: 98% Weight: 160 lbs 11/03/2016 Blood Pressure 1: 122/70 Code : 8480-6 BMI: 25.1 Code : 24071-1 Heart Rate 1 : 99 bpm Height: 5'7" SpO2: 96% Weight: 160 lbs 09/29/2016 Heart Rate 1: 97 bpm SpO2: 97% 09/15/2016 Blood Pressure 1: 130/80 Code : 8480-6 BMI: 24.9 Code : 55279-3 Heart Rate 1 : 87 bpm Height: [...] Code : 8480-6 BMI: 24.7 Code : 06612-6 Heart Rate 1 : 79 bpm Height: 5'7" SpO2: 97% Temperature: 36.8 (C) / 98.2 (F) Weight: 158 lbs 05/11/2016 Blood Pressure 1: 128/76 Code : 8480-6 BMI: 24.9 Code : 64991-5 Heart Rate 1 : 75 bpm Height: 5'7" SpO2: 97% Temperature: 36.6 (C) / 97.8 (F) Weight: 159 lbs 04/14/2016 Blood Pressure 1: 122/72 Code : 8480-6 Height: Weight: 12/25/2015 Blood Pressure 1: 132/72 Code : 8480-6 BMI: 24.9 Code : 61165-7 Heart Rate 1 : 74 bpm Height: 5'7" SpO2: 94% Weight: 159 lbs 11/07/2015 BMI: 24.7 Code: 48224-3 Heart Rate 1: 80 bpm Height: 5'7" SpO2: 99% Weight: 158 lbs 06/17/2015 Blood Pressure 1: 124/66 Code : 8480-6 BMI: 25.2 Code : 84553-3 Heart Rate 1 : 74 bpm Height: 5'7" SpO2: 97% Weight: 161 lbs 02/20/2015 Blood Pressure 1: 108/78 Code : 8480-6 BMI: 25.4 Code : 95665-9 Heart Rate 1 : 78 bpm Height: 5'7" SpO2: 98% Weight: 162 lbs 12/10/2014 Blood Pressure 1: 110/62 Code : 8480-6 BMI: 26.0 Code : 97371-9 Heart Rate 1 : 77 bpm Height: 5'7" SpO2: 98% Weight: 166 lbs 11/21/2014 Blood Pressure 1: 102/58 Code : 8480-6 BMI: 26.2 Code : 65311-2 Heart Rate 1 : 91 bpm Height: 5'7" SpO2: 94% Weight: 167 lbs 10/23/2014 Blood Pressure 1: 136/80 Code : 8480-6 BMI: 26.0 Code : 26138-0 Heart Rate 1 : 80 bpm Height: 5'7" Weight: 166 lbs 09/04/2014 Blood Pressure 1: 112/70 Code : 8480-6 BMI: 26.0 Code : 41799-1 Heart Rate 1 : 99 bpm Height: 5'7" Respiratory Rate: 20 bpm Weight: 166 lbs 04/03/2014 Blood Pressure 1: 106/70 Code : 8480-6 BMI: 26.9 Code : 02856-4 Heart Rate 1 : 72 bpm Height: 5'7" Weight: 172 lbs 03/27/2014 Blood Pressure 1: 112 Code : 8480-6 BMI: 27.1 Code : 58305-9 Heart Rate 1 : 92 bpm Height: 5'7" Weight: 173 lbs 02/08/2014 Blood Pressure 1: 122/70 Code : 8480-6 BMI: 27.9 Code : 50555-1 Height: 5'7" Weight: 178 lbs 12/29/2013 Blood Pressure 1: 130/88 Code : 8480-6 BMI: 27.9 Code : 82647-3 Height: 5'7" Weight: 178 lbs 12/21/2013 Blood Pressure 1: 132/82 Code : 8480-6 Heart Rate 1: 86 bpm Height: SpO2: 98% Weight: 10/31/2013 Blood Pressure 1: 112 Code : 8480-6 BMI: 27.7 Code : 67088-8 Heart Rate 1 : 72 bpm Height: [...] Otalgia, right ear[ICD10: H92.01] Astrid Diaz MD, [facility] CPT -4: 29194 03/12/2017 65212 EST. PATIENT, LEVEL IV Diagnosis: Other acute sinusitis[ICD10: J01.80] Diagnosis: Other allergic rhinitis[ICD10: J30.89] Diagnosis: Gastro-esophageal reflux disease without esophagitis[ICD10: K21.9] [facility] CPT-4: 06661 01/20/2017 ([id number]) 44258 EST. PATIENT, LEVEL IV Diagnosis: Radiculopathy, lumbar region[ICD10: M54.16] Diagnosis: Headache[ICD10: R51] Diagnosis: Dizziness and giddiness[ICD10: R42] Diagnosis: Gas pain[ICD10: R14.1] Karolina Diaz MD, [facility] CPT-4: 90683 11/03/2016 ([id number]) 72966 EST. PATIENT, LEVEL III Diagnosis: Rash and other nonspecific skin eruption[ICD10: R21] Liz Diaz MD, [facility] CPT-4: 94059 09/15/2016 82235 EST. PATIENT, LEVEL III Diagnosis: Rash and other nonspecific skin eruption[ICD10: R21] Astrid Diaz MD, [facility] CPT-4: 74797 08/31/2016 ([id number]) 42045 EST. PATIENT, LEVEL IV Diagnosis: Nondisplaced fracture of neck of right radius, initial encounter for closed fracture[ICD10: S52.134A] Diagnosis: Orthostatic hypotension[ICD10: I95.1] Diagnosis: Dizziness and giddiness[ICD10: R42] Diagnosis: Fracture of nasal bones, initial encounter for closed fracture[ICD10 : S02.2XXA] Karolina Diaz MD, [facility] CPT-4: 80758 08/14/2016 ([id number]) 54804 EST. PATIENT, LEVEL III Diagnosis: Headache[ICD10: R51] Diagnosis: Contusion of nose, initial encounter[ICD10: S00.33XA] Diagnosis: Pain in left shoulder[ICD10: M25.512] Karolina Diaz MD, [facility] CPT-4: 49195 07/30/2016 ([id number]) 77716 EST. PATIENT, LEVEL III Diagnosis: Cough[ICD10: R05] Diagnosis: Candidal stomatitis[ICD10: B37.0] Karolina Diaz MD, [facility] CPT-4: 33318 06/16/2016 ([id number]) 35013 EST. PATIENT, LEVEL III Diagnosis: Cough[ICD10: R05] Diagnosis: Acute bronchitis, unspecified[ICD10: J20.9] Karolina Diaz MD, [facility] CPT-4: 31413 06/08/2016 ([id number]) 83476 EST. PATIENT, LEVEL III Diagnosis: Acute recurrent maxillary sinusitis[ICD10: J01.01] Liz Diaz MD, [facility] CPT-4: 36370 05/11/2016 ([id number]) 69108 EST. PATIENT, LEVEL III Diagnosis: Cough[ICD10: R05] Diagnosis: Allergic rhinitis due to pollen[ICD10: J30.1] Liz Diaz MD, [facility] CPT-4: 77284 04/14/2016 ([id number]) 77424 EST. PATIENT, LEVEL III Diagnosis: Mastodynia[ICD10: N64.4] Liz Diaz MD [facility] CPT-4: 76625 12/25/2015 ([id number]) 22726 EST. PATIENT, LEVEL III Diagnosis: Allergic rhinitis due to pollen[ICD10: J30.1] Diagnosis: Migraine, unspecified, not intractable, without status migrainosus[ ICD10: G43.909] Karolina Diaz MD, [facility] CPT-4: 34001 11/07/2015 ([id number]) 20347 EST. PATIENT, LEVEL III Diagnosis: Plantar wart[ICD10: B07.0] Liz Diaz MD, [facility] CPT- 4: 89568 06/17/2015 ([id number]) 48252 EST. PATIENT, LEVEL III Diagnosis: Other acute sinusitis[ICD10: J01.80] Diagnosis: Acute bronchitis, unspecified[ICD10: J20.9] Diagnosis: Cough[ICD10: R05] Liz Diaz MD, [facility] CPT-4: 99158 02/20/2015 63828 EST. PATIENT, LEVEL II Diagnosis: Rash[ICD9: 782.1] Liz Diaz MD, [facility] CPT-4: 74581 12/10/2014 ([id number]) 86421 EST. PATIENT, LEVEL III Diagnosis: ACUTE SINUSITIS[ICD9: 461.9] Diagnosis: Migraine headache[ICD9: 346.90] Diagnosis: SPONTANEOUS ECCHYMOSES[ICD9: 782.7] Liz Diaz MD, [facility] CPT-4: 08780 11/21/2014 ([id number]) 62951 EST. PATIENT, LEVEL III Diagnosis: Low back pain[ICD9: 724.2] Diagnosis: Leg pain, left[ICD9: 729.5] Karolina Diaz MD, [facility] CPT-4: 42458 10/23/2014 ([id number]) 38323 EST. PATIENT, LEVEL III Diagnosis: Gastroesophageal reflux disease[ICD9: 530.81] Diagnosis: Anxiety[ICD9: 300.00] Dorita Uribe Liz Diaz MD [facility] CPT-4: 02458 09/04/2014 ([id number]) 41107 EST. PATIENT, LEVEL III Diagnosis: Urinary tract infection[ICD9: 599.0] Diagnosis: Cough[ICD9: 786.2] Diagnosis: ACUTE SINUSITIS[ICD9: 461.9] Liz Diaz MD, [facility] CPT- 4: 30304 04/03/2014 ([id number]) 65816 EST. PATIENT, LEVEL III Diagnosis: ACUTE SINUSITIS[ICD9: 461.9] Diagnosis: ALLERGIC RHINITIS[ICD9: 477.9] Karolina Diaz MD, [facility] CPT-4: 93562 03/27/2014 ([id number]) 75711 EST. PATIENT, LEVEL III Diagnosis: UTI (urinary tract infection)[ICD9: 599.0] Diagnosis: Constipation[ICD9: 564.00] Liz Diaz MD, [facility] CPT- 4: 87035 02/08/2014 74935 EST. PATIENT, LEVEL III Diagnosis: ALLERGIC RHINITIS[ICD9: 477.9] Karolina Diaz MD, [facility] CPT-4: 62665 12/29/2013 ([id number]) 78845 EST. PATIENT, LEVEL III Diagnosis: Migraine headache[ICD9: 346.90] Diagnosis: Nausea[ICD9: 787.02] Diagnosis: Tension headache[ICD9: 307.81] Karolina Diaz MD, [facility] CPT-4: 36107 12/21/2013 ([id number]) 86591 EST. PATIENT, LEVEL III Diagnosis: Urinary tract infection[ICD9: 599.0] Karolina Diaz MD, [facility] CPT-4: 37900 10/31/2013 ([id number]) 51107 EST. PATIENT, LEVEL III Diagnosis: Thrush[ICD9: 112.0] Liz Diaz MD, [facility] CPT-4: 10697 08/10/2013 ([id number]) 04128 EST. PATIENT, LEVEL III Diagnosis: ACUTE SINUSITIS[ICD9: 461.9] Diagnosis: HEADACHE[ICD9: 784.0] Liz Diaz MD, [facility] CPT-4: 12895 08/02/2013 ([id number]) 58294 EST. PATIENT, LEVEL III Diagnosis: HEADACHE[ICD9: 784.0] Diagnosis: Shoulder pain, right[ICD9: 719.41] Diagnosis: Pain in left knee[ICD9: 719.46] Diagnosis: Muscle spasms of neck[ICD9: 728.85] Liz Diaz MD, [facility] CPT-4: 89550 07/18/2013 ([id number]) 47206 EST. PATIENT, LEVEL III Diagnosis: Migraine headache[ICD9: 346.90] Diagnosis: Myalgia[ICD9: 729.1] Diagnosis: DIZZINESS AND GIDDINESS[ICD9: 780.4] Diagnosis: Fatigue[ICD9: 780.79] Diagnosis: Nausea[ICD9: 787.02] Liz Diaz MD, [facility] CPT-4: 41442 06/27/2013 ([id number]) 36256 EST. PATIENT, LEVEL IV Diagnosis: Multiple joint pain[ICD9: 719.49] Diagnosis: Myalgia[ICD9: 729.1] Diagnosis: Fatigue[ICD9: 780.79] Diagnosis: Worsening headaches[ICD9: 784.0] Karolina Diaz MD, [facility] CPT-4: 02693 06/01/2013 ([id number]) 81580 EST. PATIENT, LEVEL III Diagnosis: Nasal inflammation due to allergen[ICD9: 477.9] Diagnosis: Cough[ICD9: 786.2] Liz Diaz MD, [facility] CPT-4: 05239 05/25/2013 ([id number]) 36876 EST. PATIENT, LEVEL III Diagnosis: Migraine headache[ICD9: 346.90] Diagnosis: Nausea[ICD9: 787.02] Diagnosis: Pneumonia[ICD9: 486] Karolina Diaz MD, [facility] CPT-4: 88784 05/15/2013 ([id number]) 63644 EST. PATIENT, LEVEL III Diagnosis: ACUTE SINUSITIS[ICD9: 461.9] Diagnosis: Headache[ICD9: 784.0] Karolina Diaz MD, [facility] CPT-4: 53511 05/09/2013 ([id number]) 63598 EST. PATIENT, LEVEL III Diagnosis: BPPV (benign paroxysmal positional vertigo)[ICD9: 386.11] Diagnosis: DIZZINESS AND GIDDINESS[ICD9: 780.4] Liz Diaz MD, [facility] CPT-4: 16806 03/13/2013 ([id number]) 54035 EST. PATIENT, LEVEL IV Diagnosis: BPPV (benign paroxysmal positional vertigo)[ICD9: 386.11] Diagnosis: DIZZINESS AND GIDDINESS[ICD9: 780.4] Liz Diaz MD, [facility] CPT-4: 13583 02/02/2013 ([id number]) 68336 EST. PATIENT, LEVEL III Diagnosis: DIZZINESS AND GIDDINESS[ICD9: 780.4] Diagnosis: IMPACTED CERUMEN[ICD9: 380.4] Diagnosis: Dyspnea[ICD9: 786.09] Karolina Diaz MD, [facility] CPT-4: 95163 01/10/2013 ([id number]) OFFICE VISIT, NEW - LEVEL 3 Diagnosis: ALLERGIC RHINITIS[ICD9: 477.9] Diagnosis: Dizziness[ICD9: 780.4] Diagnosis: Cerumen impaction[ICD9: 380.4] Diagnosis: Vaginal yeast infection[ICD9: 112.1] Diagnosis: History of UTI[ICD9: V13.02] Karolina Diaz MD, [facility] CPT-4: 60026 12/27/2012 Plan of Care Planned Activity Notes Codes Status Date Patient Education: Patient Medication Summary Completed 04/20/2017 Care Plan: Urine Culture Pending 04/20/2017 Appointment: Astrid Wise WPtel: [address] [place], [place] [address] (15 min) Moderate 03/12/2017 Patient Education: Patient Medication Summary Completed 03/12/2017 App[facility]ment: [facility] ([facility] min) Complex 03/11/2017 Appointment: [facility] [phone] [facility] [place] (30 min) Complex 01/20/2017 Patient Education: Patient Medication Summary Completed 01/20/2017 Appointment: Mert 01/11/2017 Patient Education: Patient Medication Summary Completed 01/11/2017 Appointment: Karolina Ochoa WPtel: [phone] [phone] [place] (15 min) Moderate 11/03/2016 Patient Education: Patient Medication Summary Completed 11/03/2016 Appointment: [facility] [phone] [facility] [facility] - Annual Wellness Visit 09/29/2016 Patient Education: Patient Medication Summary Completed 09/29/2016 [facility]ment[facility] [phone] [facility] [place] (15 min) Moderate 09/15/2016 Patient Education: Patient Medication Summary Completed 09/15/2016 Appointment: [facility] [phone] [facility] [place] (15 min) Moderate 08/31/2016 Patient Education: Patient Medication Summary Completed 08/31/2016 Appointment: [facility]el[facility] [phone] [phone] [place] (15 min) Moderate 08/14/2016 Patient Education: Patient Medication Summary Completed 08/14/2016 Appointment: [facility]el[facility] [phone] [phone] [place] (15 min) Moderate 07/30/2016 Patient Education: Patient Medication Summary Completed 07/30/2016 Appointment: Karolina Ochoa WPtel: [phone] [phone] [place] (10 min) Simple 06/16/2016 Patient Education: Patient Medication Summary Completed 06/16/2016 Appointment: Karolina Ochoa WPtel: [phone] [phone] [place] (30 min) Complex 06/08/2016 Patient Education: Patient Medication Summary Completed 06/08/2016 Appointment: [facility] [phone] [facility] (15 min) Moderate 05/11/2016 Patient Education: Patient Medication Summary Completed 05/11/2016 Appointment: Karolina Ochoa WPtel: [phone] [phone] [place] (15 min) Moderate 04/14/2016 Patient Education: Patient Medication Summary Completed 04/14/2016 Appointment: Injection 12/31/2015 Patient Education: Patient Medication Summary Completed 12/31/2015 Patient Education: Patient Medication Summary Completed 12/25/2015 Appointment: [facility]Ptel[facility] [phone] [phone] (15 min) Moderate 11/07/2015 Patient Education: Patient Medication Summary Completed 11/07/2015 Referral: External, Ordering Provider Referral Completed 06/18/2015 Appointment: [facility] [phone] [facility] (30 min) Complex 06/17/2015 Patient Education: Patient Medication Summary Completed 06/17/2015 Care Plan: Referral Order SNOMED-CT : [id number] Ordered 06/17/2015 Appointment: [facility] [phone] [facility] (15 min) Moderate 02/20/2015 Patient Education: Patient Medication Summary Completed 02/20/2015 Appointment: Karoilna Ochoa [facility]Ptel[facility] [phone] [phone] [place] (10 min) Simple 12/10/2014 Patient Education: Patient Medication Summary Completed 12/10/2014 Patient Education: Patient Medication Summary Completed 11/21/2014 Patient Education: Patient Medication Summary Completed 10/23/2014 Appointment: Lab Draw 10/22/2014 Patient Education: Patient Medication Summary Completed 10/22/2014 Patient Education: Patient Medication Summary Completed 09/04/2014 Appointment: Liz Diaz WPtel: [facility] [facility] Procedure 05/01/2014 Patient Education: Patient Medication [...] Summary Completed 10/31/2013 Appointment: Liz Diaz WPtel: [address] [place], [place] [phone] burn warts on finger and toe Other 08/23/2013 Patient Education: Patient Medication Summary Completed 08/23/2013 Appointment: Liz Diaz WPtel: [address] [place], [place] [phone] Follow up 08/16/2013 Appointment: Karolina Ochoa WPtel: [address] [place], [place] [phone] Other 08/10/2013 Patient Education: Patient Medication Summary Completed 08/10/2013 Appointment: Liz Diaz WPtel: [address] [place], [place] [phone] Sick 08/02/2013 Patient Education: Patient Medication Summary Completed 08/02/2013 Appointment: Liz Diaz WPtel: [address] [place], [place] [phone] [place] Follow up 07/18/2013 Patient Education: Patient Medication Summary Completed 07/18/2013 Appointment: Liz Diaz WPtel: [address] [place], [place] [phone] [place] Follow up 06/27/2013 Patient Education: Patient Medication Summary Completed 06/27/2013 Appointment: Liz Diaz WPtel: [address] [place], [place] [phone] Follow up 06/12/2013 Patient Education: Patient Medication Summary Completed 06/01/2013 Appointment: Liz Diaz WPtel: [facility] Follow up 05/25/2013 Patient Education: Patient Medication Summary Completed 05/25/2013 Appointment: Karolina Ochoa WPtel: [phone] Sick 05/15/2013 Patient Education: Patient Medication Summary Completed 05/15/2013 Appointment: Karolina Ochoa WPtel: [phone] [phone] Other 05/09/2013 Patient Education: Patient Medication Summary Completed 05/09/2013 Appointment: Liz Diaz WPtel: [facility]5 [facility] Follow up 03/13/2013 Patient Education: Patient Medication Summary Completed 03/13/2013 Appointment: Liz Diaz WPtel: [facility] Follow up 02/07/2013 Appointment: Liz Diaz WPtel: [facility] Follow up 02/02/2013 Patient Education: Patient Medication Summary Completed 02/02/2013 Appointment: Karolina Ochoa WPtel: [phone] Follow up 01/10/2013 Patient Education: Patient Medication Summary Completed 01/10/2013 Patient Education: .Amazing charts Paroxysmal positional vertigo Completed Appointment: Karolina Ochoa WPtel: [phone] [place] New Patient 12/27/2012 Patient Education: Patient Medication Summary Completed 12/27/2012 Referral: External, Ordering Provider Referral Appointment Requested Referral: [facility] Referral Initiated Instructions No Instructions
--- OUTSIDE RECORDS SUMMARY | 2017-10-11 13:04 | XMS REPORT | Continuity of Care Document ---
Author Author [facility] [address] Organization [facility] [address] Address Unknown Phone Unavailable Allergies Active Description Code Type Severity Reaction Onset Reported/Identified Relationship to Patient Clinical Status Yes codeine [id number] Drug Allergy Unknown N/A 05/10/2009 Yes pseudoephedrine [id number] Drug Allergy Unknown NERVOUSNESS 12/28/2015 Medications There is no data. Problems Date Dx Coded Attending Type Code Diagnosis Diagnosed By 02/18/1199 RILEY KIM, EMERALD Ot Z08 ENCNTR FOR FOLLOW-UP EXAM AFTER TRTMT FO 02/18/1199 RILEY KIM, EMERALD Ot Z85.3 PERSONAL HISTORY OF MALIGNANT NEOPLASM O 02/18/1199 RILEY KIM, EMERALD [place] Z90.12 ACQUIRED ABSENCE OF LEFT BREAST AND NIPP 11/29/2009 Ot 723.4 04/02/2011 Ot 174.9 MALIGN NEOPL BREAST NOS 04/02/2011 Ot 300.00 ANXIETY STATE NOS 04/02/2011 Ot 311 DEPRESSIVE DISORDER NEC 04/02/2011 Ot V16.3 FAMILY HX- BREAST MALIG 04/02/2011 Ot V58.69 OTH MED,LT, CURRENT USE 11/10/2011 Ot 174.9 MALIGN NEOPL BREAST NOS 11/10/2011 Ot 780.4 DIZZINESS AND GIDDINESS 11/10/2011 Ot 786.05 SHORTNESS OF BREATH 11/10/2011 Ot V58.69 OTH MED,LT, CURRENT USE 12/01/2011 Ot 300.4 DYSTHYMIC DISORDER 12/01/2011 Ot 477.9 ALLERGIC RHINITIS NOS 12/01/2011 Ot 737.30 IDIOPATHIC SCOLIOSIS 12/01/2011 Ot 780.2 SYNCOPE AND COLLAPSE 12/01/2011 Ot 780.4 DIZZINESS AND GIDDINESS 12/01/2011 Ot 785.0 TACHYCARDIA NOS 12/01/2011 Ot 785.1 PALPITATIONS 12/01/2011 Ot 786.09 RESPIRATORY ABNORM NEC 12/01/2011 Ot V10.3 HX OF BREAST MALIGNANCY 12/01/2011 Ot V45.71 ACQUIRED ABSENCE OF BREAST AND NIPPLE 12/01/2011 Ot V58.69 OTH MED,LT, CURRENT USE 07/27/2012 JOZEF BRODY DO Ot 813.42 FX DISTAL RADIUS NEC-CL 07/27/2012 JOZEF BRODY DO Ot 959.3 ELB/FOREARM/WRST INJ NOS 07/27/2012 JOZEF BRODY DO Ot E000.8 OTHER EXTERNAL CAUSE STATUS 07/27/2012 JOZEF BRODY DO Ot E849.0 ACCIDENT IN HOME 07/27/2012 JOZEF BRODY DO Ot E881.0 FALL FROM LADDER 03/12/2014 RILEY KIM, EMERALD Ot V10.3 03/12/2014 RILEY KIM, EMERALD Ot V45.71 03/12/2014 RILEY KIM, EMERALD Ot V58.69 03/12/2014 RILEY KIM, EMERALD Ot V67.09 03/12/2014 RILEY KIM, EMERALD Ot V88.01 09/24/2014 RILEY KIM, EMERALD Ot 311 09/24/2014 RILEY KIM, EMERALD Ot 530.81 09/24/2014 RILEY KIM, EMERALD Ot V10.3 09/24/2014 RILEY KIM, EMERALD Ot V45.71 09/24/2014 RILEY KIM, EMERALD Ot V58.69 09/24/2014 RILEY KIM, EMERALD Ot V67.09 09/24/2014 RILEY KIM, EMERALD Ot V88.01 09/24/2014 RILEY KIM, EMERALD Ot 311 09/24/2014 RILEY KIM, EMERALD Ot 530.81 09/24/2014 RILEY KIM, EMERALD Ot V10.3 09/24/2014 RILEY KIM, EMERALD Ot V45.71 09/24/2014 RILEY KIM, EMERALD Ot V58.69 09/24/2014 RILEY KIM, EMERALD Ot V67.09 09/24/2014 RILEY KIM, EMERALD Ot V88.01 10/11/2014 RILEY KIM, EMERALD Ot 311 10/11/2014 RILEY KIM, EMERALD Ot 530.81 10/11/2014 RILEY KIM, EMERALD Ot V10.3 10/11/2014 RILEY KIM, EMERALD Ot V45.71 10/11/2014 RILEY KIM, EMERALD Ot V58.69 10/11/2014 RILEY KIM, EMERALD Ot V67.09 10/11/2014 RILEY KIM, EMERALD Ot V88.01 11/16/2014 ORTIZ MOLINA TELERADIOLOGIST Ot 721.3 11/16/2014 ORTIZ MOLINA TELERADIOLOGIST Ot 737.30 12/03/2014 RILEY KIM, EMERALD Ot 311 DEPRESSIVE DISORDER NEC 12/03/2014 RILEY KIM, EMERALD Ot 530.81 ESOPHAGEAL REFLUX 12/03/2014 RILEY KIM, EMERALD Ot V10.3 HX OF BREAST MALIGNANCY 12/03/2014 RILEY KIM, EMERALD Ot V45.71 ACQUIRED ABSENCE OF BREAST AND NIPPLE 12/03/2014 RILEY KIM, EMERALD Ot V58.69 OTH MED,LT,CURRENT USE 12/03/2014 EMERALD LIN MD Ot V67.09 SURGERY FOLLOW-UP, OTHER SURGERY 12/03/2014 RILEY KIM, EMERALD Ot V88.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 12/11/2014 ORTIZ MOLINA TELERADIOLOGIST Ot 721.3 12/11/2014 ORTIZ MOLINA TELERADIOLOGIST Ot 737.30 01/24/2015 RILEY KIM, EMERALD Ot C50.919 01/24/2015 RILEY KIM, EMERALD Ot Z12.31 02/12/2015 RILEY KIM, EMERALD Ot 311 02/12/2015 RILEY KIM, EMERALD Ot 530.81 02/12/2015 RILEY KIM, EMERALD Ot V10.3 02/12/2015 RILEY KIM, EMERALD Ot V45.71 02/12/2015 RILEY KIM, EMERALD Ot V58.69 02/12/2015 RILEY KIM, EMERALD Ot V67.09 02/12/2015 RILEY KIM, EMERALD Ot V88.01 02/12/2015 Ot 174.9 02/12/2015 Ot 780.79 02/12/2015 Ot 174.9 02/12/2015 Ot 174.9 02/12/2015 Ot 311 02/12/2015 Ot 716.90 02/12/2015 Ot V07.4 02/12/2015 Ot V16.3 02/12/2015 Ot V45.77 02/12/2015 Ot V58.69 02/12/2015 Ot V86.0 02/12/2015 Ot 174.9 02/12/2015 Ot V72.63 02/12/2015 Ot V72.81 02/12/2015 Ot V72.83 02/12/2015 Ot 174.9 02/12/2015 Ot 311 02/12/2015 Ot 530.81 02/12/2015 Ot V45.77 02/12/2015 Ot V58.69 02/12/2015 Ot V86.0 02/12/2015 Ot 174.9 02/12/2015 Ot 788.1 02/12/2015 Ot 788.41 02/12/2015 Ot 174.9 02/12/2015 Ot V58.69 02/12/2015 Ot 174.9 02/12/2015 Ot 780.79 02/12/2015 Ot V58.69 02/12/2015 Ot V10.3 02/12/2015 Ot V45.71 02/12/2015 Ot V76.11 02/12/2015 Ot 174.9 02/12/2015 Ot 311 02/12/2015 Ot 530.81 02/12/2015 Ot 780.4 02/12/2015 Ot V45.71 02/12/2015 Ot V45.77 02/12/2015 Ot V58.69 02/12/2015 Ot V86.0 02/12/2015 Ot 780.4 02/12/2015 Ot 785.1 02/12/2015 Ot 786.09 02/12/2015 Ot 174.9 02/12/2015 Ot 311 02/12/2015 Ot 780.4 02/12/2015 Ot 782.62 02/12/2015 Ot V45.71 02/12/2015 Ot V58.69 02/12/2015 Ot 174.9 02/12/2015 Ot V45.71 02/12/2015 Ot V45.77 02/12/2015 Ot V58.69 02/12/2015 Ot V86.0 02/12/2015 Ot 174.9 02/12/2015 Ot 288.50 02/12/2015 Ot 311 02/12/2015 Ot 530.81 02/12/2015 Ot V45.71 02/12/2015 Ot V45.77 02/12/2015 Ot V58.69 02/12/2015 Ot V86.0 02/12/2015 Ot 780.60 02/12/2015 Ot 780.79 02/12/2015 Ot 787.02 02/12/2015 Ot 174.9 02/12/2015 Ot 288.50 02/12/2015 Ot 311 02/12/2015 Ot 530.81 02/12/2015 Ot 787.02 02/12/2015 Ot 789.00 02/12/2015 Ot V45.71 02/12/2015 Ot V45.77 02/12/2015 Ot V58.69 02/12/2015 Ot V86.0 02/12/2015 RILEY KIM, COWANMELINDA Ot 787.02 02/12/2015 RILEY KIM, COWANMELINDA Ot 789.00 02/12/2015 [facility] Ot 174.9 02/12/2015 RILEY KIM, CHAPO-MELINDA Ot 311 02/12/2015 [facility], [facility] Ot 530.81 02/12/2015 [facility]IM, [facility] Ot 780.4 02/12/2015 RILEY KIM, [facility] Ot 784.0 02/12/2015 RILEY KIM, [facility] Ot 787.02 02/12/2015 RI[facility] KIM, [facility] Ot V45.71 02/12/2015 RILEY KIM, [facility] Ot V45.77 02/12/2015 RILEY KIM, COWANMELINDA Ot V58.69 02/12/2015 RILEY KIM, COWANMELINDA Ot V86.0 02/12/2015 RILEY KIM, COWAN-MELINDA Ot 174.9 02/12/2015 RILEY KIM, COWAN-MELINDA Ot 174.9 02/12/2015 RILEY KIM, COWAN-MELINDA Ot V10.3 02/12/2015 RILEY KIM, CHAPO-MELINDA Ot V76.11 02/12/2015 JAYSON KIM, DANIEL Randolph Ot 786.05 02/12/2015 RILEY KIM, COWAN-MELINDA Ot 174.9 02/12/2015 RILEY KIM, COWAN-MELINDA Ot 288.50 02/12/2015 RILEY KIM, CHAPO-MELINDA Ot 311 02/12/2015 RILEY KIM, COWAN-MELINDA Ot V45.71 02/12/2015 RILEY KIM, COWAN-MELINDA Ot V45.77 02/12/2015 RILEY KIM, COWAN-MELINDA Ot V58.69 02/12/2015 RILEY KIM, COWAN-MELINDA Ot V86.0 02/12/2015 ORTIZ MOLINA TELERADIOLOGIST Ot 786.2 02/12/2015 RILEY KIM, COWAN-MELINDA Ot 174.9 02/12/2015 RILEY KIM, COWAN-MELINDA Ot 288.50 02/12/2015 RILEY KIM, COWAN-MELINDA Ot 311 02/12/2015 RILEY KIM, COWAN-MELINDA Ot V45.71 02/12/2015 RILEY KIM, COWAN-MELINDA Ot V45.77 02/12/2015 RILEY KIM, COWAN-MELINDA Ot V58.69 02/12/2015 RILEY KIM, COWAN-MELINDA Ot V86.0 02/12/2015 RILEY KIM, COWAN-MELINDA Ot 174.9 02/12/2015 RILEY KIM, COWAN-MELINDA Ot V76.11 02/12/2015 RILEY KIM, COWAN-MELINDA Ot V10.3 02/12/2015 RILEY KIM, COWAN-MELINDA Ot V45.71 02/12/2015 RILEY KIM, COWAN-MELINDA Ot V58.69 02/12/2015 RILEY KIM, COWAN-MELINDA Ot V67.09 02/12/2015 RILEY KIM, COWAN-MELINDA Ot V88.01 02/12/2015 RILEY KIM, COWAN-MELINDA Ot C50.919 02/12/2015 RILEY KIM, COWAN-MELINDA Ot Z12.31 02/12/2015 ORTIZ MOLINA TELERADIOLOGIST Ot 721.3 02/12/2015 ORTIZ MOLINA TELERADIOLOGIST Ot 737.30 02/12/2015 RILEY KIM, COWAN-MELINDA Ot 311 02/12/2015 RILEY KIM, COWAN-MELINDA Ot 530.81 02/12/2015 RLIEY KIM, COWAN-MELINDA Ot V10.3 02/12/2015 RILEY KIM, COWAN-MELINDA Ot V45.71 02/12/2015 RILEY KIM, COWAN-MELINDA Ot V58.69 02/12/2015 RILEY KIM, COWAN-MELINDA Ot V67.09 02/12/2015 RILEY KIM, COWAN-MELINDA Ot V88.01 02/20/2015 RILEY KIM, COWAN-MELINDA Ot 311 02/20/2015 RILEY KIM, COWAN-MELINDA Ot 530.81 02/20/2015 RILEY KIM, CHAPOChapitoMELINDA Ot V10.3 02/20/2015 RILEY KIM, COWANChapitoMELINDA Ot V45.71 02/20/2015 RILEY KIM, EMERALD Ot V58.69 02/20/2015 RILEY KIM, EMERALD Ot V67.09 02/20/2015 RILEY KIM, COWANChapitoMELINDA Ot V88.01 04/16/2015 RILEY KIM, EMERALD Ot Z08 04/16/2015 RILEY IKM, COWANChapitoMELINDA Ot Z85.3 04/16/2015 RILEY KIM, SHERIMELINDA Ot Z90.12 05/02/2015 RILEY KIM, EMERALD Ot Z08 05/02/2015 RILEY KIM, COWANMISTY Ot Z85.3 05/02/2015 RILEY KIM, COWANChapitoMELINDA Ot Z90.12 05/27/2015 RILEY KIM, COWANChapitoMELINDA Ot Z08 ENCNTR FOR FOLLOW-UP EXAM AFTER TRTMT FO 05/27/2015 RILEY KIM, COWANChapitoMELINDA Ot Z85.3 PERSONAL HISTORY OF MALIGNANT NEOPLASM O 05/27/2015 RILEY KIM, SHERIMELINDA Ot Z90.12 ACQUIRED ABSENCE OF LEFT BREAST AND NIPP 11/08/2015 Ot 174.9 MALIGN NEOPL BREAST NOS 11/08/2015 Ot 780.79 OTH MALAISE FATIGUE 11/08/2015 Ot 174.9 MALIGN NEOPL BREAST NOS 11/08/2015 Ot 174.9 MALIGN NEOPL BREAST NOS 11/08/2015 Ot 311 DEPRESSIVE DISORDER NEC 11/08/2015 Ot 716.90 ARTHROPATHY NOS-UNSPEC 11/08/2015 Ot V07.4 HORMONE REPLACEMENT THERAPY (POSTMENOPAU 11/08/2015 Ot V16.3 FAMILY HX- BREAST MALIG 11/08/2015 Ot 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 11/08/2015 Ot V58.69 OTH MED,LT, CURRENT USE 11/08/2015 Ot V86.0 ESTROGEN RECEPTOR POSITIVE STATUS [ER+] 11/08/2015 Ot 174.9 MALIGN NEOPL BREAST NOS 11/08/2015 Ot V72.63 PRE- PROCEDURAL LABORATORY EXAMINATION 11/08/2015 Ot V72.81 EXAM-PRE- OPERATIVE CARDIOVASCULAR 11/08/2015 Ot V72.83 EXAM PRE- OPERATIVE NEC 11/08/2015 Ot 174.9 MALIGN NEOPL BREAST NOS 11/08/2015 Ot 311 DEPRESSIVE DISORDER NEC 11/08/2015 Ot 530.81 ESOPHAGEAL REFLUX 11/08/2015 Ot 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 11/08/2015 Ot V58.69 OTH MED,LT, CURRENT USE 11/08/2015 Ot V86.0 ESTROGEN RECEPTOR POSITIVE STATUS [ER+] 11/08/2015 Ot 174.9 MALIGN NEOPL BREAST NOS 11/08/2015 Ot 788.1 DYSURIA 11/08/2015 Ot 788.41 URINARY FREQUENCY 11/08/2015 Ot 174.9 MALIGN NEOPL BREAST NOS 11/08/2015 Ot V58.69 OTH MED,LT, CURRENT USE 11/08/2015 Ot 174.9 MALIGN NEOPL BREAST NOS 11/08/2015 Ot 780.79 OTH MALAISE FATIGUE 11/08/2015 Ot V58.69 OTH MED,LT, CURRENT USE 11/08/2015 Ot V10.3 HX OF BREAST MALIGNANCY 11/08/2015 Ot V45.71 ACQUIRED ABSENCE OF BREAST AND NIPPLE 11/08/2015 Ot V76.11 SCRN MAMMO- HIGH RISK PT, MALIGNANT NEOPL 11/08/2015 Ot 174.9 MALIGN NEOPL BREAST NOS 11/08/2015 Ot 311 DEPRESSIVE DISORDER NEC 11/08/2015 Ot 530.81 ESOPHAGEAL REFLUX 11/08/2015 Ot 780.4 DIZZINESS AND GIDDINESS 11/08/2015 Ot V45.71 ACQUIRED ABSENCE OF BREAST AND NIPPLE 11/08/2015 Ot 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 11/08/2015 Ot V58.69 OTH MED,LT, CURRENT USE 11/08/2015 Ot V86.0 ESTROGEN RECEPTOR POSITIVE STATUS [ER+] 11/08/2015 Ot 780.4 DIZZINESS AND GIDDINESS 11/08/2015 Ot 785.1 PALPITATIONS 11/08/2015 Ot 786.09 RESPIRATORY ABNORM NEC 11/08/2015 Ot 174.9 MALIGN NEOPL BREAST NOS 11/08/2015 Ot 311 DEPRESSIVE DISORDER NEC 11/08/2015 Ot 780.4 DIZZINESS AND GIDDINESS 11/08/2015 Ot 782.62 FLUSHING 11/08/2015 Ot V45.71 ACQUIRED ABSENCE OF BREAST AND NIPPLE 11/08/2015 Ot V58.69 OTH MED,LT, CURRENT USE 11/08/2015 Ot 174.9 MALIGN NEOPL BREAST NOS 11/08/2015 Ot V45.71 ACQUIRED ABSENCE OF BREAST AND NIPPLE 11/08/2015 Ot 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 11/08/2015 Ot V58.69 OTH MED,LT, CURRENT USE 11/08/2015 Ot V86.0 ESTROGEN RECEPTOR POSITIVE STATUS [ER+] 11/08/2015 Ot 174.9 MALIGN NEOPL BREAST NOS 11/08/2015 Ot 288.50 LEUKOCYTOPENIA, UNSPECIFIED 11/08/2015 Ot 311 DEPRESSIVE DISORDER NEC 11/08/2015 Ot 530.81 ESOPHAGEAL REFLUX 11/08/2015 Ot V45.71 ACQUIRED ABSENCE OF BREAST AND NIPPLE 11/08/2015 Ot 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 11/08/2015 Ot V58.69 OTH MED,LT, CURRENT USE 11/08/2015 Ot V86.0 ESTROGEN RECEPTOR POSITIVE STATUS [ER+] 11/08/2015 Ot 780.60 FEVER, UNSPECIFIED 11/08/2015 Ot 780.79 OTH MALAISE FATIGUE 11/08/2015 Ot 787.02 NAUSEA ALONE 11/08/2015 Ot 174.9 MALIGN NEOPL BREAST NOS 11/08/2015 Ot 288.50 LEUKOCYTOPENIA, UNSPECIFIED 11/08/2015 Ot 311 DEPRESSIVE DISORDER NEC 11/08/2015 Ot 530.81 ESOPHAGEAL REFLUX 11/08/2015 Ot 787.02 NAUSEA ALONE 11/08/2015 Ot 789.00 ABDOMINAL PAIN, UNSPECIFIED SITE 11/08/2015 Ot V45.71 ACQUIRED ABSENCE OF BREAST AND NIPPLE 11/08/2015 Ot 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 11/08/2015 Ot V58.69 OTH MED,LT, CURRENT USE 11/08/2015 Ot V86.0 ESTROGEN RECEPTOR POSITIVE STATUS [ER+] 11/08/2015 RILEY KIM, EMERALD Ot 787.02 NAUSEA ALONE 11/08/2015 RILEY KIM, EMERALD Ot 789.00 ABDOMINAL PAIN, UNSPECIFIED SITE 11/08/2015 RILEY KIM, EMERALD Ot 174.9 MALIGN NEOPL BREAST NOS 11/08/2015 RILEY KIM, EMERALD Ot 311 DEPRESSIVE DISORDER NEC 11/08/2015 RILEY KIM, EMERALD Ot 530.81 ESOPHAGEAL REFLUX 11/08/2015 RILEY KIM, EMERALD Ot 780.4 DIZZINESS AND GIDDINESS 11/08/2015 EMERALD LIN MD Ot 784.0 HEADACHE 11/08/2015 EMERALD LIN MD Ot 787.02 NAUSEA ALONE 11/08/2015 EMERALD LIN MD Ot V45.71 ACQUIRED ABSENCE OF BREAST AND NIPPLE 11/08/2015 EMERALD LIN MD Ot 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 11/08/2015 EMERALD LIN MD, Ot V58.69 OTH MED,LT,CURRENT USE 11/08/2015 EMERALD LIN MD Ot V86.0 ESTROGEN RECEPTOR POSITIVE STATUS [ER+] 11/08/2015 EMERALD LIN MD Ot 174.9 MALIGN NEOPL BREAST NOS 11/08/2015 EMERALD LIN MD Ot 174.9 MALIGN NEOPL BREAST NOS 11/08/2015 EMERALD LIN MD Ot V10.3 HX OF BREAST MALIGNANCY 11/08/2015 EMERALD LIN MD Ot V76.11 SCRN MAMMO-HIGH RISK PT, MALIGNANT NEOPL 11/08/2015 JAYSON KIM, DANIEL Randolph Ot 786.05 SHORTNESS OF BREATH 11/08/2015 EMERALD LIN MD Ot 174.9 MALIGN NEOPL BREAST NOS 11/08/2015 EMERALD LIN MD Ot 288.50 LEUKOCYTOPENIA, UNSPECIFIED 11/08/2015 EMERALD LIN MD Ot 311 DEPRESSIVE DISORDER NEC 11/08/2015 EMERALD LIN MD Ot V45.71 ACQUIRED ABSENCE OF BREAST AND NIPPLE 11/08/2015 EMERALD LIN MD Ot 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 11/08/2015 EMERALD LIN MD Ot V58.69 OTH MED,LT,CURRENT USE 11/08/2015 EMERALD LIN MD Ot V86.0 ESTROGEN RECEPTOR POSITIVE STATUS [ER+] 11/08/2015 ORTIZ MOLINA Ot 786.2 COUGH 11/08/2015 EMERALD LIN MD Ot 174.9 MALIGN NEOPL BREAST NOS 11/08/2015 EMERALD LIN MD Ot 288.50 LEUKOCYTOPENIA, UNSPECIFIED 11/08/2015 EMERALD LIN MD Ot 311 DEPRESSIVE DISORDER NEC 11/08/2015 EMERALD LIN MD Ot V45.71 ACQUIRED ABSENCE OF BREAST AND NIPPLE 11/08/2015 EMERALD LIN MD, Ot 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 11/08/2015 EMERALD LIN MD, Ot V58.69 OTH MED,LT,CURRENT USE 11/08/2015 EMERALD LIN MD, Ot V86.0 ESTROGEN RECEPTOR POSITIVE STATUS [ER+] 11/08/2015 EMERALD LIN MD Ot 174.9 MALIGN NEOPL BREAST NOS 11/08/2015 EMERALD LIN MD, Ot V76.11 SCRN MAMMO-HIGH RISK PT, MALIGNANT NEOPL 11/08/2015 EMERALD LIN MD Ot V10.3 HX OF BREAST MALIGNANCY 11/08/2015 EMERALD LIN MD, Ot V45.71 ACQUIRED ABSENCE OF BREAST AND NIPPLE 11/08/2015 EMERALD LIN MD, Ot V58.69 OTH MED,LT,CURRENT USE 11/08/2015 EMERALD LIN MD Ot V67.09 SURGERY FOLLOW-UP, OTHER SURGERY 11/08/2015 EMERALD LIN MD Ot V88.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 11/08/2015 EMERALD LIN MD Ot 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 11/08/2015 EMERALD LIN MD, Ot Z12.31 ENCNTR SCREEN MAMMOGRAM FOR MALIGNANT NE 11/08/2015 ORTIZ MOLINA [facility] Ot 721.3 LUMBOSACRAL SPONDYLOSIS 11/08/2015 ORTIZ MOLINA [facility] Ot 737.30 IDIOPATHIC SCOLIOSIS 11/08/2015 EMERALD LIN MD, Ot Z08 ENCNTR FOR FOLLOW-UP EXAM AFTER TRTMT FO 11/08/2015 EMERALD LIN MD Ot Z85.3 PERSONAL HISTORY OF MALIGNANT NEOPLASM O 11/08/2015 EMERALD LIN MD Ot Z90.12 ACQUIRED ABSENCE OF LEFT BREAST AND NIPP 11/15/2015 Ot 174.9 MALIGN NEOPL BREAST NOS 11/15/2015 Ot 780.79 OTH MALAISE FATIGUE 11/15/2015 Ot 174.9 MALIGN NEOPL BREAST NOS 11/15/2015 Ot 174.9 MALIGN NEOPL BREAST NOS 11/15/2015 Ot 311 DEPRESSIVE DISORDER NEC 11/15/2015 Ot 716.90 ARTHROPATHY NOS-UNSPEC 11/15/2015 Ot V07.4 HORMONE REPLACEMENT THERAPY (POSTMENOPAU 11/15/2015 Ot V16.3 FAMILY HX- BREAST MALIG 11/15/2015 Ot 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 11/15/2015 Ot V58.69 OTH MED,LT, CURRENT USE 11/15/2015 Ot V86.0 ESTROGEN RECEPTOR POSITIVE STATUS [ER+] 11/15/2015 Ot 174.9 MALIGN NEOPL BREAST NOS 11/15/2015 Ot V72.63 PRE- PROCEDURAL LABORATORY EXAMINATION 11/15/2015 Ot V72.81 EXAM-PRE- OPERATIVE CARDIOVASCULAR 11/15/2015 Ot V72.83 EXAM PRE- OPERATIVE NEC 11/15/2015 Ot 174.9 MALIGN NEOPL BREAST NOS 11/15/2015 Ot 311 DEPRESSIVE DISORDER NEC 11/15/2015 Ot 530.81 ESOPHAGEAL REFLUX 11/15/2015 Ot 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 11/15/2015 Ot V58.69 OTH MED,LT, CURRENT USE 11/15/2015 Ot V86.0 ESTROGEN RECEPTOR POSITIVE STATUS [ER+] 11/15/2015 Ot 174.9 MALIGN NEOPL BREAST NOS 11/15/2015 Ot 788.1 DYSURIA 11/15/2015 Ot 788.41 URINARY FREQUENCY 11/15/2015 Ot 174.9 MALIGN NEOPL BREAST NOS 11/15/2015 Ot V58.69 OTH MED,LT, CURRENT USE 11/15/2015 Ot 174.9 MALIGN NEOPL BREAST NOS 11/15/2015 Ot 780.79 OTH MALAISE FATIGUE 11/15/2015 Ot V58.69 OTH MED,LT, CURRENT USE 11/15/2015 Ot V10.3 HX OF BREAST MALIGNANCY 11/15/2015 Ot V45.71 ACQUIRED ABSENCE OF BREAST AND NIPPLE 11/15/2015 Ot V76.11 SCRN MAMMO- HIGH RISK PT, MALIGNANT NEOPL 11/15/2015 Ot 174.9 MALIGN NEOPL BREAST NOS 11/15/2015 Ot 311 DEPRESSIVE DISORDER NEC 11/15/2015 Ot 530.81 ESOPHAGEAL REFLUX 11/15/2015 Ot 780.4 DIZZINESS AND GIDDINESS 11/15/2015 Ot V45.71 ACQUIRED ABSENCE OF BREAST AND NIPPLE 11/15/2015 Ot 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 11/15/2015 Ot V58.69 OTH MED,LT, CURRENT USE 11/15/2015 Ot V86.0 ESTROGEN RECEPTOR POSITIVE STATUS [ER+] 11/15/2015 Ot 780.4 DIZZINESS AND GIDDINESS 11/15/2015 Ot 785.1 PALPITATIONS 11/15/2015 Ot 786.09 RESPIRATORY ABNORM NEC 11/15/2015 Ot 174.9 MALIGN NEOPL BREAST NOS 11/15/2015 Ot 311 DEPRESSIVE DISORDER NEC 11/15/2015 Ot 780.4 DIZZINESS AND GIDDINESS 11/15/2015 Ot 782.62 FLUSHING 11/15/2015 Ot V45.71 ACQUIRED ABSENCE OF BREAST AND NIPPLE 11/15/2015 Ot V58.69 OTH MED,LT, CURRENT USE 11/15/2015 Ot 174.9 MALIGN NEOPL BREAST NOS 11/15/2015 Ot V45.71 ACQUIRED ABSENCE OF BREAST AND NIPPLE 11/15/2015 Ot 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 11/15/2015 Ot V58.69 OTH MED,LT, CURRENT USE 11/15/2015 Ot V86.0 ESTROGEN RECEPTOR POSITIVE STATUS [ER+] 11/15/2015 Ot 174.9 MALIGN NEOPL BREAST NOS 11/15/2015 Ot 288.50 LEUKOCYTOPENIA, UNSPECIFIED 11/15/2015 Ot 311 DEPRESSIVE DISORDER NEC 11/15/2015 Ot 530.81 ESOPHAGEAL REFLUX 11/15/2015 Ot V45.71 ACQUIRED ABSENCE OF BREAST AND NIPPLE 11/15/2015 Ot 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 11/15/2015 Ot V58.69 OTH MED,LT, CURRENT USE 11/15/2015 Ot V86.0 ESTROGEN RECEPTOR POSITIVE STATUS [ER+] 11/15/2015 Ot 780.60 FEVER, UNSPECIFIED 11/15/2015 Ot 780.79 OTH MALAISE FATIGUE 11/15/2015 Ot 787.02 NAUSEA ALONE 11/15/2015 Ot 174.9 MALIGN NEOPL BREAST NOS 11/15/2015 Ot 288.50 LEUKOCYTOPENIA, UNSPECIFIED 11/15/2015 Ot 311 DEPRESSIVE DISORDER NEC 11/15/2015 Ot 530.81 ESOPHAGEAL REFLUX 11/15/2015 Ot 787.02 NAUSEA ALONE 11/15/2015 Ot 789.00 ABDOMINAL PAIN, UNSPECIFIED SITE 11/15/2015 Ot V45.71 ACQUIRED ABSENCE OF BREAST AND NIPPLE 11/15/2015 Ot 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 11/15/2015 Ot V58.69 OTH MED,LT, CURRENT USE 11/15/2015 Ot V86.0 ESTROGEN RECEPTOR POSITIVE STATUS [ER+] 11/15/2015 EMERALD LIN MD Ot 787.02 NAUSEA ALONE 11/15/2015 EMERALD LIN MD Ot 789.00 ABDOMINAL PAIN, UNSPECIFIED SITE 11/15/2015 EMERALD LIN MD Ot 174.9 MALIGN NEOPL BREAST NOS 11/15/2015 EMERALD LIN MD Ot 311 DEPRESSIVE DISORDER NEC 11/15/2015 EMERALD LIN MD Ot 530.81 ESOPHAGEAL REFLUX 11/15/2015 EMERALD LIN MD Ot 780.4 DIZZINESS AND GIDDINESS 11/15/2015 EMERALD LIN MD Ot 784.0 HEADACHE 11/15/2015 EMERALD LIN MD Ot 787.02 NAUSEA ALONE 11/15/2015 EMERALD LIN MD Ot V45.71 ACQUIRED ABSENCE OF BREAST AND NIPPLE 11/15/2015 EMERALD LIN MD Ot 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 11/15/2015 EMERALD LIN MD Ot V58.69 OTH MED,LT,CURRENT USE 11/15/2015 EMERALD LIN MD Ot V86.0 ESTROGEN RECEPTOR POSITIVE STATUS [ER+] 11/15/2015 EMERALD LIN MD Ot 174.9 MALIGN NEOPL BREAST NOS 11/15/2015 EMERALD LIN MD Ot 174.9 MALIGN NEOPL BREAST NOS 11/15/2015 EMERALD LIN MD Ot V10.3 HX OF BREAST MALIGNANCY 11/15/2015 EMERALD LIN MD Ot V76.11 SCRN MAMMO-HIGH RISK PT, MALIGNANT NEOPL 11/15/2015 JAYSON KIM, DANIEL Randolph Ot 786.05 SHORTNESS OF BREATH 11/15/2015 EMERALD LIN MD Ot 174.9 MALIGN NEOPL BREAST NOS 11/15/2015 EMERALD LIN MD Ot 288.50 LEUKOCYTOPENIA, UNSPECIFIED 11/15/2015 EMERALD LIN MD Ot 311 DEPRESSIVE DISORDER NEC 11/15/2015 EMERALD LIN MD Ot V45.71 ACQUIRED ABSENCE OF BREAST AND NIPPLE 11/15/2015 EMERALD LIN MD Ot 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 11/15/2015 EMERALD LIN MD, Ot V58.69 OTH MED,LT,CURRENT USE 11/15/2015 EMERALD LIN MD Ot V86.0 ESTROGEN RECEPTOR POSITIVE STATUS [ER+] 11/15/2015 ORTIZ MOLINAP Ot 786.2 COUGH 11/15/2015 EMERALD LIN MD Ot 174.9 MALIGN NEOPL BREAST NOS 11/15/2015 EMERALD LIN MD Ot 288.50 LEUKOCYTOPENIA, UNSPECIFIED 11/15/2015 EMERALD LIN MD Ot 311 DEPRESSIVE DISORDER NEC 11/15/2015 EMERALD LIN MD, Ot V45.71 ACQUIRED ABSENCE OF BREAST AND NIPPLE 11/15/2015 EMERALD LIN MD, Ot 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 11/15/2015 EMERALD LIN MD, Ot V58.69 OTH MED,LT,CURRENT USE 11/15/2015 EMERALD LIN MD, Ot V86.0 ESTROGEN RECEPTOR POSITIVE STATUS [ER+] 11/15/2015 EMERALD LIN MD Ot 174.9 MALIGN NEOPL BREAST NOS 11/15/2015 EMERALD LIN MD Ot V76.11 SCRN MAMMO-HIGH RISK PT, MALIGNANT NEOPL 11/15/2015 EMERALD LIN MD Ot V10.3 HX OF BREAST MALIGNANCY 11/15/2015 EMERALD LIN MD, Ot V45.71 ACQUIRED ABSENCE OF BREAST AND NIPPLE 11/15/2015 EMERALD LIN MD, Ot V58.69 OTH MED,LT,CURRENT USE 11/15/2015 EMERALD LIN MD Ot V67.09 SURGERY FOLLOW-UP, OTHER SURGERY 11/15/2015 EMERALD LIN MD Ot 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.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 11/15/2015 EMERALD LIN MD Ot 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 11/15/2015 EMERALD LIN MD Ot Z12.31 ENCNTR SCREEN MAMMOGRAM FOR MALIGNANT NE 11/15/2015 ORTIZ MOLINAP Ot 721.3 LUMBOSACRAL SPONDYLOSIS 11/15/2015 ORTIZ MOLINAP Ot 737.30 IDIOPATHIC SCOLIOSIS 11/15/2015 RILEY KIM, EMERALD Ot Z08 ENCNTR FOR FOLLOW-UP EXAM AFTER TRTMT FO 11/15/2015 RILEY KIM, EMERALD Ot Z85.3 PERSONAL HISTORY OF MALIGNANT NEOPLASM O 11/15/2015 RILEY KIM, EMERALD Ot Z90.12 ACQUIRED ABSENCE OF LEFT BREAST AND NIPP 11/15/2015 Ot V10.3 HX OF BREAST MALIGNANCY 11/15/2015 Ot V45.71 ACQUIRED ABSENCE OF BREAST AND NIPPLE 11/15/2015 Ot V76.11 SCRN MAMMO- HIGH RISK PT, MALIGNANT NEOPL 11/15/2015 Ot 174.9 MALIGN NEOPL BREAST NOS 11/15/2015 Ot 311 DEPRESSIVE DISORDER NEC 11/15/2015 Ot 530.81 ESOPHAGEAL REFLUX 11/15/2015 Ot 780.4 DIZZINESS AND GIDDINESS 11/15/2015 Ot V45.71 ACQUIRED ABSENCE OF BREAST AND NIPPLE 11/15/2015 Ot 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 11/15/2015 Ot V58.69 OTH MED,LT, CURRENT USE 11/15/2015 Ot V86.0 ESTROGEN RECEPTOR POSITIVE STATUS [ER+] 11/15/2015 Ot 780.4 DIZZINESS AND GIDDINESS 11/15/2015 Ot 785.1 PALPITATIONS 11/15/2015 Ot 786.09 RESPIRATORY ABNORM NEC 11/15/2015 Ot 174.9 MALIGN NEOPL BREAST NOS 11/15/2015 Ot 311 DEPRESSIVE DISORDER NEC 11/15/2015 Ot 780.4 DIZZINESS AND GIDDINESS 11/15/2015 Ot 782.62 FLUSHING 11/15/2015 Ot V45.71 ACQUIRED ABSENCE OF BREAST AND NIPPLE 11/15/2015 Ot V58.69 OTH MED,LT, CURRENT USE 11/15/2015 Ot 174.9 MALIGN NEOPL BREAST NOS 11/15/2015 Ot V45.71 ACQUIRED ABSENCE OF BREAST AND NIPPLE 11/15/2015 Ot 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 11/15/2015 Ot V58.69 OTH MED,LT, CURRENT USE 11/15/2015 Ot V86.0 ESTROGEN RECEPTOR POSITIVE STATUS [ER+] 11/15/2015 Ot 174.9 MALIGN NEOPL BREAST NOS 11/15/2015 Ot 288.50 LEUKOCYTOPENIA, UNSPECIFIED 11/15/2015 Ot 311 DEPRESSIVE DISORDER NEC 11/15/2015 Ot 530.81 ESOPHAGEAL REFLUX 11/15/2015 Ot V45.71 ACQUIRED ABSENCE OF BREAST AND NIPPLE 11/15/2015 Ot 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 11/15/2015 Ot V58.69 OTH MED,LT, CURRENT USE 11/15/2015 Ot V86.0 ESTROGEN RECEPTOR POSITIVE STATUS [ER+] 11/15/2015 Ot 780.60 FEVER, UNSPECIFIED 11/15/2015 Ot 780.79 OTH MALAISE FATIGUE 11/15/2015 Ot 787.02 NAUSEA ALONE 11/15/2015 Ot 174.9 MALIGN NEOPL BREAST NOS 11/15/2015 Ot 288.50 LEUKOCYTOPENIA, UNSPECIFIED 11/15/2015 Ot 311 DEPRESSIVE DISORDER NEC 11/15/2015 Ot 530.81 ESOPHAGEAL REFLUX 11/15/2015 Ot 787.02 NAUSEA ALONE 11/15/2015 Ot 789.00 ABDOMINAL PAIN, UNSPECIFIED SITE 11/15/2015 Ot V45.71 ACQUIRED ABSENCE OF BREAST AND NIPPLE 11/15/2015 Ot 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 11/15/2015 Ot V58.69 OTH MED,LT, CURRENT USE 11/15/2015 Ot V86.0 ESTROGEN RECEPTOR POSITIVE STATUS [ER+] 11/15/2015 RILEY KIM, EMERALD Ot 787.02 NAUSEA ALONE 11/15/2015 RILEY KIM, EMERALD Ot 789.00 ABDOMINAL PAIN, UNSPECIFIED SITE 11/15/2015 RILEY KIM, EMERALD Ot 174.9 MALIGN NEOPL BREAST NOS 11/15/2015 EMERALD LIN MD Ot 311 DEPRESSIVE DISORDER NEC 11/15/2015 EMERALD LIN MD Ot 530.81 ESOPHAGEAL REFLUX 11/15/2015 EMERALD LIN MD Ot 780.4 DIZZINESS AND GIDDINESS 11/15/2015 EMERALD LIN MD Ot 784.0 HEADACHE 11/15/2015 EMERALD LIN MD Ot 787.02 NAUSEA ALONE 11/15/2015 EMERALD LIN MD Ot V45.71 ACQUIRED ABSENCE OF BREAST AND NIPPLE 11/15/2015 EMERALD LIN MD Ot 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 11/15/2015 EMERALD LIN MD Ot V58.69 OTH MED,LT,CURRENT USE 11/15/2015 EMERALD ILN MD Ot V86.0 ESTROGEN RECEPTOR POSITIVE STATUS [ER+] 11/15/2015 EMERALD LIN MD Ot 174.9 MALIGN NEOPL BREAST NOS 11/15/2015 EMERALD LIN MD Ot 174.9 MALIGN NEOPL BREAST NOS 11/15/2015 EMERALD LIN MD Ot V10.3 HX OF BREAST MALIGNANCY 11/15/2015 EMERALD LIN MD Ot V76.11 SCRN MAMMO-HIGH RISK PT, MALIGNANT NEOPL 11/15/2015 DANIEL TYLER MD Ot 786.05 SHORTNESS OF BREATH 11/15/2015 EMERALD LIN MD Ot 174.9 MALIGN NEOPL BREAST NOS 11/15/2015 EMERALD LIN MD Ot 288.50 LEUKOCYTOPENIA, UNSPECIFIED 11/15/2015 EMERALD LIN MD Ot 311 DEPRESSIVE DISORDER NEC 11/15/2015 EMERALD LIN MD Ot V45.71 ACQUIRED ABSENCE OF BREAST AND NIPPLE 11/15/2015 EMERALD LIN MD Ot 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 11/15/2015 EMERALD LIN MD Ot V58.69 OTH MED,LT,CURRENT USE 11/15/2015 EMERALD LIN MD Ot V86.0 ESTROGEN RECEPTOR POSITIVE STATUS [ER+] 11/15/2015 ORTIZ MOLINA Ot 786.2 COUGH 11/15/2015 EMERALD LIN MD Ot 174.9 MALIGN NEOPL BREAST NOS 11/15/2015 EMERALD LIN MD Ot 288.50 LEUKOCYTOPENIA, UNSPECIFIED 11/15/2015 EMERALD LIN MD Ot 311 DEPRESSIVE DISORDER NEC 11/15/2015 EMERALD LIN MD Ot V45.71 ACQUIRED ABSENCE OF BREAST AND NIPPLE 11/15/2015 EMERALD LIN MD Ot 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 11/15/2015 EMERALD LIN MD Ot V58.69 OTH MED,LT,CURRENT USE 11/15/2015 EMERALD LIN MD Ot V86.0 ESTROGEN RECEPTOR POSITIVE STATUS [ER+] 11/15/2015 EMERALD LIN MD Ot 174.9 MALIGN NEOPL BREAST NOS 11/15/2015 EMERALD LIN MD, Ot V76.11 SCRN MAMMO-HIGH RISK PT, MALIGNANT NEOPL 11/15/2015 EMERALD LIN MD, Ot V10.3 HX OF BREAST MALIGNANCY 11/15/2015 EMERALD LIN MD, Ot V45.71 ACQUIRED ABSENCE OF BREAST AND NIPPLE 11/15/2015 EMERALD LIN MD, Ot V58.69 OTH MED,LT,CURRENT USE 11/15/2015 EMERALD LIN MD, Ot V67.09 SURGERY FOLLOW-UP, OTHER SURGERY 11/15/2015 EMERALD LIN MD, Ot V88.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 11/15/2015 EMERALD LIN MD, Ot 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 11/15/2015 EMERALD LIN MD, Ot Z12.31 ENCNTR SCREEN MAMMOGRAM FOR MALIGNANT NE 11/15/2015 ORTIZ MOLINAP Ot 721.3 LUMBOSACRAL SPONDYLOSIS 11/15/2015 ORTIZ MOLINAP Ot 737.30 IDIOPATHIC SCOLIOSIS 11/15/2015 EMERALD LIN MD, Ot Z08 ENCNTR FOR FOLLOW-UP EXAM AFTER TRTMT FO 11/15/2015 EMERALD LIN MD, Ot Z85.3 PERSONAL HISTORY OF MALIGNANT NEOPLASM O 11/15/2015 EMERALD LIN MD, Ot Z90.12 ACQUIRED ABSENCE OF LEFT BREAST AND NIPP 11/18/2015 EMERALD LIN MD Ot N64.4 MASTODYNIA 11/18/2015 EMERALD LIN MD, Ot N64.4 MASTODYNIA 11/18/2015 EMERALD LIN MD, Ot R92.8 OTH ABN AND INCONCLUSIVE FINDINGS ON DX 11/18/2015 EMERALD LIN MD, Ot Z85.3 PERSONAL HISTORY OF MALIGNANT NEOPLASM O 11/18/2015 EMERALD LIN MD, Ot N64.4 MASTODYNIA 11/18/2015 EMERALD LIN MD, Ot R92.8 OTH ABN AND INCONCLUSIVE FINDINGS ON DX 11/18/2015 EMERALD LIN MD, Ot Z85.3 PERSONAL HISTORY OF MALIGNANT NEOPLASM O 11/20/2015 EMERALD LIN MD Ot N63 UNSPECIFIED LUMP IN BREAST 11/22/2015 EMERALD LIN MD, Ot C50.412 MALIG NEOPLASM OF UPPER-OUTER QUADRANT O 11/22/2015 EMERALD LIN MD Ot N63 UNSPECIFIED LUMP IN BREAST 12/10/2015 EMERALD LIN MD, Ot N64.4 MASTODYNIA 12/10/2015 EMERALD LIN MD, Ot R92.8 OTH ABN AND INCONCLUSIVE FINDINGS ON DX 12/10/2015 EMERALD LIN MD, Ot Z85.3 PERSONAL HISTORY OF MALIGNANT NEOPLASM O 12/17/2015 EMERALD LIN MD, Ot Z08 ENCNTR FOR FOLLOW-UP EXAM AFTER TRTMT FO 12/17/2015 EMERALD LIN MD, Ot Z85.3 PERSONAL HISTORY OF MALIGNANT NEOPLASM O 12/17/2015 EMERALD LIN MD, Ot Z90.12 ACQUIRED ABSENCE OF LEFT BREAST AND NIPP 12/19/2015 EMERALD LIN MD, Ot C50.412 MALIG NEOPLASM OF UPPER-OUTER QUADRANT O 12/19/2015 EMERALD LIN MD Ot N60.31 FIBROSCLEROSIS OF RIGHT BREAST 12/25/2015 EMERALD LIN MD, Ot Z08 ENCNTR FOR FOLLOW-UP EXAM AFTER TRTMT FO 12/25/2015 EMERALD LIN MD, Ot Z85.3 PERSONAL HISTORY OF MALIGNANT NEOPLASM O 12/25/2015 EMERALD LIN MD, Ot Z90.12 ACQUIRED ABSENCE OF LEFT BREAST AND NIPP 12/26/2015 DANIEL TYLER MD Ot N64.4 MASTODYNIA 12/26/2015 DANIEL TYLER MD Ot Z86.2 PRSNL HISTORY OF DIS OF THE BLD/BLD-FORM 12/28/2015 Ot 174.9 MALIGN NEOPL BREAST NOS 12/28/2015 Ot 780.79 OTH MALAISE FATIGUE 12/28/2015 Ot 174.9 MALIGN NEOPL BREAST NOS 12/28/2015 Ot 174.9 MALIGN NEOPL BREAST NOS 12/28/2015 Ot 311 DEPRESSIVE DISORDER NEC 12/28/2015 Ot 716.90 ARTHROPATHY NOS-UNSPEC 12/28/2015 Ot V07.4 HORMONE REPLACEMENT THERAPY (POSTMENOPAU 12/28/2015 Ot V16.3 FAMILY HX- BREAST MALIG 12/28/2015 Ot 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 12/28/2015 Ot V58.69 OTH MED,LT, CURRENT USE 12/28/2015 Ot V86.0 ESTROGEN RECEPTOR POSITIVE STATUS [ER+] 12/28/2015 Ot 174.9 MALIGN NEOPL BREAST NOS 12/28/2015 Ot V72.63 PRE- PROCEDURAL LABORATORY EXAMINATION 12/28/2015 Ot V72.81 EXAM-PRE- OPERATIVE CARDIOVASCULAR 12/28/2015 Ot V72.83 EXAM PRE- OPERATIVE NEC 12/28/2015 Ot 174.9 MALIGN NEOPL BREAST NOS 12/28/2015 Ot 311 DEPRESSIVE DISORDER NEC 12/28/2015 Ot 530.81 ESOPHAGEAL REFLUX 12/28/2015 Ot 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 12/28/2015 Ot V58.69 OTH MED,LT, CURRENT USE 12/28/2015 Ot V86.0 ESTROGEN RECEPTOR POSITIVE STATUS [ER+] 12/28/2015 Ot 174.9 MALIGN NEOPL BREAST NOS 12/28/2015 Ot 788.1 DYSURIA 12/28/2015 Ot 788.41 URINARY FREQUENCY 12/28/2015 Ot 174.9 MALIGN NEOPL BREAST NOS 12/28/2015 Ot V58.69 OTH MED,LT, CURRENT USE 12/28/2015 Ot 174.9 MALIGN NEOPL BREAST NOS 12/28/2015 Ot 780.79 OTH MALAISE FATIGUE 12/28/2015 Ot V58.69 OTH MED,LT, CURRENT USE 12/28/2015 Ot V10.3 HX OF BREAST MALIGNANCY 12/28/2015 Ot V45.71 ACQUIRED ABSENCE OF BREAST AND NIPPLE 12/28/2015 Ot V76.11 SCRN MAMMO- HIGH RISK PT, MALIGNANT NEOPL 12/28/2015 Ot 174.9 MALIGN NEOPL BREAST NOS 12/28/2015 Ot 311 DEPRESSIVE DISORDER NEC 12/28/2015 Ot 530.81 ESOPHAGEAL REFLUX 12/28/2015 Ot 780.4 DIZZINESS AND GIDDINESS 12/28/2015 Ot V45.71 ACQUIRED ABSENCE OF BREAST AND NIPPLE 12/28/2015 Ot 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 12/28/2015 Ot V58.69 OTH MED,LT, CURRENT USE 12/28/2015 Ot V86.0 ESTROGEN RECEPTOR POSITIVE STATUS [ER+] 12/28/2015 Ot 780.4 DIZZINESS AND GIDDINESS 12/28/2015 Ot 785.1 PALPITATIONS 12/28/2015 Ot 786.09 RESPIRATORY ABNORM NEC 12/28/2015 Ot 174.9 MALIGN NEOPL BREAST NOS 12/28/2015 Ot 311 DEPRESSIVE DISORDER NEC 12/28/2015 Ot 780.4 DIZZINESS AND GIDDINESS 12/28/2015 Ot 782.62 FLUSHING 12/28/2015 Ot V45.71 ACQUIRED ABSENCE OF BREAST AND NIPPLE 12/28/2015 Ot V58.69 OTH MED,LT, CURRENT USE 12/28/2015 Ot 174.9 MALIGN NEOPL BREAST NOS 12/28/2015 Ot V45.71 ACQUIRED ABSENCE OF BREAST AND NIPPLE 12/28/2015 Ot 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 12/28/2015 Ot V58.69 OTH MED,LT, CURRENT USE 12/28/2015 Ot V86.0 ESTROGEN RECEPTOR POSITIVE STATUS [ER+] 12/28/2015 Ot 174.9 MALIGN NEOPL BREAST NOS 12/28/2015 Ot 288.50 LEUKOCYTOPENIA, UNSPECIFIED 12/28/2015 Ot 311 DEPRESSIVE DISORDER NEC 12/28/2015 Ot 530.81 ESOPHAGEAL REFLUX 12/28/2015 Ot V45.71 ACQUIRED ABSENCE OF BREAST AND NIPPLE 12/28/2015 Ot 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 12/28/2015 Ot V58.69 OTH MED,LT, CURRENT USE 12/28/2015 Ot V86.0 ESTROGEN RECEPTOR POSITIVE STATUS [ER+] 12/28/2015 Ot 780.60 FEVER, UNSPECIFIED 12/28/2015 Ot 780.79 OTH MALAISE FATIGUE 12/28/2015 Ot 787.02 NAUSEA ALONE 12/28/2015 Ot 174.9 MALIGN NEOPL BREAST NOS 12/28/2015 Ot 288.50 LEUKOCYTOPENIA, UNSPECIFIED 12/28/2015 Ot 311 DEPRESSIVE DISORDER NEC 12/28/2015 Ot 530.81 ESOPHAGEAL REFLUX 12/28/2015 Ot 787.02 NAUSEA ALONE 12/28/2015 Ot 789.00 ABDOMINAL PAIN, UNSPECIFIED SITE 12/28/2015 Ot V45.71 ACQUIRED ABSENCE OF BREAST AND NIPPLE 12/28/2015 Ot 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 12/28/2015 Ot V58.69 OTH MED,LT, CURRENT USE 12/28/2015 Ot V86.0 ESTROGEN RECEPTOR POSITIVE STATUS [ER+] 12/28/2015 RILEY KIM, EMERALD Ot 787.02 NAUSEA ALONE 12/28/2015 EMERALD LIN MD Ot 789.00 ABDOMINAL PAIN, UNSPECIFIED SITE 12/28/2015 EMERALD LIN MD Ot 174.9 MALIGN NEOPL BREAST NOS 12/28/2015 EMERALD LIN MD Ot 311 DEPRESSIVE DISORDER NEC 12/28/2015 EMERALD LIN MD Ot 530.81 ESOPHAGEAL REFLUX 12/28/2015 EMERALD LIN MD Ot 780.4 DIZZINESS AND GIDDINESS 12/28/2015 EMERALD LIN MD Ot 784.0 HEADACHE 12/28/2015 EMERALD LIN MD Ot 787.02 NAUSEA ALONE 12/28/2015 EMERALD LIN MD Ot V45.71 ACQUIRED ABSENCE OF BREAST AND NIPPLE 12/28/2015 EMERALD LIN MD, Ot 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 12/28/2015 EMERALD LIN MD, Ot V58.69 OTH MED,LT,CURRENT USE 12/28/2015 EMERALD LIN MD Ot V86.0 ESTROGEN RECEPTOR POSITIVE STATUS [ER+] 12/28/2015 EMERALD LIN MD Ot 174.9 MALIGN NEOPL BREAST NOS 12/28/2015 EMERALD LIN MD Ot 174.9 MALIGN NEOPL BREAST NOS 12/28/2015 EMERALD LIN MD Ot V10.3 HX OF BREAST MALIGNANCY 12/28/2015 EMERALD LIN MD Ot V76.11 SCRN MAMMO-HIGH RISK PT, MALIGNANT NEOPL 12/28/2015 JAYSON KIM, DANIEL Randolph Ot 786.05 SHORTNESS OF BREATH 12/28/2015 EMERALD LIN MD Ot 174.9 MALIGN NEOPL BREAST NOS 12/28/2015 EMERALD LIN MD Ot 288.50 LEUKOCYTOPENIA, UNSPECIFIED 12/28/2015 EMERALD LIN MD Ot 311 DEPRESSIVE DISORDER NEC 12/28/2015 EMERALD LIN MD Ot V45.71 ACQUIRED ABSENCE OF BREAST AND NIPPLE 12/28/2015 EMERALD LIN MD Ot 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 12/28/2015 EMERALD LIN MD Ot V58.69 OTH MED,LT,CURRENT USE 12/28/2015 EMERALD LIN MD Ot V86.0 ESTROGEN RECEPTOR POSITIVE STATUS [ER+] 12/28/2015 ORTIZ MOLINA Ot 786.2 COUGH 12/28/2015 EMERALD LIN MD Ot 174.9 MALIGN NEOPL BREAST NOS 12/28/2015 EMERALD LIN MD Ot 288.50 LEUKOCYTOPENIA, UNSPECIFIED 12/28/2015 EMERALD LIN MD Ot 311 DEPRESSIVE DISORDER NEC 12/28/2015 EMERALD LIN MD, Ot V45.71 ACQUIRED ABSENCE OF BREAST AND NIPPLE 12/28/2015 EMERALD LIN MD, Ot 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 12/28/2015 EMERALD LIN MD, Ot V58.69 OTH MED,LT,CURRENT USE 12/28/2015 EMERALD LIN MD, Ot V86.0 ESTROGEN RECEPTOR POSITIVE STATUS [ER+] 12/28/2015 EMERALD LIN MD, Ot 174.9 MALIGN NEOPL BREAST NOS 12/28/2015 EMERALD LIN MD, Ot V76.11 SCRN MAMMO-HIGH RISK PT, MALIGNANT NEOPL 12/28/2015 EMERALD LIN MD, Ot V10.3 HX OF BREAST MALIGNANCY 12/28/2015 EMERALD LIN MD, Ot V45.71 ACQUIRED ABSENCE OF BREAST AND NIPPLE 12/28/2015 EMERALD LIN MD, Ot V58.69 OTH MED,LT,CURRENT USE 12/28/2015 EMERALD LIN MD, Ot V67.09 SURGERY FOLLOW-UP, OTHER SURGERY 12/28/2015 EMERALD LIN MD, Ot V88.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 12/28/2015 EMERALD LIN MD, Ot 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 12/28/2015 EMERALD LIN MD, Ot Z12.31 ENCNTR SCREEN MAMMOGRAM FOR MALIGNANT NE 12/28/2015 ORTIZ MOLINA Ot 721.3 LUMBOSACRAL SPONDYLOSIS 12/28/2015 ORTIZ MOLINA Ot 737.30 IDIOPATHIC SCOLIOSIS 12/28/2015 EMERALD LIN MD, Ot N64.4 MASTODYNIA 12/28/2015 EMERALD LIN MD, Ot R92.8 OTH ABN AND INCONCLUSIVE FINDINGS ON DX 12/28/2015 XUN MD, COWAN-MELINDA Ot Z85.3 PERSONAL HISTORY OF MALIGNANT NEOPLASM O 12/28/2015 RILEY KIM, EMERALD Ot C50.412 MALIG NEOPLASM OF UPPER-OUTER QUADRANT O 12/28/2015 RILEY KIM, EMERALD Ot N60.31 FIBROSCLEROSIS OF RIGHT BREAST 12/28/2015 EMERALD LIN MD Ot Z08 ENCNTR FOR FOLLOW-UP EXAM AFTER TRTMT FO 12/28/2015 EMERALD LIN MD Ot Z85.3 PERSONAL HISTORY OF MALIGNANT NEOPLASM O 12/28/2015 RILEY KIM, EMERALD Ot Z90.12 ACQUIRED ABSENCE OF LEFT BREAST AND NIPP 12/28/2015 JAYSON KIM, DANIEL Randolph Ot N64.4 MASTODYNIA 12/28/2015 JAYSON KIM, DANIEL Randolph Ot Z86.2 PRSNL HISTORY OF DIS OF THE BLD/BLD-FORM 01/02/2016 ORTIZ MOLINA TELERADIOLOGIST Ot N64.4 MASTODYNIA 01/02/2016 ORTIZ MOLINA TELERADIOLOGIST Ot Z85.3 PERSONAL HISTORY OF MALIGNANT NEOPLASM O 01/02/2016 Ot V10.3 HX OF BREAST MALIGNANCY 01/02/2016 Ot V45.71 ACQUIRED ABSENCE OF BREAST AND NIPPLE 01/02/2016 Ot V76.11 SCRN MAMMO- HIGH RISK PT, MALIGNANT NEOPL 01/02/2016 Ot 174.9 MALIGN NEOPL BREAST NOS 01/02/2016 Ot 311 DEPRESSIVE DISORDER NEC 01/02/2016 Ot 530.81 ESOPHAGEAL REFLUX 01/02/2016 Ot 780.4 DIZZINESS AND GIDDINESS 01/02/2016 Ot V45.71 ACQUIRED ABSENCE OF BREAST AND NIPPLE 01/02/2016 Ot 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 01/02/2016 Ot V58.69 OTH MED,LT, CURRENT USE 01/02/2016 Ot V86.0 ESTROGEN RECEPTOR POSITIVE STATUS [ER+] 01/02/2016 Ot 780.4 DIZZINESS AND GIDDINESS 01/02/2016 Ot 785.1 PALPITATIONS 01/02/2016 Ot 786.09 RESPIRATORY ABNORM NEC 01/02/2016 Ot 174.9 MALIGN NEOPL BREAST NOS 01/02/2016 Ot 311 DEPRESSIVE DISORDER NEC 01/02/2016 Ot 780.4 DIZZINESS AND GIDDINESS 01/02/2016 Ot 782.62 FLUSHING 01/02/2016 Ot V45.71 ACQUIRED ABSENCE OF BREAST AND NIPPLE 01/02/2016 Ot V58.69 OTH MED,LT, CURRENT USE 01/02/2016 Ot 174.9 MALIGN NEOPL BREAST NOS 01/02/2016 Ot V45.71 ACQUIRED ABSENCE OF BREAST AND NIPPLE 01/02/2016 Ot 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 01/02/2016 Ot V58.69 OTH MED,LT, CURRENT USE 01/02/2016 Ot V86.0 ESTROGEN RECEPTOR POSITIVE STATUS [ER+] 01/02/2016 Ot 174.9 MALIGN NEOPL BREAST NOS 01/02/2016 Ot 288.50 LEUKOCYTOPENIA, UNSPECIFIED 01/02/2016 Ot 311 DEPRESSIVE DISORDER NEC 01/02/2016 Ot 530.81 ESOPHAGEAL REFLUX 01/02/2016 Ot V45.71 ACQUIRED ABSENCE OF BREAST AND NIPPLE 01/02/2016 Ot 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 01/02/2016 Ot V58.69 OTH MED,LT, CURRENT USE 01/02/2016 Ot V86.0 ESTROGEN RECEPTOR POSITIVE STATUS [ER+] 01/02/2016 Ot 780.60 FEVER, UNSPECIFIED 01/02/2016 Ot 780.79 OTH MALAISE FATIGUE 01/02/2016 Ot 787.02 NAUSEA ALONE 01/02/2016 Ot 174.9 MALIGN NEOPL BREAST NOS 01/02/2016 Ot 288.50 LEUKOCYTOPENIA, UNSPECIFIED 01/02/2016 Ot 311 DEPRESSIVE DISORDER NEC 01/02/2016 Ot 530.81 ESOPHAGEAL REFLUX 01/02/2016 Ot 787.02 NAUSEA ALONE 01/02/2016 Ot 789.00 ABDOMINAL PAIN, UNSPECIFIED SITE 01/02/2016 Ot V45.71 ACQUIRED ABSENCE OF BREAST AND NIPPLE 01/02/2016 Ot 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 01/02/2016 Ot V58.69 OTH MED,LT, CURRENT USE 01/02/2016 Ot V86.0 ESTROGEN RECEPTOR POSITIVE STATUS [ER+] 01/02/2016 RILEY KIM, EMERALD Ot 787.02 NAUSEA ALONE 01/02/2016 EMERALD LIN MD Ot 789.00 ABDOMINAL PAIN, UNSPECIFIED SITE 01/02/2016 EMERALD LIN MD Ot 174.9 MALIGN NEOPL BREAST NOS 01/02/2016 EMERALD LIN MD Ot 311 DEPRESSIVE DISORDER NEC 01/02/2016 EMERALD LIN MD Ot 530.81 ESOPHAGEAL REFLUX 01/02/2016 EMERALD LIN MD Ot 780.4 DIZZINESS AND GIDDINESS 01/02/2016 EMERALD LIN MD Ot 784.0 HEADACHE 01/02/2016 EMERALD LIN MD Ot 787.02 NAUSEA ALONE 01/02/2016 EMERALD LIN MD Ot V45.71 ACQUIRED ABSENCE OF BREAST AND NIPPLE 01/02/2016 EMERALD LIN MD Ot 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 01/02/2016 EMERALD LIN MD, Ot V58.69 OTH MED,LT,CURRENT USE 01/02/2016 EMERALD LIN MD Ot V86.0 ESTROGEN RECEPTOR POSITIVE STATUS [ER+] 01/02/2016 EMERALD LIN MD Ot 174.9 MALIGN NEOPL BREAST NOS 01/02/2016 EMERALD LIN MD Ot 174.9 MALIGN NEOPL BREAST NOS 01/02/2016 EMERALD LIN MD Ot V10.3 HX OF BREAST MALIGNANCY 01/02/2016 EMERALD LIN MD Ot V76.11 SCRN MAMMO-HIGH RISK PT, MALIGNANT NEOPL 01/02/2016 DANIEL TYLER MD Ot 786.05 SHORTNESS OF BREATH 01/02/2016 EMERALD LIN MD Ot 174.9 MALIGN NEOPL BREAST NOS 01/02/2016 EMERALD LIN MD Ot 288.50 LEUKOCYTOPENIA, UNSPECIFIED 01/02/2016 EMERALD LIN MD Ot 311 DEPRESSIVE DISORDER NEC 01/02/2016 EMERALD LIN MD Ot V45.71 ACQUIRED ABSENCE OF BREAST AND NIPPLE 01/02/2016 EMERALD LIN MD Ot 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 01/02/2016 EMERALD LIN MD, Ot V58.69 OTH MED,LT,CURRENT USE 01/02/2016 EMERALD LIN MD, Ot V86.0 ESTROGEN RECEPTOR POSITIVE STATUS [ER+] 01/02/2016 ORTIZ MOLINA Ot 786.2 COUGH 01/02/2016 EMERALD LIN MD Ot 174.9 MALIGN NEOPL BREAST NOS 01/02/2016 EMERALD LIN MD Ot 288.50 LEUKOCYTOPENIA, UNSPECIFIED 01/02/2016 EMERALD LIN MD, Ot 311 DEPRESSIVE DISORDER NEC 01/02/2016 EMERALD LIN MD, Ot V45.71 ACQUIRED ABSENCE OF BREAST AND NIPPLE 01/02/2016 EMERALD LIN MD, Ot 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 01/02/2016 EMERALD LIN MD, Ot V58.69 OTH MED,LT,CURRENT USE 01/02/2016 EMERALD LIN MD, Ot V86.0 ESTROGEN RECEPTOR POSITIVE STATUS [ER+] 01/02/2016 EMERALD LIN MD, Ot 174.9 MALIGN NEOPL BREAST NOS 01/02/2016 EMERALD LIN MD, Ot V76.11 SCRN MAMMO-HIGH RISK PT, MALIGNANT NEOPL 01/02/2016 EMERALD LIN MD, Ot V10.3 HX OF BREAST MALIGNANCY 01/02/2016 EMERALD LIN MD, Ot V45.71 ACQUIRED ABSENCE OF BREAST AND NIPPLE 01/02/2016 EMERALD LIN MD, Ot V58.69 OTH MED,LT,CURRENT USE 01/02/2016 EMERALD LIN MD, Ot V67.09 SURGERY FOLLOW-UP, OTHER SURGERY 01/02/2016 EMERALD LIN MD, Ot V88.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 01/02/2016 EMERALD LIN MD, Ot 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 01/02/2016 EMERALD LIN MD, Ot Z12.31 ENCNTR SCREEN MAMMOGRAM FOR MALIGNANT NE 01/02/2016 ORTIZ MOLINAP Ot 721.3 LUMBOSACRAL SPONDYLOSIS 01/02/2016 ORTIZ MOLINAP Ot 737.30 IDIOPATHIC SCOLIOSIS 01/02/2016 EMERALD LIN MD, Ot N64.4 MASTODYNIA 01/02/2016 EMERALD LIN MD, Ot R92.8 OTH ABN AND INCONCLUSIVE FINDINGS ON DX 01/02/2016 EMERALD LIN MD, Ot Z85.3 PERSONAL HISTORY OF MALIGNANT NEOPLASM O 01/02/2016 EMERADL LIN MD, Ot C50.412 MALIG NEOPLASM OF UPPER-OUTER QUADRANT O 01/02/2016 EMERALD LIN MD, Ot N60.31 FIBROSCLEROSIS OF RIGHT BREAST 01/02/2016 EMERALD LIN MD Ot Z08 ENCNTR FOR FOLLOW-UP EXAM AFTER TRTMT FO 01/02/2016 EMERALD LIN MD Ot Z85.3 PERSONAL HISTORY OF MALIGNANT NEOPLASM O 01/02/2016 EMERALD LIN MD Ot Z90.12 ACQUIRED ABSENCE OF LEFT BREAST AND NIPP 01/02/2016 JAYSON KIM, DANIEL A Ot N64.4 MASTODYNIA 01/02/2016 DANIEL TYLER MD A Ot Z86.2 PRSNL HISTORY OF DIS OF THE BLD/BLD-FORM 01/02/2016 ORTIZ MOLINA TELERADIOLOGIST Ot N64.4 MASTODYNIA 01/02/2016 ORTIZ MOLINA TELERADIOLOGIST Ot Z85.3 PERSONAL HISTORY OF MALIGNANT NEOPLASM O 01/15/2016 JAYSON KIM, DANIEL A Ot N64.4 MASTODYNIA 01/15/2016 DANIEL TYLER MD A Ot Z86.2 PRSNL HISTORY OF DIS OF THE BLD/BLD-FORM 01/16/2016 AGNES TYLER MDY A Ot N64.4 MASTODYNIA 01/16/2016 AGNES TYLER MDY A Ot Z86.2 PRSNL HISTORY OF DIS OF THE BLD/BLD-FORM 01/16/2016 ORTIZ MOLINA TELERADIOLOGIST Ot N64.4 MASTODYNIA 01/16/2016 ORTIZ MOLINA TELERADIOLOGIST Ot Z85.3 PERSONAL HISTORY OF MALIGNANT NEOPLASM O 01/16/2016 GANES TYLER MDY A Ot N64.4 MASTODYNIA 01/16/2016 DANIEL TYLER MD A Ot Z86.2 PRSNL HISTORY OF DIS OF THE BLD/BLD-FORM 01/20/2016 ORTIZ MOLINA TELERADIOLOGIST Ot N64.4 MASTODYNIA 01/20/2016 ORTIZ MOLINA TELERADIOLOGIST Ot Z85.3 PERSONAL HISTORY OF MALIGNANT NEOPLASM O 01/27/2016 EMERALD LIN MD Ot Z08 ENCNTR FOR FOLLOW-UP EXAM AFTER TRTMT FO 01/27/2016 EMERALD LIN MD Ot Z85.3 PERSONAL HISTORY OF MALIGNANT NEOPLASM O 01/27/2016 EMERALD LIN MD Ot Z90.12 ACQUIRED ABSENCE OF LEFT BREAST AND NIPP 02/12/2016 EMERALD LIN MD Ot Z08 ENCNTR FOR FOLLOW-UP EXAM AFTER TRTMT FO 02/12/2016 EMERALD LIN MD Ot Z85.3 PERSONAL HISTORY OF MALIGNANT NEOPLASM O 02/12/2016 EMERALD LIN MD Ot Z90.12 ACQUIRED ABSENCE OF LEFT BREAST AND NIPP 03/24/2016 EMERALD LIN MD Ot Z08 ENCNTR FOR FOLLOW-UP EXAM AFTER TRTMT FO 03/24/2016 EMERALD LIN MD Ot Z85.3 PERSONAL HISTORY OF MALIGNANT NEOPLASM O 03/24/2016 EMERALD LIN MD Ot Z90.12 ACQUIRED ABSENCE OF LEFT BREAST AND NIPP 03/25/2016 EMERALD LIN MD Ot Z08 ENCNTR FOR FOLLOW-UP EXAM AFTER TRTMT FO 03/25/2016 EMERALD LIN MD Ot Z85.3 PERSONAL HISTORY OF MALIGNANT NEOPLASM O 03/25/2016 EMERALD LIN MD Ot Z90.12 ACQUIRED ABSENCE OF LEFT BREAST AND NIPP 03/30/2016 EMERALD LIN MD Ot Z08 ENCNTR FOR FOLLOW-UP EXAM AFTER TRTMT FO 03/30/2016 EMERALD LIN MD Ot Z85.3 PERSONAL HISTORY OF MALIGNANT NEOPLASM O 03/30/2016 EMERALD LIN MD Ot Z90.12 ACQUIRED ABSENCE OF LEFT BREAST AND NIPP 06/19/2016 ORTIZ MOLINA TELERADIOLOGIST Ot E86.0 DEHYDRATION 06/19/2016 ORTIZ MOLINA TELERADIOLOGIST Ot J40 BRONCHITIS, NOT SPECIFIED ACUTE OR CH 06/19/2016 ORTIZ MOLINA TELERADIOLOGIST Ot R50.9 FEVER, UNSPECIFIED 06/19/2016 ORTIZ MOLINA TELERADIOLOGIST Ot E86.0 DEHYDRATION 06/19/2016 ORTIZ MOLINA TELERADIOLOGIST Ot J40 BRONCHITIS, NOT SPECIFIED ACUTE OR CH 06/19/2016 ORTIZ MOLINA TELERADIOLOGIST Ot R50.9 FEVER, UNSPECIFIED 07/07/2016 ORTIZ MOLINA TELERADIOLOGIST Ot R92.8 OTH ABN AND INCONCLUSIVE FINDINGS ON DX 07/08/2016 ORTIZ MOLINA TELERADIOLOGIST Ot R92.8 OTH ABN AND INCONCLUSIVE FINDINGS ON DX 07/13/2016 ORTIZ MOLINA TELERADIOLOGIST Ot E86.0 DEHYDRATION 07/13/2016 ORTIZ MOLINA TELERADIOLOGIST Ot J40 BRONCHITIS, NOT SPECIFIED ACUTE OR CH 07/13/2016 ORTIZ MOLINA TELERADIOLOGIST Ot R50.9 FEVER, UNSPECIFIED 07/31/2016 ORTIZ MOLINA TELERADIOLOGIST Ot S09.92XA UNSPECIFIED INJURY OF NOSE, INITIAL ENCO 07/31/2016 ORTIZ MOLINA TELERADIOLOGIST Ot W19.XXXA UNSPECIFIED FALL, INITIAL ENCOUNTER 07/31/2016 ORTIZ MOLINA TELERADIOLOGIST Ot Y99.8 OTHER EXTERNAL CAUSE STATUS 07/31/2016 ORTIZ MOLINA TELERADIOLOGIST Ot S09.92XA UNSPECIFIED INJURY OF NOSE, INITIAL ENCO 07/31/2016 ORTIZ MOLINA TELERADIOLOGIST Ot W19.XXXA UNSPECIFIED FALL, INITIAL ENCOUNTER 07/31/2016 ORTIZ MOLINA TELERADIOLOGIST Ot Y99.8 OTHER EXTERNAL CAUSE STATUS 08/03/2016 ORTIZ MOLINA TELERADIOLOGIST Ot R92.8 OTH ABN AND INCONCLUSIVE FINDINGS ON DX 08/08/2016 RFEDERIC GALVAN APRN Ot J32.0 CHRONIC MAXILLARY SINUSITIS 08/08/2016 FREDERIC GLAVAN APRN Ot M47.812 SPONDYLOSIS W/O MYELOPATHY OR RADICULOPA 08/08/2016 FREDERIC GALVAN APRN Ot R04.0 EPISTAXIS 08/08/2016 FREDERIC GALVAN APRN Ot S00.83XA CONTUSION OF OTHER PART OF HEAD, INITIAL 08/08/2016 FREDERIC GALVAN APRN Ot S02.2XXA FRACTURE OF NASAL BONES, INIT ENCNTR FOR 08/08/2016 FREDERIC GALVAN APRN Ot S52.134A NONDISP FX OF NECK OF RIGHT RADIUS, INIT 08/08/2016 FREDERIC GALVAN APRN Ot S59.911A UNSPECIFIED INJURY OF RIGHT FOREARM, INI 08/08/2016 FREDERIC GALVAN APRN Ot S80.211A ABRASION, RIGHT KNEE, INITIAL ENCOUNTER 08/08/2016 FREDERIC GALVAN APRN Ot S80.212A ABRASION, LEFT KNEE, INITIAL ENCOUNTER 08/08/2016 FREDERIC GALVAN APRN Ot W01.0XXA FALL SAME LEV FROM SLIP/TRIP W/O STRIKE 08/08/2016 FREDERIC GALVAN APRN Ot Y92.017 GARDEN OR YARD IN SINGLE-FAMILY (PRIVATE 08/08/2016 FREDERIC GALVAN APRN Ot Y99.8 OTHER EXTERNAL CAUSE STATUS 08/08/2016 FREDERIC GALVAN APRN Ot Z23 ENCOUNTER FOR IMMUNIZATION 08/08/2016 FREDERIC GALVAN APRN Ot Z79.899 OTHER [employer] (CURRENT) DRUG THERAPY 08/11/2016 FREDERIC GALVAN APRN Ot J32.0 CHRONIC MAXILLARY SINUSITIS 08/11/2016 FREDERIC GALVAN APRN Ot M47.812 SPONDYLOSIS W/O MYELOPATHY OR RADICULOPA 08/11/2016 FREDERIC GALVAN APRN Ot R04.0 EPISTAXIS 08/11/2016 FREDERIC GALVAN APRN Ot S00.83XA CONTUSION OF OTHER PART OF HEAD, INITIAL 08/11/2016 FREDERIC GALVAN APRN Ot S02.2XXA FRACTURE OF NASAL BONES, INIT ENCNTR FOR 08/11/2016 FREDERIC GALVAN APRN Ot S52.134A NONDISP FX OF NECK OF RIGHT RADIUS, INIT 08/11/2016 FREDERIC GALVAN APRN Ot S59.911A UNSPECIFIED INJURY OF RIGHT FOREARM, INI 08/11/2016 FREDERIC GALVAN APRN Ot S80.211A ABRASION, RIGHT KNEE, INITIAL ENCOUNTER 08/11/2016 FREDERIC GALVAN APRN Ot S80.212A ABRASION, LEFT KNEE, INITIAL ENCOUNTER 08/11/2016 FREDERIC GALVAN APRN Ot W01.0XXA FALL SAME LEV FROM SLIP/TRIP W/O STRIKE 08/11/2016 FREDERIC GALVAN APRN Ot Y92.017 GARDEN OR YARD IN SINGLE-FAMILY (PRIVATE 08/11/2016 FREDERIC GALVAN APRN Ot Y99.8 OTHER EXTERNAL CAUSE STATUS 08/11/2016 FREDERIC GALVAN APRN Ot Z23 ENCOUNTER FOR IMMUNIZATION 08/11/2016 FREDERIC GALVAN APRN Ot Z79.899 OTHER LONG-TERM (CURRENT) DRUG THERAPY 08/14/2016 FREDERIC GALVAN APRN Ot J32.0 CHRONIC MAXILLARY SINUSITIS 08/14/2016 FREDERIC GALVAN APRN Ot M47.812 SPONDYLOSIS W/O MYELOPATHY OR RADICULOPA 08/14/2016 FREDERIC GALVAN APRN Ot R04.0 EPISTAXIS 08/14/2016 FREDERIC GALVAN APRN Ot S00.83XA CONTUSION OF OTHER PART OF HEAD, INITIAL 08/14/2016 FREDERIC GALVAN APRN Ot S02.2XXA FRACTURE OF NASAL BONES, INIT ENCNTR FOR 08/14/2016 FREDERIC GALVAN APRN Ot S52.134A NONDISP FX OF NECK OF RIGHT RADIUS, INIT 08/14/2016 FREDERIC GALVAN APRN Ot S59.911A UNSPECIFIED INJURY OF RIGHT FOREARM, INI 08/14/2016 FREDERIC GALVAN APRN Ot S80.211A ABRASION, RIGHT KNEE, INITIAL ENCOUNTER 08/14/2016 FREDERIC GALVAN APRN Ot S80.212A ABRASION, LEFT KNEE, INITIAL ENCOUNTER 08/14/2016 FREDERIC GALVAN APRN Ot W01.0XXA FALL SAME LEV FROM SLIP/TRIP W/O STRIKE 08/14/2016 FREDERIC GALVAN APRN Ot Y92.017 GARDEN OR YARD IN SINGLE-FAMILY (PRIVATE 08/14/2016 FREDERIC GALVAN APRN Ot Y99.8 OTHER EXTERNAL CAUSE STATUS 08/14/2016 FREDERIC GALVAN APRN Ot Z23 ENCOUNTER FOR IMMUNIZATION 08/14/2016 FREDERIC GALVAN APRN Ot Z79.899 OTHER [employer]OCIATE (CURRENT) DRUG THERAPY 08/20/2016 ORTIZ MOLINA Ot S09.92XA UNSPECIFIED INJURY OF NOSE, INITIAL ENCO 08/20/2016 ORTIZ MOLINAP Ot W19.XXXA UNSPECIFIED FALL, INITIAL ENCOUNTER 08/20/2016 ORTIZ MOLINA Ot Y99.8 OTHER EXTERNAL CAUSE STATUS 09/14/2016 BO BARBOZA RN INFUSION Ot S02.2XXA FRACTURE OF NASAL BONES, INIT ENCNTR FOR 09/14/2016 BO BARBOZA RN INFUSION Ot S02.2XXA FRACTURE OF NASAL BONES, INIT ENCNTR FOR 09/16/2016 BO BARBOZA RN INFUSION Ot S02.2XXA FRACTURE OF NASAL BONES, INIT ENCNTR FOR 09/16/2016 BO BARBOZA RN INFUSION Ot S02.2XXA FRACTURE OF NASAL BONES, INIT ENCNTR FOR 09/17/2016 BO BARBOZA APRN Ot S02.2XXA FRACTURE OF NASAL BONES, INIT ENCNTR FOR 09/18/2016 BO BARBOZA RN INFUSION Ot M81.0 AGE-RELATED OSTEOPOROSIS W/O CURRENT PAT 09/23/2016 BO BARBOZA RN INFUSION Ot M81.0 AGE-RELATED OSTEOPOROSIS W/O CURRENT PAT 09/23/2016 JABARI BO Keke RN INFUSION Ot M81.0 AGE-RELATED OSTEOPOROSIS W/O CURRENT PAT 09/23/2016 BO BARBOZA RN INFUSION Ot M81.0 AGE-RELATED OSTEOPOROSIS W/O CURRENT PAT 10/09/2016 BO BARBOZA RN INFUSION Ot M81.0 AGE-RELATED OSTEOPOROSIS W/O CURRENT PAT 11/04/2016 EMERALD LIN MD, Ot Z12.31 ENCNTR SCREEN MAMMOGRAM FOR MALIGNANT NE 11/09/2016 ORTIZ MOLINA TELERADIOLOGIST Ot R42 DIZZINESS AND GIDDINESS 11/09/2016 ORTIZ MOLINA TELERADIOLOGIST Ot R51 HEADACHE 11/27/2016 EMERALD LIN MD Ot Z08 ENCNTR FOR FOLLOW-UP EXAM AFTER TRTMT FO 11/27/2016 EMERALD LIN MD, Ot Z85.3 PERSONAL HISTORY OF MALIGNANT NEOPLASM O 11/27/2016 EMERALD LIN MD, Ot Z90.12 ACQUIRED ABSENCE OF LEFT BREAST AND NIPP 11/27/2016 ORTIZ MOLINA TELERADIOLOGIST Ot R42 DIZZINESS AND GIDDINESS 11/27/2016 ORTIZ MOLINA TELERADIOLOGIST Ot R51 HEADACHE 01/05/2017 EMERALD LIN MD Ot Z08 ENCNTR FOR FOLLOW-UP EXAM AFTER TRTMT FO 01/05/2017 EMERALD LIN MD Ot Z85.3 PERSONAL HISTORY OF MALIGNANT NEOPLASM O 01/05/2017 EMERALD LIN MD Ot Z90.12 ACQUIRED ABSENCE OF LEFT BREAST AND NIPP 02/12/2017 EMERALD LIN MD Ot Z08 ENCNTR FOR FOLLOW-UP EXAM AFTER TRTMT FO 02/12/2017 EMERALD LIN MD Ot Z85.3 PERSONAL HISTORY OF MALIGNANT NEOPLASM O 02/12/2017 EMERALD LIN MD Ot Z90.12 ACQUIRED ABSENCE OF LEFT BREAST AND NIPP 04/04/2017 EMERALD LIN MD Ot Z08 ENCNTR FOR FOLLOW-UP EXAM AFTER TRTMT FO 04/04/2017 EMERALD LIN MD Ot Z85.3 PERSONAL HISTORY OF MALIGNANT NEOPLASM O 04/04/2017 RILEY KIM, COWANMISTY Ot Z90.12 ACQUIRED ABSENCE OF LEFT BREAST AND NIPP 07/05/2017 ORTIZ MOLINA TELERADIOLOGIST Ot Z12.31 ENCNTR SCREEN MAMMOGRAM FOR MALIGNANT NE 07/07/2017 ORTIZ MOLINA TELERADIOLOGIST Ot Z12.31 ENCNTR SCREEN MAMMOGRAM FOR MALIGNANT NE 07/27/2017 ORTIZ MOLINA TELERADIOLOGIST Ot Z12.31 ENCNTR SCREEN MAMMOGRAM FOR MALIGNANT NE 08/25/2017 DANIEL TYLER MD Ot R10.9 UNSPECIFIED ABDOMINAL PAIN 08/25/2017 DANIEL TYLER MD Ot R10.9 UNSPECIFIED ABDOMINAL PAIN 09/03/2017 DANIEL TYLER MD Ot K44.9 DIAPHRAGMATIC HERNIA WITHOUT OBSTRUCTION 09/03/2017 DANIEL TYLER MD Ot K57.30 DVRTCLOS OF LG INT W/O PERFORATION OR AB 09/03/2017 DANIEL TYLER MD Ot K76.89 OTHER SPECIFIED DISEASES OF LIVER 09/03/2017 DANIEL TYLER MD Ot R14.0 ABDOMINAL DISTENSION (GASEOUS) 09/08/2017 DANIEL TYLER MD Ot K44.9 DIAPHRAGMATIC HERNIA WITHOUT OBSTRUCTION 09/08/2017 DANIEL TYLER MD Ot K57.30 DVRTCLOS OF LG INT W/O PERFORATION OR AB 09/08/2017 DANIEL TYLER MD Ot K76.89 OTHER SPECIFIED DISEASES OF LIVER 09/08/2017 DANIEL TYLER MD Ot R14.0 ABDOMINAL DISTENSION (GASEOUS) 09/14/2017 DANIEL TYLER MD Ot R10.9 UNSPECIFIED ABDOMINAL PAIN 09/17/2017 LIDIA RAMIREZ DO B Ot K76.89 OTHER SPECIFIED DISEASES OF LIVER 09/17/2017 JAMES TURCIOS LIDIA B Ot K76.89 OTHER SPECIFIED DISEASES OF LIVER 09/27/2017 JAEMS TURCIOS LIDIA B Ot R10.30 LOWER ABDOMINAL PAIN, UNSPECIFIED 09/28/2017 DANIEL TYLER MD Ot K44.9 DIAPHRAGMATIC HERNIA WITHOUT OBSTRUCTION 09/28/2017 DANIEL TYLER MD Ot K57.30 DVRTCLOS OF LG INT W/O PERFORATION OR AB 09/28/2017 DANIEL TYLER MD Ot K76.89 OTHER SPECIFIED DISEASES OF LIVER 09/28/2017 JAYSON KIM, DANIEL Randolph Ot R14.0 ABDOMINAL DISTENSION (GASEOUS) Procedures There is no data. Results Test Result Range Erythrocyte sedimentation rate by westergren method - 12/25/15 12:31 Erythrocyte sedimentation rate by westergren method 22 mm 0-30 THYROID STIMULATING HORMONE - 12/25/15 12:31 THYROID STIMULATING HORMONE 1.42 u[iU]/mL 0.35-4.94 Serum or plasma prolactin measurement (mass/volume) - 12/25/15 12:31 Serum or plasma prolactin measurement (mass/volume) 8.6 % NRG Serum or plasma intact pararthyroid hormone measurement (mass/volume) - 12:31 Serum or plasma intact parathyroid hormone measurement (mass/volume) 16 pg/mL 10-65 Bio-intact parathyroid hormone (PTH) measurement with calcium 9.3 % 8.5-10.5 Serum or plasma urea nitrogen measurement (mass/volume) - 12/28/15 09:50 Serum or plasma urea nitrogen measurement (mass/volume) 20 mg/dL 7-18 Serum or plasma creatinine measurement (mass/volume) - 12/28/15 09:50 Serum or plasma creatinine measurement (mass/volume) 1.06 mg/dL 0.60-1.30 Automated blood complete blood count (hemogram) panel - 06/19/16 11:45 Blood leukocytes automated count (number/volume) 6.0 10*3/uL 4.3-11.0 Blood erythrocytes automated count (number/volume) 4.18 10*6/uL 4.35-5.85 Venous blood hemoglobin measurement (mass/volume) 13.0 g/dL 11.5-16.0 Blood hematocrit (volume fraction) 39 % 35-52 Automated erythrocyte mean corpuscular volume 92 [foz_us] 80-99 Automated erythrocyte mean corpuscular hemoglobin (mass per erythrocyte) 31 pg 25-34 Automated erythrocyte mean corpuscular hemoglobin concentration measurement ( mass/volume) 34 g/dL 32-36 Automated erythrocyte distribution width ratio 13.6 % 10.0-14.5 Automated blood platelet count (count/volume) 267 10*3/uL 130-400 Automated blood platelet mean volume measurement 8.5 [foz_us] 7.4-10.4 Comprehensive metabolic panel - 06/19/16 11:45 Serum or plasma sodium measurement (moles/volume) 141 mmol/L 135-145 Serum or plasma potassium measurement (moles/volume) 4.0 mmol/L 3.6-5.0 Serum or plasma chloride measurement (moles/volume) 113 mmol/L 98-107 Carbon dioxide 25 mmol/L 21-32 Serum or plasma anion gap determination (moles/volume) 3 mmol/L 5-14 Serum or plasma urea nitrogen measurement (mass/volume) 19 mg/dL 7-18 Serum or plasma creatinine measurement (mass/volume) 1.04 mg/dL 0.60-1.30 Serum or plasma urea nitrogen/creatinine mass ratio 18 NRG Serum or plasma creatinine measurement with calculation of estimated glomerular filtration rate 52 NRG Serum or plasma glucose measurement (mass/volume) 101 mg/dL 70-105 Serum or plasma calcium measurement (mass/volume) 8.5 mg/dL 8.5-10.1 Serum or plasma total bilirubin measurement (mass/volume) 0.4 mg/dL 0.1-1.0 Serum or plasma alkaline phosphatase measurement (enzymatic activity/volume) 64 U/L 40-136 Serum or plasma aspartate aminotransferase measurement (enzymatic activity/ volume) 17 U/L 5-34 Serum or plasma alanine aminotransferase measurement (enzymatic activity/volume ) 11 U/L 0-55 Serum or plasma protein measurement (mass/volume) 6.1 g/dL 6.4-8.2 Serum or plasma albumin measurement (mass/volume) 3.3 g/dL 3.2-4.5 Complete urinalysis with reflex to culture - 06/19/16 14:05 Urine color determination YELLOW NRG Urine clarity determination CLEAR NRG Urine pH measurement by test strip 7 5-9 Specific gravity of urine by test strip 1.010 1.016- 1.022 Urine protein assay by test strip, semi-quantitative NEGATIVE NEGATIVE Urine glucose detection by automated test strip NEGATIVE NEGATIVE Erythrocytes detection in urine sediment by light microscopy NEGATIVE NEGATIVE Urine ketones detection by automated test strip NEGATIVE NEGATIVE Urine nitrite detection by test strip NEGATIVE NEGATIVE Urine total bilirubin detection by test strip NEGATIVE NEGATIVE Urine urobilinogen measurement by automated test strip (mass/volume) NORMAL NORMAL Urine leukocyte esterase detection by dipstick NEGATIVE NEGATIVE Automated urine sediment erythrocyte count by microscopy (number/high power field) NONE NRG Automated urine sediment leukocyte count by microscopy (number/high power field ) RARE NRG Bacteria detection in urine sediment by light microscopy NEGATIVE NRG Squamous epithelial cells detection in urine sediment by light microscopy RARE NRG Crystals detection in urine sediment by light microscopy NONE NRG Casts detection in urine sediment by light microscopy NONE NRG Mucus detection in urine sediment by light microscopy NEGATIVE NRG Complete urinalysis with reflex to culture NO NRG Encounters ACCT No. Visit Date/Time Discharge Status Pt. Type Provider Facility Loc./Unit Complaint [id number] 09/24/2017 11:43:00 09/24/2017 23:59:59 CLS Outpatient PAVANHIRAM LIDIA TURCIOS [facility] [address] CARD LOWER ABD PAIN [id number] 09/16/2017 08:10:00 09/16/2017 23:59:59 CLS Outpatient PAVANHIRAM LIDIA TURCIOS [facility] [address] RAD LOWER ABDOMINAL PAIN, UNSPECIFIED [id number] 09/02/2017 10:09:00 09/02/2017 23:59:59 CLS Outpatient DANIEL TYLER MD [facility] [address] RAD ABDOMINAL PAIN [id number] 08/24/2017 15:36:00 08/24/2017 23:59:59 CLS Outpatient DANIEL TYLER MD [facility] [address] RAD ABDOMINAL PAIN [id number] 07/06/2017 15:19:00 07/06/2017 23:59:59 CLS Outpatient ORTIZ MOLINA [facility] [address] RAD SCREENING [id number] 04/05/2017 00:37:00 04/05/2017 23:59:59 CLS Preadmit EMERALD LIN MD [facility] [address] ONC [id number] 01/04/2017 16:14:00 04/04/2017 00:01:00 DIS Outpatient EMERALD LIN MD [facility] [address] ONC [id number] 11/16/2016 10:00:00 11/16/2016 23:59:59 CLS Preadmit EMERALD LIN MD [facility] [address] RAD SCREENING,BREAST CA [id number] 11/06/2016 14:32:00 11/06/2016 23:59:59 CLS Outpatient ORTIZ MOLINA [facility] [address] RAD DIZZINESS, HEADACHES [id number] 09/17/2016 09:37:00 09/17/2016 23:59:59 CLS Outpatient BO BARBOZA RN INFUSION [facility] [address] RAD FRACTURE [id number] 08/08/2016 14:41:00 08/08/2016 17:01:00 DIS Emergency FREDERIC GALVAN RN INFUSION [facility] [address] ER FALL, FACIAL INJ [id number] 07/30/2016 10:29:00 07/30/2016 23:59:59 CLS Outpatient ORTIZ MOLINA TELERADIOLOGIST [facility] [address] RAD NOSE SWELLING,PAIN, FALL 011912 [id number] 07/07/2016 09:03:00 07/07/2016 23:59:59 CLS Outpatient ORTIZ MOLINA [facility] [address] RAD 6 MO F/U FROM BREAST MRI [id number] 06/19/2016 11:18:00 06/19/2016 23:59:59 CLS Outpatient ORTIZ MOLINA [facility] [address] SDC COUGH,DEHYDRATION, BRONCHITIS [id number] 12/25/2015 12:02:00 03/24/2016 00:01:00 DIS Outpatient EMERALD LIN MD [facility] [address] ONC [id number] 12/28/2015 09:40:00 12/28/2015 23:59:59 CLS Outpatient ORTIZ MOLINAP [facility] [address] RAD RT BREAST PAIN,HX OF INFILTRATING DUCTAL CARCINOMA [id number] 12/25/2015 12:04:00 12/25/2015 23:59:59 CLS Outpatient DANIEL TYLER MD [facility] [address] LAB [id number] 12/02/2015 08:49:00 12/25/2015 12:00:00 DIS Outpatient EMERALD LIN MD [facility] [address] ONC [id number] 11/20/2015 08:55:00 11/20/2015 23:59:59 CLS Outpatient EMERALD LIN MD [facility] [address] RAD MASS OF RT BREAST, CANCER OF LT BREAST [id number] 11/15/2015 07:41:00 11/15/2015 23:59:59 CLS Outpatient EMERALD LIN MD [facility] [address] RAD BREAST CA [id number] 02/26/2015 12:54:00 05/27/2015 00:01:00 DIS Outpatient EMERALD LIN MD [facility] [address] ONC [id number] 12/31/2014 10:46:00 12/31/2014 23:59:59 CLS Outpatient EMERALD LIN MD [facility] [address] RAD SCREENING [id number] 09/04/2014 13:21:00 12/03/2014 00:01:00 DIS Outpatient EMERALD LIN MD [facility] [address] ONC [id number] 10/23/2014 12:11:00 10/23/2014 23:59:59 CLS Outpatient ORTIZ MOLINA [facility] [address] RAD LOW BACK PAIN,L LEG PAIN [id number] 02/13/2014 14:19:00 02/13/2014 23:59:59 CLS Outpatient EMERALD LIN MD [facility] [address] ONC [id number] 12/29/2013 09:00:00 12/29/2013 23:59:59 CLS Outpatient EMERALD LIN MD [facility] [address] RAD ROUTINE [id number] 08/08/2013 12:42:00 08/08/2013 23:59:59 CLS Outpatient EMERALD LIN MD [facility] [address] ONC [id number] 05/23/2013 12:37:00 05/23/2013 23:59:59 CLS Outpatient ORTIZ MOLINA [facility] [address] RAD COUGH [id number] 02/22/2013 12:39:00 02/22/2013 23:59:59 CLS Outpatient EMERALD LIN MD [facility] [address] ONC [id number] 01/12/2013 13:36:00 01/12/2013 23:59:59 CLS Outpatient DANIEL TYLER MD [facility] [address] RT SOB [id number] 12/26/2012 08:50:00 12/26/2012 23:59:59 CLS Outpatient EMERALD LIN MD [facility] [address] RAD CA BREAST,STATUS POST LT MASTECTOMY [id number] 11/30/2012 12:23:00 11/30/2012 23:59:59 CLS Outpatient EMERALD LIN MD [facility] [address] ONC [id number] 08/24/2012 13:55:00 08/24/2012 23:59:59 CLS Outpatient EMERALD LIN MD [facility] [address] ONC [id number] 07/27/2012 19:58:00 07/27/2012 22:10:00 DIS Emergency RONN JOZEF Lamin [facility] [address] ER R WRIST PAIN [id number] 07/18/2012 10:15:00 07/18/2012 23:59:59 CLS Outpatient EMERALD LIN MD [facility] [address] ONC [id number] 07/14/2012 09:09:00 07/14/2012 23:59:59 CLS Outpatient EMERALD LIN MD [facility] [address] RAD NAUSEA,VOMITTING, DISCOMFORT [id number] 10/19/2017 08:40:00 PEN Preadmit DELLIDIA GANDHI DO [facility] [address] ENDO LOWER ABD PAIN/CONSTIPATION/LOOSE STOOLS/ REFLUX [id number] 07/13/2012 13:57:00 Document Registration [id number] 06/27/2012 09:26:00 Document Registration [id number] 06/14/2012 09:42:00 Document Registration [id number] 01/13/2012 15:07:00 Document Registration [id number] 12/25/2011 09:53:00 Document Registration [id number] 12/16/2011 14:20:00 Document Registration [id number] 12/01/2011 05:41:00 Document Registration [id number] 11/26/2011 07:59:00 Document Registration [id number] 11/18/2011 14:51:00 Document Registration [id number] 11/10/2011 09:39:00 Document Registration [id number] 08/10/2011 10:30:00 Document Registration [id number] 06/08/2011 09:19:00 Document Registration [id number] 05/11/2011 08:47:00 Document Registration [id number] 04/20/2011 10:08:00 Document Registration [id number] 04/01/2011 05:50:00 Document Registration [id number] 03/30/2011 14:34:00 Document Registration [id number] 03/12/2011 14:59:00 Document Registration [id number] 03/05/2011 08:10:00 Document Registration [id number] 03/02/2011 12:56:00 Document Registration [id number] 11/29/2009 06:57:00 Document Registration [id number] 12/31/2014 13:00:28 ACT Document Registration 0000 01/25/2017 19:03:19 01/25/2017 23:59:59 [facility] Outpatient
--- NOTE | 2017-10-11 13:24 | Progress Note-Pre Operative ---
Pre-Operative Progress Note H&P Reviewed The H&P was reviewed, patient examined and no changes noted. Time Seen by Provider: 13:18 Date H&P Reviewed: Oct 11, 2017 Time H&P Reviewed: 13:21 Pre-Operative Diagnosis: Screening colonoscopy, Chronic Gastritis, Abdominal pain LIDIA RAMIREZ DO Oct 11, 2017 13:23
[2017-10-11] MEDS ORDERED: proPOfol 200 MG/20 ML (DIPRIVAN) VIAL IV ONE ×2 (14:08→14:42)
[2017-10-11] MEDS ORDERED: MIDAZOLAM 2 MG/2 ML (VERSED) VIAL ONE (14:09)
[2017-10-11] MEDS ORDERED: HURRICAINE EXT TUBE (BENZOCAINE) XX ONE (15:00)
--- NOTE | 2017-10-11 15:06 | Progress Note-Post Operative ---
Post-Operative Progess Note Surgeon (s)/Esl Instructor (s) Surgeon LIDIA RAMIREZ DO Esl Instructor: none Pre-Operative Diagnosis Screening colonoscopy, Chronic Gastritis, Abdominal pain Post-Operative Diagnosis Gastritis, Gastric Polyp, Hiatal hernia Diverticula, Int hemorrhoids Procedure & Operative Findings Date of Procedure 10/11/17 Procedure Performed/Findings EGD with polypectomy EGD with biopsy Colonoscopy Anesthesia Type IV Sedation by LINE CONSTRUCTION SUPERVISOR Estimated Blood Loss Estimated blood loss (mL): scant Specimens/Packing Specimens Removed Gastric Polyp Antral bx LIDIA RAMIREZ DO Oct 11, 2017 15:06
--- NOTE | 2017-10-11 15:07 | Endoscopy Discharge Instruct ---
Endo Procedure/Findings Findings 1.: Gastritis (with gastric polyps) 2.: Hiatal Hernia 3.: Diverticulosis 4.: Internal Hemorrhoids Discharge Instructions - Activity: You might feel a little sleepy until tomorrow. This is due to the medicine you received to relax you. Until tomorrow, you should: NOT drive a car, operate machinery or power tools. NOT drink any alcoholic beverages. NOT make any important decisions or sign importortant papers. Do not return to work until tomorrow, unless otherwise instructed. Resume previous activities tomorrow. Diet: Start by taking liquids. If you tolerate liquids, advance to solid food. Make an appointment for one week. Notify Physician - If you experience excessive bleeding, unusual abdominal pain, fever, or chest pain, contact your doctor immediately. Follow-Up: - I have received and understand the above instructions and will call my doctor if I have any further questions. Patient Signature Date Nurse Signature Other (Relationship) LIDIA RAMIREZ DO Oct 11, 2017 15:07
[2017-10-11 15:10] VITALS: BP 127/77
[2017-10-11] MEDS ORDERED: HURRICAINE EXT TUBE (BENZOCAINE) ONE (15:23)
[2017-10-11 16:10] VITALS: BP 121/78
[2017-10-11 16:15] VITALS: BP 121/78
--- NOTE | 2017-10-11 22:54 | OPERATIVE REPORT ---
DATE OF SERVICE: PREOPERATIVE DIAGNOSES: 1. Chronic gastritis. 2. Screening colonoscopy. 3. Abdominal pain. POSTOPERATIVE DIAGNOSES: 1. Gastritis. 2. Gastric polyp. 3. Hiatal hernia. 4. Diverticula. 5. Internal hemorrhoids. PROCEDURE: 1. EGD with polypectomy. 2. EGD with biopsy. 3. Colonoscopy. SURGEON: Gary Houser DO. FINANCIAL PLANNING ANALYST: None. ANESTHESIA: IV sedation by the CEMENT FINISHER HELPER. SPECIMEN: 1. Gastric polyp taken, removed in total. 2. Antral biopsy. BLOOD LOSS: Scant. FLUIDS: Per anesthesia. POSTOPERATIVE CONDITION: Stable. INDICATION FOR PROCEDURE: The patient is a 72-year-old female who has been having abdominal pain. She has a history of chronic gastritis, has not had an EGD in a while as well as she has not had a colonoscopy and needs a screening colon. FINDINGS: The patient had some minimal gastritis, but she also had some gastric polyps and had a large hiatal hernia. Pictures taken in the colon and the patient found to have some diverticula in the sigmoid colon only and some grade II internal hemorrhoids, but no other pathology. PROCEDURE NOTE: After informed consent was obtained, the patient was brought to the endoscopy suite and placed in the bed in left lateral decubitus position. She was administered IV sedation by the CEMENT FINISHER HELPER who then monitored her vitals the entire time, heart rate, blood pressure and pulse ox and I started with the EGD, pushed the scope down the mouth into the esophagus and down in the stomach. Upon entering the stomach, noted some mild inflammation and a little bit of redness, took a picture and then did a biopsy of the antrum. Pushed into first portion of duodenum, this looked good. Took a picture and then retroflexed in the stomach, saw a large hiatal hernia, took a picture of this and then also noted a couple gastric polyps, took one of the polyps in total, removing it to be sent to pathology, pulled up into the esophagus, GE junction looked okay. No creeping up of the Z line. The rest of the esophagus looked good on the way out and pulled out the esophagus out the mouth. Switched the scope, switched gloves and was started with the colonoscopy. Pushed the scope in, a little bit of trouble in the sigmoid area, but finally able to get through here and then get all the way to the cecum, took a picture of appendiceal orifice, noted the ileocecal valve and then slowly withdrew the scope insufflating to look circumferentially at the zuleta, looking at the cecum up the ascending colon to the hepatic flexure, then down the transverse colon, splenic flexure, into the descending colon and down into the sigmoid colon and in sigmoid colon, saw a number of diverticula, took pictures and then continued down into the rectum, retroflexed in rectal vault, saw some grade II internal hemorrhoids, took a picture of this and then removed the scope. The patient tolerated the procedure and she was recovered in the endoscopy suite. Job ID: [id number] DocumentID: [id number] Dictated Date: 10/11/2017 15:40:00 Microbiology Lab Manager Date: 10/11/2017 22:53:52 Dictated By: DO MASHA JIMENEZ
== END 2017-10-11 16:15 | disposition home or self-care (01) ==
LOC: ENDO 12:17
PROVIDERS: ATTEND Surgery
DX: Z12.11 Encounter for screening for malignant neoplasm of colon (principal); K31.7 Polyp of stomach and duodenum; K29.50 Unspecified chronic gastritis without bleeding; K44.9 Diaphragmatic hernia without obstruction or gangrene; K57.30 Diverticulosis of large intestine without perforation or abscess without bleeding; K64.8 Other hemorrhoids; Z79.899 Other long term (current) drug therapy

== ENCOUNTER 2017-12-03 10:24 | Outpatient (CLI) | payer MEDICARE, OTHER ==
[~2017-12-03] VITALS: Ht 170.2 cm; Wt 70.3 kg
[~2017-12-03 10:24] MED LIST changes: +HYDR-4226 PO; -HYDR-757 PO
== END 2017-12-03 10:52 | disposition home or self-care (01) ==
LOC: PREOP 10:24
PROVIDERS: ATTEND Surgery
DX: Z01.818 Encounter for other preprocedural examination (principal)

== ENCOUNTER 2017-12-06 07:21 | Day surgery (SDC) | payer MEDICARE, OTHER ==
[~2017-12-06] VITALS: Ht 170.2 cm; Wt 70.3 kg
[2017-12-06 07:30] VITALS: BP 129/75
[2017-12-06 07:53] LABS: BASOPHILS % (AUTO) 0 % (0-10); EOSINOPHILS # (AUTO) 0.1 10^3/uL (0.0-0.3); EOSINOPHILS % (AUTO) 2 % (0-10); HEMATOCRIT 38 % (35-52); HEMOGLOBIN 12.7 G/DL (11.5-16.0); LYMPHOCYTES # (AUTO) 2.2 X 10^3 (1.0-4.0); LYMPHOCYTES % (AUTO) 42 % (12-44); MEAN CORPUSCULAR HEMOGLOBIN 31 PG (25-34); MEAN CORPUSCULAR HGB CONC 34 G/DL (32-36); MEAN CORPUSCULAR VOLUME 92 FL (80-99); MEAN PLATELET VOLUME 8.8 FL (7.4-10.4); MONOCYTES # (AUTO) 0.4 X 10^3 (0.0-1.0); MONOCYTES % (AUTO) 8 % (0-12); NEUTROPHILS # (AUTO) 2.5 X 10^3 (1.8-7.8); NEUTROPHILS % (AUTO) 48 % (42-75); PLATELET COUNT 282 10^3/uL (130-400); RED BLOOD COUNT 4.08 10^6/uL (4.35-5.85); WHITE BLOOD COUNT 5.2 10^3/uL (4.3-11.0)
[2017-12-06] MEDS ORDERED: FAMOTIDINE 20MG/2ML IV (PEPCID) ONE (08:05)
[2017-12-06] MEDS ORDERED: CLINDAMYCIN 600 MG/50 ML IVPB 50 ML IV ONE ×2 (08:06→08:15)
[2017-12-06] MEDS ORDERED: LACTATED RINGERS 1,000 ML IV PRN (08:13)
[2017-12-06] MEDS ORDERED: ONDANSETRON 4 MG/2 ML (SDV) Z0FRAN IV ONE (08:15)
--- NOTE | 2017-12-06 08:20 | Progress Note-Pre Operative ---
Pre-Operative Progress Note H&P Reviewed The H&P was reviewed, patient examined and no changes noted. Time Seen by Provider: 08:16 Date H&P Reviewed: Dec 06, 2017 Time H&P Reviewed: 08:18 Pre-Operative Diagnosis: Diffuse Abd pain LIDIA RAMIREZ DO Dec 06, 2017 08:20
[2017-12-06] MEDS ORDERED: fentaNYL INJECTION 100 MCG/2 ML AMP ONE (09:10)
[2017-12-06] MEDS ORDERED: LIDOCAINE/EPI 1%-1:200,000 (XYLOCAINE) 10 ML VIAL ONE (09:21)
[2017-12-06] MEDS ORDERED: LIDOCAINE PF 2% 2 ML (XYLOCAINE) VIAL ONE (10:46)
[2017-12-06] MEDS ORDERED: SEVOFLURANE (ULTANE) 15 ML INHAL SOLN ONE (10:46)
[2017-12-06] MEDS ORDERED: proPOfol 200 MG/20 ML (DIPRIVAN) VIAL IV ONE (10:46)
[2017-12-06] MEDS ORDERED: ROCURONIUM 10 MG/ML 5 ML SYRINGE IV ONE (10:46)
[2017-12-06] MEDS ORDERED: NEOSTIGMINE 1 MG/ML 5 ML SYRINGE ONE (10:46)
[2017-12-06] MEDS ORDERED: ONDANSETRON 4 MG/2 ML (SDV) Z0FRAN ONE (10:46)
[2017-12-06] MEDS ORDERED: GLYCOPYRROLATE 0.2 MG/ML (ROBINUL) 2 ML VIAL ONE (10:46)
--- NOTE | 2017-12-06 10:49 | Progress Note-Post Operative ---
Post-Operative Progess Note Surgeon (s)/Woodworking Craftsman (s) Surgeon LIDIA RAMIREZ DO Woodworking Craftsman: DYLAN Rivera Pre-Operative Diagnosis Diffuse Abd pain Post-Operative Diagnosis Same, Adhesions, Hiatal Hernia Procedure & Operative Findings Date of Procedure 12/06/17 Procedure Performed/Findings Diagnostic Laparoscopy with BRANDON Anesthesia Type GET Estimated Blood Loss Estimated blood loss (mL): scant Specimens/Packing Specimens Removed none LIDIA RAMIREZ DO Dec 06, 2017 10:49
[2017-12-06] MEDS ORDERED: PHENYLEPHRINE 100 MCG/ML 10 ML (ANESTHESIA) SYR ONE (10:50)
--- NOTE | 2017-12-06 10:53 | Discharge Inst-Surgical ---
Discharge Inst-Surgical Depart Medication/Instructions New, Converted or Re-Newed RX: Other (no Rx given) Patient Instructions Follow up Appt: Make appointment for 1 week. Instructions: No lifting greater than 10 pounds. No strenuous activity. May shower in 24 hours, no tub bath or soaking. Use incentive spirometer at home as directed. No Smoking Skin/Wound Care: May remove bandages in am. You need to leave the Dermabond on over incision it will fall off on its own. Symptoms to Report: Appetite Changes, Extremity Discoloration, Numbness/Tingling, Swelling Increased , Bleeding Excessive, Eyesight Changes, Pain Increased, Urine Color Change, Constipation(Persistent), Fever over 101 degree F, Pain/Pressure in chest, Urinating Difficulty, Cough Up/Vomit Blood, Heart Beat Irreg/Pounding, Pain/ Pressure in jaw, Vaginal Bleeding Increase, Cramps in feet or legs, Lightheadedness, Pain/Pressure in shoulder, Diarrhea(Persistent), Memory Changes Suddenly, Questions/Concerns, Weight gain consecutive days, Dizziness/ Fainting, Nausea/Vomiting, Shortness of Breath, Weight gain over 2 pounds If questions or concerns contact your physician Or seek help at emergency department. Activity Activity as Tolerated: Yes Activity Instructions: Avoid Stress to Incision Driving Instructions: No Driving/Refer to Dr. Lebron Discharge Diet: No Restrictions Diet After 24 Hours: Clear Liquid if Nauseous If Any Problems/Questions/Issu: Contact Your Physician, Go to Emergency Room Skin/Wound Care Infection Signs and Symptoms: Increased Redness, Foul Odor of Wound, Increased Drainage, Skin Itchy or Has a Rash, Increased Swelling, Temperature Above 101 F Wound Care Comment: Heating pad to neck and shoulder tonight for pain Stitches/Mikey/Dermabond Dis: Dermabond Ice Pack: Ice On and Off Site (as needed for pain) LIDIA RAMIREZ DO Dec 06, 2017 10:53
[2017-12-06] MEDS ORDERED: morphine INJ 10 MG/ML 1ML (SYR OR VIAL) IVP ONE (11:15)
[2017-12-06] MEDS ORDERED: ONDANSETRON 4 MG/2 ML (SDV) Z0FRAN IVP PRN (11:15)
[2017-12-06 12:05] VITALS: BP 133/69
[2017-12-06 12:35] VITALS: BP 124/61
[2017-12-06 13:05] VITALS: BP 127/79
--- NOTE | 2017-12-06 14:13 | Anesthesia-General Post-Op ---
General Patient Condition Mental Status/LOC: Same as Preop Cardiovascular: Satisfactory Nausea/Vomiting: Absent Respiratory: Satisfactory Pain: Controlled Complications: Absent Post Op Complications Complications None Follow Up Care/Instructions Patient Instructions None needed. Anesthesia/Patient Condition Patient Condition Patient is doing well, no complaints, stable vital signs, no apparent adverse anesthesia problems. No complications reported per nursing. ARTIS MCKEON CRNA Dec 06, 2017 14:13
--- NOTE | 2017-12-06 20:02 | OPERATIVE REPORT ---
DATE OF SERVICE: PREOPERATIVE DIAGNOSIS: Diffuse abdominal pain. POSTOPERATIVE DIAGNOSES: 1. Diffuse abdominal pain. 2. Adhesions. 3. Hiatal hernia. PROCEDURE: Diagnostic laparoscopy with lysis of adhesions. SURGEON: Gary Houser DO. INFORMATION TECHNOLOGY ARCHITECT: Roland Brown, medical student level 3. SPECIMENS: None. BLOOD LOSS: Scant. FLUIDS: Per anesthesia. POSTOPERATIVE CONDITION: Stable. INDICATION FOR PROCEDURE: The patient is a 72-year-old female who has had some diffuse abdominal pain, got better when she stopped one of her osteoporosis medications, but then seemed to come back. She has had a full workup. HIDA scan of the gallbladder was negative. Ultrasound showed no stones. She had a colonoscopy and an EGD as well as a CAT scan that did not show anything except for hiatal hernia. History of a previous surgery and the patient was pretty sure that she had adhesions causing abdominal pain. Everything else worked up, so the last thing to do would be a diagnostic laparoscopy. FINDINGS: The patient had some adhesions from previous incision. Small bowel stuck to the abdominal wall, carefully taken down and also had a large hiatal hernia. Picture was taken, but no other obvious pathology. PROCEDURE NOTE: After informed consent was obtained, the patient was brought to the operating room, placed on the table in supine position. She was sterilely prepped and draped in normal fashion. Local lidocaine was used to infiltrate the skin above the umbilicus. We made incision with #11 blade, carried down through the skin into subcutaneous tissue, then deepened down to subcutaneous tissue with Bovie electrocautery as well as blunt dissection with S retractors. Once we were able to visualize the fascia, we then incised with Bovie electrocautery bluntly in the abdomen, swept a finger around, placed 0 Vicryl bhnppc-[id number]-[id number] suture and placed an 11 mm trocar port under direct visualization. Created pneumoperitoneum. Upon entry, noted some adhesions, took a picture of this. Placed the port in the left lower quadrant using local lidocaine, 11 blade for stab incision and Versed system, all done under direct visualization carefully took down the adhesions with scissors. Sharp scissors. A little bit of bleeding from the wall of the abdomen. This was controlled by electrocautery. At this point, I then placed the patient supine. Looked in the pelvis do not really see anything obvious. She did have some looked like the sigmoid was attached to the pelvic wall just some mild adhesions, but I do not see any signs of infection and found the appendix. Appendix looked normal, took a picture of this. Again, a little bit of adhesions of the small bowel down to the right pelvic wall, but again no inflammation or signs of problems. Looked at the gallbladder, it looked normal and not thickened, maybe mildly distended. There were some mild adhesions. Sometimes, this indicates cholecystitis attacks, but again it looked good, looked up at the stomach and diaphragm and unable to get under the liver and took a picture of the large diaphragmatic hiatal hernia. Able to pull some of the stomach gap. There was some still stuck in there. It comes in and out easily and I do not believe this is causing her abdominal pain. Looked around, ran the small bowel, did not see a Meckel's and did not see any other obvious pathology. Looked under the omentum could not, of course, clear everything out of the way, but did not see anything obvious. At this point, I then placed the patient supine and removed all ports under direct visualization, allowed pneumoperitoneum to escape. Closed the fascia with 0 Vicryl suture previously placed, copiously irrigating incision with normal saline, closing one small 5 mm incision with a single interrupted 4-0 undyed Monocryl subcuticular stitch and closed the supraumbilical incision with four interrupted 4-0 undyed Monocryl subcuticular stitches. Area was cleaned and dried and Dermabond placed as well as bandage. The patient was then transferred to recovery room in stable condition. Sponge, instrument and needle counts correct at the end of the case. Job ID: [id number] DocumentID: [id number] Dictated Date: 12/06/2017 11:25:18 Staff Therapist Date: 12/06/2017 14:37:19 Dictated By: GARY HOUSER DO
== END 2017-12-06 13:30 | disposition home or self-care (01) ==
LOC: SDC 07:21
PROVIDERS: ATTEND Surgery
DX: K66.0 Peritoneal adhesions (postprocedural) (postinfection) (principal); K44.9 Diaphragmatic hernia without obstruction or gangrene; Z11.2 Encounter for screening for other bacterial diseases; F32.9 Major depressive disorder, single episode, unspecified; F41.9 Anxiety disorder, unspecified; K21.9 Gastro-esophageal reflux disease without esophagitis; Z79.899 Other long term (current) drug therapy; Z85.3 Personal history of malignant neoplasm of breast
CPT/HCPCS: 36415; 85025; 87081; 94664

== ENCOUNTER 2018-01-10 12:38 | Outpatient (RCR) | payer MEDICARE, OTHER ==
[2018-01-10 12:44] LABS: BASOPHILS % (AUTO) 1 % (0-10); EOSINOPHILS # (AUTO) 0.1 10^3/uL (0.0-0.3); EOSINOPHILS % (AUTO) 2 % (0-10); HEMATOCRIT 38 % (35-52); HEMOGLOBIN 12.6 G/DL (11.5-16.0); LYMPHOCYTES % (AUTO) 45 % (12-44); MEAN CORPUSCULAR HEMOGLOBIN 31 PG (25-34); MEAN CORPUSCULAR HGB CONC 33 G/DL (32-36); MEAN CORPUSCULAR VOLUME 92 FL (80-99); MEAN PLATELET VOLUME 8.5 FL (7.4-10.4); MONOCYTES # (AUTO) 0.3 X 10^3 (0.0-1.0); MONOCYTES % (AUTO) 7 % (0-12); NEUTROPHILS # (AUTO) 2.1 X 10^3 (1.8-7.8); NEUTROPHILS % (AUTO) 46 % (42-75); PLATELET COUNT 276 10^3/uL (130-400); RED BLOOD COUNT 4.12 10^6/uL (4.35-5.85); RED CELL DISTRIBUTION WIDTH 13.2 % (10.0-14.5); WHITE BLOOD COUNT 4.5 10^3/uL (4.3-11.0)
[2018-01-10 13:06] LABS: ALBUMIN 3.9 GM/DL (3.2-4.5); BILIRUBIN,TOTAL 0.4 MG/DL (0.1-1.0); CALCIUM 9.3 MG/DL (8.5-10.1); CREATININE SERUM 1.08 MG/DL (0.60-1.30); POTASSIUM 4.1 MMOL/L (3.6-5.0); TOTAL PROTEIN 6.7 GM/DL (6.4-8.2)
== END 2018-04-10 | disposition home or self-care (01) ==
LOC: ONC 12:38
PROVIDERS: ATTEND Internal Medicine Hematology & Oncology
DX: Z08 Encounter for follow-up examination after completed treatment for malignant neoplasm (principal); Z85.3 Personal history of malignant neoplasm of breast; Z90.12 Acquired absence of left breast and nipple
CPT/HCPCS: 36415; 80053; 85025; 99213

== ENCOUNTER → 2018-07-07 | Outpatient (CLI) | payer MEDICARE, OTHER ==
--- NOTE | 2018-07-07 20:35 | Diagnostic Imaging Report ---
INDICATION: Routine screening. Comparison is made with prior right mammogram from 07/06/2017 and 07/07/2016. Unilateral right 2-D and 3-D screening mammography was performed with a Computer-Aided Detection (CAD) system. FINDINGS: Right breast is heterogeneously dense, limiting the sensitivity of mammography. Biopsy marker clip in central right breast is again noted. Parenchymal pattern is stable. No mass or malignant-appearing microcalcifications are seen. Right axilla is unremarkable. IMPRESSION: No mammographic features suspicious for malignancy are identified. ACR BI-RADS Category 2: Benign findings. Result letter will be mailed to the patient. Note: At least 10% of breast cancer is not imaged by mammography. Dictated by: Dictated on workstation # [id number]
== END ==
LOC: RAD 10:54
PROVIDERS: ATTEND Nurse Practitioner Family
DX: Z12.31 Encounter for screening mammogram for malignant neoplasm of breast (principal)

== ENCOUNTER → 2019-08-22 | Outpatient (CLI) | payer MEDICARE, OTHER ==
[~2019-08-22] MED LIST changes: -DIAZ5TAB3 PO; +DIAZ5TAB49 PO; -OMEP20CA12 PO; +OMEP20CA18 PO
--- NOTE | 2019-08-22 20:08 | Diagnostic Imaging Report ---
EXAM: Screening right mammogram COMPARISON: This study was compared to the prior exams of 07/07/2018, 07/06/2017 and 07/07/2016. There are no current complaints. The patient had a left mastectomy for carcinoma in 2001. FINDINGS: The fibroglandular tissue in the right breast is heterogeneously dense. This does limit the sensitivity of this exam. Overall, there does not appear to have been any significant change since the prior study. There is no primary or secondary sign of malignancy noted. IMPRESSION: There is no evidence for malignancy. ACR BI-RADS Category 1: Negative. Result letter will be mailed to the patient. Note: At least 10% of breast cancer is not imaged by mammography. Dictated by: Dictated on workstation # [id number]
== END ==
LOC: RAD 12:06
PROVIDERS: ATTEND Nurse Practitioner Family
DX: Z12.31 Encounter for screening mammogram for malignant neoplasm of breast (principal)
CPT/HCPCS: 77063

== ENCOUNTER → 2020-02-07 | Outpatient (CLI) | payer MEDICARE, OTHER ==
--- NOTE | 2020-02-07 14:26 | Diagnostic Imaging Report ---
INDICATION: Right breast pain. FINDINGS: Sonographic interrogation of all 4 quadrants of the right breast, retroareolar region, and right axillary region was performed. No sonographic abnormality is seen. No solid or cystic mass is detected. IMPRESSION: No sonographic abnormality is seen. The patient may return to routine annual screening mammography. ACR BI-RADS Category 1: Negative. Dictated by: Dictated on workstation # [id number]
--- NOTE | 2020-02-07 14:27 | Diagnostic Imaging Report ---
INDICATION: Right breast pain. COMPARISON: Correlation is made with the prior mammograms from 08/22/2019 and 07/07/2018. TECHNIQUE: Unilateral right 2D and 3D diagnostic mammography was performed with CAD. FINDINGS: The right breast remains heterogeneously dense, limiting the sensitivity of mammography. A marker clip in the central right breast is again noted. No dominant mass or malignant-appearing microcalcifications are seen. The right axilla is unremarkable. IMPRESSION: No mammographic features suspicious for malignancy are identified. Even so, directed sonographic interrogation of the areas of pain is recommended and will be performed today. ACR BI-RADS Category 0: Incomplete. (Needs additional imaging evaluation). Result letter will be mailed to the patient. Note: At least 10% of breast cancer is not imaged by mammography. Dictated by: Dictated on workstation # [id number]
== END ==
LOC: RAD 13:45
PROVIDERS: ATTEND Nurse Practitioner Family
DX: N64.4 Mastodynia (principal)
CPT/HCPCS: 76641; 77065; G0279

== ENCOUNTER → 2020-09-02 | Outpatient (CLI) | payer MEDICARE, OTHER ==
--- NOTE | 2020-09-02 14:45 | Diagnostic Imaging Report ---
INDICATION: Routine screening. Comparison is made with prior mammograms from 02/08/2020 and 08/22/2019 as well as 07/07/2018. Unilateral right 2-D and 3-D screening mammography was performed with CAD. Right breast is heterogeneously dense, limiting the sensitivity of mammography. A biopsy marker clip in the central right breast is again noted. No mass or malignant appearing microcalcifications are seen. Right axilla is unremarkable. IMPRESSION: BI-RADS Category 2 No mammographic features suspicious for malignancy are identified. ACR BI-RADS Category 2: Benign findings. Result letter will be mailed to the patient. Note: At least 10% of breast cancer is not imaged by mammography. Dictated by: Dictated on workstation # [id number]
== END ==
LOC: RAD 09:34
PROVIDERS: ATTEND Nurse Practitioner Family
DX: Z12.31 Encounter for screening mammogram for malignant neoplasm of breast (principal)
CPT/HCPCS: 77063

== ENCOUNTER 2020-09-19 11:06 | Outpatient (RCR) | payer MEDICARE, OTHER | END 2020-11-11 09:48 | disposition home or self-care (01) | PROVIDERS: ATTEND Family Medicine | DX: M25.561 Pain in right knee (principal); M54.2 Cervicalgia; M54.6 Pain in thoracic spine; Z85.3 Personal history of malignant neoplasm of breast ==

== ENCOUNTER → 2021-02-18 | Outpatient (CLI) | payer MEDICARE, OTHER ==
--- NOTE | 2021-02-18 11:07 | Diagnostic Imaging Report ---
INDICATION: Postmenopausal state. COMPARISON: 09/17/2016 FINDINGS: AP Spine L1-L4: [BMD (g/cm2): 0.797] [T-Score: -3.4] [Z-Score: -1.8] [BMD Previous: 0.874] [BMD % Change: -8.8] LT Hip Neck: [BMD (g/cm2): 0.630] [T-Score: -2.9] [Z-Score: -1.1] LT Hip Total: [BMD (g/cm2):0.688] [T-Score:-2.5] [Z-Score: -0.9] [BMD Previous: 0.725] [BMD % Change: -5.1] RT Hip Neck: [BMD (g/cm2):0.620] [T-Score:-3.0] [Z-Score:-1.2] RT Hip Total: [BMD (g/cm2):0.662] [T-score:-2.7] [Z-Score:-1.1] [BMD Previous:0.704] [BMD % Change:-6.0] *Indicates significant change from prior examination based on 95% confidence level. World Health Organization criteria for BMD interpretation classify patients as Normal (T-score at or above -1.0), Osteopenic (T-score between -1.0 and -2.5) or Osteoporotic (T-score at or below -2.5). LIMITATIONS AND MODIFICATION: None. IMPRESSION: 1. Osteoporosis. 2. No significant change in bone mineral density since prior examination. 3. See below National Osteoporosis Foundation guidelines on when to potentially initiate pharmacologic therapy. Based on the National Osteoporosis Foundation Guidelines, pharmacologic treatment should be initiated in any of the following, unless clinical conditions suggest otherwise: * Any patient with prior fragility fracture of the hip or vertebrae. A spine fracture indicates 5X risk for subsequent spine fracture and 2X risk for subsequent hip fracture. * Osteoporosis (T-score <-2.5). * Postmenopausal women and men age 50 and older with low bone mass/osteopenia (T-score between -1.0 and -2.5) by DXA and 10-year major osteoporotic fracture greater than 20% or a 10-year probability of hip fracture greater than 3%. These fracture risks are supplied above in the FRAX score, if applicable. * Clinician judgement and/or patient preferences may indicate treatment for people with 10-year fracture probabilities above or below these levels. Dictated by: Dictated on workstation # [id number]
== END ==
LOC: RAD 10:30
PROVIDERS: ATTEND Family Medicine
DX: M81.0 Age-related osteoporosis without current pathological fracture (principal); Z78.0 Asymptomatic menopausal state
CPT/HCPCS: 77080

== ENCOUNTER → 2021-03-04 | Outpatient (CLI) | payer MEDICARE, OTHER ==
--- NOTE | 2021-03-04 14:50 | Diagnostic Imaging Report ---
INDICATION: Fall and severe low back pain. TIME OF EXAM: 2:20 p.m. FINDINGS: Three views of the lumbar spine were obtained. There is mild right convexity lumbar scoliotic curvature. There is normal lordotic curvature. Vertebral body heights are maintained. No acute compression fracture is detected. There is multilevel degenerative disc disease with variable disc space narrowing and marginal spurring. Atherosclerotic calcifications within the abdominal aorta are noted. IMPRESSION: Lumbar spondylosis and scoliosis. No acute bony abnormality is detected. Dictated by: Dictated on workstation # [id number]
--- NOTE | 2021-03-04 14:55 | Diagnostic Imaging Report ---
INDICATION: Fall with pain in the pelvis. TIME OF EXAM: 2:21 PM. FINDINGS: The bilateral sacral ala appear intact. The sacral arcuate lines appear to be intact. No definite fracture of the sacrum or coccyx is seen. IMPRESSION: No acute abnormality is detected. Dictated by: Dictated on workstation # [id number]
== END ==
LOC: RAD 13:58
PROVIDERS: ATTEND Nurse Practitioner Family
DX: M47.816 Spondylosis without myelopathy or radiculopathy, lumbar region (principal); M41.86 Other forms of scoliosis, lumbar region; W19.XXXA Unspecified fall, initial encounter
CPT/HCPCS: 72100; 72220

== ENCOUNTER 2021-03-20 05:41 | Outpatient (CLI) | payer MEDICARE, OTHER ==
[~2021-03-20] VITALS: Ht 170.2 cm; Wt 71.8 kg
[2021-03-20] MEDS ORDERED: LACT1CAP72 PO (16:29)
[2021-03-20] MEDS ORDERED: CHOL500044 PO (16:29)
[2021-03-20] MEDS ORDERED: OMEP40CA6 PO (16:29)
[2021-03-20] MEDS ORDERED: ROSU20TA32 PO (16:29)
[2021-03-20] MEDS ORDERED: ASCO-262 PO (16:29)
== END 2021-03-20 16:35 | disposition home or self-care (01) ==
LOC: PREOP 05:41
PROVIDERS: ATTEND Otolaryngology Otolaryngology/Facial Plastic Surgery
DX: Z01.818 Encounter for other preprocedural examination (principal)

== ENCOUNTER 2021-03-28 07:24 | Day surgery (SDC) | payer MEDICARE, OTHER ==
[~2021-03-28] VITALS: Ht 170.2 cm; Wt 71.8 kg
[2021-03-28] VITALS (11 sets, daily range): BP systolic 112–136; BP diastolic 59–75
[~2021-03-28 07:24] MED LIST changes: +ASCO-262 PO; +CHOL500044 PO; +LACT1CAP72 PO; +OMEP40CA6 PO; +ROSU20TA32 PO
[2021-03-28] MEDS ORDERED: LACTATED RINGERS 1,000 ML IV PRN (07:30)
[2021-03-28] MEDS ORDERED: fentaNYL INJ 100 MCG/2 ML AMP ONE (07:52)
[2021-03-28] MEDS ORDERED: ONDANSETRON 4 MG/2 ML (SDV) Z0FRAN ONE (07:52)
[2021-03-28] MEDS ORDERED: LIDOCAINE PF 2% 5 ML (XYLOCAINE) VIAL ONE (07:52)
[2021-03-28] MEDS ORDERED: proPOfol 200 MG/20 ML (DIPRIVAN) VIAL IV ONE (07:52)
--- NOTE | 2021-03-28 08:18 | Progress Note-Post Operative ---
Post-Operative Progess Note Surgeon (s)/Import/Export Administrator (s) Surgeon JOVANNA POWER MD Import/Export Administrator n/a Pre-Operative Diagnosis Chronic Right ROSELYN Post-Operative Diagnosis same Post-Op Procedure Note Date of Procedure: Mar 28, 2021 Name of Procedure Performed: Right Myringotomy with Tube Description & Findings Description and Findings: n/a Anesthesia Type mask Estimated Blood Loss minimal Packing none. Specimen(s) collected/removed none JOVANNA POWER MD Mar 28, 2021 08:18
--- NOTE | 2021-03-28 08:18 | Progress Note-Pre Operative ---
Pre-Operative Progress Note H&P Reviewed The H&P was reviewed, patient examined and no changes noted. Date Seen by Provider: Mar 28, 2021 Time Seen by Provider: 07:30 Date H&P Reviewed: Mar 28, 2021 Time H&P Reviewed: 07:30 Pre-Operative Diagnosis: Chronic Right ROSELYN JOVANNA POWER MD Mar 28, 2021 08:17
[2021-03-28] MEDS ORDERED: APAP 325 MG/10.15 ML LIQ (TYLENOL) UDC PO PRN (08:30)
[2021-03-28] MEDS ORDERED: SEVOFLURANE (ULTANE) 15 ML INHAL SOLN ONE (08:39)
[2021-03-28] MEDS ORDERED: CIPR5DRO OP (09:38)
--- NOTE | 2021-04-01 07:39 | Anesthesia-General Post-Op ---
General Patient Condition Mental Status/LOC: Same as Preop Cardiovascular: Satisfactory Nausea/Vomiting: Absent Respiratory: Satisfactory Pain: Controlled Complications: Absent Post Op Complications Complications None Follow Up Care/Instructions Patient Instructions None needed. Anesthesia/Patient Condition Patient Condition Post-dated progress note: Patient was seen after the procedure on 03-28-21 at approximately 0900 and she was doing well, no complaints, stable vital signs, no apparent adverse anesthesia lulu guerra. SOSA MARIO DO Apr 01, 2021 07:39
== END 2021-03-28 10:25 | disposition home or self-care (01) ==
LOC: SDC 07:24
PROVIDERS: ATTEND Otolaryngology Otolaryngology/Facial Plastic Surgery
DX: H65.21 Chronic serous otitis media, right ear (principal); H69.91 Unspecified Eustachian tube disorder, right ear; K21.9 Gastro-esophageal reflux disease without esophagitis; Z79.899 Other long term (current) drug therapy
CPT/HCPCS: 87081

== ENCOUNTER → 2021-06-23 | Outpatient (CLI) | payer MEDICARE, OTHER ==
[~2021-06-23] MED LIST changes: +CIPR5DRO OP; +DENOSUMAB 60 MG/1 ML (PROLIA) SQ SCH
[2021-06-23 13:00] VITALS: BP 116/77
== END ==
LOC: SDC 12:54
PROVIDERS: ATTEND Family Medicine
DX: M81.0 Age-related osteoporosis without current pathological fracture (principal)
CPT/HCPCS: 96372

== ENCOUNTER → 2021-09-09 | Outpatient (CLI) | payer MEDICARE, OTHER ==
[~2021-09-09] MED LIST changes: -DENOSUMAB 60 MG/1 ML (PROLIA) SQ SCH
--- NOTE | 2021-09-09 14:00 | Diagnostic Imaging Report ---
INDICATION: Routine screening. COMPARISON: 09/02/2020 and 02/07/2020. TECHNIQUE: Unilateral right 2D and 3D screening mammography was performed with CAD. FINDINGS: The right breast is heterogeneously dense, limiting the sensitivity of mammography. A marker clip in the central right breast is again noted. No dominant mass or malignant-appearing microcalcifications are seen. The right axilla is unremarkable. IMPRESSION: No mammographic features suspicious for malignancy are identified. ACR BI-RADS Category 2: Benign findings. Result letter will be mailed to the patient. Note: At least 10% of breast cancer is not imaged by mammography. Dictated by: Dictated on workstation # [id number]
== END ==
LOC: RAD 08:45
PROVIDERS: ATTEND Nurse Practitioner Family
DX: Z12.31 Encounter for screening mammogram for malignant neoplasm of breast (principal)
CPT/HCPCS: 77063

== ENCOUNTER → 2022-01-02 | Outpatient (CLI) | payer MEDICARE, OTHER ==
[~2022-01-02] VITALS: Ht 170.2 cm; Wt 71.8 kg
[~2022-01-02] MED LIST changes: +DENOSUMAB 60 MG/1 ML (PROLIA) SQ ONE
[2022-01-02 13:53] VITALS: BP 113/79
== END ==
LOC: SDC 12:59
PROVIDERS: ATTEND Family Medicine
DX: M81.0 Age-related osteoporosis without current pathological fracture (principal)
CPT/HCPCS: 96372

== ENCOUNTER 2022-05-14 17:44 | Emergency (ER) | payer MEDICARE, OTHER ==
[~2022-05-14] VITALS: Ht 170.1 cm; Wt 71.8 kg
[~2022-05-14 17:44] MED LIST changes: -DENOSUMAB 60 MG/1 ML (PROLIA) SQ ONE
--- NOTE | 2022-05-14 18:04 | ED Chest Pain ---
General Chief Complaint: Chest Pain Stated Complaint: CHEST PAIN Nursing Triage Note: AMB TO ROOM 5 WITH C/O PAIN STARTES IN HER RIGHT NECK AND COMES DOWN INTO HER NECK THEN INTO HER CHEST. 2/10 ON PAIN SCALE. STATES SHE HAS BEEN HAVING THIS SAME PAIN FOR THE LAST 4 DAYS. HAPPENS MORE IN THE EVENING. Source: patient Exam Limitations: no limitations History of Present Illness Date Seen by Provider: May 14, 2022 Time Seen by Provider: 18:02 Initial Comments Patient is a 76-year-old female with a history of anxiety, breast cancer, high cholesterol who presents ED with chest pain, neck pain. Started 4 days ago on the right side of her neck. Pain described as more of a pressure sensation and radiates across the chest bilateral. The pressure can get as high as 10 out of 10. Currently the pain is about 4 out of 10. Pain intensifies for at least a half an hour but does relieve itself. This the pain occurs in the "evenings". Pain is not worse with exertion. She states she has been having a cough since April 05 that started with a head cold. She feels like mucus is in her throat. She denies of any shortness of breath. She did have a headache last Wednesday but that has improved. She denies of any recent travels or surgeries. Not currently on a blood thinner. Denies history of diabetes, smoking, hypertension. Patient has had prior pain in her neck but not the chest for several years. Patient denies fever, vomiting, diarrhea, weakness, unilateral muscle weakness or sensory changes, visual changes, abdominal pain. No worsening pain with eating Allergies and Home Medications Allergies Coded Allergies: tramadol (Verified Allergy, Mild, "KNOCKED HER OUT", 05/14/22) codeine (Verified Allergy, Unknown, 05/14/22) pseudoephedrine (Verified Allergy, Unknown, NERVOUSNESS, 05/14/22) Patient Home Medication List Home Medication List Reviewed: Yes Ascorbate Calcium (Vitamin C) 500 Mg Tablet, 500 MG PO DAILY, (Reported) Entered as Reported by: LASHONDA LARSON on 03/20/21 1629 Calcium Carbonate/Vitamin D3 (Calcium 500 + D Tablet) 1 Each Tablet, 1 EACH PO DAILY, (Reported) Entered as Reported by: CLARIBEL FREEMAN on 10/08/17 0920 Cholecalciferol (Vitamin D3) (Vitamin D3) 125 Mcg Tablet, 125 MCG PO DAILY, (Reported) Entered as Reported by: LASHONDA LARSON on 03/20/211628 Ciprofloxacin HCl (Ciloxan) 5 Ml Drops, 3 DROPS OP BID Prescribed by: MELVA COSTA on 03/28/21937 Citalopram Hydrobromide (Citalopram HBr) 20 Mg Tablet, 20 MG PO DAILY, (Reported) Entered as Reported by: CLARIBEL FREEMAN on 10/08/17919 Cyanocobalamin (Vitamin B-12) (Vitamin B12) 2,500 Mcg Tablet, 2,500 MCG PO DAILY, (Reported) Entered as Reported by: CLARIBEL FREEMAN on 10/08/17919 Diazepam (Diazepam) 5 Mg Tablet, 5 MG PO BID PRN for ANXIETY, (Reported) Entered as Reported by: CLARIBEL FREEMAN on 10/08/17919 Fexofenadine/Pseudoephedrine (Bonnie-D 24 Hour Tablet) 1 Each Tab.er.24h, 1 EACH PO DAILY, (Reported) Entered as Reported by: CLARIBEL FREEMAN on 10/08/17919 Lactobacillus Combo No.10 (Probiotic) 1 Each Capsule, 1 EACH PO DAILY, (Reported) Entered as Reported by: LASHONDA LARSON on 03/20/211628 Meloxicam (Meloxicam) 15 Mg Tablet, 15 MG PO DAILY, (Reported) Entered as Reported by: CLARIBEL FREEMAN on 10/08/17919 Multivitamin (Multi-Vitamin Daily) 1 Each Tablet, 1 EACH PO DAILY, (Reported) Entered as Reported by: CLARIBEL FREEMAN on 10/08/17919 [place] 3 Polyunsat Fatty Acids (Fish Oil 1,000 mg Capsule) 1,000 Mg Cap, 1,000 MG PO BID, (Reported) Entered as Reported by: CLARIBEL FREEMAN on 10/08/17919 Omeprazole (Omeprazole) 40 Mg Capsule.dr, 40 MG PO DAILY, (Reported) Entered as Reported by: LASHONDA LARSON on 03/20/211628 Rosuvastatin Calcium (Rosuvastatin Calcium) 20 Mg Tablet, 20 MG PO HS, (Reported) Entered as Reported by: LASHONDA LARSON on 03/20/21 1629 Topiramate (Topiramate) 50 Mg Tablet, 50 MG PO DAILY, (Reported) Entered as Reported by: CLARIBEL FREEMAN on 10/08/17 0920 Review of Systems Review of Systems Constitutional: No diaphoresis, No malaise, No weakness EENTM: No Double Vision, No Eye Pain Respiratory: Cough; Denies SOA With Exertion, Denies SOA at Rest Cardiovascular: Chest Pain; Denies Lightheadedness, Denies Syncope Gastrointestinal: Denies Abdominal Pain, Denies Blood Streaked Stools Genitourinary: Denies Burning, Denies Discharge Musculoskeletal: No back pain, No joint pain Skin: No change in color, No change in hair/nails Past [id number] Hx Patient Social History Tobacco Use?: No Use of E-Cig and/or Vaping dev: No Substance use?: No Alcohol Use?: No Pt feels they are or have been: No Immunizations Up To Date Influenza Vaccine Up-to-Date: Yes; Up-to-Date First/Initial COVID19 Vaccinat: yes Second COVID19 Vaccination Harshal: yes Third COVID19 Vaccination Date: yes Seasonal Allergies Seasonal Allergies: Yes Past Medical History Surgery/Hospitalization HX: BREAST CANCER LEFT BREAST REMOVED, ANXIETY, Surgeries: Yes (CYSTS FROM THUMB AND WRIST, R CTR, L MASTECTOMY, ) Hysterectomy, Oophorectomy Respiratory: No Currently Using CPAP: No Currently Using BIPAP: No Cardiac: No Neurological: Yes Headaches /Migraines Reproductive Disorders: 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 Sexually Transmitted Disease: No HIV/AIDS: No Genitourinary: No Gastrointestinal: Yes Gastroesophageal Reflux, Hiatal Hernia Musculoskeletal: Yes Arthritis Endocrine: No HEENT: Yes Chronic Ear Infection Loss of Vision: Bilateral Hearing Impairment: Denies Cancer: Yes Breast Did You Recieve Any Treatments: Yes What Type of Treatment Did You: Surgical Intervention Psychosocial: No Anxiety, Depression Integumentary: No Blood Disorders: No Adverse Reaction/Blood Tranf: No (N/A) Physical Exam Vital Signs Vital Signs - First Documented 05/14/22 17:47 Temp 36.6 Pulse 90 Resp 16 B/P (MAP) 114/71 (85) Pulse Ox 95 O2 Delivery Room Air Capillary Refill : Less Than 3 Seconds Height, Weight, BMI Height: 5'7.00" Weight: 155lbs. 0.0oz. 70.116082fm; 24.00 BMI Method:Stated General Appearance: No Apparent Distress, WD/WN HEENT: PERRL/EOMI, TMs Normal, Normal ENT Inspection, Pharynx Normal Neck: Full Range of Motion, Normal Inspection, Non Tender, Supple Respiratory: Chest Non Tender, Lungs Clear, Normal Breath Sounds, No Accessory Muscle Use Cardiovascular: Regular Rate, Rhythm, No Edema, No Gallop, No JVD Gastrointestinal: Normal Bowel Sounds, No Organomegaly, No Pulsatile Mass, Non Tender Extremity: Normal Capillary Refill, Normal Inspection, Normal Range of Motion, Non Tender Neurologic/Psychiatric: Alert, Oriented x3, No Motor/Sensory Deficits, Normal Mood/Affect, chief media officer II-XII Norm as Tested Skin: Normal Color, Warm/Dry Progress/Results/Core Measures Results/Orders Lab Results Laboratory Tests Test 05/14/22 18:04 05/14/22 20:05 Range/Units White Blood Count 7.6 4.3-11.0 10^3/uL Red Blood Count 4.33 3.80-5.11 10^6/uL Hemoglobin 13.4 11.5-16.0 g/dL Hematocrit 40 35-52 % Mean Corpuscular Volume 93 80-99 fL Mean Corpuscular Hemoglobin 31 25-34 pg Mean Corpuscular Hemoglobin Concent 33 32-36 g/dL Red Cell Distribution Width 13.0 10.0-14.5 % Platelet Count 249 130-400 10^3/uL Mean Platelet Volume 9.0 9.0-12.2 fL Immature Granulocyte % (Auto) 0 % Neutrophils (%) (Auto) 33 L 42-75 % Lymphocytes (%) (Auto) 55 H 12-44 % Monocytes (%) (Auto) 8 0-12 % Eosinophils (%) (Auto) 4 0-10 % Basophils (%) (Auto) 1 0-10 % Neutrophils # (Auto) 2.5 1.8-7.8 10^3/uL Lymphocytes # (Auto) 4.2 H 1.0-4.0 10^3/uL Monocytes # (Auto) 0.6 0.0-1.0 10^3/uL Eosinophils # (Auto) 0.3 0.0-0.3 10^3/uL Basophils # (Auto) 0.0 0.0-0.1 10^3/uL Immature Granulocyte # (Auto) 0.0 0.0-0.1 10^3/uL Prothrombin Time 12.9 12.2-14.7 SEC INR Comment 0.9 0.8-1.4 Activated Partial Thromboplast Time 30 24-35 SEC D-Dimer 0.35 0.00-0.49 UG/ML Sodium Level 141 135-145 MMOL/L Potassium Level 3.9 3.6-5.0 MMOL/L Chloride Level 109 H 98-107 MMOL/L Carbon Dioxide Level 23 21-32 MMOL/L Anion Gap 9 5-14 MMOL/L Blood Urea Nitrogen 19 H 7-18 MG/DL Creatinine 1.17 0.60-1.30 MG/DL Estimat Glomerular Filtration Rate 48 BUN/Creatinine Ratio 16 Glucose Level 92 70-105 MG/DL Calcium Level 9.6 8.5-10.1 MG/DL Corrected Calcium 9.8 8.5-10.1 MG/DL Magnesium Level 1.9 1.6-2.4 MG/DL Total Bilirubin 0.3 0.1-1.0 MG/DL Aspartate Amino Transf (AST/SGOT) 21 5-34 U/L Alanine Aminotransferase (ALT/SGPT) 10 0-55 U/L Alkaline Phosphatase 58 40-136 U/L Myoglobin 56.3 10.0-92.0 NG/ML Troponin I < 0.028 < 0.028 <0.028 NG/ML Total Protein 7.2 6.4-8.2 GM/DL Albumin 3.8 3.2-4.5 GM/DL Lipase 33 8-78 U/L My Orders Orders - KENDY DE SOUZA A PA Ekg Tracing (05/14/22 17:51) Cbc With Automated Diff (05/14/22 18:01) Magnesium (05/14/22 18:01) Chest 1 View, Ap/Pa Only (05/14/22 18:01) Comprehensive Metabolic Panel (05/14/22 18:01) Myoglobin Serum (05/14/22 18:01) Protime With Inr (05/14/22 18:01) Partial Thromboplastin Time (05/14/22 18:01) Monitor-Rhythm Ecg Trace Only (05/14/22 18:01) Ed Iv/Invasive Line Start (05/14/22 18:01) Lipase (05/14/22 18:01) Fibrin Degradation Products (05/14/22 18:01) Troponin I [place] (05/14/22 18:01) Aspirin Chewable Tablet (Baby Aspirin Ch (05/14/22 18:15) Troponin I [place] (05/14/22 20:04) Medications Given in ED Vital Signs/I&O 05/14/22 05/14/22 17:47 21:02 Temp 36.6 36.3 Pulse 90 65 Resp 16 13 B/P (MAP) 114/71 (85) 131/63 Pulse Ox 95 96 O2 Delivery Room Air Room Air Blood Pressure Mean: 85 Comment Sinus rhythm, 90 bpm, QRS duration 86 MS, QTc 451 MS. Departure Communication (PCP) Patient on arrival no acute distress. EKG sinus rhythm. No ST elevation, depression, T wave inversion, A-fib or a flutter. She states the chest pressure is about 4 out of 10 but did relieve itself. This pain occurred about an hour prior. Typically only last for 30 minutes. This is not associated with exertion or eating. History of breast cancer. Cardiac work-up, D-dimer was ordered. Lab work was otherwise unremarkable. Normal troponin. Chest x-ray unremarkable. D-dimer negative. Patient was given aspirin. Patient was observed here in the ED. A 2-hour troponin was ordered. Second troponin was negative. Heart score 4. She continued to be asymptomatic at this time. No known cardiac history. Last stress test was several years ago. Due to her reassuring cardiac work-up, EKG and asymptomatic. Patient felt comfortable being discharged and to follow-up with her primary care physician for outpatient cardiac workup. Discussed further evaluation with cardiac work-up with observation due to elevated heart score but she would prefer outpatient. Patient does have chronic right-sided neck pain for several years with similiar pain today. She does take Tylenol. History of migraines with no current migraine today. She had no chest wall tenderness. No evidence of pericarditis, myocarditis. No arrhythmia. She has no epigastric tenderness. Neuro exam unremarkable. Unclear etiology of the chest pain. further cardiac work-up is needed. Impression Primary Impression: Chest pain Disposition: HOME, SELF-CARE Condition: Stable Departure-Patient Inst. Decision time for Depature: 21:00 Referrals: DANIEL TYLER MD (PCP/Family) Primary Care Physician CAROLYNN ONEAL MD Patient Instructions: Chest Pain (DC) Add. Discharge Instructions: Follow-up with your primary care physician for further evaluation. If any worsening chest pain, short of breath to return back to ED. All discharge instructions reviewed with patient and/or family. Voiced understanding. KENDY DE SOUZA May 14, 2022 18:04
[2022-05-14 18:07] LABS: BASOPHILS % (AUTO) 1 % (0-10); EOSINOPHILS # (AUTO) 0.3 10^3/uL (0.0-0.3); EOSINOPHILS % (AUTO) 4 % (0-10); HEMATOCRIT 40 % (35-52); HEMOGLOBIN 13.4 g/dL (11.5-16.0); LYMPHOCYTES # (AUTO) 4.2 10^3/uL (1.0-4.0); LYMPHOCYTES % (AUTO) 55 % (12-44); MEAN CORPUSCULAR HEMOGLOBIN 31 pg (25-34); MEAN CORPUSCULAR HGB CONC 33 g/dL (32-36); MEAN CORPUSCULAR VOLUME 93 fL (80-99); MONOCYTES # (AUTO) 0.6 10^3/uL (0.0-1.0); MONOCYTES % (AUTO) 8 % (0-12); NEUTROPHILS # (AUTO) 2.5 10^3/uL (1.8-7.8); NEUTROPHILS % (AUTO) 33 % (42-75); PLATELET COUNT 249 10^3/uL (130-400); WHITE BLOOD COUNT 7.6 10^3/uL (4.3-11.0)
--- NOTE | 2022-05-14 18:13 | Diagnostic Imaging Report ---
CLINICAL INDICATION: Patient with chest pain. EXAM: Portable chest x-ray upright view. COMPARISON: None. FINDINGS: Lungs/pleura: Lungs are clear. There is no pneumothorax. There is no pleural effusion. Mediastinum: Unremarkable. Pulmonary vasculature: Unremarkable. Heart: Unremarkable. Bones/extrathoracic soft tissue: There are small degenerative spurs involving the thoracic spine. IMPRESSION: There is no radiographic evidence of acute cardiopulmonary process. Dictated by: Dictated on workstation # [id number]
[2022-05-14] MEDS ORDERED: ASPIRIN 81 MG CHEW (CHILDREN'S ASA) PO ONE (18:15)
[2022-05-14 18:17] LABS: ALBUMIN 3.8 GM/DL (3.2-4.5)
[2022-05-14 18:18] LABS: POTASSIUM 3.9 MMOL/L (3.6-5.0)
[2022-05-14 18:19] LABS: CALCIUM 9.6 MG/DL (8.5-10.1)
[2022-05-14 18:20] LABS: TOTAL PROTEIN 7.2 GM/DL (6.4-8.2)
[2022-05-14 18:22] LABS: BILIRUBIN,TOTAL 0.3 MG/DL (0.1-1.0)
[2022-05-14 18:24] LABS: CREATININE SERUM 1.17 MG/DL (0.60-1.30)
[2022-05-14 18:26] LABS: MAGNESIUM 1.9 MG/DL (1.6-2.4)
[2022-05-14 18:36] LABS: INR 0.9 (0.8-1.4); PROTHROMBIN TIME PATIENT 12.9 SEC (12.2-14.7)
[2022-05-14 21:02] VITALS: BP 131/63
== END 2022-05-14 21:06 | disposition home or self-care (01) ==
LOC: EDUNIT# 17:44 → ER 17:46
DX: R07.89 Other chest pain (principal)
CPT/HCPCS: 36415; 71045; 80053; 83690; 83735; 83874; 84484; 85025; 85379; 85610; 85730; 93005; 93041

== ENCOUNTER → 2022-06-10 | Outpatient (CLI) | payer MEDICARE, OTHER ==
--- NOTE | 2022-06-10 14:18 | Diagnostic Imaging Report ---
PROCEDURE: US carotid duplex bilateral. TECHNIQUE: Multiple real-time grayscale images were obtained over the carotid arteries in various projections, bilaterally. Additional spectral analysis and color Doppler duplex images were also obtained. INDICATION: Carotid bruit. FINDINGS: Grayscale images show minimal atherosclerotic plaque at the carotid bifurcations. The velocities and waveforms appear normal. Both vertebral arteries are patent with antegrade flow. IMPRESSION: Minimal atherosclerotic change. There is no hemodynamically significant stenosis. Parameters based on the consensus panel Michelle-Scale and Doppler ultrasound criteria published January 2003, Radiology, Volume 229. DOPPLER (peak systolic velocity M/S Right Left CCA 0.84 1.11 ICA Proximal 1.07 1.01 ICA Mid 1.13 1.09 ICA Distal 1.16 1.36 RATIO 1.38 1.23 ECA 1.03 0.81 VERT 0.72 0.83 Dictated by: Dictated on workstation # [id number]
== END ==
LOC: RAD 13:07
PROVIDERS: ATTEND Family Medicine
DX: R09.89 Other specified symptoms and signs involving the circulatory and respiratory systems (principal)
CPT/HCPCS: 93880

== ENCOUNTER → 2022-07-03 | Outpatient (CLI) | payer MEDICARE, OTHER ==
[~2022-07-03] VITALS: Ht 170.2 cm; Wt 68.2 kg
[~2022-07-03] MED LIST changes: +DENOSUMAB 60 MG/1 ML (PROLIA) SQ SCH; +TOPI-241 PO; -TOPI50TA13 PO
[2022-07-03 11:25] VITALS: BP 100/64
== END ==
LOC: SDC 10:47
PROVIDERS: ATTEND Family Medicine
DX: M81.0 Age-related osteoporosis without current pathological fracture (principal)
CPT/HCPCS: 96372

== ENCOUNTER → 2022-09-01 | Outpatient (CLI) | payer MEDICARE, OTHER ==
[~2022-09-01] MED LIST changes: -DENOSUMAB 60 MG/1 ML (PROLIA) SQ SCH
--- NOTE | 2022-09-01 15:34 | Diagnostic Imaging Report ---
INDICATION: Routine screening. Comparison is made with prior mammogram from 09/09/2021 and 09/02/2020. Unilateral right 2-D and 3-D screening mammography was performed with CAD. Right breast is heterogeneously dense, limiting the sensitivity of mammography. The biopsy marker clip central right breast again noted. The parenchymal pattern is stable. No mass or malignant-appearing microcalcifications are seen. There are benign calcifications. Right axilla is unremarkable. IMPRESSION: No mammographic features suspicious for malignancy are identified. ACR BI-RADS Category 2: Benign findings. Result letter will be mailed to the patient. Note: At least 10% of breast cancer is not imaged by mammography. BI-RADS Category 2 Dictated by: Dictated on workstation # [id number]
== END ==
LOC: RAD 08:39
PROVIDERS: ATTEND Family Medicine
DX: Z12.31 Encounter for screening mammogram for malignant neoplasm of breast (principal)
CPT/HCPCS: 77063

== ENCOUNTER → 2023-01-25 | Outpatient (CLI) | payer MEDICARE, OTHER ==
[~2023-01-25] VITALS: Wt 68.2 kg
[~2023-01-25] MED LIST changes: +DENOSUMAB 60 MG/1 ML (PROLIA) SQ SCH; -ROSU20TA32 PO; +ROSU20TA73 PO
[2023-01-25 11:27] VITALS: BP 117/71
== END ==
LOC: SDC 11:00
PROVIDERS: ATTEND Family Medicine
DX: M81.0 Age-related osteoporosis without current pathological fracture (principal)
CPT/HCPCS: 96372